=== PATIENT | male | born 1935 | race Caucasian/White ===

== ENCOUNTER → 2020-05-22 12:58 | Outpatient (REF) | payer MEDICARE, SELFPAY ==
--- NOTE | 2020-05-22 13:12 | ECG_ITS ---
Hook-up date: 2020-05-22 14:01:00 Duration: 25:45:00 Test Indications: SINUS MARGARET, SOB W/EXERTION Medications: 67200 QRS complexes 22 Ventricular ectopics which represent <1 % of total QRS comp. 42 Supraventricular ectopics which represent <1 % of total QRS comp. * Paced QRS complexs which represent % of total QRS comp. VENTRICULAR ECTOPY 22 Isolated 0 Bigeminal Cycles 0 Couplets 0 Runs 0 Beats in Runs * Beats LONGEST at * BPM at :: -- * Beats FASTEST at * BPM at :: -- SUPRAVENTRICULAR ECTOPY 42 Isolated 0 Couplets 0 Runs 0 Beats in Runs * Beats LONGEST at * BPM at :: -- * Beats FASTEST at * BPM at :: -- HEART RATES 45 MIN at 11:08:14 2020-05-23 46 AVG 70 MAX at 03:17:30 2020-05-23 LONGEST RR 1.7600 secs at 23:55:04 2020-05-22 S-T LEVELS Channel 1 - 128 mm at 14:01:00 2020-05-22 - 128 mm at 14:01:00 2020-05-22 Channel 2 - 128 mm at 14:01:00 2020-05-22 - 128 mm at 14:01:00 2020-05-22 Channel 3 - 128 mm at 03:32:01 -- - 128 mm at 03:32:01 Basic rhythm Sinus bradycardia Average HR of 46 bpm No long pauses Rare Premature atrial complexes Patient did not report any symptoms in the diary Referred By: Miguel Crabtree Overread By: KEVIN LOREDO MD
--- NOTE | 2020-05-22 13:12 | CA_ITS ---
Transthoracic Echocardiogram Patient (Last, First, Middle): Wil Ray, Gender: Male Date of : 1935 Age: 84 Procedure Date: 05/22/2020 Procedure Type: Transthoracic Echocardiogram Location: OP Height: 172.72 cm Weight: 85.73 kg BSA: 2.00 m2 Heart Rate: bpm BP: 187 / 82 mmHg Electrocardiograph Repairer: Referring MD: Miguel Crabtree MD Symptoms: SOB Study Quality: Fair ECG Rhythm: Sinus Conclusions: - The left ventricular systolic function is normal. The visually estimated ejection fraction is between 65-70%. - No obvious valvular pathology seen on this study. - Mild pulmonary hypertension is present. Findings Left Ventricle Normal left ventricular cavity size. The left ventricular systolic function is normal. The visually estimated ejection fraction is between 65-70%. There is no evidence of regional wall motion abnormalities. Diastolic function is normal for age. Due to poor endocardial definition, unable to assess wall thickness. Right Ventricle Normal right ventricular cavity size and systolic function. Atria The left atrium is normal in size. The right atrium is normal in size. Aortic Valve There is a normal trileaflet aortic valve. There is no aortic valve stenosis. There is trace (trivial) aortic valve regurgitation. Mitral Valve The mitral valve appears normal. There is trace mitral valve regurgitation. There is no mitral valve stenosis. Pulmonic Valve The pulmonic valve was not well visualized. Tricuspid Valve Normal tricuspid valve structure. There is trace tricuspid valve regurgitation. Mild pulmonary hypertension is present. Great Vessels The aortic annulus, sinuses of valsalva, and asc aorta are normal in size. Venous The inferior vena cava is normal in size and collapses greater than 50% with inspiration. Pericardium/Pleural There is no evidence of pericardial effusion. Prior Study Comparison No significant change compared to prior study dated: 02/03/2018. Recommendations, Care & Conclusions No obvious valvular pathology seen on this study. Measurements 2D Linear Measurements LA Diam: 3.50 2.7-3.8/3.0-4.0 cm LAIDs Index: 1.75 1.5-2.3 cm/m2 LVOT Diam: 2.10 3.0+(-)1.3 cm 2D Systolic Function EF 4C: 76.90 >55% EF 2C: 75.80 >55% EF BiP: 77.20 >55% Mitral Valve MV Pk E: 0.71 MV PK A: 0.60 MV Decel Time: 433.00 E/A: 1.20 E'Lateral: 6.67 E'Medial: 6.58 E/E' Med: 10.80 E/E' Lat: 10.60 PHT: 127.00 MVA PHT: 1.73 Decel [place]: 1.64 Aortic Valve AoV Pk Abad: 1.79 AoV Mn Abad: 1.36 AoV VTI: 0.42 AoV Pk Grad: 13.00 Aov Mn Grad: 8.00 ANNABEL Cont.VTI: 2.88 LVOT LVOT Pk Abad: 1.80 LVOT Mn Abad: 1.02 LVOT VTI: 0.35 LVOT Pk Grad: 13.00 LVOT Mn Grad: 5.00 LVOT Diam: 2.10 LVOT Area: 3.46 Diastolic Function MV Pk E: 0.71 MV Pk A: 0.60 E/A: 1.20 E'Medial: 6.58 E/E' Med: 10.80 E' Laterial: 6.67 E/E' Lat: 10.60 Tricuspid Valve TR Pk Abad: 2.61 TR Pk Grad: 27.00 RA Press: 8.00 RVSP: 37.00 Great Vessels Aorta Ao Asc: 3.20 2.1-3.4 cm Ao Arch: 2.80 Updated in Other Vendor System with Status of Final Miguel Crabtree MD electronically signed on 05/23/2020 8:46:37 AM with status of Final
== END ==
LOC: HO.CARD 12:58
PROVIDERS: Visit Provider Internal Medicine
DX: R00.1 Bradycardia, unspecified (principal); R06.02 Shortness of breath
CPT/HCPCS: 93225; 93226; 93306

== ENCOUNTER → 2020-05-30 13:20 | Outpatient (BNVA) | payer MEDICARE, SELFPAY | PROVIDERS: PCP Physician Assistant; Referring Provider Physician Assistant; Visit Provider Internal Medicine | DX: R00.1 Bradycardia, unspecified (principal); I10 Essential (primary) hypertension; R25.1 Tremor, unspecified | CPT/HCPCS: 99212 ==

== ENCOUNTER 2020-06-15 10:22 | Outpatient (REF) | payer MEDICARE, SELFPAY ==
[2020-06-15 12:40] LABS: MANUAL DIFF FLAG NO
[2020-06-15 12:48] LABS: Basophils Absolute Auto 0.1 X10*3/uL (0.0-0.2); Eosinophils Absolute Auto 0.2 X10*3/uL (0.0-0.4); Eosinophils Percent Auto 3.9 % (0-4); Hematocrit 43.7 % (42-52); Hemoglobin 14.4 g/dl (14.0-18.0); Imm Gran Abs Auto 0.01 X10*3/uL (0.00-0.03); Imm Gran Pct Auto 0.2 % (0.0-0.4); Lymphocytes Absolute Auto 1.4 X10*3/uL (1.2-4.9); Lymphocytes Percent Auto 28.6 % (20-40); Mean Corpuscular Hemoglobin 27.2 pg (27.0-33.0); Mean Corpuscular Volume 82.5 fL (80-98); Mean Platelet Volume 11.7 fL (9.4-12.4); Monocytes Absolute Auto 0.5 X10*3/uL (0.1-1.2); Monocytes Percent Auto 10.8 % (2-11); Neutrophils Absolute Auto 2.7 X10*3/uL (2.0-8.3); Neutrophils Percent Auto 55.5 % (45-73); Platelet Count 141 X10*3/uL (160-400); Red Cell Distribution Width 12.9 % (11.0-16.0); White Blood Count 4.9 X10*3/uL (4.8-10.8)
[2020-06-15 13:33] LABS: Alanine Aminotransferase 13 U/L (0-40); Alkaline Phosphatase 55 U/L (39-117); Anion Gap 11 (12-20); Aspartate Amino Transferase 19 U/L (5-37); Bilirubin Total 0.4 mg/dL (0.0-1.0); Blood Urea Nitrogen 17 mg/dL (9-16); Calcium 9.2 mg/dL (8.4-10.2); Carbon Dioxide 36 mmol/L (22-29); Chloride 97 mmol/L (96-108); Cholesterol 193 mg/dL; Estimated Glomerular Filt Rate 53; Glucose Fasting 85 mg/dL (60-99); HDL Cholesterol 44 mg/dL; LDL Cholesterol Calculated 107 mg/dl; Potassium 3.5 mmol/l (3.3-5.1); Sodium 140 mmol/L (135-145); Total Protein 7.2 g/dL (6.5-8.0); Triglycerides 212 mg/dL
[2020-06-15 13:48] LABS: Glucose Urine UA NEG (NEG); Leukocyte Esterase Urine NEG (NEG); Nitrite Urine NEG (NEG); Specific Gravity - Urine >= 1.030 (1.005-1.025); Urine Blood NEG (NEG); Urine Ketones NEG (NEG); Urine Protein NEG (NEG-TRACE)
[2020-06-15 13:55] LABS: Appearance Urine CLEAR; Color Urine YELLOW
[2020-06-15 14:05] LABS: Folate 10.4 ng/mL (> or = 4.0); Vitamin B12 618 pg/mL (200-900)
[2020-06-15 14:23] LABS: TSH reflex Free T4 3.37 mIU/mL (0.32-4.0); Vitamin D 25-OH Total 48.4 ng/mL (>30)
== END 2020-06-15 10:23 | disposition home or self-care (01) ==
LOC: HO.LAB 10:22
PROVIDERS: PCP Internal Medicine; Visit Provider Internal Medicine
DX: E78.5 Hyperlipidemia, unspecified (principal); I12.9 Hypertensive chronic kidney disease with stage 1 through stage 4 chronic kidney disease, or unspecified chronic kidney disease; N18.30 Chronic kidney disease, stage 3 unspecified; R26.81 Unsteadiness on feet; G57.93 Unspecified mononeuropathy of bilateral lower limbs; I25.10 Atherosclerotic heart disease of native coronary artery without angina pectoris; K21.9 Gastro-esophageal reflux disease without esophagitis; E55.9 Vitamin D deficiency, unspecified; R00.1 Bradycardia, unspecified
CPT/HCPCS: 36415; 80053; 80061; 81003; 82306; 82607; 82746; 84443; 85025

== ENCOUNTER → 2020-07-13 12:02 | Outpatient (BNVA) | payer MEDICARE, SELFPAY | PROVIDERS: PCP Internal Medicine; Visit Provider Nurse Practitioner | DX: K21.9 Gastro-esophageal reflux disease without esophagitis (principal); R63.0 Anorexia | CPT/HCPCS: Q3014 ==

== ENCOUNTER 2020-08-03 15:22 | Outpatient (REF) | payer MEDICARE, SELFPAY | END 2020-08-03 15:23 | disposition home or self-care (01) | LOC: HO.LAB 15:22 | PROVIDERS: PCP Internal Medicine; Visit Provider Internal Medicine | DX: Z20.828 Contact with and (suspected) exposure to other viral communicable diseases (principal) | CPT/HCPCS: 36415; C9803; U0003 ==

== ENCOUNTER → 2020-08-15 15:29 | Outpatient (BNVA) | payer MEDICARE, SELFPAY | PROVIDERS: Visit Provider Internal Medicine | DX: J44.9 Chronic obstructive pulmonary disease, unspecified (principal); U07.1 COVID-19 | CPT/HCPCS: Q3014 ==

== ENCOUNTER 2020-08-30 09:24 | Outpatient (REF) | payer MEDICARE, SELFPAY ==
[2020-08-30 10:06] LABS: MANUAL DIFF FLAG NO
[2020-08-30 10:08] LABS: Basophils Percent Auto 0.5 % (0-2); Eosinophils Absolute Auto 0.2 X10*3/uL (0.0-0.4); Eosinophils Percent Auto 4.4 % (0-4); Hematocrit 42.3 % (42-52); Hemoglobin 13.9 g/dl (14.0-18.0); Imm Gran Abs Auto 0.01 X10*3/uL (0.00-0.03); Imm Gran Pct Auto 0.2 % (0.0-0.4); Lymphocytes Absolute Auto 1.8 X10*3/uL (1.2-4.9); Lymphocytes Percent Auto 32.1 % (20-40); Mean Corpuscular HGB Conc 32.9 g/dl (31.0-36.0); Mean Corpuscular Hemoglobin 26.5 pg (27.0-33.0); Mean Corpuscular Volume 80.7 fL (80-98); Mean Platelet Volume 10.3 fL (9.4-12.4); Monocytes Absolute Auto 0.6 X10*3/uL (0.1-1.2); Monocytes Percent Auto 10.9 % (2-11); Neutrophils Absolute Auto 2.8 X10*3/uL (2.0-8.3); Neutrophils Percent Auto 51.9 % (45-73); Platelet Count 142 X10*3/uL (160-400); Red Blood Count 5.24 X10*6/uL (4.60-5.80); Red Cell Distribution Width 13.1 % (11.0-16.0); White Blood Count 5.5 X10*3/uL (4.8-10.8)
[2020-08-30 10:13] LABS: Glucose Urine UA NEG (NEG); Leukocyte Esterase Urine NEG (NEG); Nitrite Urine NEG (NEG); Specific Gravity - Urine 1.025 (1.005-1.025); Urine Blood NEG (NEG); Urine Ketones NEG (NEG); Urine Protein NEG (NEG-TRACE)
[2020-08-30 10:15] LABS: Appearance Urine HAZY; Color Urine YELLOW
[2020-08-30 10:54] LABS: Alanine Aminotransferase 12 U/L (0-40); Albumin Level 3.6 g/dL (3.5-5.0); Alkaline Phosphatase 59 U/L (39-117); Anion Gap 12 (12-20); Aspartate Amino Transferase 18 U/L (5-37); Bilirubin Total 0.4 mg/dL (0.0-1.0); Blood Urea Nitrogen 15 mg/dL (9-16); Calcium 8.9 mg/dL (8.4-10.2); Carbon Dioxide 34 mmol/L (22-29); Chloride 98 mmol/L (96-108); Cholesterol 208 mg/dL; Estimated Glomerular Filt Rate 55; Glucose Fasting 96 mg/dL (60-99); HDL Cholesterol 45 mg/dL; LDL Cholesterol Calculated 105 mg/dl; Potassium 3.6 mmol/L (3.3-5.1); Sodium 140 mmol/L (135-145); Total Protein 6.9 g/dL (6.5-8.0); Triglycerides 294 mg/dL
[2020-08-30 11:17] LABS: TSH reflex Free T4 4.74 uIU/mL (0.32-4.0)
[2020-08-30 11:56] LABS: Free T4 (Free Thyroxine) 0.75 ng/dL (0.71-1.85)
== END 2020-08-30 09:25 | disposition home or self-care (01) ==
LOC: HO.LAB 09:24
PROVIDERS: PCP Internal Medicine; Visit Provider Internal Medicine
DX: K21.9 Gastro-esophageal reflux disease without esophagitis (principal); I12.9 Hypertensive chronic kidney disease with stage 1 through stage 4 chronic kidney disease, or unspecified chronic kidney disease; N18.31 Chronic kidney disease, stage 3a; E78.2 Mixed hyperlipidemia; R25.1 Tremor, unspecified
CPT/HCPCS: 36415; 80053; 80061; 81003; 84439; 84443; 85025

== ENCOUNTER 2020-11-29 07:42 | Outpatient (REF) | payer MEDICARE, MEDICAID, SELFPAY ==
[2020-11-29 08:54] LABS: MANUAL DIFF FLAG NO
[2020-11-29 09:02] LABS: Basophils Absolute Auto 0.1 X10*3/uL (0.0-0.2); Basophils Percent Auto 1.1 % (0-2); Eosinophils Absolute Auto 0.1 X10*3/uL (0.0-0.4); Eosinophils Percent Auto 2.9 % (0-4); Hematocrit 45.1 % (42-52); Hemoglobin 14.9 g/dl (14.0-18.0); Imm Gran Abs Auto 0.02 X10*3/uL (0.00-0.03); Imm Gran Pct Auto 0.4 % (0.0-0.4); Lymphocytes Absolute Auto 1.4 X10*3/uL (1.2-4.9); Lymphocytes Percent Auto 30.5 % (20-40); Mean Corpuscular Hemoglobin 26.7 pg (27.0-33.0); Mean Corpuscular Volume 80.8 fL (80-98); Mean Platelet Volume 10.5 fL (9.4-12.4); Monocytes Absolute Auto 0.5 X10*3/uL (0.1-1.2); Neutrophils Absolute Auto 2.4 X10*3/uL (2.0-8.3); Neutrophils Percent Auto 54.1 % (45-73); Platelet Count 155 X10*3/uL (160-400); Red Blood Count 5.58 X10*6/uL (4.60-5.80); Red Cell Distribution Width 13.3 % (11.0-16.0); White Blood Count 4.5 X10*3/uL (4.8-10.8)
[2020-11-29 09:11] LABS: Alanine Aminotransferase 7 U/L (0-40); Alkaline Phosphatase 59 U/L (39-117); Anion Gap 10 (12-20); Aspartate Amino Transferase 18 U/L (5-37); Bilirubin Total 0.4 mg/dL (0.0-1.0); Blood Urea Nitrogen 17 mg/dL (9-16); Calcium 9.4 mg/dL (8.4-10.2); Carbon Dioxide 35 mmol/L (22-29); Chloride 95 mmol/L (96-108); Cholesterol 209 mg/dL; Estimated Glomerular Filt Rate 52; Glucose Fasting 91 mg/dL (60-99); HDL Cholesterol 48 mg/dL; LDL Cholesterol Calculated 111 mg/dl; Potassium 3.6 mmol/L (3.3-5.1); Sodium 136 mmol/L (135-145); Total Protein 7.5 g/dL (6.5-8.0); Triglycerides 252 mg/dL
[2020-11-29 09:25] LABS: Glucose Urine UA NEG (NEG); Leukocyte Esterase Urine NEG (NEG); Nitrite Urine NEG (NEG); Specific Gravity - Urine 1.025 (1.005-1.025); Urine Blood NEG (NEG); Urine Ketones NEG (NEG); Urine Protein NEG (NEG-TRACE)
[2020-11-29 09:28] LABS: Appearance Urine CLEAR; Color Urine YELLOW
[2020-11-29 09:35] LABS: TSH reflex Free T4 4.25 uIU/mL (0.32-4.0)
== END 2020-11-29 07:43 | disposition home or self-care (01) ==
LOC: HO.LAB 07:42
PROVIDERS: PCP Internal Medicine; Visit Provider Internal Medicine
DX: I12.9 Hypertensive chronic kidney disease with stage 1 through stage 4 chronic kidney disease, or unspecified chronic kidney disease (principal); N18.31 Chronic kidney disease, stage 3a; N40.1 Benign prostatic hyperplasia with lower urinary tract symptoms; N13.8 Other obstructive and reflux uropathy; E55.9 Vitamin D deficiency, unspecified; K21.9 Gastro-esophageal reflux disease without esophagitis; J44.9 Chronic obstructive pulmonary disease, unspecified; E78.2 Mixed hyperlipidemia; E66.3 Overweight; E78.00 Pure hypercholesterolemia, unspecified
CPT/HCPCS: 36415; 80053; 80061; 81003; 82306; 84439; 84443; 85025

== ENCOUNTER 2021-03-05 12:52 | Emergency (ER) | payer MEDICARE, MEDICAID, SELFPAY ==
--- NOTE | ~2021-03-05 | CT_ITS ---
EXAMINATION: CT HEAD WITHOUT CONTRAST CLINICAL INFORMATION: Head trauma. Left facial droop. COMPARISON: May 19, 2009 TECHNIQUE: Contiguous axial imaging was performed from the skull base to vertex without intravenous administration of contrast. This CT examination was performed using dose optimization techniques as appropriate, variously including the following: *Automated exposure control *Adjustment of mA and/or kV according to patient size (this includes techniques or standardized protocols for targeted exams where dose is matched to indication/reason for exam; i.e. extremities or head) *Use of iterative reconstruction technique DLP: 703 mGy-cm FINDINGS: There is no evidence of acute intracranial hemorrhage or territorial infarction. No abnormal mass effect or midline shift is seen. [place] to white matter differentiation is well preserved. No extra-axial fluid collections are identified. There is diffuse prominence of ventricles, sulci, cisterns consistent with generalized atrophy. There is periventricular white matter low density seen consistent with microangiopathy. The osseous structures and soft tissues are normal. The mastoid air cells and visualized portions of the paranasal sinuses are well aerated. CT/CT head/brain wo con IMPRESSION: No acute intracranial pathology. 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
--- NOTE | 2021-03-05 13:06 | ED_ITS ---
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 Patient has chest pain. Family states that he hit his head last week. Daughter noticed facial droop yesterday but now having chest pain. Patient can give no further information. Family states they noticed a facial droop yesterday MD complaint: chest pain Onset (ago): hour(s) Timing of current episode: constant Onset: during rest Pain location: left chest Severity: mild Relieving factors: nothing Risk Factors Coronary artery disease risk factors: hyperlipidemia and hypertension Related Data Home Medications Medication Instructions Recorded Confirmed tiotropium bromide 18 mcg capsule 1 cap INHALATION DAILY 05/18/20 12/18/20 with inhalation device (Spiriva with HandiHaler) fluticasone 500 mcg-salmeterol 50 1 inh INHALATION BID 09/18/20 12/18/20 mcg/dose blistr powdr for inhalation (Wixela Inhub) miscellaneous medical supply ea MISCELLANEOUS 02/27/21 Previous Rx's Medication Instructions Recorded chlorthalidone 25 mg tablet 25 mg PO DAILY #1 tab 05/30/20 losartan 50 mg tablet 50 mg PO DAILY #1 tab 05/30/20 finasteride 5 mg tablet 5 mg PO DAILY #90 tab 07/27/20 cholecalciferol (vitamin D3) 50 50 mcg PO DAILY #90 cap 08/07/20 mcg (2,000 unit) capsule isosorbide mononitrate 30 mg 30 mg PO QAM #90 tab 09/28/20 tablet,extended release 24 hr montelukast 10 mg tablet 10 mg PO BEDTIME #90 tab 12/18/20 omeprazole 20 mg capsule,delayed 20 mg PO DAILY #90 cap 02/05/21 release albuterol sulfate 90 mcg/actuation 2 puff INHALATION Q6H PRN #8.5 g 02/08/21 aerosol inhaler tramadol 50 mg tablet 50 mg PO .2-3 times a day PRN 30 02/12/21 Days #90 tab alprazolam 0.5 mg tablet 0.5 mg PO .every 8 hours PRN 30 02/25/21 Days #90 tab ROLLATOR with wheels and seat #1 ea 03/02/21 cyproheptadine 4 mg tablet 4 mg PO BID #180 tab 03/02/21 trazodone 50 mg tablet 50 mg PO BEDTIME PRN #90 tab 03/02/21 Allergies Allergy/AdvReac Type Severity Reaction Status Date / Time No Known Allergies Allergy Verified 12/18/20 12:39 [No Known Allergies*] Review of Systems Constitutional: Constitutional: Reports no additional constitutional complaints Eyes: Eyes: Reports no additional eye complaints ENT: Denies dizziness Cardiovascular: Cardiovascular: Reports no additional cardiovascular complaints Respiratory: Respiratory: Reports as per HPI Gastrointestinal: Gastrointestinal: Reports no additional gastrointestinal complaints Musculoskeletal: Musculoskeletal: Reports no additional musculoskeletal complaints Integumentary/Breasts: Skin/Breast: Denies rash Neurologic: Reports system reviewed and no additional complaints, except as documented, Denies dizziness and Denies Sensory deficit (Neuro) Psychiatric: Psychiatric: Denies anxiety PMFSH Past Medical History Medical History Anxiety Benign essential hypertension Benign prostatic hyperplasia with urinary obstruction Borderline abnormal TFTs Chronic kidney disease (CKD), stage III (moderate) COPD (chronic obstructive pulmonary disease) COVID-19 Essential hypertension Facet arthritis of lumbosacral region GERD (gastroesophageal reflux disease) Mixed hyperlipidemia Overweight (BMI 25.0-29.9) Sinus bradycardia Vitamin D deficiency Surgical History History of cholecystectomy (~12/2015) History of esophagogastroduodenoscopy (EGD) Family History Family History Father No problems noted. Mother No problems noted. Social History Social History Alcohol intake: never Patient Tobacco Use Status: Never used Tobacco Use of substances other than those prescribed or required for medical reasons: No Advance Directives: Yes Advance Directives Information Provided: Yes Advance Directives on File: No Physical Exam Vital Signs: Vital Signs: Last Vital Signs Pulse 55 03/05/21 16:23 Resp 13 03/05/21 16:23 BP 137/81 03/05/21 16:23 Pulse Ox 98 03/05/21 16:23 Body Mass Index 29.0 Const: Other: elderly male chronically ill in no acute distress Nutritional Appearance: average body habitus Orientation/consciousness: oriented to person HENMT: Head: Yes normal to inspection Ears: external ears normal General nose exam: Normal external nose present Mouth: Normal oral and palatal mucosa present and oropharynx normal Throat: Yes posterior oropharynx normal Eyes: General: appearance normal, both eyes and all related structures Neck: Other: supple Neck: Yes normal visual inspection Chest: Chest palpation & inspection: normal inspection of the chest Resp: Auscultation: clear to auscultation bilaterally Cardio: Jugular venous distension: no JVD Rate: regular rate Rhythm: regular rhythm Heart sounds: S1 normal heart sound present and S2 normal heart sound present GI: Inspection: Yes normal to inspection Palpation (GI): Soft to palpation, nontender and No hepatosplenomegaly present Auscultation: normal bowel sounds : General: Yes no CVA tenderness Back/Spine/Pelvis: Back: no CVA tenderness Skin: General skin exam: no rashes or lesions noted Neuro: Other: patient with only facial droop otherwise nonfocal neuro exam General: oriented to person Cranial nerves: Yes CN's II-XII intact bila terally Motor exam (neuro): 5/5 motor strength present throughout Sensory Exam: No Sensory deficit (Neuro) Extrem: General: Yes normal to inspection Psych: Appearance: grossly normal Course Reevaluation(s) Reevaluation #1: Patient with heart score of 5 will admit Time: 16:09 Reevaluation #2: patient sees Dr. Crabtree and daughter feels comfortable taking him home with follow up with necessary, patient does not want to stay in the hospital will dc home Time: 16:33 Reevaluation #3: Discussed with Dr. Wahl, even with HEART score of 5 probably could feel comfortable discharging with flat troponin Time: 16:34 MDM - Chest Pain Lab Data Result diagrams: 03/05/21 14:09 03/05/21 14:09 Labs: Lab Results 03/05/21 03/05/21 03/05/21 Range/Units 14:09 14:09 14:09 WBC 5.0 (4.8-10.8) X10*3/uL RBC 5.82 H (4.60-5.80) X10*6/uL Hgb 15.5 (14.0-18.0) g/dl Hct 46.4 (42-52) % MCV 79.7 L (80-98) fL MCH 26.6 L (27.0-33.0) pg MCHC 33.4 (31.0-36.0) g/dl RDW 14.0 (11.0-16.0) % Plt Count 125 L (160-400) X10*3/uL MPV 10.4 (9.4-12.4) fL Immature Gran % (Auto) 0.2 (0.0-0.4) % Neut % (Auto) 67.3 (45-73) % Lymph % (Auto) 21.8 (20-40) % [place] % (Auto) 8.7 (2-11) % Eos % (Auto) 1.2 (0-4) % Baso % (Auto) 0.8 (0-2) % Lymph # (Auto) 1.1 L (1.2-4.9) X10*3/uL [place] # (Auto) 0.4 (0.1-1.2) X10*3/uL Eos # (Auto) 0.1 (0.0-0.4) X10*3/uL Baso # (Auto) 0.0 (0.0-0.2) X10*3/uL Abs Immat Gran (auto) 0.01 (0.00-0.03) X10*3/uL Absolute Neuts (auto) 3.3 (2.0-8.3) X10*3/uL Absolute Nucleated RBC 0.000 (0.0-0.012) X10*3/uL Nucleated RBC % (auto) 0.0 (0.0-0.2) /100WBC Sodium 137 (135-145) mmol/L Potassium 3.4 (3.3-5.1) mmol/L Chloride 99 (96-108) mmol/L Carbon Dioxide 27 (22-29) mmol/L Anion Gap 14 (12-20) BUN 16 (9-16) mg/dL Creatinine 1.36 (0.5-1.4) mg/dL Estim Creat Clear Calc 43.9 Estimated GFR 50 Random Glucose 91 (60-115) mg/dL Calcium 9.2 (8.4-10.2) mg/dL Troponin I High Sens 15.5 (<3.5-35.0) ng/L 03/05/21 Range/Units 15:18 WBC (4.8-10.8) X10*3/uL RBC (4.60-5.80) X10*6/uL Hgb (14.0-18.0) g/dl Hct (42-52) % MCV (80-98) fL MCH (27.0-33.0) pg MCHC (31.0-36.0) g/dl RDW (11.0-16.0) % Plt Count (160-400) X10*3/uL MPV (9.4-12.4) fL Immature Gran % (Auto) (0.0-0.4) % Neut % (Auto) (45-73) % Lymph % (Auto) (20-40) % Webster % (Auto) (2-11) % Eos % (Auto) (0-4) % Baso % (Auto) (0-2) % Lymph # (Auto) (1.2-4.9) X10*3/uL Webster # (Auto) (0.1-1.2) X10*3/uL Eos # (Auto) (0.0-0.4) X10*3/uL Baso # (Auto) (0.0-0.2) X10*3/uL Abs Immat Gran (auto) (0.00-0.03) X10*3/uL Absolute Neuts (auto) (2.0-8.3) X10*3/uL Absolute Nucleated RBC (0.0-0.012) X10*3/uL Nucleated RBC % (auto) (0.0-0.2) /100WBC Sodium (135-145) mmol/L Potassium (3.3-5.1) mmol/L Chloride (96-108) mmol/L Carbon Dioxide (22-29) mmol/L Anion Gap (12-20) BUN (9-16) mg/dL Creatinine (0.5-1.4) mg/dL Estim Creat Clear Calc Estimated GFR Random Glucose (60-115) mg/dL Calcium (8.4-10.2) mg/dL Troponin I High Sens 17.8 (<3.5-35.0) ng/L Imaging Data CT scan - head: Radiologist's impression: IMPRESSION: No acute intracranial pathology. ? 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 Discharge Plan Discharge Clinical Impression: Chest pain Patient Disposition: Home, Self-Care Instructions: Chest Pain (ED) Prescriptions: No Action finasteride 5 mg tablet 5 mg PO DAILY Qty: 90 RF: 2 cholecalciferol (vitamin D3) 50 mcg (2,000 unit) capsule 50 mcg PO DAILY Qty: 90 RF: 2 isosorbide mononitrate 30 mg tablet extended release 24 hr 30 mg PO QAM Qty: 90 RF: 1 montelukast 10 mg tablet 10 mg PO BEDTIME Qty: 90 RF: 1 omeprazole 20 mg capsule,delayed release(DR/EC) 20 mg PO DAILY Qty: 90 RF: 0 albuterol sulfate 90 mcg/actuation HFA aerosol inhaler 2 puff inhalation Q6H PRN (Reason: for wheezing) Qty: 8.5 RF: 3 tramadol 50 mg tablet 50 mg PO .2-3 times a day PRN (Reason: pain) 30 Days Qty: 90 RF: 1 alprazolam 0.5 mg tablet 0.5 mg PO .every 8 hours PRN (Reason: anxiety) 30 Days Qty: 90 RF: 0 miscellaneous medical supply Misc miscellaneous RF: 0 (DME) ROLLATOR with wheels and seat See Rx Instructions .Route .MEDSUPPLY Qty: 1 RF: 0 cyproheptadine 4 mg tablet 4 mg PO BID Qty: 180 RF: 1 trazodone 50 mg tablet 50 mg PO BEDTIME PRN (Reason: for insomnia) Qty: 90 RF: 1 Spiriva with HandiHaler 18 mcg capsule, w/inhalation device 1 cap inhalation DAILY RF: 0 fluticasone propion-salmeterol [Wixela Inhub] 500-50 mcg/dose blister with device 1 inh inhalation BID RF: 0 losartan 50 mg tablet 50 mg PO DAILY Qty: 1 RF: 0 chlorthalidone 25 mg tablet 25 mg PO DAILY Qty: 1 RF: 0 Referrals: Baljit Swanson MD [Primary Care Provider] - 1 week Miguel Crabtree MD [Physician] - 2 days
[2021-03-05 13:14] VITALS: BP 167/114; BP 180/110; PULSE 120; PULSE 61; RESP 12; O2SAT 98; BMI 29.0
--- NOTE | 2021-03-05 13:14 | ECG_ITS ---
Test Reason : CHEST PAIN Blood Pressure : / mmHG Vent. Rate : 066 BPM Atrial Rate : 066 BPM P-R Int : 188 ms QRS Dur : 078 ms QT Int : 394 ms P-R-T Axes : 075 -07 039 degrees QTc Int : 413 ms Sinus rhythm with occasional Premature ventricular complexes Nonspecific ST abnormality Abnormal ECG When compared to the previous EKG of Premature ventricular complexes are now Present Referred By: Victor Hugo Nash Electronically Signed By:KEVIN LOREDO MD
--- NOTE | 2021-03-05 13:26 | PC.NURSE ---
no neuro deficit noted. speaks in full sentences. pt is a/o z 1 pt states that the yr was 2022. aware.
[2021-03-05 13:28] VITALS: PULSE 59
[2021-03-05 13:38] VITALS: BP 177/87; PULSE 56; RESP 12; O2SAT 98
[2021-03-05 14:12] LABS: MANUAL DIFF FLAG NO
[2021-03-05 14:18] LABS: Basophils Percent Auto 0.8 % (0-2); Eosinophils Absolute Auto 0.1 X10*3/uL (0.0-0.4); Eosinophils Percent Auto 1.2 % (0-4); Hematocrit 46.4 % (42-52); Hemoglobin 15.5 g/dl (14.0-18.0); Imm Gran Abs Auto 0.01 X10*3/uL (0.00-0.03); Imm Gran Pct Auto 0.2 % (0.0-0.4); Lymphocytes Absolute Auto 1.1 X10*3/uL (1.2-4.9); Lymphocytes Percent Auto 21.8 % (20-40); Mean Corpuscular HGB Conc 33.4 g/dl (31.0-36.0); Mean Corpuscular Hemoglobin 26.6 pg (27.0-33.0); Mean Corpuscular Volume 79.7 fL (80-98); Mean Platelet Volume 10.4 fL (9.4-12.4); Monocytes Absolute Auto 0.4 X10*3/uL (0.1-1.2); Monocytes Percent Auto 8.7 % (2-11); Neutrophils Absolute Auto 3.3 X10*3/uL (2.0-8.3); Neutrophils Percent Auto 67.3 % (45-73); Platelet Count 125 X10*3/uL (160-400); Red Blood Count 5.82 X10*6/uL (4.60-5.80)
[2021-03-05 14:45] LABS: Anion Gap 14 (12-20); Blood Urea Nitrogen 16 mg/dL (9-16); Calcium 9.2 mg/dL (8.4-10.2); Carbon Dioxide 27 mmol/L (22-29); Chloride 99 mmol/L (96-108); Creatinine Clr Calc Pharmacy 43.9; Estimated Glomerular Filt Rate 50; Glucose Random 91 mg/dL (60-115); Potassium 3.4 mmol/L (3.3-5.1); Sodium 137 mmol/L (135-145)
[2021-03-05 14:53] LABS: Troponin-I High Sensitivity 15.5 ng/L (<3.5-35.0)
[2021-03-05 15:48] LABS: Troponin-I High Sensitivity 17.8 ng/L (<3.5-35.0)
[2021-03-05 16:23] VITALS: BP 137/81; PULSE 55; RESP 13; O2SAT 98
--- NOTE | 2021-03-05 16:57 | PHA.MEDREC ---
Pharmacy Consult ? Medication Reconciliation Pharmacy has completed the medication reconciliation.
== END 2021-03-05 17:15 | disposition home or self-care (01) ==
PROVIDERS: Emergency Provider Emergency Medicine; PCP Internal Medicine
DX: R07.9 Chest pain, unspecified (principal); R29.810 Facial weakness; I25.10 Atherosclerotic heart disease of native coronary artery without angina pectoris; I10 Essential (primary) hypertension; E78.5 Hyperlipidemia, unspecified; Z79.899 Other long term (current) drug therapy
CPT/HCPCS: 36415; 70450; 80048; 84484; 85025; 93005; 99284; 99285

== ENCOUNTER 2021-03-16 07:16 | Outpatient (REF) | payer MEDICARE, MEDICAID, SELFPAY ==
[2021-03-16 08:22] LABS: MANUAL DIFF FLAG NO
[2021-03-16 08:27] LABS: Basophils Percent Auto 0.8 % (0-2); Eosinophils Absolute Auto 0.1 X10*3/uL (0.0-0.4); Eosinophils Percent Auto 2.1 % (0-4); Hematocrit 43.7 % (42-52); Hemoglobin 14.5 g/dl (14.0-18.0); Imm Gran Abs Auto 0.01 X10*3/uL (0.00-0.03); Imm Gran Pct Auto 0.2 % (0.0-0.4); Lymphocytes Absolute Auto 1.5 X10*3/uL (1.2-4.9); Lymphocytes Percent Auto 31.4 % (20-40); Mean Corpuscular HGB Conc 33.2 g/dl (31.0-36.0); Mean Corpuscular Hemoglobin 26.4 pg (27.0-33.0); Mean Corpuscular Volume 79.6 fL (80-98); Mean Platelet Volume 10.9 fL (9.4-12.4); Monocytes Absolute Auto 0.6 X10*3/uL (0.1-1.2); Monocytes Percent Auto 13.1 % (2-11); Neutrophils Absolute Auto 2.5 X10*3/uL (2.0-8.3); Neutrophils Percent Auto 52.4 % (45-73); Platelet Count 150 X10*3/uL (160-400); Red Blood Count 5.49 X10*6/uL (4.60-5.80); Red Cell Distribution Width 13.9 % (11.0-16.0); White Blood Count 4.8 X10*3/uL (4.8-10.8)
[2021-03-16 08:47] LABS: Alanine Aminotransferase 14 U/L (0-40); Alkaline Phosphatase 53 U/L (39-117); Anion Gap 14 (12-20); Aspartate Amino Transferase 18 U/L (5-37); Bilirubin Total 0.6 mg/dL (0.0-1.0); Blood Urea Nitrogen 18 mg/dL (9-16); Calcium 9.4 mg/dL (8.4-10.2); Carbon Dioxide 29 mmol/L (22-29); Chloride 100 mmol/L (96-108); Cholesterol 200 mg/dL; Estimated Glomerular Filt Rate 49; Glucose Fasting 91 mg/dL (60-99); HDL Cholesterol 41 mg/dL; LDL Cholesterol Calculated 126 mg/dl; Potassium 3.6 mmol/L (3.3-5.1); Sodium 139 mmol/L (135-145); Total Protein 7.3 g/dL (6.5-8.0); Triglycerides 167 mg/dL
[2021-03-16 09:10] LABS: Free T4 (Free Thyroxine) 0.78 ng/dL (0.71-1.85); Thyroid Stimulating Hormone 6.53 uIU/mL (0.32-4.0); Vitamin D 25-OH Total 53.5 ng/mL (>30)
[2021-03-16 09:21] LABS: Glucose Urine UA NEG (NEG); Leukocyte Esterase Urine NEG (NEG); Nitrite Urine NEG (NEG); PH 6.5 (5.0-8.0); Urine Blood NEG (NEG); Urine Ketones NEG (NEG); Urine Protein NEG (NEG-TRACE)
[2021-03-16 09:35] LABS: Appearance Urine CLEAR; Color Urine YELLOW
[2021-03-17 11:06] LABS: Triiodothyronine T3 Total 128 ng/dL (76-181)
== END 2021-03-16 07:17 | disposition home or self-care (01) ==
LOC: HO.LAB 07:16
PROVIDERS: PCP Internal Medicine; Visit Provider Internal Medicine
DX: I12.9 Hypertensive chronic kidney disease with stage 1 through stage 4 chronic kidney disease, or unspecified chronic kidney disease (principal); N18.31 Chronic kidney disease, stage 3a; K21.9 Gastro-esophageal reflux disease without esophagitis; E55.9 Vitamin D deficiency, unspecified; E66.3 Overweight; E78.2 Mixed hyperlipidemia; R94.6 Abnormal results of thyroid function studies
CPT/HCPCS: 36415; 80053; 80061; 81003; 82306; 84439; 84443; 84480; 85025

== ENCOUNTER 2021-03-30 12:33 | Outpatient (REF) | payer MEDICARE, MEDICAID, SELFPAY ==
--- NOTE | 2021-03-30 13:59 | MHC.AU.ANO ---
Adult Audiological Evaluation Date of Visit: 03/30/21 Customer Experience Professional Used: Declined by Patient Reason for Appointment: Audiologic evaluation due to decreased hearing ability. His daughter, Sasha Nicole, is accompanying Jayden today and reports he turns the volume of the television up very loud and frequently asks people to repeat what was said. Does patient feel they have a hearing loss?: Yes If Yes, Which Ear?: Both Ears Has hearing been tested previously?: Yes Previous Hearing Test Results: Not available for review Hearing Handicap Inventory: HHIE SCORE: 24 Based on HHIE score, patient has: Mild to moderate perceived hearing handicap Ear History: Family History of Hearing Loss?: Yes: Brother Non-Bothersome Tinnitus/Ringing/Noises in Ears: Left Ear History of occupational noise exposure?: Yes History: History: No Medical History: Medical History: High Blood Pressure, Thyroid Disease,Asthma and Anxiety Medication List: Alprazolam, Finasteride, Losartan, Montelukast, Chlorthalidone, Tramadol, Trazadone, Vitamin D3, Omeprazole, ProAir, Spiriva, Advair, Primidone, Levothyroxine Otoscopy: Right Ear: Very deep impacted cerumen Left Ear: Unremarkable Tympanometry: Tympanometry performed due to: To assess integrity of the middle ear system Right Ear: Non-compliant Middle Ear System (Type B) Left Ear: Normal Middle Ear System (Type A) Otoacoustic Emissions Frequency Range Used: Right Ear Results: Not performed at today's visit. Left Ear Results: Not performed at today's visit. 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 - Medical clearance from a physician is required before fitting. - Advised [place] to contact insurance to determine which Hearing Aid providers accept his insurance. Diagnosis: Primary Diagnosis: H90.3 Bilateral Sensorineural Hearing Loss Secondary Diagnosis: H69.91 Unspecified Eustachian Tube Dysfunction, Right Ear Services Performed: Comprehensive Audiological Evaluation (CPT 45550) Tympanometry (CPT 40013) Signature: Provider: Teri Ruiz, CCC-A
== END 2021-03-30 12:34 | disposition home or self-care (01) ==
LOC: HO.SH 12:33
PROVIDERS: Visit Provider Internal Medicine
DX: H90.3 Sensorineural hearing loss, bilateral (principal); H69.91 Unspecified Eustachian tube disorder, right ear
CPT/HCPCS: 92557; 92567

== ENCOUNTER → 2021-04-19 13:59 | Outpatient (BNVA) | payer MEDICARE, MEDICAID, SELFPAY | PROVIDERS: PCP Internal Medicine; Visit Provider Surgery Vascular Surgery | DX: I83.11 Varicose veins of right lower extremity with inflammation (principal); I73.00 Raynaud's syndrome without gangrene | CPT/HCPCS: 99202 ==

== ENCOUNTER 2021-05-08 12:42 | Outpatient (REF) | payer MEDICARE, MEDICAID, SELFPAY ==
--- NOTE | ~2021-05-08 | US_ITS ---
EXAMINATION: BILATERAL LOWER EXTREMITY VENOUS ULTRASOUND (Reflux Exam) CLINICAL INDICATION: Varicose veins. COMPARISON: None. TECHNIQUE: Color flow triplex imaging and compression Doppler was performed to evaluate both the deep and the superficial systems bilaterally. To evaluate the superficial system, the examination was performed in the upright position. Color-flow Doppler ultrasound and compression ultrasound were utilized. In addition, maneuvers were utilized to demonstrate reflux. FINDINGS: 1. DEEP VENOUS ULTRASOUND OF THE RIGHT LOWER EXTREMITY: Common Femoral Vein: Compressible, normal respiratory variation and augmented flow. Femoral vein: Compressible, normal color flow and augmentation. Popliteal Vein: Compressible, normal augmentation. Deep Reflux: Common femoral vein, greater than 1.3 seconds of reflux. There is no evidence of a Cardona's cyst. 2. SUPERFICIAL ULTRASOUND WITH DOPPLER OF RIGHT LOWER EXTREMITY GREAT SAPHENOUS VEIN: Saphenofemoral junction/proximal thigh: 0.7 cm; Reflux: Greater than 0.6 seconds. Max diameter: 0.7 Min diameter: 0.2 Reflux: Reflux is seen within the thigh measuring up to 0.6 seconds. DUPLICATED MEDIAL GREAT SAPHENOUS VEIN: Max Diameter: None Imaged. Reflux: NA DUPLICATED LATERAL GREAT SAPHENOUS VEIN: Diameter: None Imaged. Reflux: NA SMALL SAPHENOUS VEIN: Saphenopopliteal junction: 0.2 cm; Reflux: No evidence of reflux. Min diameter: 0.2 Reflux: No evidence of reflux. VEIN OF GIACOMINI: None Imaged. PERFORATORS: Location: Mid calf, 0.2 cm. Reflux: No reflux. VARICOSITIES: Location: At knee, 0.4 cm. Reflux: No reflux. 3. DEEP VENOUS ULTRASOUND OF THE LEFT LOWER EXTREMITY: Common Femoral Vein: Compressible, normal respiratory variation and augmented flow. Femoral vein: Compressible, normal color flow and augmentation. Popliteal Vein: Compressible, normal augmentation. Deep Reflux: There is common femoral, femoral vein and popliteal vein reflux measuring up to 2.9 seconds within the popliteal vein. There is no evidence of a Cardona's cyst. 4. SUPERFICIAL ULTRASOUND WITH DOPPLER OF LEFT LOWER EXTREMITY GREAT SAPHENOUS VEIN: Saphenopopliteal junction/proximal thigh: 0.9 cm; Reflux: Greater than 1.7 seconds of reflux. Max diameter: 0.9 Min diameter: 0.3 Reflux: Reflux is demonstrated throughout the left great saphenous vein measuring up to 3.2 seconds. DUPLICATED MEDIAL GREAT SAPHENOUS VEIN: Max Diameter: None Imaged Reflux: NA DUPLICATED LATERAL GREAT SAPHENOUS VEIN: Diameter: None Imaged. Reflux: NA SMALL SAPHENOUS VEIN: Saphenofemoral junction: 0.1 cm; Reflux: No evidence of reflux. Min diameter: 0.2 Reflux: No evidence of reflux. VEIN OF GIACOMINI: None Imaged. PERFORATORS: Location: Proximal thigh and midcalf, each measuring 0.2 cm. Reflux: None VARICOSITIES: Location: None Imaged. Reflux: NA US/US venous duplex LE BI IMPRESSION: 1. Bilateral great saphenous venous insufficiency. 2. Bilateral deep venous insufficiency. 3. No evidence of DVT. 4. No evidence of small saphenous venous insufficiency.
== END 2021-05-08 12:43 | disposition home or self-care (01) ==
LOC: HO.US 12:42
PROVIDERS: PCP Internal Medicine; Visit Provider Nurse Practitioner Acute Care
DX: I83.893 Varicose veins of bilateral lower extremities with other complications (principal)
CPT/HCPCS: 93970

== ENCOUNTER → 2021-05-22 13:00 | Outpatient (BNVA) | payer MEDICARE, MEDICAID, SELFPAY | PROVIDERS: PCP Internal Medicine; Visit Provider Surgery Vascular Surgery | DX: I73.00 Raynaud's syndrome without gangrene (principal) | CPT/HCPCS: 99212 ==

== ENCOUNTER → 2021-05-30 15:25 | Outpatient (BNVA) | payer MEDICARE, MEDICAID, SELFPAY | PROVIDERS: PCP Internal Medicine; Visit Provider Internal Medicine | DX: J44.9 Chronic obstructive pulmonary disease, unspecified (principal); J30.9 Allergic rhinitis, unspecified | CPT/HCPCS: 99212 ==

== ENCOUNTER 2021-10-11 09:15 | Outpatient (REF) | payer MEDICARE, MEDICAID, SELFPAY ==
[2021-10-11 09:43] LABS: MANUAL DIFF FLAG NO
[2021-10-11 10:05] LABS: Basophils Percent Auto 0.6 % (0-2); Eosinophils Absolute Auto 0.1 X10*3/uL (0.0-0.4); Eosinophils Percent Auto 1.9 % (0-4); Hematocrit 43.6 % (42.0-52.0); Hemoglobin 14.3 g/dl (14.0-18.0); Imm Gran Abs Auto 0.02 X10*3/uL (0.00-0.03); Imm Gran Pct Auto 0.4 % (0.0-0.4); Lymphocytes Absolute Auto 1.2 X10*3/uL (1.2-4.9); Lymphocytes Percent Auto 22.1 % (20-40); Mean Corpuscular HGB Conc 32.8 g/dl (31.0-36.0); Mean Corpuscular Hemoglobin 26.6 pg (27.0-33.0); Mean Corpuscular Volume 81.2 fL (80.0-98.0); Mean Platelet Volume 10.9 fL (9.4-12.4); Monocytes Absolute Auto 0.5 X10*3/uL (0.1-1.2); Monocytes Percent Auto 10.2 % (2-11); Neutrophils Absolute Auto 3.4 x10*3/uL (2.0-8.3); Neutrophils Percent Auto 64.8 % (45-73); Platelet Count 144 X10*3/uL (160-400); Red Blood Count 5.37 X10*6/uL (4.60-5.80); Red Cell Distribution Width 13.6 % (11.0-16.0); White Blood Count 5.2 X10*3/uL (4.8-10.8)
[2021-10-11 10:58] LABS: Alanine Aminotransferase 13 U/L (0-40); Albumin Level 3.8 g/dL (3.5-5.0); Alkaline Phosphatase 52 U/L (39-117); Anion Gap 13 (12-20); Aspartate Amino Transferase 15 U/L (5-37); Bilirubin Total 0.4 mg/dL (0.0-1.0); Blood Urea Nitrogen 20 mg/dL (9-16); Calcium 9.7 mg/dL (8.4-10.2); Carbon Dioxide 30 mmol/L (22-29); Chloride 101 mmol/L (96-108); Cholesterol 216 mg/dL; Estimated Glomerular Filt Rate 50; Glucose Fasting 92 mg/dL (60-99); HDL Cholesterol 37 mg/dL; LDL Cholesterol Calculated 120 mg/dl; Potassium 3.8 mmol/L (3.3-5.1); Sodium 140 mmol/L (135-145); Total Protein 7.2 g/dL (6.5-8.0); Triglycerides 295 mg/dL
[2021-10-11 11:04] LABS: Free T4 (Free Thyroxine) 0.76 ng/dL (0.71-1.85); Thyroid Stimulating Hormone 2.74 uIU/mL (0.32-4.0); Vitamin D 25-OH Total 46.5 ng/mL (>30)
[2021-10-11 11:06] LABS: Appearance Urine CLEAR; Color Urine YELLOW; Glucose Urine UA NEG (NEG); Leukocyte Esterase Urine NEG (NEG); Nitrite Urine NEG (NEG); Specific Gravity - Urine >= 1.030 (1.005-1.025); UACC Culture Trigger NO; Urine Blood TRACE (NEG); Urine Ketones NEG (NEG); Urine Protein NEG (NEG-TRACE)
[2021-10-11 11:19] LABS: Squamous Epithelial Cell Urine TRACE /LPF; WBC Urine 0-2 /HPF (0-4)
[2021-10-11 11:20] LABS: Bacteria Urine TRACE /LPF; Mucus Urine 2+ /LPF
== END 2021-10-11 09:16 | disposition home or self-care (01) ==
LOC: HO.LAB 09:15
PROVIDERS: PCP Internal Medicine; Visit Provider Internal Medicine
DX: I10 Essential (primary) hypertension (principal); E55.9 Vitamin D deficiency, unspecified; E03.9 Hypothyroidism, unspecified; E78.00 Pure hypercholesterolemia, unspecified
CPT/HCPCS: 36415; 80053; 80061; 81001; 81003; 82306; 84439; 84443; 85025

== ENCOUNTER → 2021-10-29 15:47 | Outpatient (BNVA) | payer MEDICARE, MEDICAID, SELFPAY | PROVIDERS: PCP Internal Medicine; Referring Provider Internal Medicine; Visit Provider Nurse Practitioner | DX: K21.9 Gastro-esophageal reflux disease without esophagitis (principal) | CPT/HCPCS: 99212 ==

== ENCOUNTER → 2021-11-05 14:37 | Outpatient (BNVA) | payer MEDICARE, MEDICAID, SELFPAY | PROVIDERS: PCP Internal Medicine; Visit Provider Anesthesiology | DX: M48.00 Spinal stenosis, site unspecified (principal); M47.817 Spondylosis without myelopathy or radiculopathy, lumbosacral region; M51.36 Other intervertebral disc degeneration, lumbar region; G89.4 Chronic pain syndrome | CPT/HCPCS: 99202 ==

== ENCOUNTER 2021-11-17 13:29 | Emergency (ER) | payer MEDICARE, MEDICAID, SELFPAY ==
--- NOTE | ~2021-11-17 | XR_ITS ---
EXAMINATION: XR KNEE, LEFT CLINICAL INFORMATION: Status post fall COMPARISON: Left knee x-rays of 12/26/2011 TECHNIQUE: Two views of the left knee; AP and crosstable lateral. FINDINGS: Osseous mineralization is normal. Medial and lateral knee joint spaces are preserved with probable minimal narrowing of the medial knee joint space, appearance is similar to that seen on the x-ray of 12/26/2011. Mild subarticular sclerosis is noted in the medial compartment. No evidence of suprapatellar joint effusion. Minimal scattered vascular calcifications are noted. Minimal hypertrophic spurring is noted along the patellar articular margins. Small enthesophyte is noted at the insertion of quadriceps tendon. No evidence of radiopaque foreign body or soft tissue air. XR/XR knee LT 2V IMPRESSION: No evidence of acute fracture or dislocation on the submitted 2 views of the left knee.
--- NOTE | ~2021-11-17 | CT_ITS ---
EXAMINATION: CT CERVICAL SPINE WITHOUT CONTRAST CLINICAL INFORMATION: Head injury and fall COMPARISON: None TECHNIQUE: Axial images through the cervical spine without contrast. Sagittal and coronal reconstructions on the technologist workstation were performed. This CT examination was performed using dose optimization techniques as appropriate, variously including the following: *Automated exposure control *Adjustment of mA and/or kV according to patient size (this includes techniques or standardized protocols for targeted exams where dose is matched to indication/reason for exam; i.e. extremities or head) *Use of iterative reconstruction technique DLP: 554 mGy-cm FINDINGS: Bone alignment is normal. No fracture or dislocation is seen. There is multilevel degenerative spondylosis and degenerative disc disease from C4-C5 to C6-C7. There is mild degenerative spondylosis at C3-C4. There are degenerative changes at the C1 dens articulation. There is bilateral facet arthritis. 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 Prevertebral soft tissues are normal. Visualized lung apices are clear. CT/CT cervical spine wo con IMPRESSION: Degenerative changes. No fracture or dislocation seen. Fleischner guidelines were followed.
--- NOTE | ~2021-11-17 | CT_ITS ---
EXAMINATION: CT HEAD WITHOUT CONTRAST CLINICAL INFORMATION: Fall. Head injury. COMPARISON: Previous head CT February 2021 TECHNIQUE: Contiguous axial imaging was performed from the skull base to vertex without intravenous administration of contrast. This CT examination was performed using dose optimization techniques as appropriate, variously including the following: *Automated exposure control *Adjustment of mA and/or kV according to patient size (this includes techniques or standardized protocols for targeted exams where dose is matched to indication/reason for exam; i.e. extremities or head) *Use of iterative reconstruction technique DLP: 843 mGy-cm FINDINGS: There is no evidence of an extra-axial collection. There is no evidence of intra or extra-axial hemorrhage. The ventricles and extra-axial CSF spaces are prominent suggestive of generalized atrophy. There is mild nonspecific periventricular white matter disease. No mass, mass effect or infarct is seen. Review at bone windows is normal. No skull fracture is seen. There is membranous soft tissue thickening seen in the floor of the left maxillary sinus. There are nasal sinuses, mastoid air cells and middle ears are otherwise clear. CT/CT head/brain wo con IMPRESSION: No acute findings. No change from February 2021 exam.
[2021-11-17 13:32] VITALS: BP 164/70; BP 171/80; PULSE 59; PULSE 66; TEMP 36.5; O2SAT 98; O2SAT 99; BMI 30.7
--- NOTE | 2021-11-17 13:41 | ED.GENADULT ---
HPI - General Adult General Chief complaint: Fall Stated complaint: FALL,HEADSTRIKE,+LOC,+COLLAR,-THINNERS Time Seen by Provider: 11/17/21 13:40 Source: patient, family (daughter) and EMS Mode of arrival: EMS Limitations: language barrier History of Present Illness HPI narrative: Patient is an 86 year old male presenting to the emergency department today with left knee pain and a head after a fall. Patient states that he was walking down his steps at his home and he missed a step and fell. States that he hit the back of his head and had a very brief, less than 10 seconds, loss of consciousness that was witnessed by his daughter. Patient denies any dizziness, lightheadedness, abdominal pain, nausea, vomiting, fever, chills, blurry vision, double vision, loss of vision, chest pain, difficulty breathing, shortness of breath, back pain, night sweats, pain with urination, increased urinary frequency, increased urinary urgency, blood in his urine or stool, bowel incontinence, bladder incontinence, bowel retention, bladder retention, or any other complaints at this time. Patient denies any anti-coagulant medication use. Onset (ago): minute(s) Location: head, left and lower extremity Radiation: non-radiation Severity: mild Severity scale (1-10): 3 Quality: dull Pain Consistency: constant Relieving factors: none Exacerbating factors: none Associated symptoms: denies other symptoms Treatments prior to arrival: none Related Data Home Medications Medication Instructions Recorded Confirmed tiotropium bromide 18 mcg capsule 1 cap INHALATION DAILY 05/18/20 10/15/21 with inhalation device (Spiriva with HandiHaler) miscellaneous medical supply ea MISCELLANEOUS 02/27/21 10/15/21 chlorthalidone 25 mg tablet 25 mg PO Q48H 03/05/21 10/15/21 primidone 50 mg tablet 50 mg PO BID tab 05/30/21 10/15/21 Previous Rx's Medication Instructions Recorded losartan 50 mg tablet 50 mg PO DAILY #1 tab 05/30/20 ROLLATOR with wheels and seat #1 ea 03/20/21 finasteride 5 mg tablet 5 mg PO DAILY #90 tab 04/08/21 levothyroxine 25 mcg tablet 25 mcg PO QAM #90 tab 06/11/21 tramadol 50 mg tablet 50 mg PO BID PRN 15 Days #30 tab 07/04/21 fluticasone 500 mcg-salmeterol 50 1 ea PO BID #180 ea 10/01/21 mcg/dose blistr powdr for inhalation (Torsten Wagnerub) cholecalciferol (vitamin D3) 50 50 mcg PO DAILY 90 Days #90 cap 10/05/21 mcg (2,000 unit) capsule alprazolam 0.5 mg tablet 0.5 mg PO TID PRN 30 Days #90 tab 10/15/21 omeprazole 40 mg capsule,delayed 40 mg PO DAILY 30 Days #30 cap 10/29/21 release tizanidine 4 mg tablet 4 mg PO BEDTIME PRN 30 Days #30 tab 10/31/21 albuterol sulfate 90 mcg/actuation 2 puff PO Q6H PRN #8.5 ea 11/05/21 aerosol inhaler gabapentin 100 mg capsule 100 mg PO BID 30 Days #60 cap 11/05/21 montelukast 10 mg tablet 10 mg PO BEDTIME #90 tab 11/05/21 trazodone 50 mg tablet 50 mg PO BEDTIME PRN #90 tab 11/07/21 Allergies Allergy/AdvReac Type Severity Reaction Status Date / Time No Known Allergies Allergy Verified 11/05/21 14:47 [No Known Allergies*] Review of Systems Constitutional: Constitutional: Reports no additional constitutional complaints, Denies chills, Denies fever(s), Reports headache(s) and Denies night sweats Eyes: Eyes: Reports no additional eye complaints, Denies blurry vision, Denies change in vision, Denies diplopia, Denies eye discharge, Denies loss of vision and Denies eye pain ENT: Denies dizziness and Reports headache(s) Cardiovascular: Cardiovascular: Reports no additional cardiovascular complaints, Denies chest pain, Denies lightheadedness, Denies Loss of Consciousness and Denies dyspnea Respiratory: Respiratory: Reports no additional respiratory complaints and Denies dyspnea Gastrointestinal: Gastrointestinal: Reports no additional gastrointestinal complaints, Denies abdominal pain, Denies melena, Denies hematochezia, Denies change in bowel habits and Denies change in stool character Genitourinary: Genitourinary: Reports no additional male genitourinary complaints, Denies hematuria, Denies oliguria, Denies difficulty urinating, Denies dysuria, Denies urinary frequency, Denies urinary hesitancy, Denies urinary incontinence and Denies urinary urgency Musculoskeletal: Musculoskeletal: Reports no additional musculoskeletal complaints, Denies numbness and Denies tingling Comments: left knee pain Neurologic: Denies dizziness, Reports headache(s), Denies loss of vision, Denies numbness and Denies tingling Psychiatric: Psychiatric: Reports no additional psychiatric complaints Endocrine: Endocrine: Reports no additional endocrine complaints Hematologic/Lymphatic: Hematologic/Lymphatic: Reports no additional hematologic/lymphatic complaints Allergic/Immunologic: Allergic/Immunologic: Reports no additional allergic/immunologic complaints PMFSH Past Medical History Attestation statement: The following information was validated with the patient. 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 Mother No problems noted. Social History Social History Housing: Apartment Alcohol intake: never Patient Tobacco Use Status: Never used Tobacco Second Hand Smoke Exposure: Yes Advance Directives: Yes Advance Directives Information Provided: No Advance Directives on File: No service: No Current occupational status: retired Physical Exam ED Vital Signs: Vital Signs - 24 hr 11/17/21 13:32 Temperature 97.7 F Pulse Rate 59 Blood Pressure 171/80 H Pulse Oximetry 99 BMI result Body Mass Index 30.7 Const General: cooperative, no acute distress, alert and awake Nutritional Appearance: well nourished Orientation/consciousness: patient oriented x3 Limitations: no limitations HENMT Head: Yes normal to inspection, Yes atraumatic and Yes other (patient has a C collar on via EMS) Ears: hearing grossly normal bilaterally and external ears normal General nose exam: Normal external nose present, no nasal discharge noted and no epistaxis Face and sinus: Yes normal facial exam, No abrasion and No laceration Mouth: Normal oral and palatal mucosa present, no drooling and no muffled voice Eyes General: appearance normal, both eyes and all related structures Periorbital: periorbital findings normal Eyelids: Yes eyelids normal Conjunctivae: conjunctivae normal Pupils: Equal, round and reactive pupils present EOM: EOMs intact bilaterally Neck Neck: Yes normal visual inspection, Yes full ROM and Yes no lymphadenopathy Chest Chest palpation & inspection: normal inspection of the chest Resp Effort & Inspection: normal respiratory effort and able to speak in complete sentences Auscultation: clear to auscultation bilaterally Cardio Rate: regular rate Rhythm: regular rhythm GI Inspection: Yes normal to inspection Neuro General: patient oriented x3 and moves all extremities Cranial nerves: Yes Equal, round and reactive pupils present Cognition (Neuro): normal cognition Motor exam (neuro): 5/5 motor strength present throughout Sensory Exam: Normal double simultaneous stimulation for sensation Coordination: [id number] test normal Extrem Other: small abrasion to the left knee, no active bleeding General: Yes full ROM and Yes capillary refill normal Psych Appearance: grossly normal Mental Status: mental status grossly normal Affect: normal affect Attitude: cooperative Thought process: Normal thought process present Thought content: Normal thought content present Insight: Good insight present (Psych) Medical Decision Making MDM Narrative Medical decision making narrative: Patient is an 86 year old male presenting to the emergency department today after a fall. Patient's physical exam showed a small abrasion to the left knee with no active bleeding but was otherwise unremarkable, including a normal neurological examination. Patient's blood work was unremarkable. Patient's left knee x-ray and head CT showed no acute process. I explained my physical exam findings as well as all test results to the patient and the patient's daughter. I answered all questions asked by the patient and the patient's daughter. I stressed the importance of the patient taking his medication as prescribed. I stressed the importance of the patient following up with his primary care provider. I stressed the importance of the patient returning to the emergency department immediately if his symptoms were to worsen or if he were to develop any dizziness, shortness of breath, difficulty breathing, chest pain, blurry vision, loss of vision, nausea, vomiting, abdominal pain, fever, chills, back pain, or any other complaints. Patient and the patient's daughter verbalized agreement and understanding with this treatment plan and discharge. Differential Diagnosis Differential Diagnosis: fall Medical Records Medical records reviewed: Yes I reviewed the patient's medical records. Lab Data Lab results reviewed: Yes I reviewed the patient's lab results. Result diagrams: 11/17/21 14:23 11/17/21 14: Labs: Lab Results 11/17/21 11/17/21 11/17/21 Range/Units 14:23 14: 14:23 WBC 4.4 L (4.8-10.8) X10*3/uL RBC 5.16 (4.60-5.80) X10*6/uL Hgb 13.9 L (14.0-18.0) g/dl Hct 41.6 L (42.0-52.0) % MCV 80.6 (80.0-98.0) fL MCH 26.9 L (27.0-33.0) pg MCHC 33.4 (31.0-36.0) g/dl RDW 13.3 (11.0-16.0) % Plt Count 134 L (160-400) X10*3/uL MPV 10.5 (9.4-12.4) fL Immature Gran % (Auto) 0.7 H (0.0-0.4) % Neut % (Auto) 67.6 (45-73) % Lymph % (Auto) 19.0 L (20-40) % [place] % (Auto) 10.6 (2-11) % Eos % (Auto) 1.4 (0-4) % Baso % (Auto) 0.7 (0-2) % Lymph # (Auto) 0.8 L (1.2-4.9) X10*3/uL [place] # (Auto) 0.5 (0.1-1.2) X10*3/uL Eos # (Auto) 0.1 (0.0-0.4) X10*3/uL Baso # (Auto) 0.0 (0.0-0.2) X10*3/uL Abs Immat Gran (auto) 0.03 (0.00-0.03) X10*3/uL Absolute Neuts (auto) 3.0 (2.0-8.3) x10*3/uL Absolute Nucleated RBC 0.000 (0.0-0.012) X10*3/uL Nucleated RBC % (auto) 0.0 (0.0-0.2) /100WBC PT 11.7 (9.9-13.0) SEC INR 1.0 (0.9-1.1) APTT 35.0 (24.1-38.0) SEC Sodium 138 (135-145) mmol/L Potassium 3.4 (3.3-5.1) mmol/L Chloride 101 (96-108) mmol/L Carbon Dioxide 29 (22-29) mmol/L Anion Gap 11 L (12-20) BUN 20 H (9-16) mg/dL Creatinine 1.35 (0.5-1.4) mg/dL Estim Creat Clear Calc 41.7 Estimated GFR 50 Random Glucose 132 H D (60-115) mg/dL Calcium 9.5 (8.4-10.2) mg/dL Total Bilirubin 0.3 (0.0-1.0) mg/dL AST 19 (5-37) U/L ALT 13 (0-40) U/L Alkaline Phosphatase 51 (39-117) U/L Total Protein 6.9 (6.5-8.0) g/dL Albumin 3.7 (3.5-5.0) g/dL Imaging Data Left knee x-ray: Attestation: I personally reviewed and interpreted this imaging study as follows: My impression: No acute process. Radiologist's impression: EXAMINATION: XR KNEE, LEFT CLINICAL INFORMATION: Status post fall? COMPARISON: Left knee x-rays of 12/26/2011? TECHNIQUE: Two views of the left knee; AP and crosstable lateral. FINDINGS: Osseous mineralization is normal. Medial and lateral knee joint spaces are preserved with probable minimal narrowing of the medial knee joint space, appearance is similar to that seen on the x-ray of 12/26/2011. Mild subarticular sclerosis is noted in the medial compartment. No evidence of suprapatellar joint effusion. Minimal scattered vascular calcifications are noted. Minimal hypertrophic spurring is noted along the patellar articular margins. Small enthesophyte is noted at the insertion of quadriceps tendon. No evidence of radiopaque foreign body or soft tissue air. XR/XR knee LT 2V IMPRESSION: No evidence of acute fracture or dislocation on the submitted 2 views of the left knee. Dictated By: Mary Ellen Naylor MD Signed By: Electronically signed by Mary Ellen Naylor MD 11/17/21 1442 C-Spine CT: Attestation: I personally reviewed and interpreted this imaging study as follows: My impression: No acute process. Radiologist's impression: EXAMINATION: CT CERVICAL SPINE WITHOUT CONTRAST CLINICAL INFORMATION: Head injury and fall? COMPARISON: None? TECHNIQUE: Axial images through the cervical spine without contrast. Sagittal and coronal reconstructions on the technologist workstation were performed. This CT examination was performed using dose optimization techniques as appropriate, variously including the following: *Automated exposure control *Adjustment of mA and/or kV according to patient size (this includes techniques or standardized protocols for targeted exams where dose is matched to indication/reason for exam; i.e. extremities or head) *Use of iterative reconstruction technique DLP: 554 mGy-cm FINDINGS: Bone alignment is normal. No fracture or dislocation is seen. There is multilevel degenerative spondylosis and degenerative disc disease from C4-C5 to C6-C7. There is mild degenerative spondylosis at C3-C4. There are degenerative changes at the C1 dens articulation. There is bilateral facet arthritis. 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 Prevertebral soft tissues are normal. Visualized lung apices are clear. CT/CT cervical spine wo con IMPRESSION: Degenerative changes. No fracture or dislocation seen. ? Fleischner guidelines were followed. Dictated By: Lary Olivo MD Signed By: Electronically signed by Lary Olivo MD 11/17/[address]: Attestation: I personally reviewed and interpreted this imaging study as follows: My impression: No acute process. Radiologist's impression: EXAMINATION: CT HEAD WITHOUT CONTRAST CLINICAL INFORMATION: Fall. Head injury.? COMPARISON: Previous head CT February 2021 TECHNIQUE: Contiguous axial imaging was performed from the skull base to vertex without intravenous administration of contrast. This CT examination was performed using dose optimization techniques as appropriate, variously including the following: *Automated exposure control *Adjustment of mA and/or kV according to patient size (this includes techniques or standardized protocols for targeted exams where dose is matched to indication/reason for exam; i.e. extremities or head) *Use of iterative reconstruction technique DLP: 843 mGy-cm FINDINGS: There is no evidence of an extra-axial collection. There is no evidence of intra or extra-axial hemorrhage. The ventricles and extra-axial CSF spaces are prominent suggestive of generalized atrophy. There is mild nonspecific periventricular white matter disease. No mass, mass effect or infarct is seen. Review at bone windows is normal. No skull fracture is seen. There is membranous soft tissue thickening seen in the floor of the left maxillary sinus. There are nasal sinuses, mastoid air cells and middle ears are otherwise clear. CT/CT head/brain wo con IMPRESSION: No acute findings. No change from February 2021 exam. Dictated By: Lary Olivo MD Signed By: Electronically signed by Lary Olivo MD 11/17/21 1251 Discharge Plan Discharge Clinical Impression: Fall Patient Disposition: Home, Self-Care Instructions: Fall Prevention (ED) Additional Instructions: Follow up with your primary care provider. Return to the emergency department immediately if your symptoms worsen or if you develop any dizziness, shortness of breath, difficulty breathing, chest pain, blurry vision, loss of vision, nausea, vomiting, abdominal pain, fever, chills, back pain, or any other complaints. Prescriptions: No Action miscellaneous medical supply Misc miscellaneous 0RF Rx Instructions: Rollator Walker with seat attachment finasteride 5 mg tablet 5 mg PO DAILY Qty: 90 2RF levothyroxine 25 mcg tablet 25 mcg PO QAM Qty: 90 1RF tramadol 50 mg tablet 50 mg PO BID PRN (Reason: pain) 15 Days Qty: 30 0RF fluticasone propion-salmeterol [Wixela Inhub] 500-50 mcg/dose blister with device 1 ea PO BID Qty: 180 1RF cholecalciferol (vitamin D3) 50 mcg (2,000 unit) capsule 50 mcg PO DAILY 90 Days Qty: 90 1RF alprazolam 0.5 mg tablet 0.5 mg PO TID PRN (Reason: anxiety) 30 Days Qty: 90 0RF tizanidine 4 mg tablet 4 mg PO BEDTIME PRN (Reason: muscle spasticity) 30 Days Qty: 30 1RF montelukast 10 mg tablet 10 mg PO BEDTIME Qty: 90 1RF albuterol sulfate 90 mcg/actuation HFA aerosol inhaler 2 puff PO Q6H PRN (Reason: for wheezing) Qty: 8.5 3RF trazodone 50 mg tablet 50 mg PO BEDTIME PRN (Reason: for insomnia) Qty: 90 1RF chlorthalidone 25 mg tablet 25 mg PO Q48H 0RF primidone 50 mg tablet 50 mg PO BID 0RF Spiriva with HandiHaler 18 mcg capsule, w/inhalation device 1 cap inhalation DAILY 0RF Rx Instructions: puncture 1 cap using device; one dose = 2 inhalations (DME) ROLLATOR with wheels and seat See Rx Instructions .Route .MEDSUPPLY Qty: 1 0RF Rx Instructions: As directed losartan 50 mg tablet 50 mg PO DAILY Qty: 1 0RF omeprazole 40 mg capsule,delayed release(DR/EC) 40 mg PO DAILY 30 Days Qty: 30 6RF gabapentin 100 mg capsule 100 mg PO BID 30 Days Qty: 60 1RF Referrals: Baljit Swanson MD [Primary Care Provider] - (Follow up with your PCP. ) Print Language: Moroccan
[2021-11-17 14:31] LABS: MANUAL DIFF FLAG NO
[2021-11-17 14:34] LABS: Basophils Percent Auto 0.7 % (0-2); Eosinophils Absolute Auto 0.1 X10*3/uL (0.0-0.4); Eosinophils Percent Auto 1.4 % (0-4); Hematocrit 41.6 % (42.0-52.0); Hemoglobin 13.9 g/dl (14.0-18.0); Imm Gran Abs Auto 0.03 X10*3/uL (0.00-0.03); Imm Gran Pct Auto 0.7 % (0.0-0.4); Lymphocytes Absolute Auto 0.8 X10*3/uL (1.2-4.9); Mean Corpuscular HGB Conc 33.4 g/dl (31.0-36.0); Mean Corpuscular Hemoglobin 26.9 pg (27.0-33.0); Mean Corpuscular Volume 80.6 fL (80.0-98.0); Mean Platelet Volume 10.5 fL (9.4-12.4); Monocytes Absolute Auto 0.5 X10*3/uL (0.1-1.2); Monocytes Percent Auto 10.6 % (2-11); Neutrophils Percent Auto 67.6 % (45-73); Platelet Count 134 X10*3/uL (160-400); Red Blood Count 5.16 X10*6/uL (4.60-5.80); Red Cell Distribution Width 13.3 % (11.0-16.0); White Blood Count 4.4 X10*3/uL (4.8-10.8)
[2021-11-17 14:37] LABS: Prothrombin Time 11.7 SEC (9.9-13.0)
[2021-11-17 14:47] LABS: Alanine Aminotransferase 13 U/L (0-40); Albumin Level 3.7 g/dL (3.5-5.0); Alkaline Phosphatase 51 U/L (39-117); Anion Gap 11 (12-20); Aspartate Amino Transferase 19 U/L (5-37); Bilirubin Total 0.3 mg/dL (0.0-1.0); Blood Urea Nitrogen 20 mg/dL (9-16); Calcium 9.5 mg/dL (8.4-10.2); Carbon Dioxide 29 mmol/L (22-29); Chloride 101 mmol/L (96-108); Creatinine Clr Calc Pharmacy 41.7; Estimated Glomerular Filt Rate 50; Glucose Random 132 mg/dL (60-115); Potassium 3.4 mmol/L (3.3-5.1); Sodium 138 mmol/L (135-145); Total Protein 6.9 g/dL (6.5-8.0)
--- NOTE | 2021-11-17 17:30 | PHA.MEDREC ---
Pharmacy Consult ? Medication Reconciliation Pharmacy has completed the medication reconciliation. Used list from family member
[2021-11-17 17:40] VITALS: BP 161/85; PULSE 53; RESP 16; O2SAT 100
== END 2021-11-17 17:41 | disposition home or self-care (01) ==
PROVIDERS: Physician Assistant Medical; Emergency Provider Emergency Medicine; PCP Internal Medicine
DX: S09.90XA Unspecified injury of head, initial encounter (principal); S80.02XA Contusion of left knee, initial encounter; G44.309 Post-traumatic headache, unspecified, not intractable; W10.9XXA Fall (on) (from) unspecified stairs and steps, initial encounter; Y93.9 Activity, unspecified; Y92.9 Unspecified place or not applicable; Y99.9 Unspecified external cause status; Z79.899 Other long term (current) drug therapy
CPT/HCPCS: 36415; 70450; 72125; 73560; 80053; 85025; 85610; 85730; 99284

== ENCOUNTER 2021-11-19 15:04 | Outpatient (REF) | payer MEDICARE, MEDICAID, SELFPAY ==
--- NOTE | ~2021-11-19 | MR_ITS ---
EXAMINATION: MR LUMBAR SPINE WITHOUT CONTRAST CLINICAL INFORMATION: 86-year-old with chronic pain syndrome. Low back pain with radiculopathy. COMPARISON: 08/01/2014 MRI. TECHNIQUE: MRI of the lumbar spine was obtained using routine sequences without contrast. FINDINGS: Coronal Alignment: Normal. Sagittal Alignment: There is 2 mm of grade 1 degenerative spondylolisthesis at L4-L5, stable in appearance. There is 3 mm of grade 1 degenerative spondylolisthesis at L3-L4, stable in appearance. Lordotic curvature is maintained. Lumbosacral Junction: Normal. Rudimentary S1-S2 intervertebral disc, unchanged. Vertebral Bodies: Slight chronic loss of height of the posterior aspect of the L5 vertebral body is stable. Otherwise, vertebral body heights are well maintained. Disc Spaces and Endplates: Moderate intervertebral disc space height loss at L5-S1 with disc desiccation and spondylosis, similar to the previous exam. Mild disc space height loss asymmetric to the right at L4-L5 with intradiscal degenerative signal changes, Schmorl's nodes and spondylosis, similar to the previous exam. Minimal disc space height loss and disc desiccation with minor spondylosis at L3-L4 is unchanged. Probable intradiscal vacuum disc phenomenon at L4-L5 noted on current study. Spinal Canal: No abnormal developmental findings. Bone Marrow: Type I degenerative marrow signal changes seen at the anterosuperior corner of L4 on the current study which is a new finding. Otherwise, no other bone marrow edema. No suspicious marrow-replacing process. Conus Medullaris: Terminates at L1. Morphology and signal is normal. Intradural Nerve Roots: Within normal limits. L5-S1: Diffuse disc bulging with central disc-osteophyte complex, stable in appearance without thecal sac or neural impingement. Mild facet arthrosis noted, stable in appearance without significant spinal canal stenosis. Mild left-sided and moderate right-sided neural foraminal stenosis, stable in appearance. Disc-osteophyte complex abuts the extraforaminal right L5 nerve root, unchanged. L4-L5: Diffuse disc bulging and posterolateral disc-osteophyte complex asymmetric to the right, similar to the previous exam. Previously noted right subarticular extruded disc herniation has resolved. There is improved visualization of the right lateral recess and traversing right L5 nerve root. There is mild left-sided and severe right-sided facet arthropathy, similar to the previous study with stable mild central transverse canal stenosis. There is moderate right-sided subarticular recess stenosis, improved from previous exam but still with some degree of compromise of the traversing right L5 nerve root suggested. Moderate right-sided and minimal left-sided neural foraminal stenosis is stable, with disc-osteophyte complex abutting the exiting right L4 nerve root, unchanged. L3-L4: Unroofing of the posterior disc margin, stable in appearance. Very small central disc protrusion with minimal indentation of the ventral thecal sac, stable in appearance. Underlying superimposed disc bulging encroaching on the neural foramina, left more than right, similar to the previous exam with bilateral annular fissuring, unchanged. Prominent dorsal epidural fat pad, similar to previous exam with ligamentum flavum thickening and severe bilateral facet arthropathy, largely unchanged. Bgda-st-lzymdpce central spinal canal stenosis is stable, and there is iwlh-dw-tpebvmsy bilateral neural foraminal stenosis, stable in appearance, with facet spurring abutting the exiting L3 nerve roots bilaterally, unchanged. L2-L3: Mild left subarticular to foraminal disc protrusion, slightly increased in size from previous exam without neural impingement. Small right subarticular to foraminal disc protrusion, stable in appearance without neural impingement. Mild facet arthrosis bilaterally with mild ligamentum flavum thickening and prominent dorsal epidural fat pad, stable in appearance without significant spinal canal stenosis. Minor foraminal narrowing noted bilaterally without neural impingement. L1-L2: Normal disc contour. Minor facet arthrosis bilaterally. No canal or neural foraminal stenosis. Awos-gj-katukxcc facet arthropathy, right more than left at T11-T12, stable in appearance with mild right-sided foraminal stenosis. Paraspinal/Retroperitoneal: The paravertebral soft tissues are unremarkable. There is a partially imaged 6.5 cm probable cyst arising from the lower pole of the left kidney, increased in size from previous ultrasound of 06/05/2018. MR/MR lumbar spine wo con IMPRESSION: 1. Stable grade 1 degenerative spondylolisthesis at L3-L4 and L4-L5 with stable multilevel discogenic degenerative changes and spondylosis between L2-L3 and L5-S1 inclusive. 2. Resolution of a previously noted right subarticular disc herniation at L4-L5 since previous exam. Otherwise, multilevel disc bulging, disc-osteophyte complexes, ligamentum flavum thickening, and facet arthropathy are largely stable in appearance from previous study with stable mild central canal stenosis at L4-L5 and tvos-kl-tvdzxrlm central canal stenosis at L3-L4. 3. Multilevel bilateral neural foraminal stenosis, as described above, are clearly unchanged in appearance. See above for details. 4. Enlarging lower pole left renal cyst suspected. Incompletely imaged. Limited assessment. If clinically warranted, followup renal ultrasound can be done to reassess.
== END 2021-11-19 15:05 | disposition home or self-care (01) ==
LOC: HO.MRI 15:04
PROVIDERS: Visit Provider Anesthesiology
DX: G62.9 Polyneuropathy, unspecified (principal); M47.817 Spondylosis without myelopathy or radiculopathy, lumbosacral region; M48.00 Spinal stenosis, site unspecified; M51.36 Other intervertebral disc degeneration, lumbar region; G89.4 Chronic pain syndrome
CPT/HCPCS: 72148

== ENCOUNTER 2022-01-14 09:33 | Outpatient (REF) | payer OTHER, SELFPAY ==
--- NOTE | ~2022-01-14 | XR_ITS ---
EXAMINATION: XR SHOULDER, LEFT CLINICAL INFORMATION: Pain COMPARISON: None TECHNIQUE: AP external rotation, Grashey, scapular Y, and axillary views of the left shoulder. FINDINGS: No acute fracture or dislocation. Marginal osteophytes along the glenohumeral and acromioclavicular joint. Heterotopic ossification present along the superior aspect of the abdomen. Calcific tendinopathy of the rotator cuff. XR/XR shoulder LT min 2V IMPRESSION: No acute findings. Degenerative changes and calcific rotator cuff tendinopathy as described.
[2022-01-14 09:51] LABS: MANUAL DIFF FLAG NO
[2022-01-14 10:40] LABS: Basophils Percent Auto 0.6 % (0-2); Eosinophils Absolute Auto 0.1 X10*3/uL (0.0-0.4); Eosinophils Percent Auto 2.1 % (0-4); Hematocrit 43.4 % (42.0-52.0); Hemoglobin 14.4 g/dl (14.0-18.0); Imm Gran Abs Auto 0.02 X10*3/uL (0.00-0.03); Imm Gran Pct Auto 0.4 % (0.0-0.4); Lymphocytes Absolute Auto 1.6 X10*3/uL (1.2-4.9); Lymphocytes Percent Auto 30.6 % (20-40); Mean Corpuscular HGB Conc 33.2 g/dl (31.0-36.0); Mean Corpuscular Hemoglobin 26.6 pg (27.0-33.0); Mean Corpuscular Volume 80.2 fL (80.0-98.0); Mean Platelet Volume 10.7 fL (9.4-12.4); Monocytes Absolute Auto 0.5 X10*3/uL (0.1-1.2); Monocytes Percent Auto 9.9 % (2-11); Neutrophils Absolute Auto 2.9 x10*3/uL (2.0-8.3); Neutrophils Percent Auto 56.4 % (45-73); Platelet Count 149 X10*3/uL (160-400); Red Blood Count 5.41 X10*6/uL (4.60-5.80); Red Cell Distribution Width 13.9 % (11.0-16.0); White Blood Count 5.2 X10*3/uL (4.8-10.8)
[2022-01-14 11:03] LABS: Alanine Aminotransferase 11 U/L (0-40); Albumin Level 3.9 g/dL (3.5-5.0); Alkaline Phosphatase 53 U/L (39-117); Anion Gap 12 (12-20); Aspartate Amino Transferase 16 U/L (5-37); Bilirubin Total 0.7 mg/dL (0.0-1.0); Blood Urea Nitrogen 22 mg/dL (9-16); Calcium 9.3 mg/dL (8.4-10.2); Carbon Dioxide 31 mmol/L (22-29); Chloride 100 mmol/L (96-108); Cholesterol 202 mg/dL; Estimated Glomerular Filt Rate 47; Glucose Fasting 95 mg/dL (60-99); HDL Cholesterol 37 mg/dL; LDL Cholesterol Calculated 119 mg/dl; Potassium 3.3 mmol/L (3.3-5.1); Sodium 140 mmol/L (135-145); Total Protein 7.3 g/dL (6.5-8.0); Triglycerides 230 mg/dL
[2022-01-14 11:05] LABS: Appearance Urine CLEAR; Color Urine YELLOW; Glucose Urine UA NEG (NEG); Leukocyte Esterase Urine NEG (NEG); Nitrite Urine NEG (NEG); PH 5.5 (5.0-8.0); Specific Gravity - Urine 1.025 (1.005-1.025); Urine Blood NEG (NEG); Urine Ketones NEG (NEG); Urine Protein NEG (NEG-TRACE)
[2022-01-14 11:14] LABS: TSH reflex Free T4 2.78 uIU/mL (0.32-4.0)
== END 2022-01-14 09:34 | disposition home or self-care (01) ==
LOC: HO.XRAY 09:33
PROVIDERS: PCP Internal Medicine; Visit Provider Internal Medicine
DX: M48.00 Spinal stenosis, site unspecified (principal); M25.512 Pain in left shoulder; I10 Essential (primary) hypertension; E55.9 Vitamin D deficiency, unspecified; E78.00 Pure hypercholesterolemia, unspecified
CPT/HCPCS: 36415; 73030; 80053; 80061; 81003; 82306; 84443; 85025; 99212

== ENCOUNTER → 2022-01-17 14:36 | Outpatient (BNVA) | payer OTHER, SELFPAY | PROVIDERS: PCP Internal Medicine; Referring Provider Internal Medicine; Visit Provider Nurse Practitioner | DX: K21.9 Gastro-esophageal reflux disease without esophagitis (principal) | CPT/HCPCS: 99212 ==

== ENCOUNTER 2022-05-16 09:07 | Outpatient (REF) | payer OTHER, SELFPAY ==
[2022-05-16 09:33] LABS: MANUAL DIFF FLAG NO
[2022-05-16 10:49] LABS: Basophils Percent Auto 0.7 % (0-2); Eosinophils Absolute Auto 0.1 X10*3/uL (0.0-0.4); Eosinophils Percent Auto 1.5 % (0-4); Hemoglobin 14.7 g/dl (14.0-18.0); Imm Gran Abs Auto 0.02 X10*3/uL (0.00-0.03); Imm Gran Pct Auto 0.4 % (0.0-0.4); Lymphocytes Absolute Auto 1.5 X10*3/uL (1.2-4.9); Lymphocytes Percent Auto 27.2 % (20-40); Mean Corpuscular HGB Conc 33.4 g/dl (31.0-36.0); Mean Corpuscular Hemoglobin 26.8 pg (27.0-33.0); Mean Corpuscular Volume 80.3 fL (80.0-98.0); Monocytes Absolute Auto 0.6 X10*3/uL (0.1-1.2); Monocytes Percent Auto 10.8 % (2-11); Neutrophils Absolute Auto 3.3 x10*3/uL (2.0-8.3); Neutrophils Percent Auto 59.4 % (45-73); Platelet Count 149 X10*3/uL (160-400); Red Blood Count 5.48 X10*6/uL (4.60-5.80); Red Cell Distribution Width 13.3 % (11.0-16.0); White Blood Count 5.5 X10*3/uL (4.8-10.8)
[2022-05-16 11:14] LABS: Appearance Urine Clear; Color Urine Yellow; Glucose Urine UA Negative (Negative); Leukocyte Esterase Urine Negative (Negative); Nitrite Urine Negative (Negative); Specific Gravity - Urine 1.025 (1.005-1.025); Urine Blood Negative (Negative); Urine Ketones Trace mg/dL (Negative); Urine Protein Negative (Neg-Trace)
[2022-05-16 11:35] LABS: Alanine Aminotransferase 11 U/L (0-40); Albumin Level 4.1 g/dL (3.5-5.0); Alkaline Phosphatase 54 U/L (39-117); Anion Gap 16 (12-20); Aspartate Amino Transferase 17 U/L (5-37); Bilirubin Total 0.4 mg/dL (0.0-1.0); Blood Urea Nitrogen 19 mg/dL (9-16); Calcium 9.4 mg/dL (8.4-10.2); Carbon Dioxide 31 mmol/L (22-29); Chloride 98 mmol/L (96-108); Cholesterol 201 mg/dL; Estimated Glomerular Filt Rate 48; Glucose Fasting 93 mg/dL (60-99); HDL Cholesterol 37 mg/dL; LDL Cholesterol Calculated 119 mg/dl; Potassium 3.1 mmol/L (3.3-5.1); Sodium 142 mmol/L (135-145); Total Protein 7.5 g/dL (6.5-8.0); Triglycerides 228 mg/dL
[2022-05-16 11:40] LABS: Free T4 (Free Thyroxine) 0.82 ng/dL (0.71-1.85); Thyroid Stimulating Hormone 3.39 uIU/mL (0.32-4.0); Vitamin D 25-OH Total 47.9 ng/mL (>30)
== END 2022-05-16 09:08 | disposition home or self-care (01) ==
LOC: HO.LAB 09:07
PROVIDERS: PCP Internal Medicine; Visit Provider Internal Medicine
DX: E55.9 Vitamin D deficiency, unspecified (principal); I10 Essential (primary) hypertension; E03.9 Hypothyroidism, unspecified; E78.00 Pure hypercholesterolemia, unspecified
CPT/HCPCS: 36415; 80053; 80061; 81003; 82306; 84439; 84443; 85025

== ENCOUNTER 2022-06-07 13:32 | Emergency (ER) | payer OTHER, SELFPAY ==
--- NOTE | ~2022-06-07 | CT_ITS ---
EXAMINATION: CT LUMBAR SPINE WITHOUT CONTRAST CLINICAL INFORMATION: Status post fall. Pain. COMPARISON: None TECHNIQUE: 2 mm thin axial and reformatted 2 mm thin sagittal and coronal images of lumbar spine were obtained. This CT examination was performed using dose optimization techniques as appropriate, variously including the following: *Automated exposure control *Adjustment of mA and/or kV according to patient size (this includes techniques or standardized protocols for targeted exams where dose is matched to indication/reason for exam; i.e. extremities or head) *Use of iterative reconstruction technique DLP; 989 mGy-cm FINDINGS: On sagittal reconstructed images there is maintained lumbar lordosis. The vertebral heights and alignment is normal. There is vacuum disc phenomena at L4-L5 disc level with mild loss of L5-S1 disc height. Also visualized is mild ventral spondylosis L4-L5 and L5/S1 disc levels. At L3-L4 disc levels are broad-based diffuse bulge flattening the ventral thecal sac with mild AP canal stenosis. The neural foramina are patent bilaterally. At L4-L5 disc level there is a broad-based diffuse bulge without spinal canal stenosis. The neural foramina are narrowed bilaterally from moderate bilateral facet joint arthropathy. At L5-S1 disc level there is no disc bulge, herniation or spinal stenosis. There is moderate bilateral L2-L3, moderate L3-L4 and right L4-L5 facet joint arthropathy and hypertrophy. There is moderate ventral spondylosis as well. There are bilateral renal cysts seen.. The lung bases are clear. CT/CT lumbar spine wo IV con IMPRESSION: No visible acute fracture, lytic or sclerotic process seen. There are degenerative disc changes L3-for L4-L5 and L5/S1 disc levels with bilateral facet joint arthropathy. There is circumferential canal stenosis at the L4-L5 and mild AP canal stenosis L3-L4 disc levels.
--- NOTE | ~2022-06-07 | CT_ITS ---
EXAMINATION: CT HIP WITHOUT CONTRAST, RIGHT CLINICAL INFORMATION: Right hip pain status post fall. COMPARISON: 05/26/2015 TECHNIQUE: Multidetector volumetric imaging was obtained through the right hip without contrast. Multiplanar reformatted images in coronal and sagittal orientations were submitted. This CT examination was performed using dose optimization techniques as appropriate, variously including the following: *Automated exposure control *Adjustment of mA and/or kV according to patient size (this includes techniques or standardized protocols for targeted exams where dose is matched to indication/reason for exam; i.e. extremities or head) *Use of iterative reconstruction technique DLP: 241 mGy-cm FINDINGS: Right proximal femur is intact. No fracture or malalignment identified. Cortices appear intact. [id number]-uroljeav osteoarthritis in the right hip is characterized by mild nonuniform joint space narrowing, marginal osteophytes, subchondral cystic change, and subchondral sclerosis. There is mild osteoarthritis of the pubic symphysis. Imaged portion of the right innominate bone is intact. Musculature at the right hemipelvis and right proximal thigh is normal. No appreciable joint effusion. No surrounding fluid collections. There is mild that stranding in the lateral subcutaneous fat at the thigh. Prostate gland is enlarged, measuring 5 cm transverse. No acute intrapelvic abnormalities. CT/CT hip RT wo IV con IMPRESSION: 1. No acute fracture or malalignment at the right hip. Rdpj-[id number]-abpyjvgf osteoarthritis 2. Prostatomegaly.
[2022-06-07 13:36] VITALS: BP 172/96; PULSE 58; O2SAT 99
[2022-06-07 13:54] VITALS: BP 169/78; PULSE 60; RESP 20; TEMP 36.6; O2SAT 99; BMI 31.3
--- NOTE | 2022-06-07 14:37 | ED.BACK ---
HPI - Back Pain/Injury General Chief Complaint: Back Pain/Injury Stated Complaint: LOWER BACK AND RT LEG PAIN S/P FALL T-1 Time Seen by Provider: 06/07/22 14:32 Source: patient and EMS Mode of arrival: EMS Limitations: no limitations History of Present Illness HPI Narrative: 86 yo male with history of chronic low back pain (followed by Pain Management) with unsteady gait frequent falls, HTN, HLD, COPD, CKD III, GERD who presents to the ER for evaluation of severe low back pain and a right upper leg pain after a fall while getting out of the car yesterday. Patient its daughter helps tried history. She was with him yesterday when he stepped out of the car to going to the [facility] he stays his right leg gave out and he fell. He fell onto his knees and then is right side. He did not hit his head or lose consciousness. Multiple family members required assistance to help get him up. They somehow got him into the home last night and he had difficulty sleeping due to the pain. The pain persisted this morning, severely limiting his mobility, therefore ambulance was called and he was brought to the ER for further evaluation. He states the pain is severe in his middle low back. It is also slightly in his right hip. No other injuries. He has chronic low back pain, previously on tramadol and now on tizanadine. Daughter reports they have offered him surgery in the past but she refused due to his age. He has had several falls at home when trying to get out of his recliner. MD elicited complaint: back pain, back injury and fall Pertinent past history: prior back pain and recent trauma Onset (ago): day(s) Timing: constant Severity: severe Pain scale (0-10): 10 Similar Symptoms Previously: Yes Quality: sharp and stabbing Location: lumbar spine Radiation: right upper leg Exacerbating factors: movement Relieving factors: none Context: fall Associated symptoms: difficulty walking Work related injury: No Related Data Home Medications Medication Instructions Recorded Confirmed tiotropium bromide 18 mcg capsule 1 cap inhalation DAILY 05/18/20 05/20/22 with inhalation device (Spiriva with HandiHaler) chlorthalidone 25 mg tablet 25 mg PO Q48H 03/05/21 05/20/22 primidone 50 mg tablet 50 mg PO BID 05/30/21 05/20/22 lifitegrast 5 % eye drops in a 1 drp ophthalmic (eye) BID 01/17/22 05/20/22 dropperette (Xiidra) Previous Rx's Medication Instructions Recorded losartan 50 mg tablet 50 mg PO DAILY #1 tab 05/30/20 ROLLATOR with wheels and seat #1 ea 03/20/21 tramadol 50 mg tablet 50 mg PO BID PRN pain 15 days #30 07/04/21 tabs fluticasone 500 mcg-salmeterol 50 1 ea PO BID #180 ea 10/01/21 mcg/dose blistr powdr for inhalation (Wixela Inhub) finasteride 5 mg tablet 5 mg PO DAILY #90 tabs 12/10/21 famotidine 40 mg tablet (Pepcid) 40 mg PO BEDTIME #30 tabs 01/17/22 omeprazole 40 mg capsule,delayed 40 mg PO DAILY #30 caps 01/17/22 release cholecalciferol (vitamin D3) 50 50 mcg PO DAILY 90 days #90 caps 02/14/22 mcg (2,000 unit) capsule montelukast 10 mg tablet 10 mg PO BEDTIME #90 tabs 02/14/22 levothyroxine 25 mcg tablet 25 mcg PO QAM #90 tabs 04/23/22 gabapentin 100 mg capsule 100 mg PO BID #60 caps 04/24/22 trazodone 50 mg tablet 50 mg PO BEDTIME PRN for insomnia 04/24/22 #90 tabs tizanidine 4 mg tablet 4 mg PO BEDTIME PRN for muscle 05/22/22 spasm #30 tabs alprazolam 0.5 mg tablet 0.5 mg PO TID PRN anxiety 30 days 05/30/22 #90 tabs albuterol sulfate 90 mcg/actuation 2 puff PO Q6H PRN for wheezing 05/31/22 aerosol inhaler #8.5 ea Allergies Allergy/AdvReac Type Severity Reaction Status Date / Time No Known Allergies Allergy Verified 05/20/22 22:00 [No Known Allergies*] Review of Systems Review of Systems: Constitutional: No Fever, No Chills ENT/Mouth: No sore throat, No Rhinorrhea Cardiovascular: No Chest Pain, No SOB, No Orthopnea, No Edema Respiratory: No Cough, No Sputum, No Wheezing, No dyspnea Gastrointestinal: No Nausea, No Vomiting, No Diarrhea, No abdominal Pain, No bowel incontinence Genitourinary: No Dysuria, No Urinary Frequency, No Hematuria, no urinary incontinence Musculoskeletal: + joint pain, + Myalgias Skin: No Skin Lesions, No rash Neuro: No Weakness, No Numbness, No Dizziness, No Headache Psych: No Anxiety/Panic, No Depression Heme/Lymph: No Bruising, No Lymphadenopathy [facility] Past Medical History Medical History (Updated 06/07/22 @ 15:51 by JEB Kelsey) Acquired hypothyroidism Allergic rhinitis Anxiety Benign essential hypertension Benign prostatic hyperplasia with urinary obstruction Borderline abnormal TFTs Chronic kidney disease (CKD), stage III (moderate) Chronic pain syndrome COPD (chronic obstructive pulmonary disease) COVID-19 Disc degeneration, lumbar Essential hypertension Facet arthritis of lumbosacral region GERD (gastroesophageal reflux disease) Hearing impairment Insomnia Mixed hyperlipidemia Overweight (BMI 25.0-29.9) Peripheral neuropathy Sinus bradycardia Spinal stenosis 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 Mother No problems noted. Social History Social History Housing: Apartment Alcohol intake: never Patient Tobacco Use Status: Never used Tobacco Second Hand Smoke Exposure: Yes Advance Directives: No Advance Directives Information Provided: Yes service: No Current occupational status: retired Cognitive needs: No Hearing needs: No Vision needs: Yes Physical Exam Vital Signs: Vital Signs: Last Vital Signs Temp 98 F 06/07/22 13:54 Pulse 60 06/07/22 13:54 Resp 20 06/07/22 13:54 BP 169/78 H 06/07/22 13:54 Pulse Ox 99 06/07/22 13:54 O2 Del Method 06/07/22 13:54 BMI result Body Mass Index 31.3 Appearance: Alert. Oriented X3. No acute distress. Eyes: Pupils equal, round and reactive to light. ENT: Pharynx normal. Neck: Normal inspection. Neck supple. CVS: Normal heart rate and rhythm. Pulses normal. Respiratory: No respiratory distress. Breath sounds normal. Abdomen: Soft and nontender. +BS x4 Skin: Skin warm and dry. Normal skin color. Normal skin turgor. No rashes. Extremities: right lower extremity held in the slightly flexed position, able to fully extend with minimal lateral hip tenderness. pain with flexion of the right hip. Back: diffuse midline tenderness of the lumabr spine and associated soft tissues. Neuro: Oriented X 3. No motor deficit. No sensory deficit. gait not tested due to pain Course Course Course Narrative: 86 yo male presents to the ER with acute on chronic low back pain s/p fall yesterday. Unable to ambulate due to the pain. No red flag symptoms to suggest cauda equina. Will medicate, get CT scans, basic labs. Anticipate he will require STR given his pain, limited mobility and recurrent falls at home. Reevaluation(s) Reevaluation #1: CT scan lumbar spine No visible acute fracture, lytic or sclerotic process seen. ? There are degenerative disc changes L3-for L4-L5 and L5/S1 disc levels with bilateral facet joint arthropathy. There is circumferential canal stenosis at the L4-L5 and mild AP canal stenosis L3-L4 disc levels. Patient was falling asleep with oxycodone but remains in pain. Discussed concerns for safety at home with the patient and his daughter. Patient is adamant that he does not want to go to a short-term rehab to optimize his strength and mobility. His daughter reports that the patient has been recently wheelchair bound at home and she has been using a Rollator wheelchair to push her around the house and he has required significant help. Patient would rather at home than go to any sort of custodial or short-term rehab. Will discuss with case management to see if there are any options for at home assistance. Reevaluation #2: Patient's daughter lives with the family acts as their PSYCHIATRIC ASSISTANT, gets paid from the insurance company. She will reach out to the primary care doctor on Friday for in regard to possible home PT and additional equipment at home. Case discussed with shoe caser. Unfortunately they are adamant that he does not go to a short-term rehab. Expressed safety concerns given his recurrent falls and limited mobility at home. They expressed understanding and proceed with taking him home. Medications Administered Discontinued Medications Generic Name Dose Route Start Last Admin Trade Name Freq PRN Reason Stop Dose Admin Acetaminophen 975 mg 06/07/22 14:38 06/07/22 15:01 Acetaminophen 325 Mg Tablet PO 06/07/22 14:39 975 mg ONCE ONE Administration Oxycodone HCl 5 mg 06/07/22 14:38 06/07/22 15:01 Oxycodone Hcl Immed Release 5 Mg Tablet PO 06/07/22 14:39 5 mg ONCE ONE Administration MDM - Back Pain/Injury Lab Data Result diagrams: 06/07/22 14:52 06/07/22 14:52 Labs: Lab Results 06/07/22 06/07/22 Range/Units 14:52 14:52 WBC 6.2 (4.8-10.8) X10*3/uL RBC 5.29 (4.60-5.80) X10*6/uL Hgb 14.1 (14.0-18.0) g/dl Hct 42.6 (42.0-52.0) % MCV 80.5 (80.0-98.0) fL MCH 26.7 L (27.0-33.0) pg MCHC 33.1 (31.0-36.0) g/dl RDW 13.4 (11.0-16.0) % Plt Count 127 L (160-400) X10*3/uL MPV 10.3 (9.4-12.4) fL Immature Gran % (Auto) 0.2 (0.0-0.4) % Neut % (Auto) 64.0 (45-73) % Lymph % (Auto) 23.1 (20-40) % [place] % (Auto) 10.7 (2-11) % Eos % (Auto) 1.5 (0-4) % Baso % (Auto) 0.5 (0-2) % Lymph # (Auto) 1.4 (1.2-4.9) X10*3/uL [place] # (Auto) 0.7 (0.1-1.2) X10*3/uL Eos # (Auto) 0.1 (0.0-0.4) X10*3/uL Baso # (Auto) 0.0 (0.0-0.2) X10*3/uL Abs Immat Gran (auto) 0.01 (0.00-0.03) X10*3/uL Absolute Neuts (auto) 4.0 (2.0-8.3) x10*3/uL Absolute Nucleated RBC 0.000 (0.0-0.012) X10*3/uL Nucleated RBC % (auto) 0.0 (0.0-0.2) /100WBC Sodium 139 (135-145) mmol/L Potassium 3.5 (3.3-5.1) mmol/L Chloride 97 (96-108) mmol/L Carbon Dioxide 30 H (22-29) mmol/L Anion Gap 16 (12-20) BUN 22 H (9-16) mg/dL Creatinine 1.38 (0.5-1.4) mg/dL Estim Creat Clear Calc 42.6 Estimated GFR 49 Random Glucose 114 (60-115) mg/dL Calcium 9.1 (8.4-10.2) mg/dL Discharge Plan Discharge Clinical Impression: Low back pain Patient Disposition: Home, Self-Care Instructions: Chronic Back Pain (DC) Additional Instructions: CT scans did not show any acute fractures or broken bones. Lab workup was unremarkable. Recommend following up with the primary care doctor as soon as possible for possible referral for home PT and a wheelchair at home. Recommended short-term rehab however this was decline. If you develop new or worsening symptoms call 911 or come back to the ER for further evaluation. Las tomograf?as computarizadas no mostraron fracturas agudas ni huesos rotos. El estudio de laboratorio fue normal. Recomendar el seguimiento con el m?dico de atenci?n primaria lo antes posible para kirstie posible derivaci?n para fisioterapia domiciliaria y kirstie silla de anant en el hogar. Rehabilitaci?n a corto plazo recomendada, sin embargo, esto fue declive. Si desarrolla s?ntomas nuevos o que empeoran, llame al 911 o regrese a la brittni de emergencias para kirstie evaluaci?n adicional. Prescriptions: No Action tramadol 50 mg tablet 50 mg PO BID PRN (Reason: pain) 15 Days Qty: 30 0RF fluticasone propion-salmeterol [Wixela Inhub] 500-50 mcg/dose blister with device 1 ea PO BID Qty: 180 1RF finasteride 5 mg tablet 5 mg PO DAILY Qty: 90 2RF montelukast 10 mg tablet 10 mg PO BEDTIME Qty: 90 1RF cholecalciferol (vitamin D3) 50 mcg (2,000 unit) capsule 50 mcg PO DAILY 90 Days Qty: 90 1RF levothyroxine 25 mcg tablet 25 mcg PO QAM Qty: 90 1RF gabapentin 100 mg capsule 100 mg PO BID Qty: 60 8RF trazodone 50 mg tablet 50 mg PO BEDTIME PRN (Reason: for insomnia) Qty: 90 1RF tizanidine 4 mg tablet 4 mg PO BEDTIME PRN (Reason: for muscle spasm) Qty: 30 1RF alprazolam 0.5 mg tablet 0.5 mg PO TID PRN (Reason: anxiety) 30 Days Qty: 90 0RF albuterol sulfate 90 mcg/actuation HFA aerosol inhaler 2 puff PO Q6H PRN (Reason: for wheezing) Qty: 8.5 0RF chlorthalidone 25 mg tablet 25 mg PO Q48H primidone 50 mg tablet 50 mg PO BID Spiriva with HandiHaler 18 mcg capsule, w/inhalation device 1 cap inhalation DAILY Rx Instructions: puncture 1 cap using device; one dose = 2 inhalations (DME) ROLLATOR with wheels and seat See Rx Instructions .Route .MEDSUPPLY Qty: 1 0RF Rx Instructions: As directed losartan 50 mg tablet 50 mg PO DAILY Qty: 1 0RF Xiidra 5 % dropperette 1 drp ophthalmic (eye) BID famotidine [Pepcid] 40 mg tablet 40 mg PO BEDTIME Qty: 30 6RF omeprazole 40 mg capsule,delayed release(DR/EC) 40 mg PO DAILY Qty: 30 6RF Referrals: Baljit Swanson MD [Primary Care Provider] - (acute on chronic low back pain, limited mobility) Print Language: Occitan
[2022-06-07 14:56] LABS: MANUAL DIFF FLAG NO
[2022-06-07 14:59] LABS: Basophils Percent Auto 0.5 % (0-2); Eosinophils Absolute Auto 0.1 X10*3/uL (0.0-0.4); Eosinophils Percent Auto 1.5 % (0-4); Hematocrit 42.6 % (42.0-52.0); Hemoglobin 14.1 g/dl (14.0-18.0); Imm Gran Abs Auto 0.01 X10*3/uL (0.00-0.03); Imm Gran Pct Auto 0.2 % (0.0-0.4); Lymphocytes Absolute Auto 1.4 X10*3/uL (1.2-4.9); Lymphocytes Percent Auto 23.1 % (20-40); Mean Corpuscular HGB Conc 33.1 g/dl (31.0-36.0); Mean Corpuscular Hemoglobin 26.7 pg (27.0-33.0); Mean Corpuscular Volume 80.5 fL (80.0-98.0); Mean Platelet Volume 10.3 fL (9.4-12.4); Monocytes Absolute Auto 0.7 X10*3/uL (0.1-1.2); Monocytes Percent Auto 10.7 % (2-11); Platelet Count 127 X10*3/uL (160-400); Red Blood Count 5.29 X10*6/uL (4.60-5.80); Red Cell Distribution Width 13.4 % (11.0-16.0); White Blood Count 6.2 X10*3/uL (4.8-10.8)
[2022-06-07] MEDS: Acetaminophen 325 MG TABLET 975 MG PO (15:01)
[2022-06-07] MEDS: oxyCODONE HCl Immed Release 5 MG TABLET PO (15:01)
[2022-06-07 15:28] LABS: Anion Gap 16 (12-20); Blood Urea Nitrogen 22 mg/dL (9-16); Calcium 9.1 mg/dL (8.4-10.2); Carbon Dioxide 30 mmol/L (22-29); Chloride 97 mmol/L (96-108); Creatinine Clr Calc Pharmacy 42.6; Estimated Glomerular Filt Rate 49; Glucose Random 114 mg/dL (60-115); Potassium 3.5 mmol/L (3.3-5.1); Sodium 139 mmol/L (135-145)
== END 2022-06-07 18:49 | disposition home or self-care (01) ==
PROVIDERS: Physician Assistant; Emergency Provider Emergency Medicine; PCP Internal Medicine
DX: M54.50 Low back pain, unspecified (principal); M79.661 Pain in right lower leg; Z79.899 Other long term (current) drug therapy
CPT/HCPCS: 36415; 72131; 73700; 80048; 85025; 99283; 99284

== ENCOUNTER → 2022-06-12 11:35 | Outpatient (BNVA) | payer OTHER, SELFPAY | PROVIDERS: PCP Internal Medicine; Visit Provider Anesthesiology | DX: M48.00 Spinal stenosis, site unspecified (principal); M47.817 Spondylosis without myelopathy or radiculopathy, lumbosacral region; M51.36 Other intervertebral disc degeneration, lumbar region; G62.9 Polyneuropathy, unspecified; G89.4 Chronic pain syndrome | CPT/HCPCS: Q3014 ==

== ENCOUNTER → 2022-06-26 15:24 | Outpatient (BNVA) | payer OTHER, SELFPAY | PROVIDERS: PCP Internal Medicine; Visit Provider Internal Medicine | DX: J44.9 Chronic obstructive pulmonary disease, unspecified (principal); J98.4 Other disorders of lung; J30.9 Allergic rhinitis, unspecified; E66.9 Obesity, unspecified; M47.817 Spondylosis without myelopathy or radiculopathy, lumbosacral region; G62.9 Polyneuropathy, unspecified; Z79.899 Other long term (current) drug therapy | CPT/HCPCS: 99212 ==

== ENCOUNTER 2022-11-02 15:41 | Emergency (ER) | payer OTHER, SELFPAY ==
--- NOTE | 2022-11-02 | ECG_ITS ---
Test Reason : DIZZINESS Blood Pressure : / mmHG Vent. Rate : 053 BPM Atrial Rate : 053 BPM P-R Int : 198 ms QRS Dur : 068 ms QT Int : 410 ms P-R-T Axes : 073 000 049 degrees QTc Int : 384 ms Sinus bradycardia Nonspecific ST changes Abnormal ECG When compared with ECG of 05-MAR-2021 13:08, Premature ventricular complexes are no longer Present Referred By: Generic ED Physician Electronically Signed By:Varun Major
--- NOTE | ~2022-11-02 | CT_ITS ---
EXAMINATION: CT HEAD W/O IV CONTRAST CT CERVICAL SPINE W/O IV CONTRAST CLINICAL INFORMATION: History of fall with pain COMPARISON: 11/17/2021 TECHNIQUE: Head - Contiguous axial imaging of the head was performed from the skull base to the vertex without the administration of intravenous contrast, and axial images are reconstructed at 2 mm and 5 mm slice thickness. Cervical spine - A volumetric, helical CT acquisition of the cervical spine was obtained without contrast; in addition to the standard set of axial images, multiplanar reformatted images were provided in the coronal and sagittal imaging planes. This CT examination was performed using dose optimization techniques as appropriate, variously including the following: *Automated exposure control *Adjustment of mA and/or kV according to patient size (this includes techniques or standardized protocols for targeted exams where dose is matched to indication/reason for exam; i.e. extremities or head) *Use of iterative reconstruction technique DLP: 1273 mGy-cm (total) FINDINGS: HEAD: No acute intracranial findings compared to 11/17/2021. [place] to white matter differentiation is preserved. No evidence of intracranial hemorrhage, focal mass effect or midline shift. No acute extra-axial fluid collection. Chronic parenchymal volume loss with commensurate prominence of ventricles and sulci. Chronic small vessel ischemic changes within the supratentorial white matter. No acute major vascular territory infarction. The calvarium is intact. There appears to be chronic mild thickening of the [place]ale[place] aponeurotica in the parietal region of the scalp. There is mucus within a left ethmoid air cell. Chronic mucosal thickening of inferior left maxillary sinus is present. Otherwise, the visualized paranasal sinuses, mastoid air cells and middle ear cavities are clear. The temporomandibular joints are normal. Prior ocular lens extractions. CERVICAL SPINE: There is chronic lack of lordotic curvature of the degenerated cervical spine. The craniocervical junction is normal. The occipital condyles, dens and atlantodental articulation are intact. The vertebral body heights and alignment are maintained. No fractures in the anterior or posterior elements. No prevertebral soft tissue edema or soft tissue hematoma. Findings include chronic degenerative disc disease of C4-C5, C5-C6 and C6-C7 and multilevel uncovertebral joint hypertrophy which cause varying degrees of multilevel neural foraminal stenosis. The chronic ossification of the posterior longitudinal ligament at C2 through C4 causes eccentric stenosis of the spinal canal. Multilevel facet arthropathy is present, including moderate facet joint degeneration on the left at C2-C3 and severe facet arthropathy and apparent facet joint ankylosis on the right at C7-T1. The lung apices are excluded from the [id number]. The visualized portion of the thyroid gland is normal. CT/CT cervical spine wo IV con IMPRESSION: * No acute intracranial pathology compared to 11/17/2021. * Chronic volume loss of brain parenchyma with commensurate prominence of ventricles and sulci. * No fracture or traumatic subluxation in the degenerated cervical spine. 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
[2022-11-02 15:48] VITALS: BP 130/80; BP 148/76; PULSE 48; PULSE 56; RESP 11; TEMP 36.6; O2SAT 100; O2SAT 99; BMI 30.9
--- NOTE | 2022-11-02 16:02 | PC.NURSE ---
Patient presenting after a fall. Patient was dizzy after standing up to feed the dog and fell backwards striking his head. No LOC. Upon arrival patient is alert and oriented, denies pain a this time. A 3-4 CM laceration noted to the back of patient's head.
--- NOTE | 2022-11-02 16:18 | PC.NURSE ---
IV obtained and labs drawn on patient. Patient currently in CT.
[2022-11-02 16:20] LABS: MANUAL DIFF FLAG NO
[2022-11-02 16:26] LABS: Eosinophils Absolute Auto 0.1 X10*3/uL (0.0-0.4); Eosinophils Percent Auto 2.1 % (0-4); Mean Corpuscular Hemoglobin 26.2 pg (27.0-33.0); Mean Corpuscular Volume 79.6 fL (80.0-98.0); PLT CLUMP 1; SCAN SMEAR FLAG 1
[2022-11-02 16:29] LABS: Basophils Percent Auto 0.6 % (0-2); Hematocrit 44.9 % (42.0-52.0); Hemoglobin 14.8 g/dl (14.0-18.0); Imm Gran Abs Auto 0.02 X10*3/uL (0.00-0.03); Imm Gran Pct Auto 0.4 % (0.0-0.4); Lymphocytes Absolute Auto 1.2 X10*3/uL (1.2-4.9); Lymphocytes Percent Auto 23.2 % (20-40); Monocytes Absolute Auto 0.6 X10*3/uL (0.1-1.2); Monocytes Percent Auto 10.5 % (2-11); Neutrophils Absolute Auto 3.4 x10*3/uL (2.0-8.3); Neutrophils Percent Auto 63.2 % (45-73); Red Blood Count 5.64 X10*6/uL (4.60-5.80); Red Cell Distribution Width 13.5 % (11.0-16.0)
[2022-11-02 16:31] LABS: Platelet Count 123 X10*3/uL (160-400); White Blood Count 5.3 X10*3/uL (4.8-10.8)
--- NOTE | 2022-11-02 16:39 | ED.FALL ---
HPI - Fall General Chief Complaint: Fall Stated Complaint: FALL W/HEAD LACK,NO THINNER PER EMS Time Seen by Provider: 11/02/22 16:23 Source: patient, EMS, RN notes reviewed and old records reviewed Mode of arrival: EMS History of Present Illness HPI Narrative: 87-year-old male with a past medical history of anxiety, HTN, CKD, COPD, GERD, presenting to the ED complaining of laceration to back of head s/p mechanical trip and fall while walking to feed the dog around 14:00 with + head strike, denies LOC. Denies symptoms prior to fall including headache, lightheadedness/dizziness, CP/SOB. Denies symptoms at present. Last tetanus unknown. Denies headache, vision change/loss, CP/SOB at present, abdominal pain, nausea/vomiting, weakness, urine incontinence retention MD complaint: fall Onset (ago): hour(s) Related Data Home Medications Medication Instructions Recorded Confirmed tiotropium bromide 18 mcg capsule 1 cap inhalation DAILY 05/18/20 05/20/22 with inhalation device (Spiriva with HandiHaler) chlorthalidone 25 mg tablet 25 mg PO Q48H 03/05/21 05/20/22 primidone 50 mg tablet 50 mg PO BID 05/30/21 05/20/22 lifitegrast 5 % eye drops in a 1 drp ophthalmic (eye) BID 01/17/22 05/20/22 dropperette (Xiidra) Previous Rx's Medication Instructions Recorded losartan 50 mg tablet 50 mg PO DAILY #1 tab 05/30/20 ROLLATOR with wheels and seat #1 ea 03/20/21 tramadol 50 mg tablet 50 mg PO BID PRN pain 15 days #30 07/04/21 tabs famotidine 40 mg tablet (Pepcid) 40 mg PO BEDTIME #30 tabs 01/17/22 omeprazole 40 mg capsule,delayed 40 mg PO DAILY #30 caps 01/17/22 release fluticasone 500 mcg-salmeterol 50 1 ea PO BID COPD 30 days #180 ea 06/26/22 mcg/dose blistr powdr for inhalation (Wixela Inhub) montelukast 10 mg tablet 10 mg PO BEDTIME #90 tabs 07/19/22 MANUAL WHEELCHAIR - large #1 ea 08/23/22 famotidine 40 mg tablet (Pepcid) 40 mg PO BEDTIME #30 tabs 08/27/22 cholecalciferol (vitamin D3) 50 50 mcg PO DAILY 90 days #90 caps 08/28/22 mcg (2,000 unit) capsule levothyroxine 25 mcg tablet 25 mcg PO QAM #90 tabs 08/28/22 finasteride 5 mg tablet 5 mg PO DAILY #90 tabs 09/16/22 trazodone 50 mg tablet 50 mg PO BEDTIME PRN for insomnia 09/16/22 #90 tabs famotidine 40 mg tablet (Pepcid) 40 mg PO BEDTIME #30 tabs 09/27/22 famotidine 40 mg tablet (Pepcid) 40 mg PO BEDTIME #30 tabs 10/03/22 albuterol sulfate 90 mcg/actuation 2 puff inhalation Q6H PRN for 10/14/22 aerosol inhaler wheezing 30 days #8.5 ea gabapentin 300 mg capsule 300 mg PO TID 30 days #90 caps 10/21/22 tizanidine 4 mg tablet 4 mg PO BEDTIME PRN for muscle 10/22/22 spasm #30 tabs alprazolam 0.5 mg tablet 0.5 mg PO TID PRN anxiety 30 days 10/28/22 #90 tabs Allergies Allergy/AdvReac Type Severity Reaction Status Date / Time No Known Allergies Allergy Verified 06/26/22 16:22 [No Known Allergies*] Review of Systems Review of Systems: Constitutional: No Fever, No Chills, No Fatigue, No Malaise ENT/Mouth: No Hearing loss, No Ear Pain, No Nasal Congestion, No sore throat, No Rhinorrhea, No Swallowing Difficulty Eyes: No Eye Pain, No Swelling, No Redness, No Vision Changes Cardiovascular: No Chest Pain, No SOB, No Dyspnea on Exertion,No Edema, No Palpitations Respiratory: No Cough, No Sputum, No Dyspnea Gastrointestinal: No Nausea, No Vomiting, No Diarrhea, No Constipation, No Abdominal pain Genitourinary: No irregular bleeding, No Dysuria, No Hematuria, No Urinary Incontinence/retention, No Flank Pain Musculoskeletal: No joint pain, No Myalgias, No Joint Swelling Skin: + Skin Lesions, No rash Neuro: No Weakness, No Numbness, No Paresthesias, No Loss of Consciousness, No Dizziness, No Headache Yes all other systems are reviewed and are negative Constitutional: Constitutional: Reports as per HPI Neurologic: Denies Abnormal speech present [facility] Past Medical History Attestation statement: The following information was validated with the patient. 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 Mother No problems noted. Social History Social History Housing: Apartment Alcohol intake: never Patient Tobacco Use Status: Never used Tobacco Smoked in Last 30 Days: No Second Hand Smoke Exposure: Yes Use of substances other than those prescribed or required for medical reasons: No Advance Directives: No Advance Directives Information Provided: No service: No Current occupational status: retired Cognitive needs: No Hearing needs: No Vision needs: Yes Physical Exam Vital Signs: Vital Signs: Last Vital Signs Temp 98 F 11/02/22 15:48 Pulse 52 11/02/22 17:53 Resp 11 L 11/02/22 15:48 BP 180/69 H 11/02/22 17:53 Pulse Ox 100 11/02/22 15:48 O2 Del Method Room Air 11/02/22 15:48 BMI result Body Mass Index 30.9 Const: General: cooperative, healthy appearing and no acute distress Orientation/consciousness: patient oriented x3 Limitations: no limitations HEENT: Other: + 6 cm linear laceration noted to posterior scalp. Bleeding controlled. No underlying hematoma or palpable step-off Head: Yes normal to inspection, No Cornelius's sign and No raccoon eyes Ears: hearing grossly normal bilaterally General nose exam: Normal external nose present Face and sinus: Yes normal facial exam Mouth: Normal oral and palatal mucosa present Throat: Yes posterior oropharynx normal and Yes uvula midline Eyes: General: appearance normal, both eyes and all related structures Pupils: Equal, round and reactive pupils present EOM: EOMs intact bilaterally Neck: Other: No midline cervical spinous tenderness. + mild right-sided paraspinal/MSK tenderness to palpation Neck: Yes normal visual inspection and Yes no meningeal signs Chest: Chest palpation & inspection: normal inspection of the chest, no crepitus and no tenderness Resp: Effort & Inspection: normal respiratory effort and no respiratory distress Auscultation: clear to auscultation bilaterally, no crackles, no rales, no rhonchi and no wheezes Cardio: Rate: regular rate Heart sounds: S1 normal heart sound present and S2 normal heart sound present GI: Inspection: Yes normal to inspection Palpation (GI): Soft to palpation, nontender, no guarding and not rigid : General: Yes no CVA tenderness Back/Spine/Pelvis: Other: No midline thoracic/lumbar spinous tenderness/step-off or deformity Back: no CVA tenderness Skin: Rashes: no rashes Neuro: General: patient oriented x3, gait normal, tone normal, moves all extremities, no meningeal signs, no focal motor deficits and CN's II-XI intact bilaterally Cranial nerves: Yes CN's II-XII intact bilaterally, Yes Equal, round and reactive pupils present and Yes Bilaterally intact EOM present Cognition (Neuro): normal cognition Speech: No Abnormal speech present Gait exam (Neuro): Normal gait present Motor exam (neuro): 5/5 motor strength present throughout and Pronator motor function not present Extrem: General: Yes normal to inspection Course Course Course Narrative: CT head/brain wo IV con/CT cervical spine wo IV con IMPRESSION: *? No acute intracranial pathology compared to 11/17/2021. *? Chronic volume loss of brain parenchyma with commensurate prominence of ventricles and sulci. *? No fracture or traumatic subluxation in the degenerated cervical spine. *? 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 -orthostatic vital signs negative 1800--ED care transferred to [facility] pending labs, UA, and dispo Procedures Laceration Laceration 1: Site: scalp Size (cm): 6 Description: linear Depth: simple, single layer Pre-repair: wound explored, irrigated extensively and deep structures intact Number of sutures: 10 ([place]) Medical Decision Making Medical Decision Making [facility] Narrative: 87-year-old male with a past medical history of anxiety, HTN, CKD, COPD, GERD, presenting to the ED complaining of laceration to back of head s/p mechanical trip and fall while walking to feed the dog around 14:00 with + head strike, denies LOC. On exam mild bradycardic, NAD, nontoxic appearing, A& O x3, no focal deficits, laceration noted to posterior scalp as depicted above. Last tetanus unknown. Concern for ICH vs fracture. Patient persistently denies symptoms prior to fall or at present. Lower suspicion for ACS/PE, infectious or metabolic etiologies Plan: EKG, POC, orthostatics, head/C-spine CT, update tetanus, repair wound Please refer to course for remaining clinical decision making, interpretation of labs/imaging results, and discussions with consultants and/or family members. Differential Diagnosis Differential Diagnoses: The differential diagnosis associated with the presentation includes As above Admission/Observation Consideration of admission/observation: Escalation of care including admission/observation considered Lab Data [facility] Lab Attestation statement: I reviewed the patient's lab results. 11/02/22 16:16 11/02/22 16:16 Labs: Lab Results 11/02/22 11/02/22 Range/Units 16:16 16:16 WBC 5.3 (4.8-10.8) X10*3/uL RBC 5.64 (4.60-5.80) X10*6/uL Hgb 14.8 (14.0-18.0) g/dl Hct 44.9 (42.0-52.0) % MCV 79.6 L (80.0-98.0) fL MCH 26.2 L (27.0-33.0) pg MCHC 33.0 (31.0-36.0) g/dl RDW 13.5 (11.0-16.0) % Plt Count 123 L (160-400) X10*3/uL MPV 11.0 (9.4-12.4) fL Immature Gran % (Auto) 0.4 (0.0-0.4) % Neut % (Auto) 63.2 (45-73) % Lymph % (Auto) 23.2 (20-40) % [place] % (Auto) 10.5 (2-11) % Eos % (Auto) 2.1 (0-4) % Baso % (Auto) 0.6 (0-2) % Lymph # (Auto) 1.2 (1.2-4.9) X10*3/uL [place] # (Auto) 0.6 (0.1-1.2) X10*3/uL Eos # (Auto) 0.1 (0.0-0.4) X10*3/uL Baso # (Auto) 0.0 (0.0-0.2) X10*3/uL Abs Immat Gran (auto) 0.02 (0.00-0.03) X10*3/uL Absolute Neuts (auto) 3.4 (2.0-8.3) x10*3/uL Absolute Nucleated RBC 0.000 (0.0-0.012) X10*3/uL Nucleated RBC % (auto) 0.0 (0.0-0.2) /100WBC Sodium Cancelled Potassium Cancelled Chloride Cancelled Carbon Dioxide Cancelled Anion Gap Cancelled BUN Cancelled Creatinine Cancelled Estim Creat Clear Calc Cancelled Estimated GFR Cancelled Random Glucose Cancelled Calcium Cancelled Total Bilirubin Cancelled Direct Bilirubin Cancelled AST Cancelled ALT Cancelled Alkaline Phosphatase Cancelled Total Protein Cancelled Albumin Cancelled Lipase Cancelled Independent Interpretation I performed an independent interpretation of an: EKG (EKG sinus bradycardia rate of 53. AR interval 198. Premature PVCs no longer present when compared to priors. No STEMI. ) Radiology Impression Discussion of test interpretation with radiology: I have reviewed the radiologist's reading. External Record Review External record reviewed: Inpatient record, Office record, Outpatient record, Prior outpatient labs, Prior outpatient radiology, Primary care record and Outside ED record Discharge Plan Discharge Clinical Impression: Laceration of scalp, Fall Patient Disposition: Still a Patient Instructions: Laceration (DC), Fall Prevention (ED) Additional Instructions: Your head CT and cervical spine CT are without acute findings Your wound was repaired today in the emergency department. Keep dry and clean. You need to return to any emergency department, urgent care, or your PCPs office in 7-10 days for staple removal If area begins look infected, is red, there is drainage, streaking, or you have fever please return to the emergency department Prescriptions: No Action tramadol 50 mg tablet 50 mg PO BID PRN (Reason: pain) 15 Days Qty: 30 0RF montelukast 10 mg tablet 10 mg PO BEDTIME Qty: 90 1RF (DME) MANUAL WHEELCHAIR - large large See Rx Instructions .Route .MEDSUPPLY Qty: 1 0RF Rx Instructions: As directed famotidine [Pepcid] 40 mg tablet 40 mg PO BEDTIME Qty: 30 0RF cholecalciferol (vitamin D3) 50 mcg (2,000 unit) capsule 50 mcg PO DAILY 90 Days Qty: 90 1RF levothyroxine 25 mcg tablet 25 mcg PO QAM Qty: 90 1RF finasteride 5 mg tablet 5 mg PO DAILY Qty: 90 2RF trazodone 50 mg tablet 50 mg PO BEDTIME PRN (Reason: for insomnia) Qty: 90 1RF famotidine [Pepcid] 40 mg tablet 40 mg PO BEDTIME Qty: 30 6RF famotidine [Pepcid] 40 mg tablet 40 mg PO BEDTIME Qty: 30 6RF albuterol sulfate 90 mcg/actuation HFA aerosol inhaler 2 puff inhalation Q6H PRN (Reason: for wheezing) 30 Days Qty: 8.5 3RF gabapentin 300 mg capsule 300 mg PO TID 30 Days Qty: 90 1RF tizanidine 4 mg tablet 4 mg PO BEDTIME PRN (Reason: for muscle spasm) Qty: 30 1RF alprazolam 0.5 mg tablet 0.5 mg PO TID PRN (Reason: anxiety) 30 Days Qty: 90 0RF chlorthalidone 25 mg tablet 25 mg PO Q48H primidone 50 mg tablet 50 mg PO BID Spiriva with HandiHaler 18 mcg capsule, w/inhalation device 1 cap inhalation DAILY Rx Instructions: puncture 1 cap using device; one dose = 2 inhalations (DME) ROLLATOR with wheels and seat See Rx Instructions .Route .MEDSUPPLY Qty: 1 0RF Rx Instructions: As directed losartan 50 mg tablet 50 mg PO DAILY Qty: 1 0RF Xiidra 5 % dropperette 1 drp ophthalmic (eye) BID famotidine [Pepcid] 40 mg tablet 40 mg PO BEDTIME Qty: 30 6RF omeprazole 40 mg capsule,delayed release(DR/EC) 40 mg PO DAILY Qty: 30 6RF fluticasone propion-salmeterol [Wixela Inhub] 500-50 mcg/dose blister with device 1 ea PO BID 30 Days Qty: 180 5RF Referrals: Physician,Unknown J [Primary Care Provider] - 1 week (For staple removal)
[2022-11-02 17:49] VITALS: BP 173/73; PULSE 46
[2022-11-02 17:50] VITALS: BP 170/76; PULSE 49
[2022-11-02 17:53] VITALS: BP 180/69; PULSE 52
[2022-11-02 18:12] LABS: Alanine Aminotransferase 15 U/L (0-40); Albumin Level 4.1 g/dL (3.5-5.0); Alkaline Phosphatase 59 U/L (39-117); Anion Gap 13 (12-20); Aspartate Amino Transferase 18 U/L (5-37); Bilirubin Direct 0.2 mg/dL (0.0-0.5); Bilirubin Total 0.5 mg/dL (0.0-1.0); Blood Urea Nitrogen 17 mg/dL (9-16); Calcium 9.8 mg/dL (8.4-10.2); Carbon Dioxide 34 mmol/L (22-29); Chloride 99 mmol/L (96-108); Creatinine Clr Calc Pharmacy 48.1; Estimated Glomerular Filt Rate 56; Glucose Random 75 mg/dL (60-115); Magnesium 1.6 mg/dL (1.6-2.6); Potassium 4.2 mmol/L (3.3-5.1); Sodium 142 mmol/L (135-145); Total Protein 7.5 g/dL (6.5-8.0)
[2022-11-02] MEDS: Diphth,Pertus(ACell),Tet Adult 0.5 ML SYRINGE IM (18:36)
== END 2022-11-02 18:45 | disposition still patient (30) ==
PROVIDERS: Physician Assistant; Emergency Provider Emergency Medicine
DX: S01.01XA Laceration without foreign body of scalp, initial encounter (principal); W01.10XA Fall on same level from slipping, tripping and stumbling with subsequent striking against unspecified object, initial encounter; I12.9 Hypertensive chronic kidney disease with stage 1 through stage 4 chronic kidney disease, or unspecified chronic kidney disease; N18.30 Chronic kidney disease, stage 3 unspecified; E78.5 Hyperlipidemia, unspecified; Y93.89 Activity, other specified; Y92.030 Kitchen in apartment as the place of occurrence of the external cause; Y99.9 Unspecified external cause status
CPT/HCPCS: 12002; 36415; 70450; 72125; 80048; 80076; 83735; 84484; 85025; 90471; 90715; 93005; 99284

== ENCOUNTER 2023-01-07 10:37 | Outpatient (REF) | payer OTHER, SELFPAY ==
[2023-01-07 11:07] LABS: MANUAL DIFF FLAG NO
[2023-01-07 11:28] LABS: Basophils Percent Auto 0.5 % (0-2); Eosinophils Absolute Auto 0.1 X10*3/uL (0.0-0.4); Eosinophils Percent Auto 2.2 % (0-4); Hemoglobin 14.9 g/dl (14.0-18.0); Imm Gran Abs Auto 0.02 X10*3/uL (0.00-0.03); Imm Gran Pct Auto 0.4 % (0.0-0.4); Lymphocytes Absolute Auto 1.7 X10*3/uL (1.2-4.9); Lymphocytes Percent Auto 30.8 % (20-40); Mean Corpuscular HGB Conc 32.4 g/dl (31.0-36.0); Mean Corpuscular Hemoglobin 26.2 pg (27.0-33.0); Mean Corpuscular Volume 80.8 fL (80.0-98.0); Mean Platelet Volume 10.5 fL (9.4-12.4); Monocytes Absolute Auto 0.6 X10*3/uL (0.1-1.2); Monocytes Percent Auto 10.6 % (2-11); Neutrophils Percent Auto 55.5 % (45-73); Platelet Count 155 X10*3/uL (160-400); Red Blood Count 5.69 X10*6/uL (4.60-5.80); Red Cell Distribution Width 13.7 % (11.0-16.0); White Blood Count 5.5 X10*3/uL (4.8-10.8)
[2023-01-07 12:05] LABS: Appearance Urine Clear; Color Urine Yellow; Glucose Urine UA Negative (Negative); Leukocyte Esterase Urine Negative (Negative); Nitrite Urine Negative (Negative); PH 5.5 (5.0-9.0); Specific Gravity - Urine 1.025 (1.005-1.025); Urine Blood Negative (Negative); Urine Ketones Trace mg/dL (Negative); Urine Protein Negative (Neg-Trace)
[2023-01-07 12:09] LABS: Anion Gap 14 (12-20); Blood Urea Nitrogen 20 mg/dL (9-16); Calcium 10.1 mg/dL (8.4-10.2); Carbon Dioxide 30 mmol/L (22-29); Chloride 101 mmol/L (96-108); Estimated Glomerular Filt Rate 52; Potassium 3.3 mmol/L (3.3-5.1); Sodium 142 mmol/L (135-145)
[2023-01-07 12:22] LABS: Alanine Aminotransferase 16 U/L (0-40); Albumin Level 4.1 g/dL (3.5-5.0); Alkaline Phosphatase 60 U/L (39-117); Anion Gap 12 (12-20); Aspartate Amino Transferase 19 U/L (5-37); Bilirubin Total 0.6 mg/dL (0.0-1.0); Blood Urea Nitrogen 20 mg/dL (9-16); Calcium 10.1 mg/dL (8.4-10.2); Carbon Dioxide 32 mmol/L (22-29); Chloride 101 mmol/L (96-108); Cholesterol 204 mg/dL; Estimated Glomerular Filt Rate 52; Glucose Fasting 93 mg/dL (60-99); HDL Cholesterol 36 mg/dL; LDL Cholesterol Calculated 121 mg/dl; Potassium 3.1 mmol/L (3.3-5.1); Sodium 142 mmol/L (135-145); Total Protein 8.3 g/dL (6.5-8.0); Triglycerides 238 mg/dL
[2023-01-07 12:30] LABS: Free T4 (Free Thyroxine) 0.82 ng/dL (0.71-1.85)
[2023-01-07 12:40] LABS: Folate 10.5 ng/mL (> or = 4.0); Vitamin B12 378 pg/mL (200-900)
== END 2023-01-07 10:38 | disposition home or self-care (01) ==
LOC: HO.LAB 10:37
PROVIDERS: PCP Internal Medicine; Visit Provider Internal Medicine Nephrology
DX: I12.9 Hypertensive chronic kidney disease with stage 1 through stage 4 chronic kidney disease, or unspecified chronic kidney disease (principal); N18.31 Chronic kidney disease, stage 3a; E55.9 Vitamin D deficiency, unspecified; E53.8 Deficiency of other specified B group vitamins; R30.0 Dysuria; E78.00 Pure hypercholesterolemia, unspecified; E03.9 Hypothyroidism, unspecified
CPT/HCPCS: 36415; 80051; 80053; 80061; 81003; 82306; 82310; 82565; 82607; 82746; 84439; 84520; 85025

== ENCOUNTER 2023-01-19 21:23 | Emergency (ER) | payer OTHER, SELFPAY ==
--- NOTE | ~2023-01-19 | XR_ITS ---
EXAMINATION: XR FOOT, RIGHT CLINICAL INFORMATION: Fifth toe pain COMPARISON: None available. TECHNIQUE: AP, lateral, and oblique views of the right foot. FINDINGS: There is dislocation at the DIP joint of the fifth digit with dorsal and mild lateral displacement of the distal phalanx. No definite fracture is seen. Some mild degenerative changes are seen elsewhere in the foot. XR/XR foot RT min 3V IMPRESSION: Dislocation at the DIP joint of the fifth digit.
[2023-01-19 21:29] VITALS: BP 160/90; PULSE 59; O2SAT 99
[2023-01-19 21:31] VITALS: BP 148/85; PULSE 57; RESP 16; TEMP 37.1; O2SAT 99; BMI 33.7
[2023-01-19 21:34] VITALS: BP 148/85; PULSE 59; RESP 18; TEMP 37.1; O2SAT 96
--- NOTE | 2023-01-19 21:44 | ED.FALL ---
HPI - Fall General Chief Complaint: Fall Stated Complaint: tripped fall Time Seen by Provider: 01/19/23 21:41 Source: patient Mode of arrival: ambulatory Limitations: no limitations History of Present Illness HPI Narrative: Patient Apparently was walking barefoot and got his right foot toe stuck on the rug came here with laceration at the base of right 5th toe no head injury the injury no loss of consciousness Related Data Home Medications Medication Instructions Recorded Confirmed tiotropium bromide 18 mcg capsule 1 cap inhalation DAILY 05/18/20 05/20/22 with inhalation device (Spiriva with HandiHaler) chlorthalidone 25 mg tablet 25 mg PO Q48H 03/05/21 05/20/22 primidone 50 mg tablet 50 mg PO BID 05/30/21 05/20/22 Previous Rx's Medication Instructions Recorded losartan 50 mg tablet 50 mg PO DAILY #1 tab 05/30/20 ROLLATOR with wheels and seat #1 ea 03/20/21 MANUAL WHEELCHAIR - large #1 ea 08/23/22 famotidine 40 mg tablet (Pepcid) 40 mg PO BEDTIME #30 tabs 08/27/22 cholecalciferol (vitamin D3) 50 50 mcg PO DAILY 90 days #90 caps 08/28/22 mcg (2,000 unit) capsule levothyroxine 25 mcg tablet 25 mcg PO QAM #90 tabs 08/28/22 finasteride 5 mg tablet 5 mg PO DAILY #90 tabs 09/16/22 trazodone 50 mg tablet 50 mg PO BEDTIME PRN for insomnia 09/16/22 #90 tabs omeprazole 40 mg capsule,delayed 40 mg PO DAILY #30 caps 11/25/22 release fluticasone 500 mcg-salmeterol 50 1 ea PO BID #180 ea 12/04/22 mcg/dose blistr powdr for inhalation (Wixela Inhub) gabapentin 300 mg capsule 300 mg PO TID 30 days #90 caps 12/12/22 albuterol sulfate 90 mcg/actuation 2 puff inhalation Q6H PRN for 12/26/22 aerosol inhaler wheezing 30 days #8.5 ea tizanidine 4 mg tablet 4 mg PO BEDTIME PRN for muscle 01/06/23 spasm #30 tabs alprazolam 0.5 mg tablet 0.5 mg PO TID PRN anxiety 30 days 01/08/23 #90 tabs montelukast 10 mg tablet 10 mg PO BEDTIME #30 tabs 01/16/23 amoxicillin 875 mg-potassium 1 tab PO BID #20 tabs 01/19/23 clavulanate 125 mg tablet Allergies Allergy/AdvReac Type Severity Reaction Status Date / Time No Known Allergies Allergy Verified 12/26/22 10:06 [No Known Allergies*] Review of Systems Review of Systems: Yes all other systems are reviewed and are negative [facility] Past Medical History Medical History (Updated 01/20/23 @ 00:31 by Zander Zapata MD) Acquired hypothyroidism Allergic rhinitis Anxiety Benign essential hypertension Benign prostatic hyperplasia with urinary obstruction Borderline abnormal TFTs Chronic kidney disease (CKD), stage III (moderate) Chronic pain syndrome COPD (chronic obstructive pulmonary disease) COVID-19 Disc degeneration, lumbar Essential hypertension Facet arthritis of lumbosacral region GERD (gastroesophageal reflux disease) Hearing impairment Insomnia Mixed hyperlipidemia Overweight (BMI 25.0-29.9) Peripheral neuropathy Restrictive lung disease Sinus bradycardia Spinal stenosis 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 Mother No problems noted. Social History Social History Housing: Apartment Alcohol intake: never Patient Tobacco Use Status: Former Tobacco user Smoked in Last 30 Days: No Second Hand Smoke Exposure: Yes Use of substances other than those prescribed or required for medical reasons: No Advance Directives: No Advance Directives Information Provided: No service: No Current occupational status: retired Cognitive needs: No Hearing needs: No Vision needs: Yes Physical Exam Vital Signs: Vital Signs: Last Vital Signs Temp 97.6 F 01/19/23 22:46 Pulse 51 01/19/23 22:46 Resp 16 01/19/23 22:46 BP 150/72 H 01/19/23 22:46 Pulse Ox 98 01/19/23 22:46 O2 Del Method Room Air 06/25/23 22:46 BMI result Body Mass Index 33.7 Appearance: Alert. Oriented X3. No acute distress. Eyes: PERRLA, HEENT: Pharynx normal. Oral Mucosa moist AT NC Neck: Normal inspection. Neck supple no midline tenderness. CVS: Normal heart rate and rhythm. Pulses normal. Respiratory: No respiratory distress. Equal air entry bilateral, Abdomen: Soft and nontender. Bowel sounds are present, no mass palpable, no CVA tenderness Skin: Skin warm and dry. Normal skin color. Normal skin turgor. Extremities: No lower extremity edema. No calf tenderness right 5th toe deep laceration at the base of 5th toe with dislocation, tendon visible Neuro: Oriented X 3. No motor deficit. Medications Administered Discontinued Medications Generic Name Dose Route Start Last Admin Trade Name Freq PRN Reason Stop Dose Admin Amoxicillin/Clavulanate Potassium 875 mg 01/19/23 23:31 01/19/23 23:36 Amoxicillin/Potassium Clav 875 Mg Tablet PO 01/19/23 23:32 875 mg ONCE ONE Administration Diphtheria/Tetanus/Acell Pertussis 0.5 ml 01/19/23 23:35 01/19/23 23:39 Diphth,Pertus(Acell),Tet Adult 0.5 Ml Syringe IM 01/19/23 23:36 0.5 ml .ONCE ONE Administration Lidocaine HCl 10 ml 01/19/23 22:12 01/19/23 22:30 Lidocaine Hcl 1 % Mpf 5 Ml Vial INFILTRATI 01/19/23 22:13 10 ml ONCE ONE Administration Procedures Laceration Laceration 1: Site: lower extremity (Fifth toe) Side (If applicable): right Size (cm): 2.5 Description: irregular Depth: simple, single layer Local Anesthetic: lidocaine 1% Amount of anesthesia used (mL): 5 Pre-repair: wound explored Skin layer closed with: nylon Size (cm): 4-0 Number of sutures: 5 Technique: simple, interrupted Medical Decision Making Medical Decision Making MDM Narrative: The deep laceration was sutured and dislocated toe was brought back to the position and tape was applied part dressed advised patient to follow-up as outpatient Radiology Impression Discussion of test interpretation with radiology: I have reviewed the radiologist's reading. Radiologist Impression: XR/XR foot RT min 3V IMPRESSION: Dislocation at the DIP joint of the fifth digit. ? Discharge Plan Discharge Clinical Impression: Laceration of toe, Dislocation of fifth toe, right, open Patient Disposition: Home, Self-Care Instructions: Laceration (ED), Finger Dislocation (ED) Additional Instructions: Care dressing in place as advised Suture removal in 10 -14 days Antibiotic as advised to avoid infection Prescriptions: New amoxicillin-pot clavulanate 875-125 mg tablet 1 tab PO BID Qty: 20 0RF No Action (DME) MANUAL WHEELCHAIR - large large See Rx Instructions .Route .MEDSUPPLY Qty: 1 0RF Rx Instructions: As directed famotidine [Pepcid] 40 mg tablet 40 mg PO BEDTIME Qty: 30 0RF cholecalciferol (vitamin D3) 50 mcg (2,000 unit) capsule 50 mcg PO DAILY 90 Days Qty: 90 1RF levothyroxine 25 mcg tablet 25 mcg PO QAM Qty: 90 1RF finasteride 5 mg tablet 5 mg PO DAILY Qty: 90 2RF trazodone 50 mg tablet 50 mg PO BEDTIME PRN (Reason: for insomnia) Qty: 90 1RF omeprazole 40 mg capsule,delayed release(DR/EC) 40 mg PO DAILY Qty: 30 6RF fluticasone propion-salmeterol [Wixela Inhub] 500-50 mcg/dose blister with device 1 ea PO BID Qty: 180 1RF gabapentin 300 mg capsule 300 mg PO TID 30 Days Qty: 90 1RF tizanidine 4 mg tablet 4 mg PO BEDTIME PRN (Reason: for muscle spasm) Qty: 30 1RF alprazolam 0.5 mg tablet 0.5 mg PO TID PRN (Reason: anxiety) 30 Days Qty: 90 0RF montelukast 10 mg tablet 10 mg PO BEDTIME Qty: 30 0RF chlorthalidone 25 mg tablet 25 mg PO Q48H primidone 50 mg tablet 50 mg PO BID Spiriva with HandiHaler 18 mcg capsule, w/inhalation device 1 cap inhalation DAILY Rx Instructions: puncture 1 cap using device; one dose = 2 inhalations (DME) ROLLATOR with wheels and seat See Rx Instructions .Route .MEDSUPPLY Qty: 1 0RF Rx Instructions: As directed albuterol sulfate 90 mcg/actuation HFA aerosol inhaler 2 puff inhalation Q6H PRN (Reason: for wheezing) 30 Days Qty: 8.5 3RF losartan 50 mg tablet 50 mg PO DAILY Qty: 1 0RF Interventions: ED Discharge Assessment Last Done: 01/20/23 00:16 Discharge Date/Time: 01/20/23 00:17
[2023-01-19] MEDS: Lidocaine HCl 1 % MPF 5 ML VIAL 10 ML INFILTRATI (22:30)
[2023-01-19 22:46] VITALS: BP 150/72; PULSE 51; RESP 16; TEMP 36.4; O2SAT 98
[2023-01-19] MEDS: Amoxicillin/Potassium Clav 875 MG TABLET PO (23:36)
[2023-01-19] MEDS: Diphth,Pertus(ACell),Tet Adult 0.5 ML SYRINGE IM (23:39)
--- NOTE | 2023-01-20 00:14 | PC.NURSE ---
pt daughter at bedside. pt utilized wheelchair at bedside. pt medicated according to mar. pt calm and cooperative. wrapped laceration on R foot. CMS intact. pt provided with discharge packet. pt and daughter verbalized understanding of discharge plan
== END 2023-01-20 00:17 | disposition home or self-care (01) ==
PROVIDERS: Emergency Provider Internal Medicine
DX: S91.119A Laceration without foreign body of unspecified toe without damage to nail, initial encounter (principal); S90.811A Abrasion, right foot, initial encounter; M79.671 Pain in right foot; W01.0XXA Fall on same level from slipping, tripping and stumbling without subsequent striking against object, initial encounter; Y93.9 Activity, unspecified; Y92.89 Other specified places as the place of occurrence of the external cause; Y99.9 Unspecified external cause status; Z79.899 Other long term (current) drug therapy; Z23 Encounter for immunization
CPT/HCPCS: 12001; 73630; 90471; 90715; 99284

== ENCOUNTER 2023-02-03 16:02 | Outpatient (AMB) | payer OTHER, SELFPAY ==
--- NOTE | 2023-02-03 16:21 | MHC.OFFWIV ---
Intake Vital Signs 02/03/23 16:26 BP 124/80 Blood Pressure Location Lt brachial Position Sitting Pulse 52 Pulse Source Pulse Oximeter Pulse Oximetry (%) 98 Oxygen Delivery Method Room Air Intake Visit Reasons: EP stitch removal right foot Intake Note: Patient here for stitch removal from right foot. Patient Tobacco Use Status: Former Tobacco user Allergies No Known Allergies [No Known Allergies*] Allergy (Verified 02/03/23 16:26) Do you need a note to return to daycare/school/sports/work: No HPI EP stitch removal right foot HPI Details 87-year-old male presents to the office for a sick visit. He has a wound on the bottom part of his right foot. He had sutures placed and would like them removed. The sutures were placed in the emergency room. [facility], LAT[facility] Medical History (Updated 02/07/23 @ 12:57 by Mihai Medina MD) Acquired hypothyroidism Allergic rhinitis Anxiety Benign essential hypertension Benign prostatic hyperplasia with urinary obstruction Borderline abnormal TFTs Chronic kidney disease (CKD), stage III (moderate) Chronic pain syndrome COPD (chronic obstructive pulmonary disease) COVID-19 Disc degeneration, lumbar Essential hypertension Facet arthritis of lumbosacral region GERD (gastroesophageal reflux disease) Hearing impairment Insomnia Mixed hyperlipidemia Overweight (BMI 25.0-29.9) Peripheral neuropathy Restrictive lung disease Sinus bradycardia Spinal stenosis 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 Mother No problems noted. Social History Housing: Apartment Alcohol intake: never Patient Tobacco Use Status: Former Tobacco user Second Hand Smoke Exposure: Yes service: No Current occupational status: retired Cognitive needs: No Hearing needs: No Vision needs: Yes Physical Exam Vital Signs: Last Vital Signs Pulse 52 02/03/23 16:26 BP 124/80 02/03/23 16:26 Pulse Ox 98 02/03/23 16:26 Oxygen Delivery Method Room Air 02/03/23 16:26 Extrem Other: Right foot: Healing wound at the base of the 3rd toe. Five sutures were removed. Wound approximation was adequate. Assessment & Plan Assessment & Plan (1) Wound, open, foot: Code(s): S91.309A - Unspecified open wound, unspecified foot, initial encounter Plan: Patient tolerated the procedure well. Reassurance. Coding Level of Care Code Est Pt Level 3 (18158) Diagnoses Wound, open, foot S91.309A
[2023-02-03 16:26] VITALS: BP 124/80; PULSE 52; O2SAT 98
== END 2023-02-03 16:42 | disposition home or self-care (01) ==
PROVIDERS: Visit Provider Internal Medicine
DX: S91.309A Unspecified open wound, unspecified foot, initial encounter (principal)
CPT/HCPCS: 99213

== ENCOUNTER 2023-02-25 12:51 | Outpatient (AMB) | payer OTHER, SELFPAY ==
[2023-02-25 12:52] VITALS: BP 126/78; PULSE 58; O2SAT 96; BMI 32.1
--- NOTE | 2023-02-25 12:52 | MHC.PC.OV ---
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: No Accompanied by: Self / Same As Patient Allergies No Known Allergies [No Known Allergies*] Allergy (Verified 02/25/23 13:33) Medication List - Last Reconciled 02/25/23 by Baljit Swanson MD albuterol sulfate 90 mcg/actuation 2 puffs inhalation Q6H PRN 30 days alprazolam 0.5 mg PO TID PRN 30 days chlorthalidone 25 mg PO Q48H cholecalciferol (vitamin D3) 50 mcg PO DAILY 90 days famotidine (Pepcid) 40 mg PO BEDTIME finasteride 5 mg PO DAILY fluticasone propion-salmeterol 500-50 mcg/dose (Wixela Inhub) 1 ea PO BID gabapentin 300 mg PO TID 30 days levothyroxine 25 mcg PO QAM losartan 50 mg PO DAILY [MANUAL WHEELCHAIR - large As directed] montelukast 10 mg PO BEDTIME omeprazole 40 mg PO DAILY primidone 50 mg PO BID [ROLLATOR with wheels and seat As directed] tiotropium bromide (Spiriva with HandiHaler) 1 cap inhalation DAILY tizanidine 4 mg PO BEDTIME PRN trazodone 50 mg PO BEDTIME PRN Tobacco use date assessed: 02/25/23 Fall risk assessment: 2 + Falls in past year Last assessed Fall Risk: 02/25/23 Dental Screening Dental Screen Date: 02/25/23 Did you have a dental visit in the last 12 months?: No Did you have a dental problem in the last 6 months where you did not have access to dental care?: No Was dental information given to patient?: Patient has dentist HPI Annual PE/ new referral HPI Details Patient comes in today for his annual physical examination - was last seen by me in April 2022 Patient's daughter states that he continues to complain of increased chronic pain over his lower back and can hardly walk or move around much anymore as a result States that patient spends most of the day either sitting or lying down and uses a wheelchair all the time when he is moving about States that his current medications do not really help much with his low back pain although he seems to be sleeping fairly well at night His daughter adds that patient's memory has been failing gradually for the past year or so now and he has had on and off episodes of confusion Patient denies any headaches or dizziness He denies any chest pains, no shortness of breath No nausea/vomiting, no abdominal pain No change in bowel habits noted He denies any acute urinary symptoms Had his follow-up labs done several weeks ago - to discuss his results [facility] Medical History Acquired hypothyroidism Allergic rhinitis Anxiety Benign essential hypertension Benign prostatic hyperplasia with urinary obstruction Borderline abnormal TFTs Chronic kidney disease (CKD), stage III (moderate) Chronic pain syndrome COPD (chronic obstructive pulmonary disease) COVID-19 Disc degeneration, lumbar Essential hypertension Facet arthritis of lumbosacral region GERD (gastroesophageal reflux disease) Hearing impairment Insomnia Mixed hyperlipidemia Overweight (BMI 25.0-29.9) Peripheral neuropathy Restrictive lung disease Sinus bradycardia Spinal stenosis 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 Mother No problems noted. Social History Housing: Apartment Alcohol intake: never Patient Tobacco Use Status: Former Tobacco user e-Cigarette/Vaping Use: Never Used Second Hand Smoke Exposure: Yes service: No Current occupational status: retired Cognitive needs: No Hearing needs: No Vision needs: Yes Questionnaire PHQ-9 Over the last 2 weeks, how often have you been bothered by any of the following problems? 1. Little interest or pleasure in doing things: not at all 2. Feeling down, depressed, or hopeless: several days 3. Trouble falling or staying asleep, or sleeping too much: several days 4. Feeling tired or having little energy: not at all 5. Poor appetite or overeating: not at all 6. Feeling bad about yourself - or that you are a failure or have let yourself or your family down: not at all 7. Trouble concentrating on things, such as reading the newspaper or watching television: not at all 8. Moving or speaking so slowly that other people could have noticed. Or the opposite - being so fidgety or restless that you have been moving around a lot more than usual: not at all 9. Thoughts that you would be better off or of hurting yourself in some way: not at all Total score: 2 Depression Screening Interpretation: Negative 17989 - PHQ-9 Billing: Yes Source: Developed by Drs. Yvon Donato, Wanda Tadeo, Luigi Edwards and colleagues, with an educational alisha from [employer]. Thrive Questionnaire Date Thrive assessed: 02/25/23 I am a: Patient What is your living situation today?: I have a steady place to live Within the past 12 months, did the food you bought not last and you didn't have the money to get more?: Never true Within the past 12 months, did you worry whether your food would run out before you got money to buy more?: Never true Do you have trouble paying for medicines?: No Do you have trouble getting transportation to medical appointments?: No Do you have trouble paying your heating and electricity bill?: No Do you have trouble taking care of your child, family member or friend?: No Do you have trouble with day-to-day activities such as bathing, preparing meals, shopping, managing finances, etc.?: No Are you currently unemployed and looking for a job?: No Are you interested in more education?: No Please select the resources that you would like help with: None Currently or been in a relationship where the following occur: no concerns reported AUDIT C Alcohol Use Questionnaire (AUDIT-C) 1. How often do you have a drink containing alcohol?: Never 3. How often do you have six or more drinks on one occasion?: Never Total Score: 0 Score Reviewed/Action Taken: Yes EVANGELISTA-7 AMB Questionnaire EVANGELISTA-7 Date EVANGELISTA - 7 assessed: 02/25/23 Feeling nervous, anxious, or on edge: 0 = Not at all Not being able to stop or control worryin = Not at all Worrying too much about different things: 0 = Not at all Trouble relaxin = Not at all Being so restless that it is hard to sit still: 0 = Not at all Becoming easily annoyed or irritable: 0 = Not at all Feeling afraid as if something awful might happen: 0 = Not at all Total EVANGELISTA-7 score (0-4 normal; 5-9 mild; 10-14 moderate; 15-21 severe): 0 Source: Developed by Drs. Yvon Donato, Wanda Tadeo, Luigi Edwards and colleagues, with an educational alisha from [employer]. Review of Systems Const Denies chills, Reports fatigue, Denies fever(s) and Denies headache(s) Eyes Denies blurry vision, Denies change in vision, Denies irritation and Denies itchy eyes ENT Denies dysphagia, Denies dizziness, Denies otalgia, Denies headache(s), Denies neck pain, Denies odynophagia, Denies sinus pain and Denies sore throat Card Denies chest pain, Denies palpitations and Denies dyspnea Resp Denies cough, Denies dyspnea and Denies wheezing GI Denies abdominal pain, Denies constipation, Denies dysphagia, Denies heartburn, Denies diarrhea, Denies nausea, Denies odynophagia and Denies vomiting Denies dysuria, Denies nocturia and Denies urinary frequency Musc Reports back pain (increased over the lower back), Reports arthralgias (left shoulder), Denies joint swelling, Denies muscle weakness, Denies neck pain and Reports radiating pain into limb (right leg) Skin/Breast Details: (+) thickened and discolored toenails on both feet Denies lesions and Denies rash Neuro Reports confusion (on and off, per daughter), Denies dizziness, Denies headache(s) and Reports memory loss Psych Reports confusion (on and off, per daughter) and Reports memory loss Endo Reports fatigue and Denies palpitations Aller/Immun Denies itchy eyes and Denies wheezing Physical exam (Primary Care) Vital Signs: Last Vital Signs Pulse 58 02/25/23 12:52 BP 126/78 02/25/23 12:52 Pulse Ox 96 02/25/23 12:52 Oxygen Delivery Method Room Air 02/25/23 12:52 BMI result Body Mass Index 32.1 Tobacco/Smoking Status: Tobacco use Status Tobacco use date assessed 02/25/23 02/25/23 13:00 Patient Tobacco Use Status Former Tobacco user 02/25/23 13:00 e-Cigarette/Vaping Use Never Used 02/25/23 13:00 PHQ-9: PHQ-9 Score PHQ-9: Total score 2 02/25/23 13:43 Depression Screening Interpretation: Negative Thrive Assessment: Date of Thrive Assessment Date Thrive assessed 02/25/23 02/25/23 13:00 Currently or been in a relationship where the following occur: no concerns reported Const General: no acute distress, alert and confusion (on and off, per daughter) Orientation/consciousness: confusion (on and off, per daughter) HENMT Head: Yes normocephalic and Yes atraumatic Ears: TM's normal bilaterally and EAC's normal General nose exam: No nasal discharge present Face and sinus: Yes normal facial exam and Yes sinuses nontender Teeth and gingiva: dentition normal Throat: Yes posterior oropharynx normal and Yes tonsils normal (no TP congestion noted) Eyes Eyelids: Yes eyelids normal Conjunctivae: conjunctivae normal Pupils: Equal, round and reactive pupils present EOM: EOMs intact bilaterally Neck Neck: Yes no lymphadenopathy and Yes supple Thyroid: Thyroid normal Resp Auscultation: clear to auscultation bilaterally, no rales and no wheezes Cardio Rate: regular rate Rhythm: regular rhythm Heart sounds: no murmurs GI Palpation (GI): Soft to palpation, nontender and No hepatosplenomegaly present Auscultation: normal bowel sounds General: Yes no CVA tenderness Back/Spine/Pelvis Back: no CVA tenderness Thoracic/Lumbar Spine: lumbar spinal tenderness and straight leg raise positive (right leg) Skin Lesions: no lesions Rashes: no rashes Neuro General: confusion (on and off, per daughter) Cranial nerves: Yes Equal, round and reactive pupils present Gait exam (Neuro): Assistive device used Extrem General: Yes no clubbing, cyanosis or edema Results Reviewed Results Reviewed: Laboratory Tests 01/07/23 01/07/23 01/07/23 10:45 11:05 11:05 WBC 5.5 Hgb 14.9 Hct 46.0 Plt Count 155 L D Sodium 142 Potassium 3.1 L D Creatinine 1.31 Estimated GFR 52 Fasting Glucose 93 Calcium 10.1 AST 19 ALT 16 Triglycerides 238 Cholesterol 204 LDL Cholesterol, Calc 121 HDL Cholesterol 36 Vitamin B12 25-OH Vitamin D Total 67.0 Free T4 0.82 Ur Specific [place] 1.025 Urine Protein Negative Urine Glucose (UA) Negative Urine Blood Negative 01/07/23 11:05 WBC Hgb Hct Plt Count Sodium Potassium Creatinine Estimated GFR Fasting Glucose Calcium AST ALT Triglycerides Cholesterol LDL Cholesterol, Calc HDL Cholesterol Vitamin B12 378 25-OH Vitamin D Total Free T4 Ur Specific [place] Urine Protein Urine Glucose (UA) Urine Blood Assessment and Plan Assessment & Plan (1) Annual physical exam: Code(s): Z00.00 - Encounter for general adult medical examination without abnormal findings Plan: Results of his labs done several weeks ago reviewed and discussed with patient and his daughter At his current age and due to his mutliple comorbidities and declining cognition, he no longer needs to get routine colonoscopy screening (2) Benign essential hypertension: Code(s): I10 - Essential (primary) hypertension Plan: Reinforced low sodium diet - goal is systolic BP of at least 140 to 150 mm or less Continue Losartan 50 mg QD and Chlorthalidone 25 mg QD (3) Mixed hyperlipidemia: Code(s): E78.2 - Mixed hyperlipidemia Plan: Reinforced low cholesterol diet Will recheck his labs in 3 months for follow-up (4) COPD (chronic obstructive pulmonary disease): Code(s): J44.9 - Chronic obstructive pulmonary disease, unspecified Qualifiers: COPD type: unspecified COPD Qualified Code(s): J44.9 - Chronic obstructive pulmonary disease, unspecified Plan: Stable Continue Wixela 500-50 mcg 1 inhalation BID, Spiriva Handihaler 18 mcg inhale contents of 1 capsule once a manuel and Albuterol HFA 2 puffs 4 times a day as needed Follow-up with pulmonary as scheduled (5) Facet arthritis of lumbosacral region: Code(s): M47.817 - Spondylosis without myelopathy or radiculopathy, lumbosacral region Plan: Reinforced activity and weight lifting restrictions MRI of the lumbar spine done on 11/19/2021 revealed (+) multilevel degenerative disc disease and spondylosis; the previous right lateral disc protrusion at L4-L5 compressing the right L5 nerve root in the lateral recess seen on previous MRI in 2014 appears to have resolved Continue Tizanidine 4 mg Q HS PRN; Tramadol has reportedly not been helping him much Has been seen and evaluated by pain management in December 2021 but patient has declined all interventional options; has been referred for aquatherapy/water aerobics and will also be trying herbal remedies like casie and turmeric Is currently on Gabapentin 100 mg BID Have advised patient that at this point, there are no other effective options left for his low back pain as surgery is not recommended for someone at his age Discussed with patient and his daughter that if his low back pain and right leg pain and weakness continue to persist and get worse, he should rethink and reconsider his stance on interventional therapy and he can reach out again to pain management if he changes his mind (6) Unsteady gait: Code(s): R26.81 - Unsteadiness on feet Plan: Is most likely related to his low back pain but may also be in part due to his chronic and worsening low back pain Gait has improved slightly with home physical therapy in the past Will refer patient to Neurology for further evaluation and management (7) Chronic kidney disease (CKD), stage III (moderate): Code(s): N18.30 - Chronic kidney disease, stage 3 unspecified Qualifiers: Chronic kidney disease stage 3 subtype: stage 3a (GFR 45-59) Qualified Code(s): N18.31 - Chronic kidney disease, stage 3a Plan: GFR stable - will continue to monitor renal function regularly (8) Acquired hypothyroidism: Comment: Sublinical hypothyroidism Code(s): E03.9 - Hypothyroidism, unspecified Plan: TFTs remain normal on his recent labs Continue Levothyroxine 25 mcg QD (9) Vitamin D deficiency: Code(s): E55.9 - Vitamin D deficiency, unspecified Plan: Continue Vitamin D3 2000 units QD (10) Left shoulder pain: Code(s): M25.512 - Pain in left shoulder Qualifiers: Chronicity: unspecified Qualified Code(s): M25.512 - Pain in left shoulder Plan: X-rays of the left shoulder done a few months ago revealed (+) OA changes Will consider referring to Orthopedics if his shoulder symptoms get worse (11) Benign prostatic hyperplasia with urinary obstruction: Code(s): N40.1 - Benign prostatic hyperplasia with lower urinary tract symptoms; N13.8 - Other obstructive and reflux uropathy Plan: Continue Finaseride 5 mg QD Follow up with urology as scheduled - cystoscopy done a few months ago came out normal (12) Insomnia: Code(s): G47.00 - Insomnia, unspecified Qualifiers: Insomnia type: unspecified Qualified Code(s): G47.00 - Insomnia, unspecified Plan: Sleep hygiene reinforced Continue Trazodone 50 mg Q HS PRN (13) Anxiety: Code(s): F41.9 - Anxiety disorder, unspecified Plan: Continue Alprazolam 0.5 mg TID PRN (14) Obesity (BMI 30-39.9): Code(s): E66.9 - Obesity, unspecified Plan: Reinforced diet; weight loss and exercise are unrealistic at this time due to patient's comorbidities and physical issues and declining cognition Plan Follow up in 3 months Orders: Orders Vitamin B12 and Folate 3 Months E53.8 - Deficiency of other specified B group vitamins Comprehensive [place]. Panel Fast 3 Months E78.00 - Pure hypercholesterolemia, unspecified Lipid Panel 3 Months E78.00 - Pure hypercholesterolemia, unspecified Free T4 (Free Thyroxine) 3 Months E03.9 - Hypothyroidism, unspecified Thyroid Stimulating Hormone 3 Months E03.9 - Hypothyroidism, unspecified Vitamin D 25-OH Total 3 Months E55.9 - Vitamin D deficiency, unspecified Complete Blood Count Auto Diff 3 Months I10 - Essential (primary) hypertension UA CC w/rflx Micro + Cult 3 Months R30.0 - Dysuria Referrals Neurology Referral G62.9 - Polyneuropathy, unspecified, R26.81 - Unsteadiness on feet, R29.6 - Repeated falls Coding Level of Care Code Est Pt Prev Care >65y(31607) Diagnoses Annual physical exam Z00.00 Benign essential hypertension I10 Mixed hyperlipidemia E78.2 COPD (chronic obstructive pulmonary disease) J44.9 COPD type: unspecified COPD Facet arthritis of lumbosacral region M47.817 Unsteady gait R26.81 Chronic kidney disease (CKD), stage III (moderate) N18.31 Chronic kidney disease stage 3 subtype: stage 3a (GFR 45-59) Acquired hypothyroidism E03.9 Vitamin D deficiency E55.9 Left shoulder pain M25.512 Chronicity: unspecified Benign prostatic hyperplasia with urinary obstruction N40.1; N13.8 Insomnia G47.00 Insomnia type: unspecified Anxiety F41.9 Obesity (BMI 30-39.9) E66.9
== END 2023-02-25 13:49 | disposition home or self-care (01) ==
PROVIDERS: Visit Provider Internal Medicine
DX: Z00.00 Encounter for general adult medical examination without abnormal findings (principal); I12.9 Hypertensive chronic kidney disease with stage 1 through stage 4 chronic kidney disease, or unspecified chronic kidney disease; N18.31 Chronic kidney disease, stage 3a; E03.9 Hypothyroidism, unspecified; J44.9 Chronic obstructive pulmonary disease, unspecified; E78.2 Mixed hyperlipidemia; M47.817 Spondylosis without myelopathy or radiculopathy, lumbosacral region; E55.9 Vitamin D deficiency, unspecified; R26.81 Unsteadiness on feet; F41.9 Anxiety disorder, unspecified; M25.512 Pain in left shoulder; N40.1 Benign prostatic hyperplasia with lower urinary tract symptoms
CPT/HCPCS: 99397

== ENCOUNTER 2023-03-19 13:08 | Outpatient (AMB) | payer OTHER, SELFPAY ==
[2023-03-19 13:12] VITALS: BP 140/66; PULSE 55; O2SAT 98; BMI 32.9
--- NOTE | 2023-03-19 13:12 | A.OFFVIS_ITS ---
Intake Vital Signs 03/19/23 13:12 Height 5 ft 7 in Weight 210 lb BMI 32.9 BP 140/66 H Blood Pressure Location Rt brachial Position Sitting Pulse 55 Pulse Source Pulse Oximeter Pulse Oximetry (%) 98 Oxygen Delivery Method Room Air Intake Visit Reasons: COPD Intake Note: This 87 years old gentleman who is very alert and well orientated, comes for 6 m [facility] follow-up. He is being treated for COPD/restrictive pulmonary disorder. He is doing very well with the use of Wixela 500-50 1 inhalation b.i.d., and use of ProAir only p.r.n.. He does not use Spiriva anymore. There has been no change in his pulmonary status and luckily he has had no chest infection. He is afflicted with degenerative arthritis of the spine, which makes his, mobility difficult . So when he comes outdoors he has to come by wheelchair. At home he does walk with the cane or a walker. Due to this lack of activity he has put on weight. He sleeps well and denies any symptoms of sleep apnea. Allergies No Known Allergies [No Known Allergies*] Allergy (Verified 03/19/23 13:29) Medication List - Last Reconciled 03/19/23 by Giovanna Zaragoza MD albuterol sulfate 90 mcg/actuation 2 puffs inhalation Q6H PRN 30 days alprazolam 0.5 mg PO TID PRN 30 days chlorthalidone 25 mg PO Q48H cholecalciferol (vitamin D3) 50 mcg PO DAILY 90 days famotidine (Pepcid) 40 mg PO BEDTIME finasteride 5 mg PO DAILY fluticasone propion-salmeterol 500-50 mcg/dose (Wixela Inhub) 1 ea PO BID gabapentin 300 mg PO TID 30 days levothyroxine 25 mcg PO QAM losartan 50 mg PO DAILY [MANUAL WHEELCHAIR - large As directed] montelukast 10 mg PO BEDTIME omeprazole 40 mg PO DAILY primidone 50 mg PO BID [ROLLATOR with wheels and seat As directed] tiotropium bromide (Spiriva with HandiHaler) 1 cap inhalation DAILY tizanidine 4 mg PO BEDTIME PRN trazodone 50 mg PO BEDTIME PRN PFSH Medical History Acquired hypothyroidism Allergic rhinitis Anxiety Benign essential hypertension Benign prostatic hyperplasia with urinary obstruction Borderline abnormal TFTs Chronic kidney disease (CKD), stage III (moderate) Chronic pain syndrome COPD (chronic obstructive pulmonary disease) COVID-19 Disc degeneration, lumbar Essential hypertension Facet arthritis of lumbosacral region GERD (gastroesophageal reflux disease) Hearing impairment Insomnia Mixed hyperlipidemia Overweight (BMI 25.0-29.9) Peripheral neuropathy Restrictive lung disease Sinus bradycardia Spinal stenosis 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 Mother No problems noted. Social History Housing: Apartment Alcohol intake: never Patient Tobacco Use Status: Former Tobacco user e-Cigarette/Vaping Use: Never Used Second Hand Smoke Exposure: Yes service: No Current occupational status: retired Cognitive needs: No Hearing needs: No Vision needs: Yes Review of Systems Const All systems reviewed & are unremarkable except as noted in HPI and below Eyes Reports no additional complaints ENT Reports nasal congestion (Mild intermittent) Card Denies chest pain, Denies irregular heart rhythm and Denies leg edema Resp Reports as per HPI GI Reports heartburn (Controlled with omeprazole) Reports no additional complaints Musc Reports abnormal gait (Not able to ambulate much because of his back pain), Reports back pain and Reports arthralgias (Knees) Skin/Breast Reports system reviewed and no additional complaints, except as documented Neuro Reports no additional complaints and Reports abnormal gait (Not able to ambulate much because of his back pain) Psych Reports anxiety (Mild) Endo Reports no additional complaints Physical Exam Vital Signs: Last Vital Signs Pulse 55 03/19/23 13:12 BP 140/66 H 03/19/23 13:12 Pulse Ox 98 03/19/23 13:12 Oxygen Delivery Method Room Air 03/19/23 13:12 BMI result Body Mass Index 32.9 Const General: comfortable, no acute distress, alert and awake Orientation/consciousness: patient oriented x3 HEENT Head: Yes normal to inspection General nose exam: No nasal polyps present and No nasal discharge present Face and sinus: Yes sinuses nontender Mouth: oropharynx normal Throat: Yes posterior oropharynx normal Eyes General: appearance normal, both eyes and all related structures Neck Neck: Yes normal visual inspection, Yes no lymphadenopathy, Yes trachea midline and Yes no JVD Thyroid: Thyroid normal Chest Chest palpation & inspection: normal inspection of the chest, normal palpation of entire chest wall and no tenderness Resp Other: Percussion note resonant, breath sounds are distant with prolonged expiratory phase. But no wheezes rhonchi or crepitations are heard . Cardio Palpation: normal PMI Rate: regular rate Rhythm: regular rhythm Heart sounds: no gallops and no murmurs GI Palpation (GI): Soft to palpation, nontender, No hepatosplenomegaly present and no masses Auscultation: normal bowel sounds Back/Spine/Pelvis Thoracic/Lumbar Spine: thoracic and lumbar spine normal to inspection and thoraco-lumbar ROM limited Skin General skin exam: no rashes or lesions noted Neuro General: patient oriented x3, No gait normal (Has impaired gait due to his ongoing back pain) and no focal motor deficits Cranial nerves: Yes CN's II-XII intact bilaterally Extrem General: Yes normal to inspection, Yes no clubbing, cyanosis or edema and Yes no calf tenderness Psych Appearance: grossly normal and well kempt Speech and movement: Normal speech and movement present Assessment & Plan Assessment & Plan (1) COPD (chronic obstructive pulmonary disease): Comment: Patient is a known case of chronic obstructive pulmonary disease. Remains well controlled and very stable with the current regimen. [place] : Wixela 500-50 1 inhalation b.i.d. ProAir HFA 2 puffs Q 6 hours only p.r.n.. Code(s): J44.9 - Chronic obstructive pulmonary disease, unspecified Qualifiers: COPD type: unspecified COPD Qualified Code(s): J44.9 - Chronic obstructive pulmonary disease, unspecified (2) Allergic rhinitis: Comment: CHRONIC MILD, REMAINS CONTROLLED WITH SINGULAIR 10 MG DAILY Code(s): J30.9 - Allergic rhinitis, unspecified (3) Restrictive lung disease: Comment: Restrictive lung disease due to gross obesity, He is advised to do deep breathing exercises 3 times a day. Code(s): J98.4 - Other disorders of lung (4) Obesity (BMI 30-39.9): Code(s): E66.9 - Obesity, unspecified Coding Level of Care Code Est Pt Level 3 (09090) Diagnoses COPD (chronic obstructive pulmonary disease) J44.9 COPD type: unspecified COPD Allergic rhinitis J30.9 Restrictive lung disease J98.4 Obesity (BMI 30-39.9) E66.9
== END 2023-03-19 13:30 | disposition home or self-care (01) ==
PROVIDERS: Visit Provider Internal Medicine
DX: J44.9 Chronic obstructive pulmonary disease, unspecified (principal); J30.9 Allergic rhinitis, unspecified; J98.4 Other disorders of lung; E66.9 Obesity, unspecified
CPT/HCPCS: 99213

== ENCOUNTER → 2023-03-19 13:08 | Outpatient (BNVA) | payer OTHER, SELFPAY | PROVIDERS: Visit Provider Internal Medicine | DX: J44.9 Chronic obstructive pulmonary disease, unspecified (principal); J30.9 Allergic rhinitis, unspecified; J98.4 Other disorders of lung; E66.9 Obesity, unspecified; Z68.32 Body mass index [BMI] 32.0-32.9, adult | CPT/HCPCS: 99212 ==

== ENCOUNTER 2023-05-15 13:15 | Outpatient (AMB) | payer OTHER, SELFPAY ==
--- NOTE | 2023-05-15 13:22 | A.OFFVIS_ITS ---
Intake Vital Signs 05/15/23 13:25 Height 5 ft 7 in Weight 206 lb BMI 32.3 BP 166/90 H Blood Pressure Location Lt brachial Position Sitting Respiration 16 Pulse 56 Pulse Source Pulse Oximeter Pulse Oximetry (%) 98 Oxygen Delivery Method Room Air Intake Visit Reasons: INP-Neuropathy Intake Note: Pt presents to the office for a new pt evaluation for neuropathy. Pt is here with daughter, Sasha. Pts daughter reports pt has not reponded to PT for dragging his legs and kaylie leg pain. More on the right than the left. He co nstantly complains of pain in his legs and his waist. She reports he also siffers from tremors of both upper and lower extremities. She also c/o memory loss. Allergies No Known Allergies [No Known Allergies*] Allergy (Verified 05/15/23 13:29) HPI HPI Comments History of Present Illness Details 87 y/o male patient presents with his cha brandt for new in-person visit for bilateral hands tremor and memory loss. Pt's daughter helped for patient's history. Pt was on primidone 50 mg BID for essential tremor, but did not have refill because he did not follow up with his neurologist. Primidone 50 BID worked well for his tremor. Pt daughter reports that patient forgets a lot of things and short term memory loss. He gets confused about date and day, family members' and his friends' name. He keeps talking about his childhood and talking same story over and over again. Sometimes, he can't remember where is the bathroom in his apartment. He needs assistance for bathing and dressing. His daughter visit him everyday and helps for cooking, cleaning and bathing. His memory has been slowly declined over the last 6 months after he fell in October,. He tripped and fall in October. CT result reviewed. No acute intracranial pathology compared to 11/17/2021. * Chronic volume loss of brain parenchyma with commensurate prominence of ventricles and sulci. * No fracture or traumatic subluxation in the degenerated cervical spine. 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 Pt started physical therapy but he did not want to do it, and physical therapy discontinued. Now, he uses wheelchair. Pt's daughter states that he is not interesting in anything, just sitting and watches TV all day. He sleeps a lot, night time and daytime. [facility]LY [facility] Medical History Acquired hypothyroidism Allergic rhinitis Anxiety Benign essential hypertension Benign prostatic hyperplasia with urinary obstruction Borderline abnormal TFTs Chronic kidney disease (CKD), stage III (moderate) Chronic pain syndrome COPD (chronic obstructive pulmonary disease) COVID-19 Disc degeneration, lumbar Essential hypertension Facet arthritis of lumbosacral region GERD (gastroesophageal reflux disease) Hearing impairment Insomnia Mixed hyperlipidemia Overweight (BMI 25.0-29.9) Peripheral neuropathy Restrictive lung disease Sinus bradycardia Spinal stenosis 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 Mother No problems noted. Social History Housing: Apartment Alcohol intake: never Patient Tobacco Use Status: Former Tobacco user e-Cigarette/Vaping Use: Never Used Second Hand Smoke Exposure: Yes service: No Current occupational status: retired Cognitive needs: No Hearing needs: No Vision needs: Yes Review of Systems Const All systems reviewed & are unremarkable except as noted in HPI and below ENT Reports Normal hearing present Neuro Reports Normal hearing present and Reports Abnormal speech present Physical Exam Vital Signs: Last Vital Signs Pulse 56 05/15/23 13:25 Resp 16 05/15/23 13:25 BP 166/90 H 05/15/23 13:25 Pulse Ox 98 05/15/23 13:25 Oxygen Delivery Method Room Air 05/15/23 13:25 BMI result Body Mass Index 32.3 Const General: cooperative Nutritional Appearance: obese Orientation/consciousness: oriented to person and oriented to place Limitations: wheelchair Neck Neck: Yes full ROM and Yes supple Resp Effort & Inspection: normal respiratory effort and able to speak in complete sentences Neuro General: oriented to person, oriented to place and Unable to assess gait Cranial nerves: Yes Bilaterally intact EOM present, Yes Normal facial strength present, Yes Midline tongue present, Yes Symmetric palate elevation present, Yes Normal hearing present and Yes Ability to bilaterally elevate shoulders present Cognition (Neuro): normal cognition Speech: Abnormal speech present Gait exam (Neuro): Unable to assess gait Motor exam (neuro): 5/5 motor strength present throughout, Pronator motor function not present and Tremors during motor activity present (bilateral hands action tremor) Psych Appearance: grossly normal Mental Status: mental status grossly normal Affect: normal affect Attitude: cooperative Orientation What is the (year) (season) (date) (day) (month)?: year, season and month Where are we (state) (county) (town or city) (hospital) (floor)?: state, town or city and hospital/clinic Registration Name of 3 unrelated objects clearly and slowly, then ask patient to repeat all 3 of them. (1st repeat determines score. Make sure they can repeat all three): object 1, object 2 and object 3 Language Show patient a wristwatch & ask what it is. Repeat for pencil.: watch and pencil Ask the patient to repeat the phrase 'No ifs, ands, or buts' after you.: incorrect Ask the patient to 'take a piece of paper with their right hand' 'fold paper in half' 'place paper on floor': take paper in right hand Print the sentence 'CLOSE YOUR EYES' on a piece. If patient actually closes eyes then score.: followed written direction Give patient a blank piece of paper & ask to write a sentence. Score if it contains a noun & verb.: sentence contains subject and verb Score Score: 14 Assessment & Plan Assessment & Plan (1) Dementia: Code(s): F03.90 - Unspecified dementia, unspecified severity, without behavioral disturbance, psychotic disturbance, mood disturbance, and anxiety (2) Tremor: Code(s): R25.1 - Tremor, unspecified Plan Lab result reviewed. Advised patient to start donepezil 5 mg qHS for 4 weeks and increase to 10 mg qHS. Resume primidone 50 mg BID for bilateral hands tremor. Advised patient to increase cognitive and physical activities. Try to have well balanced diet, manage BP and BS well. Medications: New donepezil (Aricept) 1/2 tab q HS for four weeks and then take 1 tab qHS orally bedtime; 90 days 90 tabs 1RF primidone 50 mg PO BID 30 days 60 tabs 3RF Coding Level of Care Code New Pt Level 4 (79020) Diagnoses Dementia F03.90 Tremor R25.1
[2023-05-15 13:25] VITALS: BP 166/90; PULSE 56; RESP 16; O2SAT 98; BMI 32.3
== END 2023-05-15 14:04 | disposition home or self-care (01) ==
PROVIDERS: Visit Provider Nurse Practitioner Family
DX: F03.90 Unspecified dementia, unspecified severity, without behavioral disturbance, psychotic disturbance, mood disturbance, and anxiety (principal); R25.1 Tremor, unspecified
CPT/HCPCS: 99204

== ENCOUNTER → 2023-05-15 13:15 | Outpatient (BNVA) | payer OTHER, SELFPAY | PROVIDERS: Visit Provider Nurse Practitioner Family ==

== ENCOUNTER 2023-07-09 12:44 | Outpatient (AMB) | payer OTHER, SELFPAY ==
--- NOTE | 2023-07-09 12:45 | HO.NEPHOV ---
HPI HPI Comments History of Present Illness Details I had the privilege of seeing Mr. Ray by [facility] in follow-up of his chronic kidney disease and hypertension. We do call was not available. His had dementia issues are getting worse. At times he refuses to have food and medications. He does not have any nausea, vomiting, shortness of breath, fever, chills, rigors, dizziness. He has not had any blood work done for a while. His blood pressure has been stable. There were no other active issues at the time of this tele visit. 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, lumbar Peripheral neuropathy Spinal stenosis Allergic rhinitis Hearing impairment Acquired hypothyroidism Borderline abnormal TFTs Benign prostatic hyperplasia with urinary obstruction Anxiety Vitamin D deficiency Overweight (BMI 25.0-29.9) COVID-19 Chronic kidney disease (CKD), stage III (moderate) Facet arthritis of lumbosacral region COPD (chronic obstructive pulmonary disease) Mixed hyperlipidemia Benign essential hypertension Essential hypertension Sinus bradycardia GERD (gastroesophageal reflux disease) Surgical History Hx of colonoscopy History of esophagogastroduodenoscopy (EGD) History of cholecystectomy (~12/2015) Family History Father No problems noted. Mother No problems noted. Social History Housing: Apartment Alcohol intake: never Patient Tobacco Use Status: Former Tobacco user e-Cigarette/Vaping Use: Never Used Second Hand Smoke Exposure: Yes service: No Current occupational status: retired Cognitive needs: No Hearing needs: No Vision needs: Yes Vital Signs 07/09/23 12:45 Height 5 ft 7 in Assessment & Plan Assessment & Plan (1) Chronic kidney disease (CKD), stage III (moderate): Code(s): N18.30 - Chronic kidney disease, stage 3 unspecified Qualifiers: Chronic kidney disease stage 3 subtype: stage 3a (GFR 45-59) Qualified Code(s): N18.31 - Chronic kidney disease, stage 3a (2) Benign essential hypertension: Code(s): I10 - Essential (primary) hypertension Plan Mr Wolfe has 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 His blood pressure is at goal at home. He can continue his current medication regimen. He has not had any blood work for some time. His daughter is exploring whether phlebotomy can come home and do the blood work for him. If his serum creatinine rises, I will cut back further on his ARB. He should remain well hydrated and avoid nonsteroidal anti-inflammatory medications. All these were discussed with his healthcare proxy, daughter Sasha. Follow-up given. Telehealth Telehealth Location of provider rendering services: practice address Location of patient: address on file Patient Identification confirmed using: Name, : Yes Telehealth method: voice only Patient verbally consented to treatment: Yes Patient verbally consented to billing insurance company: Yes Patient informed of any privacy concerns related to visit: Yes Minutes spent on Phone/Video with Pt.: 12 Coding Level of Care Code Tele Est Pt Level 2 (69449) Diagnoses Stage 3a chronic kidney disease N18.31 Chronic kidney disease stage 3 subtype: stage 3a (GFR 45-59) Benign essential hypertension I10 Results Reviewed Nephrology Results: Hgb 14.9 g/dl (14.0-18.0) 01/07/23 WBC 5.5 X10*3/uL (4.8-10.8) 01/07/23 Plt Count 155 X10*3/uL (160-400) L 01/07/23 Sodium 142 mmol/L (135-145) 01/07/23 Potassium 3.1 mmol/L (3.3-5.1) L 01/07/23 Chloride 101 mmol/L (96-108) 01/07/23 Carbon Dioxide 32 mmol/L (22-29) H 01/07/23 BUN 20 mg/dL (9-16) H 01/07/23 Creatinine 1.31 mg/dL (0.5-1.4) 01/07/23 Calcium 10.1 mg/dL (8.4-10.2) 01/07/23 Urine Protein Negative mg/dL (Neg-Trace) 01/07/23
== END 2023-07-09 14:44 | disposition home or self-care (01) ==
PROVIDERS: Visit Provider Internal Medicine Nephrology
DX: N18.31 Chronic kidney disease, stage 3a (principal); I10 Essential (primary) hypertension
CPT/HCPCS: 99212

== ENCOUNTER → 2023-07-09 12:44 | Outpatient (BNVA) | payer OTHER, SELFPAY | PROVIDERS: Visit Provider Internal Medicine Nephrology ==

== ENCOUNTER 2023-08-21 14:39 | Outpatient (AMB) | payer OTHER, SELFPAY ==
--- NOTE | 2023-08-21 14:40 | A.OFFVIS_ITS ---
Intake Vital Signs 08/21/23 14:48 Height 5 ft 7 in BP 140/80 H Blood Pressure Location Lt brachial Position Sitting Pulse 48 L Pulse Source Pulse Oximeter Pulse Oximetry (%) 96 Oxygen Delivery Method Room Air Intake Visit Reasons: 3month f/u Neuropathy - Conf w/dtr Intake Note: Patient presents becoming aggressive and hardly not eating. Refusing to take meds. Refuse to take showers. Daughter wants to know what stage her father is in. Allergies No Known Allergies [No Known Allergies*] Allergy (Verified 07/09/23 12:45) HPI HPI Comments History of Present Illness Details 88 y/o male patient presents with his hca brandt for follow up visit for bilateral hands tremor and memory loss. Pt's essential tremor has improved with Primidone 50 BID. Pt started donepezil 5 mg and increased to 10 mg a week ago. Denies side effects. Pt is still forgetful, but his memory has not worsened. He needs assistance for bathing and dressing. His daughter visit him everyday and helps for cooking, cleaning and bathing. Pt started physical therapy but he did not want to do it, and physical therapy discontinued. Now, he uses wheelchair. Pt's daughter states that he is not interesting in anything, just sitting and watches TV all day. He sleeps a lot, night time and daytime. 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, lumbar Peripheral neuropathy Spinal stenosis Allergic rhinitis Hearing impairment Acquired hypothyroidism Borderline abnormal TFTs Benign prostatic hyperplasia with urinary obstruction Anxiety Vitamin D deficiency Overweight (BMI 25.0-29.9) COVID-19 Chronic kidney disease (CKD), stage III (moderate) Facet arthritis of lumbosacral region COPD (chronic obstructive pulmonary disease) Mixed hyperlipidemia Benign essential hypertension Essential hypertension Sinus bradycardia GERD (gastroesophageal reflux disease) Surgical History Hx of colonoscopy History of esophagogastroduodenoscopy (EGD) History of cholecystectomy (~12/2015) Family History Father No problems noted. Mother No problems noted. Social History (Reviewed 08/21/23 @ 14:47 by SHARON Mir Housing: Apartment Alcohol intake: never Patient Tobacco Use Status: Former Tobacco user e-Cigarette/Vaping Use: Never Used Second Hand Smoke Exposure: Yes service: No Current occupational status: retired Cognitive needs: No Hearing needs: No Vision needs: Yes Review of Systems Const All systems reviewed & are unremarkable except as noted in HPI and below ENT Reports Normal hearing present Neuro Reports Normal hearing present and Reports Abnormal speech present Physical Exam Vital Signs: Last Vital Signs Pulse 48 L 08/21/23 14:48 BP 140/80 H 08/21/23 14:48 Pulse Ox 96 08/21/23 14:48 Oxygen Delivery Method Room Air 08/21/23 14:48 Const General: cooperative Nutritional Appearance: obese Orientation/consciousness: oriented to person and oriented to place Limitations: wheelchair Neck Neck: Yes full ROM and Yes supple Resp Effort & Inspection: normal respiratory effort and able to speak in complete sentences Neuro General: oriented to person, oriented to place and Unable to assess gait Cranial nerves: Yes Bilaterally intact EOM present, Yes Normal facial strength present, Yes Midline tongue present, Yes Symmetric palate elevation present, Yes Normal hearing present and Yes Ability to bilaterally elevate shoulders present Cognition (Neuro): normal cognition Speech: Abnormal speech present Gait exam (Neuro): Unable to assess gait Motor exam (neuro): 5/5 motor strength present throughout, Pronator motor function not present and Tremors during motor activity present (bilateral hands action tremor) Psych Appearance: grossly normal Mental Status: mental status grossly normal Affect: normal affect Attitude: cooperative Assessment & Plan Assessment & Plan (1) Dementia: Code(s): F03.90 - Unspecified dementia, unspecified severity, without behavioral disturbance, psychotic disturbance, mood disturbance, and anxiety (2) Tremor: Code(s): R25.1 - Tremor, unspecified Plan Continue to take donepezil 10 mg qHS. Continue primidone 50 mg BID for bilateral hands tremor. Advised patient to increase cognitive and physical activities. Try to have well balanced diet, manage BP and BS well. Medications: New melatonin 1-2 tabs orally daily; 30 days 60 tabs 4RF Coding Level of Care Code Est Pt Level 4 (36287) Diagnoses Dementia F03.90 Tremor R25.1
[2023-08-21 14:48] VITALS: BP 140/80; PULSE 48; O2SAT 96
== END 2023-08-21 15:14 | disposition home or self-care (01) ==
PROVIDERS: Visit Provider Nurse Practitioner Family
DX: F03.90 Unspecified dementia, unspecified severity, without behavioral disturbance, psychotic disturbance, mood disturbance, and anxiety (principal); R25.1 Tremor, unspecified
CPT/HCPCS: 99214

== ENCOUNTER → 2023-08-21 14:39 | Outpatient (BNVA) | payer OTHER, SELFPAY | PROVIDERS: Visit Provider Nurse Practitioner Family | DX: F03.90 Unspecified dementia, unspecified severity, without behavioral disturbance, psychotic disturbance, mood disturbance, and anxiety (principal); R25.1 Tremor, unspecified | CPT/HCPCS: 99212 ==

== ENCOUNTER 2023-09-04 10:49 | Outpatient (REF) | payer OTHER, SELFPAY ==
[2023-09-04 12:14] LABS: MANUAL DIFF FLAG NO
[2023-09-04 12:21] LABS: Appearance Urine Clear; Color Urine Dark Yellow; Glucose Urine UA Negative (Negative); Leukocyte Esterase Urine Negative (Negative); Nitrite Urine Negative (Negative); PH 5.5 (5.0-9.0); Specific Gravity - Urine 1.025 (1.005-1.025); Urine Blood Negative (Negative); Urine Ketones Trace mg/dL (Negative); Urine Protein Negative (Neg-Trace)
[2023-09-04 13:34] LABS: Basophils Percent Auto 0.8 % (0-2); Eosinophils Absolute Auto 0.1 X10*3/uL (0.0-0.4); Hematocrit 46.3 % (42.0-52.0); Hemoglobin 15.3 g/dl (14.0-18.0); Imm Gran Abs Auto 0.01 X10*3/uL (0.00-0.03); Imm Gran Pct Auto 0.2 % (0.0-0.4); Lymphocytes Absolute Auto 1.6 X10*3/uL (1.2-4.9); Lymphocytes Percent Auto 32.4 % (20-40); Mean Corpuscular Hemoglobin 26.2 pg (27.0-33.0); Mean Corpuscular Volume 79.4 fL (80.0-98.0); Mean Platelet Volume 11.5 fL (9.4-12.4); Monocytes Absolute Auto 0.5 X10*3/uL (0.1-1.2); Monocytes Percent Auto 9.2 % (2-11); Neutrophils Absolute Auto 2.7 x10*3/uL (2.0-8.3); Neutrophils Percent Auto 55.4 % (45-73); Platelet Count 166 X10*3/uL (160-400); Red Blood Count 5.83 X10*6/uL (4.60-5.80); White Blood Count 4.9 X10*3/uL (4.8-10.8)
[2023-09-04 13:59] LABS: Alanine Aminotransferase 11 U/L (0-40); Alkaline Phosphatase 69 U/L (39-117); Anion Gap 10 (12-20); Aspartate Amino Transferase 17 U/L (5-37); Bilirubin Total 0.4 mg/dL (0.0-1.0); Blood Urea Nitrogen 19 mg/dL (9-16); Calcium 9.4 mg/dL (8.4-10.2); Carbon Dioxide 34 mmol/L (22-29); Chloride 98 mmol/L (96-108); Cholesterol 204 mg/dL (<200); Estimated Glomerular Filt Rate 48; Glucose Fasting 84 mg/dL (60-99); HDL Cholesterol 42 mg/dL (>40); LDL Cholesterol Calculated 131 mg/dL (<100); Sodium 139 mmol/L (135-145); Total Protein 8.1 g/dL (6.5-8.0); Triglycerides 155 mg/dL (<150)
[2023-09-04 14:18] LABS: Free T4 (Free Thyroxine) 0.87 ng/dL (0.71-1.85); TSH reflex Free T4 2.14 uIU/mL (0.32-4.0); Thyroid Stimulating Hormone 2.14 uIU/mL (0.32-4.0); Vitamin D 25-OH Total 57.3 ng/mL (>30)
[2023-09-04 14:27] LABS: Folate 6.6 ng/mL (> or = 4.0); Vitamin B12 501 pg/mL (200-900)
== END 2023-09-04 10:50 | disposition home or self-care (01) ==
LOC: HO.LAB 10:49
PROVIDERS: PCP Internal Medicine; Visit Provider Internal Medicine
DX: E03.9 Hypothyroidism, unspecified (principal); R30.0 Dysuria; E78.00 Pure hypercholesterolemia, unspecified; E53.8 Deficiency of other specified B group vitamins; E55.9 Vitamin D deficiency, unspecified; I10 Essential (primary) hypertension
CPT/HCPCS: 36415; 80053; 80061; 81003; 82306; 82607; 82746; 84439; 84443; 85025

== ENCOUNTER 2023-09-25 13:25 | Outpatient (AMB) | payer OTHER, SELFPAY ==
--- NOTE | 2023-09-25 13:26 | MHC.OFFVIS ---
Intake Vital Signs 09/25/23 13:26 Height 5 ft 7 in Intake Visit Reasons: COPD Intake Note: pt is on the phone for follow up and states that sometimes there is a wheeze, not going out much. pt needs refills on all 3 inhalers. Business Process Specialist Required: No Allergies No Known Allergies [No Known Allergies*] Allergy (Verified 09/25/23 13:34) Medication List - Last Reconciled 09/25/23 by Giovanna Zaragoza MD albuterol sulfate 90 mcg/actuation 2 puffs inhalation Q6H PRN 30 days alprazolam 0.5 mg PO TID PRN 30 days [bath tub steel white bar As directed] chlorthalidone 25 mg PO Q48H cholecalciferol (vitamin D3) 50 mcg PO DAILY 90 days [COMMODE As directed] donepezil (Aricept) 1/2 tab q HS for four weeks and then take 1 tab qHS orally bedtime; 90 days famotidine 40 mg PO BEDTIME finasteride 5 mg PO DAILY fluticasone propion-salmeterol 500-50 mcg/dose (Wixela Inhub) 1 inh inhalation BID gabapentin 300 mg PO TID 30 days gabapentin 100 mg PO BID levothyroxine 25 mcg PO QAM losartan 50 mg PO DAILY [MANUAL WHEELCHAIR - large As directed] melatonin 3 - 6 mg (1 - 2 x 3 mg) PO DAILY 90 days montelukast 10 mg PO BEDTIME omeprazole 40 mg PO DAILY primidone 50 mg PO BID 90 days [ROLLATOR with wheels and seat As directed] sertraline 50 mg PO DAILY 30 days tiotropium bromide (Spiriva with HandiHaler) 1 cap inhalation DAILY tizanidine 4 mg PO BEDTIME PRN tramadol 50 mg PO BID PRN trazodone 50 mg PO BEDTIME PRN Do you need a note to return to daycare/school/sports/work: No HPI COPD HPI Details THIS GENTLEMAN IS 88 YEARS OLD, HE WAS SUPPOSED TO BE HERE FOR 6 MONTHS FOLLOW-UP. 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 SO THE DAUGHTER HAD REQUESTED A TELE VISIT. SHE STATES THAT LONG HE USES HIS INHALERS IS BREATHING IS OKAY EXCEPT FOR MILD INTERMITTENT COUGH. HE IS MOSTLY RESTING HE DOES NOT EXHIBIT ANY SHORTNESS OF BREATH. HE HAS HAD NO RESPIRATORY INFECTION IN THE LAST 6 MONTHS. 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, lumbar Peripheral neuropathy Spinal stenosis Allergic rhinitis Hearing impairment Acquired hypothyroidism Borderline abnormal TFTs Benign prostatic hyperplasia with urinary obstruction Anxiety Vitamin D deficiency Overweight (BMI 25.0-29.9) COVID-19 Chronic kidney disease (CKD), stage III (moderate) Facet arthritis of lumbosacral region COPD (chronic obstructive pulmonary disease) Mixed hyperlipidemia Benign essential hypertension Essential hypertension Sinus bradycardia GERD (gastroesophageal reflux disease) Surgical History Hx of colonoscopy History of esophagogastroduodenoscopy (EGD) History of cholecystectomy (~12/2015) Family History Father No problems noted. Mother No problems noted. Social History Housing: Apartment Alcohol intake: never Patient Tobacco Use Status: Former Tobacco user e-Cigarette/Vaping Use: Never Used Second Hand Smoke Exposure: Yes service: No Current occupational status: retired Cognitive needs: No Hearing needs: No Vision needs: Yes Review of Systems Const All systems reviewed & are unremarkable except as noted in HPI and below Eyes Reports no additional complaints ENT Reports nasal congestion (Mild intermittent) Card Denies chest pain, Denies irregular heart rhythm and Denies leg edema Resp Reports as per HPI GI Reports heartburn (Controlled with omeprazole) Reports no additional complaints Musc Reports abnormal gait (Not able to ambulate much because of his back pain), Reports back pain and Reports arthralgias (Knees) Skin/Breast Reports system reviewed and no additional complaints, except as documented Neuro Reports no additional complaints and Reports abnormal gait (Not able to ambulate much because of his back pain) Psych Reports anxiety (Mild) Endo Reports no additional complaints Physical Exam Const Other: TELE-VISIT NO PHYSICAL EXAM . Assessment & Plan Assessment & Plan (1) COPD (chronic obstructive pulmonary disease): Comment: Patient is a known case of chronic obstructive pulmonary disease. Remains well controlled and very stable with the current regimen. Code(s): J44.9 - Chronic obstructive pulmonary disease, unspecified Qualifiers: COPD type: unspecified COPD Qualified Code(s): J44.9 - Chronic obstructive pulmonary disease, unspecified Plan: TX : Wixela DOSE CUT DOWN TO 250-50 1 inhalation b.i.d. SPIRIVA HANDIHALER 1 inhalation daily ProAir HFA 2 puffs Q 6 hours only p.r.n.. All scripts sent to the pharmacy (2) Restrictive lung disease: Comment: Restrictive lung disease due to gross obesity, Code(s): J98.4 - Other disorders of lung Plan: He is advised to do deep breathing exercises 3 times a day. HOWEVER HE DOES NOT HAVE MUCH UNDERSTANDING FOR DOING THE DEEP BREATHING EXERCISE. Medications: New fluticasone propion-salmeterol 250-50 mcg/dose (Wixela Inhub) 1 inh inhalation BID 60 ea 5RF COPD 30 days tiotropium bromide (Spiriva with HandiHaler) puncture 1 cap using device; one dose = 2 inhalations 1 cap inhalation DAILY 30 inhalations 5RF COPD 30 days Refilled albuterol sulfate 90 mcg/actuation 2 puffs inhalation Q6H PRN 8.5 ea 3RF for wheezing 30 days Telehealth Telehealth Location of provider rendering services: practice address Location of patient: address on file Patient Identification confirmed using: Name, : Yes Telehealth method: voice only Patient verbally consented to treatment: Yes Patient informed of any privacy concerns related to visit: Yes Minutes spent on Phone/Video with Pt.: 20 Coding Level of Care Code Tele New Pt Level 3 (03310) Diagnoses Chronic obstructive pulmonary disease, unspecified COPD type J44.9 COPD type: unspecified COPD Restrictive lung disease J98.4
== END 2023-09-25 14:31 | disposition home or self-care (01) ==
LOC: HO.HPS 13:25
PROVIDERS: PCP Internal Medicine; Visit Provider Internal Medicine
DX: J44.9 Chronic obstructive pulmonary disease, unspecified (principal); J98.4 Other disorders of lung
CPT/HCPCS: G2252

== ENCOUNTER → 2023-09-25 13:25 | Outpatient (BNVA) | payer OTHER, SELFPAY | PROVIDERS: PCP Internal Medicine; Visit Provider Internal Medicine ==

== ENCOUNTER 2023-10-31 12:37 | Outpatient (AMB) | payer OTHER, SELFPAY ==
--- NOTE | 2023-10-31 12:37 | MHC.PC.OV ---
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 Required: No Accompanied by: Sasha-Daughter Allergies No Known Allergies [No Known Allergies*] Allergy (Verified 01/30/24 14:29) Medication List - Last Reconciled 10/31/23 by Baljit Swanson MD albuterol sulfate 90 mcg/actuation 2 puffs inhalation Q6H PRN 30 days alprazolam 0.5 mg PO TID PRN 30 days [bath tub steel white bar As directed] chlorthalidone 25 mg PO Q48H cholecalciferol (vitamin D3) 50 mcg PO DAILY 90 days [COMMODE As directed] donepezil (Aricept) 1/2 tab q HS for four weeks and then take 1 tab qHS orally bedtime; 90 days famotidine 40 mg PO BEDTIME finasteride 5 mg PO DAILY fluticasone propion-salmeterol 250-50 mcg/dose (Wixela Inhub) 1 inh inhalation BID 30 days fluticasone propion-salmeterol 500-50 mcg/dose (Wixela Inhub) 1 inh inhalation BID gabapentin 300 mg PO TID 30 days gabapentin 100 mg PO BID levothyroxine 25 mcg PO QAM losartan 50 mg PO DAILY [MANUAL WHEELCHAIR - large As directed] melatonin 3 - 6 mg (1 - 2 x 3 mg) PO DAILY 90 days montelukast 10 mg PO BEDTIME omeprazole 40 mg PO DAILY primidone 50 mg PO BID 90 days [ROLLATOR with wheels and seat As directed] sertraline 50 mg PO DAILY 30 days tiotropium bromide (Spiriva with HandiHaler) 1 cap inhalation DAILY tiotropium bromide (Spiriva with HandiHaler) 1 cap inhalation DAILY 30 days tizanidine 4 mg PO BEDTIME PRN tramadol 50 mg PO BID PRN trazodone 50 mg PO BEDTIME PRN Tobacco use date assessed: 10/31/23 Fall risk assessment: 1 Fall in past year Last assessed Fall Risk: 10/31/23 Dental Screening Dental Screen Date: 10/31/23 Did you have a dental visit in the last 12 months?: No Did you have a dental problem in the last 6 months where you did not have access to dental care?: No Was dental information given to patient?: Yes (Mailed out to pt ) HPI Follow Up HPI Details Patient's follow up visit / consultation today is done over video conference (iPhone/iPad/Google Meets/Doximity) - this is a TELEHEALTH visit Patient's current medications have been reviewed and verified with patient and/or caregiver/proxy and have been updated accordingly in the medication list Patient's visit today is done primarily with his daughter Sasha, as patient is unable to participate in his visit today due to his dementia His daughter states that he has refused to leave the house and come in for his previous appointments and so his appointment today was set up as a telehealth visit as he has been refusing to leave his house often and prefers to just stay home Patient is reportedly still complaining of increased pain over his lower back often He has also been refusing to eat frequently and his daughter is concerned about this as he has lost some weight over the past few months He has not had any follow-up labs done in a while now as he refuses to leave his house - his family states that he gets upset and agitated at times when they are trying to convince him to eat or drink and when they also tried to take him out for his doctor's appointments although somehow, they were able to get him to go get his follow-up labs done a couple of months ago He has not had any issues with chest pains or breathing He will need a few of his Rx refilled PFSH Medical History Restrictive lung disease Insomnia Chronic pain syndrome 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, lumbar Peripheral neuropathy Spinal stenosis Allergic rhinitis Hearing impairment Acquired hypothyroidism Borderline abnormal TFTs Benign prostatic hyperplasia with urinary obstruction Anxiety Vitamin D deficiency Overweight (BMI 25.0-29.9) COVID-19 Chronic kidney disease (CKD), stage III (moderate) Facet arthritis of lumbosacral region COPD (chronic obstructive pulmonary disease) Mixed hyperlipidemia Benign essential hypertension Essential hypertension Sinus bradycardia GERD (gastroesophageal reflux disease) Surgical History Hx of colonoscopy History of esophagogastroduodenoscopy (EGD) History of cholecystectomy (~12/2015) Family History Father No problems noted. Mother No problems noted. Social History Housing: Apartment Alcohol intake: never Patient Tobacco Use Status: Former Tobacco user e-Cigarette/Vaping Use: Never Used Second Hand Smoke Exposure: Yes service: No Current occupational status: retired Cognitive needs: Yes (wheelchair) Hearing needs: No Vision needs: Yes Questionnaire PHQ-9 Over the last 2 weeks, how often have you been bothered by any of the following problems? 1. Little interest or pleasure in doing things: not at all 2. Feeling down, depressed, or hopeless: not at all 3. Trouble falling or staying asleep, or sleeping too much: not at all 4. Feeling tired or having little energy: not at all 5. Poor appetite or overeating: not at all 6. Feeling bad about yourself - or that you are a failure or have let yourself or your family down: not at all 7. Trouble concentrating on things, such as reading the newspaper or watching television: not at all 8. Moving or speaking so slowly that other people could have noticed. Or the opposite - being so fidgety or restless that you have been moving around a lot more than usual: not at all 9. Thoughts that you would be better off or of hurting yourself in some way: not at all Total score: 0 Depression Screening Interpretation: Negative Depression Screening Done: Yes 71902 - PHQ-9 Billing: Yes Source: Developed by Drs. Yvon Donato, Wanda Tadeo, Luigi Edwards and colleagues, with an educational alisha from [employer]. Thrive Questionnaire Date Thrive assessed: 10/31/23 I am a: Patient What is your living situation today?: I have a steady place to live Within the past 12 months, did the food you bought not last and you didn't have the money to get more?: Never true Within the past 12 months, did you worry whether your food would run out before you got money to buy more?: Never true Do you have trouble paying for medicines?: No Do you have trouble getting transportation to medical appointments?: No Do you have trouble paying your heating and electricity bill?: No Do you have trouble taking care of your child, family member or friend?: No Do you have trouble with day-to-day activities such as bathing, preparing meals, shopping, managing finances, etc.?: No Are you currently unemployed and looking for a job?: No Are you interested in more education?: No Please select the resources that you would like help with: None Currently or been in a relationship where the following occur: no concerns reported THRIVE Score: 0 AUDIT C Alcohol Use Questionnaire (AUDIT-C) 1. How often do you have a drink containing alcohol?: Never 3. How often do you have six or more drinks on one occasion?: Never Total Score: 0 Score Reviewed/Action Taken: Yes EVANGELISTA-7 AMB Questionnaire EVANGELISTA-7 Date EVANGELISTA - 7 assessed: 10/31/23 Feeling nervous, anxious, or on edge: 0 = Not at all Not being able to stop or control worryin = Not at all Worrying too much about different things: 0 = Not at all Trouble relaxin = Not at all Being so restless that it is hard to sit still: 0 = Not at all Becoming easily annoyed or irritable: 0 = Not at all Feeling afraid as if something awful might happen: 0 = Not at all Total EVANGELISTA-7 score (0-4 normal; 5-9 mild; 10-14 moderate; 15-21 severe): 0 Source: Developed by Drs. Yvon Donato, Wanda Tadeo, Luigi Edwards and colleagues, with an educational alisha from [employer]. EVANGELISTA-7 Assessment Billing EVANGELISTA-7 Assessment Tool: EVANGELISTA-7 Assessment 52588 Review of Systems Const Details: ROS is limited and obtained primarily from patient's daughter as patient has advanced dementia/cognitive deficits and is unable to provide any pertinent information on his own Denies chills, Denies fatigue, Denies fever(s), Denies headache(s), Reports poor appetite (has been refusing to eat often and tends to just drink coffee all day) and Reports weight loss ENT Denies dysphagia, Denies dizziness, Denies otalgia, Denies headache(s), Denies neck pain, Denies odynophagia and Denies sore throat Card Denies chest pain, Denies palpitations and Denies dyspnea Resp Denies cough, Denies dyspnea and Denies wheezing GI Denies abdominal pain, Denies constipation, Denies dysphagia, Denies heartburn, Denies diarrhea, Denies nausea, Denies odynophagia and Denies vomiting Denies hematuria, Denies dysuria, Reports nocturia and Reports urinary frequency Musc Reports abnormal gait (unsteady; sometimes starts shaking when walking due to tremors), Reports back pain (increased over the lower back), Reports arthralgias (left shoulder), Denies joint swelling, Denies muscle weakness, Denies neck pain, Reports radiating pain into limb (right leg) and Reports stiffness Skin/Breast Denies lesions and Denies rash Neuro Reports abnormal gait (unsteady; sometimes starts shaking when walking due to tremors), Reports behavioral changes (sometimes gets agitated and angry for no apparent reason), Reports confusion (on and off, per daughter), Denies dizziness, Denies headache(s), Reports memory loss and Reports tremor(s) Psych Reports behavioral changes (sometimes gets agitated and angry for no apparent reason), Reports confusion (on and off, per daughter) and Reports memory loss Endo Denies fatigue and Denies palpitations Aller/Immun Denies wheezing Physical exam (Primary Care) Vital Signs: Physical examination is not performed as visit / consultation today is done over videoconference - Telehealth visit All physical findings indicated here, if present, are as per patient's and / or caregivers / proxy's report and visual inspection over videoconference, if appropriate or applicable Tobacco/Smoking Status: Tobacco use Status Tobacco use date assessed 10/31/23 10/31/23 12:40 Patient Tobacco Use Status Former Tobacco user 10/31/23 12:40 e-Cigarette/Vaping Use Never Used 10/31/23 12:40 PHQ-9: PHQ-9 Score PHQ-9: Total score 0 10/31/23 12:59 Depression Screening Interpretation: Negative Thrive Assessment: Date of Thrive Assessment Date Thrive assessed 10/31/23 10/31/23 12:40 Currently or been in a relationship where the following occur: no concerns reported Const General: confusion (on and off, per daughter) Orientation/consciousness: confusion (on and off, per daughter) Neuro General: confusion (on and off, per daughter) Telehealth Telehealth Location of provider rendering services: practice address Location of patient: address on file Patient Identification confirmed using: Name, : Yes Telehealth method: video (Facetime) Patient verbally consented to treatment: Yes Patient verbally consented to billing insurance company: Yes Patient informed of any privacy concerns related to visit: Yes Minutes spent on Phone/Video with Pt.: 22 Results Reviewed Results Reviewed: Laboratory Tests 09/04/23 09/04/23 11:05 12:12 WBC 4.9 Hgb 15.3 Hct 46.3 Plt Count 166 Sodium 139 Potassium 3.0 L Creatinine 1.40 Estimated GFR 48 Fasting Glucose 84 Calcium 9.4 D AST 17 ALT 11 Triglycerides 155 H Cholesterol 204 H LDL Cholesterol, Calc 131 H HDL Cholesterol 42 Vitamin B12 501 25-OH Vitamin D Total 57.3 TSH 2.14 Free T4 0.87 Ur Specific [place] 1.025 Urine Protein Negative Urine Glucose (UA) Negative Urine Blood Negative Urine Nitrite Negative Ur Leukocyte Esterase Negative Assessment and Plan Assessment & Plan (1) Benign essential hypertension: Code(s): I10 - Essential (primary) hypertension Plan: Reinforced low sodium diet - goal is systolic BP of at least 140 to 150 mm or less Continue Losartan 50 mg QD and Chlorthalidone 25 mg QD (2) Mixed hyperlipidemia: Code(s): E78.2 - Mixed hyperlipidemia Plan: Results of his labs done a couple of months ago reviewed and discussed with patient's daughter - have advised that patient's serum triglycerides have increased from previous Reinforced low cholesterol diet (3) COPD (chronic obstructive pulmonary disease): Comment: Patient is a known case of chronic obstructive pulmonary disease. Remains well controlled and very stable with the current regimen. Code(s): J44.9 - Chronic obstructive pulmonary disease, unspecified Qualifiers: COPD type: unspecified COPD Qualified Code(s): J44.9 - Chronic obstructive pulmonary disease, unspecified Plan: Stable Continue Wixela 500-50 mcg 1 inhalation BID, Spiriva Handihaler 18 mcg inhale contents of 1 capsule once a manuel and Albuterol HFA 2 puffs 4 times a day as needed Follow-up with pulmonary as scheduled (4) Facet arthritis of lumbosacral region: Code(s): M47.817 - Spondylosis without myelopathy or radiculopathy, lumbosacral region Plan: Reinforced activity and weight lifting restrictions MRI of the lumbar spine done on 11/19/2021 revealed (+) multilevel degenerative disc disease and spondylosis; the previous right lateral disc protrusion at L4-L5 compressing the right L5 nerve root in the lateral recess seen on previous MRI in 2014 appears to have resolved Continue Tizanidine 4 mg Q HS PRN; Tramadol has reportedly not been helping him much Has been seen and evaluated by pain management in December 2021 but patient has declined all interventional options; has been referred for aquatherapy/water aerobics and will also be trying herbal remedies like casie and turmeric Is currently on Gabapentin 100 mg BID Have advised patient's daughter that at this point, there are no other effective options left for his low back pain as surgery is not recommended for someone at his age and the more logical option at this point is to help him control his pain with oral meds PRN (5) Unsteady gait: Code(s): R26.81 - Unsteadiness on feet Plan: Is most likely related to his low back pain but may also be in part due to his chronic and worsening low back pain Gait has improved slightly with home physical therapy in the past He was referred to Neurology for further evaluation and management but per his daughter, patient is refusing to go see Neurology (6) Chronic kidney disease (CKD), stage III (moderate): Code(s): N18.30 - Chronic kidney disease, stage 3 unspecified Qualifiers: Chronic kidney disease stage 3 subtype: stage 3a (GFR 45-59) Qualified Code(s): N18.31 - Chronic kidney disease, stage 3a Plan: GFR stable - will continue to monitor renal function regularly (7) Acquired hypothyroidism: Comment: Sublinical hypothyroidism Code(s): E03.9 - Hypothyroidism, unspecified Plan: His TFTs remain normal on his recent labs Continue Levothyroxine 25 mcg QD (8) Vitamin D deficiency: Code(s): E55.9 - Vitamin D deficiency, unspecified Plan: Continue Vitamin D3 2000 units QD (9) Left shoulder pain: Code(s): M25.512 - Pain in left shoulder Qualifiers: Chronicity: unspecified Qualified Code(s): M25.512 - Pain in left shoulder Plan: X-rays of the left shoulder done a few months ago revealed (+) OA changes Will consider referring to Orthopedics if his shoulder symptoms get worse (10) Benign prostatic hyperplasia with urinary obstruction: Code(s): N40.1 - Benign prostatic hyperplasia with lower urinary tract symptoms; N13.8 - Other obstructive and reflux uropathy Plan: Continue Finaseride 5 mg QD Follow up with urology as scheduled - cystoscopy done a few months ago came out normal (11) Insomnia: Code(s): G47.00 - Insomnia, unspecified Qualifiers: Insomnia type: unspecified Qualified Code(s): G47.00 - Insomnia, unspecified Plan: Sleep hygiene reinforced Continue Trazodone 50 mg Q HS PRN (12) Anxiety: Code(s): F41.9 - Anxiety disorder, unspecified Plan: Continue Alprazolam 0.5 mg TID PRN (13) Obesity (BMI 30-39.9): Code(s): E66.9 - Obesity, unspecified Plan: Reinforced diet; weight loss and exercise are unrealistic at this time due to patient's comorbidities and physical issues and declining cognition Plan Follow up in 3 months Medications: New fluticasone propionate 50 mcg/actuation administer into each nostril 2 sprays intranasal DAILY PRN 16 grams 5RF allergy symptoms 30 days potassium chloride ER (Klor-Con) 10 mEq PO DAILY 30 tabs 5RF 30 days Changed From donepezil 1/2 tab q HS for four weeks and then take 1 tab qHS orally bedtime; 90 days 90 tabs 1RF To donepezil (Aricept) 10 mg PO BEDTIME 90 tabs 1RF 90 days Coding Level of Care Code Tele Est Pt Level 4 (96251) Diagnoses Benign essential hypertension I10 Mixed hyperlipidemia E78.2 Chronic obstructive pulmonary disease, unspecified COPD type J44.9 COPD type: unspecified COPD Facet arthritis of lumbosacral region M47.817 Unsteady gait R26.81 Stage 3a chronic kidney disease N18.31 Chronic kidney disease stage 3 subtype: stage 3a (GFR 45-59) Acquired hypothyroidism E03.9 Vitamin D deficiency E55.9 Left shoulder pain, unspecified chronicity M25.512 Chronicity: unspecified Benign prostatic hyperplasia with urinary obstruction N40.1; N13.8 Insomnia, unspecified type G47.00 Insomnia type: unspecified Anxiety F41.9 Obesity (BMI 30-39.9) E66.9 Additional Codes EVANGELISTA-7 Assessment Billing - EVANGELISTA-7 Assessment Tool: EVANGELISTA-7 Assessment 12071 ([id number])
== END 2023-10-31 13:35 | disposition home or self-care (01) ==
LOC: HO.HMGH 12:37
PROVIDERS: PCP Internal Medicine; Visit Provider Internal Medicine
DX: I10 Essential (primary) hypertension (principal); E78.2 Mixed hyperlipidemia; J44.9 Chronic obstructive pulmonary disease, unspecified; M47.817 Spondylosis without myelopathy or radiculopathy, lumbosacral region; R26.81 Unsteadiness on feet; N18.31 Chronic kidney disease, stage 3a; E03.9 Hypothyroidism, unspecified; E55.9 Vitamin D deficiency, unspecified; M25.512 Pain in left shoulder; N40.1 Benign prostatic hyperplasia with lower urinary tract symptoms; N13.8 Other obstructive and reflux uropathy; G47.00 Insomnia, unspecified; F41.9 Anxiety disorder, unspecified; E66.9 Obesity, unspecified
CPT/HCPCS: 99499

== ENCOUNTER → 2024-01-07 12:14 | Outpatient (BNVA) | payer OTHER, SELFPAY | PROVIDERS: PCP Internal Medicine; Visit Provider Internal Medicine Nephrology ==

== ENCOUNTER 2024-01-09 12:03 | Outpatient (AMB) | payer OTHER, SELFPAY ==
--- NOTE | 2024-01-09 11:58 | HO.NEPHOV ---
Vital Signs 01/09/24 11:58 Height 5 ft 7 in Intake Visit Reasons: Rscng 01/06 appt Machine Clerical Verifier Required: No Accompanied by: Daughter Allergies No Known Allergies [No Known Allergies*] Allergy (Verified 01/09/24 11:58) HPI Comments Details: I had the privilege of seeing Mr. Ray by tele health in follow-up of his chronic kidney disease and hypertension. We do call was not available. His had dementia issues are getting worse. At times he refuses to have food and medications. He does not have any nausea, vomiting, shortness of breath, fever, chills, rigors, dizziness. He has not had any blood work done for a while. His blood pressure has been stable. There were no other active issues at the time of this tele visit. 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, lumbar Peripheral neuropathy Spinal stenosis Allergic rhinitis Hearing impairment Acquired hypothyroidism Borderline abnormal TFTs Benign prostatic hyperplasia with urinary obstruction Anxiety Vitamin D deficiency Overweight (BMI 25.0-29.9) COVID-19 Chronic kidney disease (CKD), stage III (moderate) Facet arthritis of lumbosacral region COPD (chronic obstructive pulmonary disease) Mixed hyperlipidemia Benign essential hypertension Essential hypertension Sinus bradycardia GERD (gastroesophageal reflux disease) Surgical History Hx of colonoscopy History of esophagogastroduodenoscopy (EGD) History of cholecystectomy (~12/2015) Family History Father No problems noted. Mother No problems noted. Social History Housing: Apartment Alcohol intake: never Patient Tobacco Use Status: Former Tobacco user e-Cigarette/Vaping Use: Never Used Second Hand Smoke Exposure: Yes service: No Current occupational status: retired Cognitive needs: No Hearing needs: No Vision needs: Yes Telehealth Telehealth Telehealth Platform: Telephone Location of provider rendering services: practice address Location of patient: address on file Patient Identification confirmed using: Name, : Yes Telehealth method: voice only Patient verbally consented to treatment: Yes Patient verbally consented to billing insurance company: Yes Patient informed of any privacy concerns related to visit: No Minutes spent on Phone/Video with Pt.: 10 Results Reviewed Nephrology Results: Hgb 15.3 g/dl (14.0-18.0) 09/04/23 WBC 4.9 X10*3/uL (4.8-10.8) 09/04/23 Plt Count 166 X10*3/uL (160-400) 09/04/23 Sodium 139 mmol/L (135-145) 09/04/23 Potassium 3.0 mmol/L (3.3-5.1) L 09/04/23 Chloride 98 mmol/L (96-108) 09/04/23 Carbon Dioxide 34 mmol/L (22-29) H 09/04/23 BUN 19 mg/dL (9-16) H 09/04/23 Creatinine 1.40 mg/dL (0.5-1.4) 09/04/23 Calcium 9.4 mg/dL (8.4-10.2) 09/04/23 Urine Protein Negative mg/dL (Neg-Trace) 09/04/23 Assessment & Plan Assessment & Plan (1) Chronic kidney disease (CKD), stage III (moderate): Code(s): N18.30 - Chronic kidney disease, stage 3 unspecified Category: Medical Qualifiers: Chronic kidney disease stage 3 subtype: stage 3a (GFR 45-59) Qualified Code(s): N18.31 - Chronic kidney disease, stage 3a (2) Benign essential hypertension: Code(s): I10 - Essential (primary) hypertension Category: Medical Plan Mr Wolfe has 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 His blood pressure is at goal at home. He can continue his current medication regimen. He has not had any blood work for some time. His daughter is exploring whether phlebotomy can come home and do the blood work for him. If his serum creatinine rises, I will cut back further on his ARB. He should remain well hydrated and avoid nonsteroidal anti-inflammatory medications. All these were discussed with his healthcare proxy, daughter Sasha. Follow-up given. Orders: Orders Creatinine Today I10 - Essential (primary) hypertension, N18.31 - Chronic kidney disease, stage 3a Blood Urea Nitrogen Today I10 - Essential (primary) hypertension, N18.31 - Chronic kidney disease, stage 3a Electrolytes Today I10 - Essential (primary) hypertension, N18.31 - Chronic kidney disease, stage 3a Coding Level of Care Code Tele Est Pt Level 4 (39206) Diagnoses Stage 3a chronic kidney disease N18.31 Chronic kidney disease stage 3 subtype: stage 3a (GFR 45-59) Benign essential hypertension I10
== END 2024-01-09 16:00 ==
PROVIDERS: PCP Internal Medicine; Visit Provider Internal Medicine Nephrology
DX: N18.31 Chronic kidney disease, stage 3a (principal); I10 Essential (primary) hypertension
CPT/HCPCS: 99214

== ENCOUNTER → 2024-01-09 12:03 | Outpatient (BNVA) | payer OTHER, SELFPAY | PROVIDERS: PCP Internal Medicine; Visit Provider Internal Medicine Nephrology ==

== ENCOUNTER 2024-01-30 13:51 | Outpatient (AMB) | payer OTHER, SELFPAY ==
[2024-01-30 13:56] VITALS: BP 112/66; PULSE 76; O2SAT 96; BMI 29.6
--- NOTE | 2024-01-30 13:56 | A.OFFPC_ITS ---
Vital Signs 01/30/24 13:56 Height 5 ft 7 in Weight 188 lb 11.451 oz BMI 29.6 BP 112/66 Blood Pressure Location Lt brachial Position Sitting Pulse 76 Pulse Source Pulse Oximeter Pulse Oximetry (%) 96 Oxygen Delivery Method Room Air Intake Visit Reasons: 3mth f/u Allergies No Known Allergies [No Known Allergies*] Allergy (Verified 01/30/24 14:29) Medication List - Last Reconciled 01/30/24 by Baljit Swanson MD albuterol sulfate 90 mcg/actuation 2 puffs inhalation Q6H PRN 30 days alprazolam 0.5 mg PO TID PRN 30 days [BATH TRANSFER BENCH As directed] [bath tub steel white bar As directed] chlorthalidone 25 mg PO Q48H cholecalciferol (vitamin D3) 50 mcg PO DAILY 90 days [COMMODE As directed] donepezil (Aricept) 10 mg PO BEDTIME 90 days famotidine 40 mg PO BEDTIME finasteride 5 mg PO DAILY fluticasone propion-salmeterol 250-50 mcg/dose (Wixela Inhub) 1 inh inhalation BID 30 days fluticasone propion-salmeterol 500-50 mcg/dose (Wixela Inhub) 1 inh inhalation BID fluticasone propionate 50 mcg/actuation 2 sprays intranasal DAILY PRN 30 days gabapentin 300 mg PO TID 30 days gabapentin 100 mg PO BID levothyroxine 25 mcg PO QAM losartan 50 mg PO DAILY [MANUAL WHEELCHAIR - large As directed] melatonin 3 - 6 mg (1 - 2 x 3 mg) PO DAILY 90 days montelukast 10 mg PO BEDTIME omeprazole 40 mg PO DAILY potassium chloride ER (Klor-Con) 10 mEq PO DAILY 30 days primidone 50 mg PO BID 90 days [ROLLATOR with wheels and seat As directed] sertraline 50 mg PO DAILY 30 days tiotropium bromide (Spiriva with HandiHaler) 1 cap inhalation DAILY tiotropium bromide (Spiriva with HandiHaler) 1 cap inhalation DAILY 30 days tizanidine 4 mg PO BEDTIME PRN tramadol 50 mg PO BID PRN trazodone 50 mg PO BEDTIME PRN Tobacco use date assessed: 10/31/23 Fall risk assessment: 1 Fall in past year Last assessed Fall Risk: 07/05/24 Dental Screening Dental Screen Date: 10/31/23 Did you have a dental visit in the last 12 months?: No Did you have a dental problem in the last 6 months where you did not have access to dental care?: No HPI 3mth f/u HPI Details Patient is brought in today by his daughter, Sasha, for his follow up visit He was last seen via telehealth visit back in October 2023; prior to that, he has not been seen here since February 2023 as his daughter states that with his declining cognition, patient has been refusing to come in or even leave his house frequently States that patient continues to have bouts of agitation and behavioral changes over the past few months related to his advancing dementia He has also been complaining of increased pain over his lower back often and his daughter states that he has a tendency to wake up often in the middle of the night and early in the morning complaining that his lower back is hurting a lot He has Tizanidine 4 mg to take at bedtime but because of his recently increasing low back pain, his daughter has had to give him his Tizanidine again in the morning and sometimes also in the early afternoon just to give his some relief from his low back pain so his Rx has been running out sooner than it is supposed to lately He presently is sitting in his wheelchair in the exam room and appears confused - is smiling a lot but is unable to respond appropriately to questions that are asked of him His daughter also notes that he seems to have lost a lot of weight over the past few months - patient weighed 188 pounds in the office today and back in February 2023, he was around 210 pounds States that patient has been refusing to eat often and most times, would just sit and drink his coffee and attempts by other family members to convince him to eat something especially during mealtimes are more often than not futile He reportedly has not had any issues with his breathing or with chest pains lately He's had no problems with nausea or vomiting and has had no complaints of abdominal pain or discomfort He is incontinent and has adult pull ups on although he does go to the bathroom to urinate often He also has not had any follow up labs done so far as his daughter states that he has been refusing to go [facility] Medical History Restrictive lung disease Insomnia Chronic pain syndrome 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, lumbar Peripheral neuropathy Spinal stenosis Allergic rhinitis Hearing impairment Acquired hypothyroidism Borderline abnormal TFTs Benign prostatic hyperplasia with urinary obstruction Anxiety Vitamin D deficiency Overweight (BMI 25.0-29.9) COVID-19 Chronic kidney disease (CKD), stage III (moderate) Facet arthritis of lumbosacral region COPD (chronic obstructive pulmonary disease) Mixed hyperlipidemia Benign essential hypertension Essential hypertension Sinus bradycardia GERD (gastroesophageal reflux disease) Surgical History Hx of colonoscopy History of esophagogastroduodenoscopy (EGD) History of cholecystectomy (~12/2015) Family History Father No problems noted. Mother No problems noted. Social History Housing: Apartment Alcohol intake: never Patient Tobacco Use Status: Former Tobacco user e-Cigarette/Vaping Use: Never Used Second Hand Smoke Exposure: Yes service: No Current occupational status: retired Cognitive needs: Yes (wheelchair) Hearing needs: No Vision needs: Yes Questionnaire Thrive Questionnaire Date Thrive assessed: 10/31/23 AUDIT C Alcohol Use Questionnaire (AUDIT-C) 1. How often do you have a drink containing alcohol?: Never 3. How often do you have six or more drinks on one occasion?: Never Total Score: 0 Score Reviewed/Action Taken: Yes EVANGELISTA-7 AMB Questionnaire EVANGELISTA-7 Date EVANGELISTA - 7 assessed: 10/31/23 Source: Developed by Drs. Yvon Donato, Wanda Tadeo, Luigi Edwards and colleagues, with an educational alisha from [employer].. Review of Systems Const Details: ROS is limited and obtained primarily from patient's daughter as patient has advanced dementia/cognitive deficits and is unable to provide any pertinent information on his own Denies chills, Denies fatigue, Denies fever(s), Denies headache(s), Reports poor appetite (has been refusing to eat often and tends to just drink coffee all day) and Reports weight loss ENT Denies dysphagia, Denies dizziness, Denies otalgia, Denies headache(s), Denies neck pain, Denies odynophagia and Denies sore throat Card Denies chest pain, Denies palpitations and Denies dyspnea Resp Denies cough, Denies dyspnea and Denies wheezing GI Denies abdominal pain, Denies constipation, Denies dysphagia, Denies heartburn, Denies diarrhea, Denies nausea, Denies odynophagia and Denies vomiting Denies hematuria, Denies dysuria, Reports nocturia and Reports urinary frequency Musc Reports abnormal gait (unsteady; sometimes starts shaking when walking due to tremors), Reports back pain (increased over the lower back), Reports arthralgias (left shoulder), Denies joint swelling, Denies muscle weakness, Denies neck pain, Reports radiating pain into limb (right leg) and Reports stiffness Skin/Breast Denies lesions and Denies rash Neuro Reports abnormal gait (unsteady; sometimes starts shaking when walking due to tremors), Reports behavioral changes (sometimes gets agitated and angry for no apparent reason), Reports confusion (on and off, per daughter), Denies dizziness, Denies headache(s), Reports memory loss and Reports tremor(s) Psych Reports behavioral changes (sometimes gets agitated and angry for no apparent reason), Reports confusion (on and off, per daughter) and Reports memory loss Endo Denies fatigue and Denies palpitations Aller/Immun Denies wheezing Physical exam (Primary Care) Vital Signs: Last Vital Signs Pulse 76 01/30/24 13:56 BP 112/66 01/30/24 13:56 Pulse Ox 96 01/30/24 13:56 Oxygen Delivery Method Room Air 01/30/24 13:56 BMI result Body Mass Index 29.6 Tobacco/Smoking Status: Tobacco use Status Tobacco use date assessed 10/31/23 01/30/24 14:06 Patient Tobacco Use Status Former Tobacco user 01/30/24 14:06 e-Cigarette/Vaping Use Never Used 01/30/24 14:06 Thrive Assessment: Date of Thrive Assessment Date Thrive assessed 10/31/23 01/30/24 14:06 Const Other: Physical exam is limited to what patient can cooperate with or allow - he is in a wheelchair today and does not want to get up due to his low back pain General: no acute distress and confusion (on and off, per daughter) Orientation/consciousness: confusion (on and off, per daughter) HENMT Head: Yes normocephalic and Yes atraumatic Ears: TM's normal bilaterally and EAC's normal General nose exam: No nasal discharge present Face and sinus: Yes normal facial exam Throat: Yes posterior oropharynx normal and Yes tonsils normal (no TP congestion noted) Eyes Eyelids: Yes eyelids normal Conjunctivae: conjunctivae normal Pupils: Equal, round and reactive pupils present EOM: EOMs intact bilaterally Neck Neck: Yes no lymphadenopathy and Yes supple Thyroid: Thyroid normal Resp Auscultation: clear to auscultation bilaterally, no rales and no wheezes Cardio Rate: regular rate Rhythm: regular rhythm Heart sounds: no murmurs GI Palpation (GI): Soft to palpation and nontender Auscultation: normal bowel sounds General: Yes no CVA tenderness Back/Spine/Pelvis Back: no CVA tenderness Thoracic/Lumbar Spine: lumbar spinal tenderness and straight leg raise positive (right leg) Skin Rashes: no rashes Neuro General: confusion (on and off, per daughter) Cranial nerves: Yes Equal, round and reactive pupils present Gait exam (Neuro): Assistive device used Extrem General: Yes no clubbing, cyanosis or edema Assessment and Plan Assessment & Plan (1) Dementia: Code(s): F03.90 - Unspecified dementia, unspecified severity, without behavioral disturbance, psychotic disturbance, mood disturbance, and anxiety Qualifiers: Dementia type: unspecified type Dementia severity: unspecified severity Dementia behavioral or psychological symptom: with other behavioral disturbance Qualified Code(s): F03.918 - Unspecified dementia, unspecified severity, with other behavioral disturbance Plan: Patient is currently still on Donepezil 10 mg QD but this does not appear to be helping much Follow up with neurology as scheduled He is currently staying at home with his daughter Sasha, who watches him and takes care of him, together with other family members when available 17/02 It appears that they are currently in some sort of a custody tejada situation wherein patient's older biological children with his first are trying to gain custody of him and is planning to put him up in a half-way, to which his current daughter Sasha (who apparently is not patient's biological daughter) is opposed to as she strongly believes that patient will not do well and will rapidly decline both physically and mentally once he is put into a half-way, to which I tend to agree as patients who have dementia and are taken out of familiar surroundings tend to experience a significant and rapid decline in their cognition and overall condition. Unfortunately, Sasha states that as she is not patient's biological daughter, she was informed by an disability attorney that she does not really have any rights in this case and that patient's biological children will have the final say, especially since patient does not appear to have any advanced directives or living will that he was able to make out and complete prior to the onset of his dementia Sasha is therefore trying to see if she can get doctor's notes from the doctors patient has been seeing to help support her argument but even this does not necessarily guarantee the situation to go in her favor according to the rule of law (2) Benign essential hypertension: Code(s): I10 - Essential (primary) hypertension Plan: Reinforced low sodium diet - goal is systolic BP of at least 140 to 150 mm or less Continue Losartan 50 mg QD and Chlorthalidone 25 mg QD (3) Mixed hyperlipidemia: Code(s): E78.2 - Mixed hyperlipidemia Plan: Reinforced low cholesterol diet Have advised patient's daughter to try and convince patient to get his labs done BONITA as soon as she is able to convince him to cooperate (4) COPD (chronic obstructive pulmonary disease): Comment: Patient is a known case of chronic obstructive pulmonary disease. Remains well controlled and very stable with the current regimen. Code(s): J44.9 - Chronic obstructive pulmonary disease, unspecified Qualifiers: COPD type: unspecified COPD Qualified Code(s): J44.9 - Chronic obstructive pulmonary disease, unspecified Plan: Stable Continue Wixela 500-50 mcg 1 inhalation BID, Spiriva Handihaler 18 mcg inhale contents of 1 capsule once a manuel and Albuterol HFA 2 puffs 4 times a day as needed Follow-up with pulmonary as scheduled (5) Facet arthritis of lumbosacral region: Code(s): M47.817 - Spondylosis without myelopathy or radiculopathy, lumbosacral region Plan: Reinforced activity and weight lifting restrictions MRI of the lumbar spine done on 11/19/2021 revealed (+) multilevel degenerative disc disease and spondylosis; the previous right lateral disc protrusion at L4- L5 compressing the right L5 nerve root in the lateral recess seen on previous MRI in 2014 appears to have resolved Continue Tizanidine 4 mg but will increase this from Q HS to TID PRN dosing; Tramadol has reportedly not been helping him much Has been seen and evaluated by pain management in December 2021 but patient has declined all interventional options; has been referred for aquatherapy/water aerobics and was also advised to try herbal remedies like casie and turmeric but these are not realistic to do with patient's declining cognition Is currently also on Gabapentin 100 mg BID Have advised patient's daughter that at this point, there are no other effective options left for his low back pain as surgery is not recommended for someone at his age adn with his comorbidities (6) Unsteady gait: Code(s): R26.81 - Unsteadiness on feet Plan: Is most likely related to his low back pain but may also be in part due to his chronic and worsening low back pain Gait has improved slightly with home physical therapy in the past Follow up with neurology as scheduled (7) Chronic kidney disease (CKD), stage III (moderate): Code(s): N18.30 - Chronic kidney disease, stage 3 unspecified Qualifiers: Chronic kidney disease stage 3 subtype: stage 3a (GFR 45-59) Qualified Code(s): N18.31 - Chronic kidney disease, stage 3a Plan: GFR stable - will continue to monitor renal function regularly if patient agrees to go get his labs done (8) Acquired hypothyroidism: Comment: Sublinical hypothyroidism Code(s): E03.9 - Hypothyroidism, unspecified Plan: Continue Levothyroxine 25 mcg QD Will also try to recheck his TFTs as soon as patient agrees to go for his labs (9) Vitamin D deficiency: Code(s): E55.9 - Vitamin D deficiency, unspecified Plan: Continue Vitamin D3 2000 units QD (10) Left shoulder pain: Code(s): M25.512 - Pain in left shoulder Qualifiers: Chronicity: unspecified Qualified Code(s): M25.512 - Pain in left shoulder Plan: X-rays of the left shoulder done last year revealed (+) OA changes Will consider referring to Orthopedics if his shoulder symptoms get worse (11) Benign prostatic hyperplasia with urinary obstruction: Code(s): N40.1 - Benign prostatic hyperplasia with lower urinary tract symptoms; N13.8 - Other obstructive and reflux uropathy Plan: Continue Finaseride 5 mg QD Follow up with urology as scheduled - cystoscopy done last year came out normal (12) Insomnia: Code(s): G47.00 - Insomnia, unspecified Qualifiers: Insomnia type: unspecified Qualified Code(s): G47.00 - Insomnia, unspecified Plan: Sleep hygiene reinforced Continue Trazodone 50 mg Q HS PRN (13) Anxiety: Code(s): F41.9 - Anxiety disorder, unspecified Plan: Continue Alprazolam 0.5 mg TID PRN (14) Obesity (BMI 30-39.9): Code(s): E66.9 - Obesity, unspecified Plan: Reinforced diet; weight loss and exercise are unrealistic at this time due to patient's comorbidities and physical issues and declining cognition Plan Follow up in 4 months Coding Level of Care Code Est Pt Level 4 (84935) Complex EM visit Add On G2211 Diagnoses Dementia with other behavioral disturbance, unspecified dementia severity, unspecified dementia type F03.918 Dementia type: unspecified type Dementia severity: unspecified severity Dementia behavioral or psychological symptom: with other behavioral disturbance Benign essential hypertension I10 Mixed hyperlipidemia E78.2 Chronic obstructive pulmonary disease, unspecified COPD type J44.9 COPD type: unspecified COPD Facet arthritis of lumbosacral region M47.817 Unsteady gait R26.81 Stage 3a chronic kidney disease N18.31 Chronic kidney disease stage 3 subtype: stage 3a (GFR 45-59) Acquired hypothyroidism E03.9 Vitamin D deficiency E55.9 Left shoulder pain, unspecified chronicity M25.512 Chronicity: unspecified Benign prostatic hyperplasia with urinary obstruction N40.1; N13.8 Insomnia, unspecified type G47.00 Insomnia type: unspecified Anxiety F41.9 Obesity (BMI 30-39.9) E66.9
== END 2024-01-30 14:22 | disposition home or self-care (01) ==
PROVIDERS: PCP Internal Medicine; Visit Provider Internal Medicine
DX: I12.9 Hypertensive chronic kidney disease with stage 1 through stage 4 chronic kidney disease, or unspecified chronic kidney disease (principal); J44.9 Chronic obstructive pulmonary disease, unspecified; N18.31 Chronic kidney disease, stage 3a; F03.918 Unspecified dementia, unspecified severity, with other behavioral disturbance; E78.2 Mixed hyperlipidemia; M47.817 Spondylosis without myelopathy or radiculopathy, lumbosacral region; R26.81 Unsteadiness on feet; E03.9 Hypothyroidism, unspecified; E55.9 Vitamin D deficiency, unspecified; M25.512 Pain in left shoulder; N40.1 Benign prostatic hyperplasia with lower urinary tract symptoms; N13.8 Other obstructive and reflux uropathy
CPT/HCPCS: 99214; G2211

== ENCOUNTER 2024-01-30 14:34 | Outpatient (REF) | payer OTHER, SELFPAY ==
[2024-01-30 15:30] LABS: Appearance Urine Clear; Color Urine Yellow; Glucose Urine UA Negative (Negative); Leukocyte Esterase Urine Negative (Negative); Nitrite Urine Negative (Negative); PH 6.5 (5.0-9.0); Urine Blood Negative (Negative); Urine Ketones Negative (Negative); Urine Protein Negative (Neg-Trace)
[2024-01-30 15:36] LABS: Basophils Percent Auto 0.5 % (0-2); Eosinophils Absolute Auto 0.1 X10*3/uL (0.0-0.4); Lymphocytes Percent Auto 17.1 % (20-40); Mean Corpuscular HGB Conc 33.8 g/dl (31.0-36.0); PLT CLUMP 1; Red Cell Distribution Width 14.5 % (11.0-16.0); SCAN SMEAR FLAG 1
[2024-01-30 15:37] LABS: Eosinophils Percent Auto 1.2 % (0-4); Hematocrit 44.7 % (42.0-52.0); Hemoglobin 15.1 g/dl (14.0-18.0); Imm Gran Abs Auto 0.02 X10*3/uL (0.00-0.03); Imm Gran Pct Auto 0.3 % (0.0-0.4); Lymphocytes Absolute Auto 1.1 X10*3/uL (1.2-4.9); MANUAL DIFF FLAG SCAN; Mean Corpuscular Hemoglobin 26.6 pg (27.0-33.0); Mean Corpuscular Volume 78.7 fL (80.0-98.0); Mean Platelet Volume 11.5 fL (9.4-12.4); Monocytes Absolute Auto 0.6 X10*3/uL (0.1-1.2); Monocytes Percent Auto 8.7 % (2-11); Neutrophils Absolute Auto 4.6 x10*3/uL (2.0-8.3); Neutrophils Percent Auto 72.2 % (45-73); Red Blood Count 5.68 X10*6/uL (4.60-5.80)
[2024-01-30 16:01] LABS: Alanine Aminotransferase 18 U/L (0-40); Albumin Level 4.1 g/dL (3.5-5.0); Alkaline Phosphatase 67 U/L (39-117); Anion Gap 13 (12-20); Aspartate Amino Transferase 21 U/L (5-37); Bilirubin Total 0.5 mg/dL (0.0-1.0); Blood Urea Nitrogen 17 mg/dL (9-16); Calcium 9.8 mg/dL (8.4-10.2); Carbon Dioxide 30 mmol/L (22-29); Chloride 99 mmol/L (96-108); Cholesterol 207 mg/dL (<200); Estimated Glomerular Filt Rate 51; Glucose Fasting 117 mg/dL (60-99); HDL Cholesterol 43 mg/dL (>40); LDL Cholesterol Calculated 103 mg/dL (<100); Potassium 3.5 mmol/L (3.3-5.1); Sodium 138 mmol/L (135-145); Total Protein 8.1 g/dL (6.5-8.0); Triglycerides 307 mg/dL (<150)
[2024-01-30 16:08] LABS: Platelet Count 133 X10*3/uL (160-400); White Blood Count 6.4 X10*3/uL (4.8-10.8)
[2024-01-30 16:09] LABS: SLIDE REVIEW VERIFIED
[2024-01-30 16:16] LABS: Free T4 (Free Thyroxine) 0.77 ng/dL (0.71-1.85); Thyroid Stimulating Hormone 1.57 uIU/mL (0.32-4.0); Vitamin D 25-OH Total 54.6 ng/mL (>30)
[2024-01-30 16:28] LABS: Folate 10.6 ng/mL (> or = 4.0); Vitamin B12 468 pg/mL (200-900)
== END 2024-01-30 14:35 | disposition home or self-care (01) ==
LOC: HO.LAB 14:34
PROVIDERS: Absent Provider Internal Medicine Nephrology; PCP Internal Medicine; Visit Provider Internal Medicine
DX: R30.0 Dysuria (principal); E53.8 Deficiency of other specified B group vitamins; E55.9 Vitamin D deficiency, unspecified; E78.00 Pure hypercholesterolemia, unspecified; E03.9 Hypothyroidism, unspecified; I12.9 Hypertensive chronic kidney disease with stage 1 through stage 4 chronic kidney disease, or unspecified chronic kidney disease; N18.31 Chronic kidney disease, stage 3a; D63.1 Anemia in chronic kidney disease
CPT/HCPCS: 36415; 80053; 80061; 81003; 82306; 82607; 82746; 84439; 84443; 85025

== ENCOUNTER 2024-03-13 10:05 | Emergency (ER) | payer OTHER, SELFPAY ==
[2024-03-13] VITALS (7 sets, daily range): BP systolic 137–171; BP diastolic 57–102; PULSE 54–72; RESP 12–20; TEMP 36.9–38.7; O2SAT 96–99; BMI 25.3
--- NOTE | ~2024-03-13 | XR_ITS ---
EXAMINATION: XR chest 1V CLINICAL INFORMATION: Reason for Exam wheezing COMPARISON: None TECHNIQUE: Single portable frontal view. Tubes and lines: None Lungs and pleura: Both lungs are clear. Heart and mediastinum: Widened mediastinum exaggerated by AP technique unchanged.. Bones/soft tissue: Skeletal structures included are normal for patient's age. XR/XR chest 1V IMPRESSION: No radiographic evidence of acute cardiopulmonary disease.
--- NOTE | ~2024-03-13 | CT_ITS ---
EXAMINATION: CT HEAD W/O IV CONTRAST CT CERVICAL SPINE W/O IV CONTRAST CLINICAL INFORMATION: Recurrent falls. COMPARISON: CT head and cervical spine from 11/02/2022 TECHNIQUE: Head - Contiguous axial imaging of the head was performed from the skull base to the vertex without the administration of intravenous contrast, and axial images are reconstructed at 2 mm and 5 mm slice thickness. Cervical spine - A volumetric, helical CT acquisition of the cervical spine was obtained without contrast; in addition to the standard set of axial images, multiplanar reformatted images were provided in the coronal and sagittal imaging planes. This CT examination was performed using dose optimization techniques as appropriate, variously including the following: *Automated exposure control *Adjustment of mA and/or kV according to patient size (this includes techniques or standardized protocols for targeted exams where dose is matched to indication/reason for exam; i.e. extremities or head) *Use of iterative reconstruction technique DLP: 1264 mGy-cm (total) FINDINGS: HEAD: No acute intracranial findings. [place] to white matter differentiation is preserved. No evidence of intracranial hemorrhage, focal mass effect or midline shift. No acute extra-axial fluid collection. Chronic parenchymal volume loss with commensurate prominence of ventricles and sulci. Chronic mild small vessel ischemic changes within the supratentorial white matter. No evidence of an acute major vascular territory infarction. The calvarium is intact. There is mucus within a left ethmoid air cell. Again noted is chronic mucosal thickening at the inferior aspect of the left maxillary antrum. No air-fluid levels within paranasal sinuses. The mastoid air cells and middle ear cavities are clear. The temporomandibular joints are normal. Prior ocular lens extractions. CERVICAL SPINE: There is chronic lack of lordotic curvature of the degenerated cervical spine. The craniocervical junction is normal. The occipital condyles, dens and atlantodental articulation are intact. There is degenerative osseous spurring at the anterior atlantodental articulation. The vertebral body heights and alignment are maintained. No fractures in the anterior or posterior elements. No prevertebral soft tissue edema or soft tissue hematoma. Chronic degenerative disc disease of C4-C5, C5-C6 and C6-C7 and multilevel uncovertebral joint hypertrophy which cause varying degrees of multilevel neural foraminal stenosis. 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 Multilevel facet arthropathy is present, including on the left at C2-C3 and C7-T1. There is facet joint ankylosis on the right at C7-T1. The visualized portion of the thyroid gland is normal. Lung apices are unremarkable. CT/CT cervical spine wo IV con IMPRESSION: * No intracranial hemorrhage or other acute intracranial pathology compared to 11/02/2022. * Chronic volume loss of brain parenchyma with commensurate prominence of ventricles and sulci. * No fracture or traumatic subluxation in the degenerated cervical spine. 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
--- NOTE | 2024-03-13 10:11 | ECG_ITS ---
Test Reason : WEAKNESS Blood Pressure : / mmHG Vent. Rate : 073 BPM Atrial Rate : 073 BPM P-R Int : 184 ms QRS Dur : 074 ms QT Int : 382 ms P-R-T Axes : 039 -06 030 degrees QTc Int : 420 ms Sinus rhythm with Premature atrial complexes Nonspecific ST abnormality Abnormal ECG When compared with ECG of 02-NOV-2022 16:10, Premature atrial complexes are now Present Referred By: Isela Monaco Electronically Signed By:VJ HOLLY
--- NOTE | 2024-03-13 10:16 | ED_ITS ---
HPI - Male Genitourinary General Chief complaint: Urogenital-Male Stated complaint: UTI SYMPTOMS Time Seen by Provider: 03/13/24 10:16 Source: patient and EMS Mode of arrival: EMS Limitations: no limitations History of Present Illness ED Provider: Bear Monaco PA-C HPI Narrative: 88 yo Icelandic speaking male with history of dementia, Parkinson's disease, hx BPH, GERD, CKD III, anxiety, hypothyroidism, COPD, HTN, HLD, hx urinary incontinence who presents to the ER from home via EMS for evaluation of generalized weakness x1 week, increased confusion, increased urination and foul smelling urine. He tried to get up out of bed 3 times last night and slipped and fell twice. He fell onto his bottom and did not hit his head. Falls witnessed by family. He did not hit his head or lose consciousness. He is not on anticoagulation. No sustained injuries per family report. Family also reports he has a new cough that started yesterday. No one at home is sick. He does not leave the house. He does not have any difficulty breathing or chest pain. No abdominal pain, nausea, vomiting. Patient is incontinent of urine at baseline and denies any urinary symptoms that he is aware of. MD Complaint: other (Increased urination, confusion and weakness) Onset (ago): day(s) Duration: progressively worsening Severity: moderate Related Data Home Medications ?Medication ?Instructions ?Recorded ?Confirmed tiotropium bromide 18 mcg capsule 1 cap inhalation DAILY 05/18/20 01/30/24 with inhalation device (Spiriva with HandiHaler) tramadol 50 mg tablet 50 mg PO BID PRN 05/15/23 01/30/24 gabapentin 100 mg capsule 100 mg PO BID 07/09/23 01/30/24 Previous Rx's ?Medication ?Instructions ?Recorded losartan 50 mg tablet 50 mg PO DAILY #1 tab 05/30/20 ROLLATOR with wheels and seat #1 ea 03/20/21 MANUAL WHEELCHAIR - large #1 ea 08/23/22 alprazolam 0.5 mg tablet 0.5 mg PO TID PRN anxiety 30 days 01/08/23 #90 tabs famotidine 40 mg tablet 40 mg PO BEDTIME #90 tabs 05/23/23 COMMODE #1 ea 05/27/23 bath tub steel white bar #1 ea 06/24/23 fluticasone 500 mcg-salmeterol 50 1 inh inhalation BID #180 ea 09/17/23 mcg/dose blistr powdr for inhalation (Wixela Inhub) trazodone 50 mg tablet 50 mg PO BEDTIME PRN for insomnia 09/17/23 #90 tabs melatonin 3 mg tablet 3 - 6 mg (1 - 2 x 3 mg) PO DAILY 09/18/23 90 days #180 tabs tiotropium bromide 18 mcg capsule 1 cap inhalation DAILY COPD 30 09/25/23 with inhalation device (Spiriva days #30 inhalations with HandiHaler) donepezil 10 mg tablet (Aricept) 10 mg PO BEDTIME 90 days #90 tabs 10/31/23 fluticasone propionate 50 2 spray intranasal DAILY PRN 10/31/23 mcg/actuation nasal allergy symptoms 30 days #16 grams spray,suspension potassium chloride 10 mEq 10 meq PO DAILY 30 days #30 tabs 10/31/23 tablet,extended release (Klor-Con) sertraline 50 mg tablet 50 mg PO DAILY 30 days #30 tabs 11/19/23 cholecalciferol (vitamin D3) 50 50 mcg PO DAILY 90 days #90 caps 12/08/23 mcg (2,000 unit) capsule levothyroxine 25 mcg tablet 25 mcg PO QAM #90 tabs 12/08/23 BATH TRANSFER BENCH #1 ea 12/15/23 finasteride 5 mg tablet 5 mg PO DAILY #90 tabs 12/23/23 montelukast 10 mg tablet 10 mg PO BEDTIME #90 tabs 01/03/24 gabapentin 300 mg capsule 300 mg PO TID 30 days #90 caps 01/14/24 tizanidine 4 mg tablet 4 mg PO TID PRN muscle spasms/back 02/03/24 pain 30 days #90 tabs omeprazole 40 mg capsule,delayed 40 mg PO DAILY #90 caps 02/12/24 release albuterol sulfate 90 mcg/actuation 2 puff inhalation Q6H PRN for 02/23/24 aerosol inhaler wheezing #8.5 ea primidone 50 mg tablet 100 mg (2 x 50 mg) PO BID 90 days 02/23/24 #360 tabs chlorthalidone 25 mg tablet 25 mg PO Q OTHER DAY #45 tabs 02/26/24 disposable underpads #1 ea 08/15/24 disposable underwear #1 ea 03/11/24 fluticasone 250 mcg-salmeterol 50 1 ea PO BID #60 ea 03/11/24 mcg/dose blistr powdr for inhalation (Wixela Inhub) Allergies Allergy/AdvReac Type Severity Reaction Status Date / Time No Known Allergies Allergy Verified 03/13/24 10:20 [No Known Allergies*] Review of Systems 2 Review of Systems: Yes all other systems are reviewed and are negative [facility] Past Medical History Medical History Restrictive lung disease Insomnia Chronic pain syndrome 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, lumbar Peripheral neuropathy Spinal stenosis Allergic rhinitis Hearing impairment Acquired hypothyroidism Borderline abnormal TFTs Benign prostatic hyperplasia with urinary obstruction Anxiety Vitamin D deficiency Overweight (BMI 25.0-29.9) COVID-19 Chronic kidney disease (CKD), stage III (moderate) Facet arthritis of lumbosacral region COPD (chronic obstructive pulmonary disease) Mixed hyperlipidemia Benign essential hypertension Essential hypertension Sinus bradycardia GERD (gastroesophageal reflux disease) Surgical History Hx of colonoscopy History of esophagogastroduodenoscopy (EGD) History of cholecystectomy (~12/2015) Family History Family History Father No problems noted. Mother No problems noted. Social History Social History Housing: Apartment Alcohol intake: never Patient Tobacco Use Status: Former Tobacco user Smoked in Last 30 Days: No e-Cigarette/Vaping Use: Never Used Second Hand Smoke Exposure: Yes Use of substances other than those prescribed or required for medical reasons: No Advance Directives: No Advance Directives Information Provided: No service: No Current occupational status: retired Cognitive needs: Yes (wheelchair) Hearing needs: No Vision needs: Yes Physical Exam 2 Vital Signs: Vital Signs: Last Vital Signs Temp 98.5 F 03/13/24 13:22 Pulse 54 03/13/24 13:22 Resp 12 03/13/24 13:22 BP 144/70 H 03/13/24 13:22 Pulse Ox 96 03/13/24 13:22 O2 Del Method Room Air 03/13/24 13:22 BMI result Body Mass Index 25.3 Appearance: Alert elderly male lying comfortably on the stretcher. Oriented X2. No acute distress. Head: normocephalic, atraumatic. Eyes: Pupils equal, round and reactive to light. ENT: Pharynx normal. No tonsillar swelling or exudate. Neck: Normal inspection. Neck supple. No midline tenderness. Normal range of motion CVS: Normal heart rate and rhythm. Pulses normal. Respiratory: No respiratory distress. Breath sounds diminished throughout without any wheezing or rhonchi Abdomen: Soft and nontender. +BS x4 Skin: Skin warm and dry. Normal skin color. Normal skin turgor. No rashes. Extremities: No lower extremity edema. No joint swelling. Superficial abrasion on the left anterior lower leg, no active bleeding or surrounding swelling Neuro/psych: Oriented X 2. Globally weak, nonfocal. Strength is equal and symmetrical throughout. Answers simple questions and follows simple commands Medications Administered Discontinued Medications Generic Name Dose Route Start Last Admin Trade Name Freq PRN Reason Stop Dose Admin Sodium Chloride 1,000 mls @ 999 mls/hr 03/13/24 10:15 03/13/24 11:51 Ns IVCONT 03/13/24 11:15 Infused .Q1H1M MICHELL Infusion Magnesium Sulfate 2 gm in 50 mls @ 25 mls/hr 03/13/24 11:05 03/13/24 13:26 Magnesium Sulfate/H2o IV 03/13/24 13:04 Infused ONCE ONE Infusion Potassium Chloride 40 meq 03/13/24 11:44 03/13/24 11:49 Potassium Chloride Packet 20 Meq Packet PO 03/13/24 11:45 40 meq ONCE ONE Administration Medical Decision Making Medical Decision Making MDM Narrative: 88 yo Icelandic speaking male with history of dementia, Parkinson's disease, hx BPH, GERD, CKD III, anxiety, hypothyroidism, COPD, HTN, HLD, hx urinary incontinence who presents to the ER from home via EMS for evaluation of generalized weakness x1 week, increased confusion, increased urination and foul smelling urine. He had 2 witnessed falls at home overnight without any LOC or head strike. He is not on a blood thinner. Family reports a new cough. Patient arrives to the ER awake and alert, no distress. He has no pain or complaints. His vital signs are stable. His physical exam is reassuring, he has a mild dry cough with diminished lung sounds but he is breathing comfortably and SpO2 is 97% on room air. He is afebrile. Lab workup showing no leukocytosis. He has hypokalemia and hypomagnesemia. These were repleted. His renal function is at his baseline. Urinalysis is negative for infection. Chest x-ray was clear, no focal infiltrate. He was found to be COVID positive. He is fully vaccinated but has not had a COVID vaccine in some time. He has no known sick contacts at home. His symptoms are mild at this time. CT scan of his head and neck are unremarkable for any acute traumatic injury. We discussed physical therapy and case management consultations for possible placement to a short-term rehab while he is weak and ill. Family is against it and would like to take him home. Expressed concerns for safety at home and they stated they can care for him. Family counseled on return precautions, symptomatic management of COVID. Stable for d/c home with family. Differential Diagnosis Differential Diagnoses: The differential diagnosis associated with the presentation includes Urinary tract infection, metabolic encephalopathy, pneumonia, bronchitis, COVID, other viral syndrome, acute renal failure, dehydration Admission/Observation Consideration of admission/observation: Escalation of care including admission/observation considered Lab Data MDM Lab Attestation statement: I reviewed the patient's lab results. 03/13/24 10:32 03/13/24 10:32 Labs: Lab Results 03/13/24 03/13/24 Range/Units 10:32 11:06 WBC 7.6 (4.8-10.8) X10*3/uL RBC 5.38 (4.60-5.80) X10*6/uL Hgb 14.5 (14.0-18.0) g/dl Hct 42.2 (42.0-52.0) % MCV 78.4 L (80.0-98.0) fL MCH 27.0 (27.0-33.0) pg MCHC 34.4 (31.0-36.0) g/dl RDW 14.2 (11.0-16.0) % Plt Count 113 L (160-400) X10*3/uL MPV 10.1 (9.4-12.4) fL Immature Gran % (Auto) 0.3 (0.0-0.4) % Neut % (Auto) 76.4 H (45-73) % Lymph % (Auto) 10.1 L (20-40) % [place] % (Auto) 12.5 H (2-11) % Eos % (Auto) 0.3 (0-4) % Baso % (Auto) 0.4 (0-2) % Lymph # (Auto) 0.8 L (1.2-4.9) X10*3/uL [place] # (Auto) 1.0 (0.1-1.2) X10*3/uL Eos # (Auto) 0.0 (0.0-0.4) X10*3/uL Baso # (Auto) 0.0 (0.0-0.2) X10*3/uL Abs Immat Gran (auto) 0.02 (0.00-0.03) X10*3/uL Absolute Neuts (auto) 5.8 (2.0-8.3) x10*3/uL Absolute Nucleated RBC 0.000 (0.0-0.012) X10*3/uL Nucleated RBC % (auto) 0.0 (0.0-0.2) /100WBC Sodium 138 (135-145) mmol/L Potassium 3.1 L (3.3-5.1) mmol/L Chloride 96 (96-108) mmol/L Carbon Dioxide 30 H (22-29) mmol/L Anion Gap 15 (12-20) BUN 14 (9-16) mg/dL Creatinine 1.29 (0.5-1.4) mg/dL Estim Creat Clear Calc 43.4 Estimated GFR 53 Random Glucose 105 (60-115) mg/dL Calcium 9.7 (8.4-10.2) mg/dL Magnesium 1.3 L* (1.6-2.6) mg/dL Total Bilirubin 1.1 H (0.0-1.0) mg/dL Direct Bilirubin 0.3 (0.0-0.5) mg/dL AST 14 (5-37) U/L ALT 9 (0-40) U/L Alkaline Phosphatase 64 (39-117) U/L Total Protein 7.9 (6.5-8.0) g/dL Albumin 4.0 (3.5-5.0) g/dL Urine Color Yellow Urine Appearance Clear Urine pH 6.5 (5.0-9.0) Ur Specific [place] 1.020 (1.005-1.025) Urine Protein Trace (Neg-Trace) mg/dL Urine Glucose (UA) Negative (Negative) mg/dL Urine Ketones Negative (Negative) mg/dL Urine Blood Negative (Negative) Urine Nitrite Negative (Negative) Ur Leukocyte Esterase Negative (Negative) COVID-19 ([facility]ANY) Positive A (Negative) COVID-19 Clin Com See Note Independent Interpretation I performed an independent interpretation of an: EKG and CT Scan Interpretation: EKG with normal sinus rhythm, ventricular rate 73 beats per minute, normal CT interval, normal QTC, no ST segment elevations or depressions. CT scan of the head without acute bleed or edema, agree with radiology read Radiology Impression Discussion of test interpretation with radiology: I have reviewed the radiologist's reading. Radiologist Impression: EXAMINATION: CT HEAD W/O IV CONTRAST CT CERVICAL SPINE W/O IV CONTRAST CLINICAL INFORMATION: Recurrent falls. COMPARISON: CT head and cervical spine from 11/02/2022 TECHNIQUE: Head - Contiguous axial imaging of the head was performed from the skull base to the vertex without the administration of intravenous contrast, and axial images are reconstructed at 2 mm and 5 mm slice thickness. Cervical spine - A volumetric, helical CT acquisition of the cervical spine was obtained without contrast; in addition to the standard set of axial images, multiplanar reformatted images were provided in the coronal and sagittal imaging planes. This CT examination was performed using dose optimization techniques as appropriate, variously including the following: *Automated exposure control *Adjustment of mA and/or kV according to patient size (this includes techniques or standardized protocols for targeted exams where dose is matched to indication/reason for exam; i.e. extremities or head) *Use of iterative reconstruction technique DLP: 1264 mGy-cm (total) FINDINGS: HEAD: No acute intracranial findings. [place] to white matter differentiation is preserved. No evidence of intracranial hemorrhage, focal mass effect or midline shift. No acute extra-axial fluid collection. Chronic parenchymal volume loss with commensurate prominence of ventricles and sulci. Chronic mild small vessel ischemic changes within the supratentorial white matter. No evidence of an acute major vascular territory infarction. The calvarium is intact. There is mucus within a left ethmoid air cell. Again noted is chronic mucosal thickening at the inferior aspect of the left maxillary antrum. No air-fluid levels within paranasal sinuses. The mastoid air cells and middle ear cavities are clear. The temporomandibular joints are normal. Prior ocular lens extractions. CERVICAL SPINE: There is chronic lack of lordotic curvature of the degenerated cervical spine. The craniocervical junction is normal. The occipital condyles, dens and atlantodental articulation are intact. There is degenerative osseous spurring at the anterior atlantodental articulation. The vertebral body heights and alignment are maintained. No fractures in the anterior or posterior elements. No prevertebral soft tissue edema or soft tissue hematoma. Chronic degenerative disc disease of C4-C5, C5-C6 and C6-C7 and multilevel uncovertebral joint hypertrophy which cause varying degrees of multilevel neural foraminal stenosis. 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 Multilevel facet arthropathy is present, including on the left at C2-C3 and C7-T1. There is facet joint ankylosis on the right at C7-T1. The visualized portion of the thyroid gland is normal. Lung apices are unremarkable. CT/CT cervical spine wo IV con IMPRESSION: * No intracranial hemorrhage or other acute intracranial pathology compared to 11/02/2022. * Chronic volume loss of brain parenchyma with commensurate prominence of ventricles and sulci. * No fracture or traumatic subluxation in the degenerated cervical spine. 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 Independent Historian Clinical information obtained from an independent historian. History obtained from or confirmed by: EMS and Other (adult daughters at bedside) External Record Review External record reviewed: Office record, Outpatient record, Prior outpatient labs and Prior outpatient radiology Prescription Management I considered prescription management with: Antiviral and Antibiotic Chronic Conditions Patient?s care impacted by: Hypertension and Other (Dementia, COPD, urinary incontinence, CKD) Critical Care Time Critical Care Time Critical Care Time: No Discharge Plan Discharge Clinical Impression: COVID-19 Patient Disposition: Home, Self-Care Instructions: COVID-19 (Coronavirus Disease 2019) (ED) Additional Instructions: Your lab workup today showed low potassium and low magnesium. Your given electrolyte replacements. Your blood counts were stable. Your urine test did not show any evidence of infection. You were found to be COVID-19 POSITIVE today. Your chest x-ray and oxygen levels were normal. Rest. Drink plenty of fluids. Take over the counter cold/flu medications as needed for your symptoms. Take Tylenol and/or Motrin as needed for fevers and body aches. Follow up with your doctor this week. If you develop new or worsening symptoms call 911 or come back to the ER for further evaluation. Prescriptions: No Action (DME) MANUAL WHEELCHAIR - large large See Rx Instructions .Route .MEDSUPPLY Qty: 1 0RF Rx Instructions: As directed alprazolam 0.5 mg tablet 0.5 mg PO TID PRN (Reason: anxiety) 30 Days Qty: 90 0RF famotidine 40 mg tablet 40 mg PO BEDTIME Qty: 90 2RF (DME) COMMODE See Rx Instructions .Route .MEDSUPPLY Qty: 1 0RF Rx Instructions: As directed (DME) bath tub steel white bar See Rx Instructions .Route .MEDSUPPLY Qty: 1 0RF Rx Instructions: As directed fluticasone propion-salmeterol [Wixela Inhub] 500-50 mcg/dose blister with device 1 inh inhalation BID Qty: 180 1RF trazodone 50 mg tablet 50 mg PO BEDTIME PRN (Reason: for insomnia) Qty: 90 1RF melatonin 3 mg tablet 3 - 6 mg PO DAILY 90 Days Qty: 180 1RF sertraline 50 mg tablet 50 mg PO DAILY 30 Days Qty: 30 1RF levothyroxine 25 mcg tablet 25 mcg PO QAM Qty: 90 1RF cholecalciferol (vitamin D3) 50 mcg (2,000 unit) capsule 50 mcg PO DAILY 90 Days Qty: 90 1RF (DME) BATH TRANSFER BENCH See Rx Instructions .Route .MEDSUPPLY Qty: 1 0RF Rx Instructions: As directed finasteride 5 mg tablet 5 mg PO DAILY Qty: 90 2RF montelukast 10 mg tablet 10 mg PO BEDTIME Qty: 90 0RF gabapentin 300 mg capsule 300 mg PO TID 30 Days Qty: 90 1RF tizanidine 4 mg tablet 4 mg PO TID PRN (Reason: muscle spasms/back pain) 30 Days Qty: 90 1RF omeprazole 40 mg capsule,delayed release(DR/EC) 40 mg PO DAILY Qty: 90 2RF primidone 50 mg tablet 100 mg PO BID 90 Days Qty: 360 1RF albuterol sulfate 90 mcg/actuation HFA aerosol inhaler 2 puff inhalation Q6H PRN (Reason: for wheezing) Qty: 8.5 3RF chlorthalidone 25 mg tablet 25 mg PO Q OTHER DAY Qty: 45 3RF fluticasone propion-salmeterol [Wixela Inhub] 250-50 mcg/dose blister with device 1 ea PO BID Qty: 60 5RF (DME) disposable underwear XL See Rx Instructions .Route .MEDSUPPLY Qty: 1 0RF Rx Instructions: As directed (DME) disposable underpads heavy flow See Rx Instructions .Route .MEDSUPPLY Qty: 1 0RF Rx Instructions: As directed Spiriva with HandiHaler 18 mcg capsule, w/inhalation device 1 cap inhalation DAILY Rx Instructions: puncture 1 cap using device; one dose = 2 inhalations (DME) ROLLATOR with wheels and seat See Rx Instructions .Route .MEDSUPPLY Qty: 1 0RF Rx Instructions: As directed fluticasone propionate 50 mcg/actuation spray,suspension 2 spray intranasal DAILY PRN (Reason: allergy symptoms) 30 Days Qty: 16 5RF Rx Instructions: administer into each nostril donepezil [Aricept] 10 mg tablet 10 mg PO BEDTIME 90 Days Qty: 90 1RF potassium chloride [Klor-Con 10] 10 mEq tablet extended release 10 meq PO DAILY 30 Days Qty: 30 5RF losartan 50 mg tablet 50 mg PO DAILY Qty: 1 0RF gabapentin 100 mg capsule 100 mg PO BID tramadol 50 mg tablet 50 mg PO BID PRN tiotropium bromide [Spiriva with HandiHaler] 18 mcg capsule, w/inhalation device 1 cap inhalation DAILY 30 Days Qty: 30 5RF Rx Instructions: puncture 1 cap using device; one dose = 2 inhalations Referrals: Baljit Swanson MD [Primary Care Provider] - Print Language: Mozambican
[2024-03-13] MEDS: 0.9 % Sodium Chloride 1,000 ML 999 ML IVCONT (10:23)
--- NOTE | 2024-03-13 10:36 | PC.NURSE ---
Pt presents to ED via EMS, EMS reports family called due to increased confusion/ weakness and urination X1 week. Pt had two slip and falls throughout the night, family could not get him up this morning. Pt confused at baseline due to dementia, but has had increased confusion. Alert, breathing even and unlabored, skin warm and dry. Pt incontinent of urine, strong odor. C-collar by EMS. IV in left hand 20G, 100 mL NS by EMS.
[2024-03-13 10:39] LABS: MANUAL DIFF FLAG NO
[2024-03-13 10:45] LABS: Basophils Percent Auto 0.4 % (0-2); Eosinophils Percent Auto 0.3 % (0-4); Hematocrit 42.2 % (42.0-52.0); Hemoglobin 14.5 g/dl (14.0-18.0); Imm Gran Abs Auto 0.02 X10*3/uL (0.00-0.03); Imm Gran Pct Auto 0.3 % (0.0-0.4); Lymphocytes Absolute Auto 0.8 X10*3/uL (1.2-4.9); Lymphocytes Percent Auto 10.1 % (20-40); Mean Corpuscular HGB Conc 34.4 g/dl (31.0-36.0); Mean Corpuscular Volume 78.4 fL (80.0-98.0); Mean Platelet Volume 10.1 fL (9.4-12.4); Monocytes Percent Auto 12.5 % (2-11); Neutrophils Absolute Auto 5.8 x10*3/uL (2.0-8.3); Neutrophils Percent Auto 76.4 % (45-73); Platelet Count 113 X10*3/uL (160-400); Red Blood Count 5.38 X10*6/uL (4.60-5.80); Red Cell Distribution Width 14.2 % (11.0-16.0); White Blood Count 7.6 X10*3/uL (4.8-10.8)
[2024-03-13 10:47] LABS: COVID-19 Test Positive (Negative); IDNOW Serial# 08D9AD1C
[2024-03-13 11:05] LABS: Alanine Aminotransferase 9 U/L (0-40); Alkaline Phosphatase 64 U/L (39-117); Anion Gap 15 (12-20); Aspartate Amino Transferase 14 U/L (5-37); Bilirubin Direct 0.3 mg/dL (0.0-0.5); Bilirubin Total 1.1 mg/dL (0.0-1.0); Blood Urea Nitrogen 14 mg/dL (9-16); Calcium 9.7 mg/dL (8.4-10.2); Carbon Dioxide 30 mmol/L (22-29); Chloride 96 mmol/L (96-108); Creatinine Clr Calc Pharmacy 43.4; Estimated Glomerular Filt Rate 53; Glucose Random 105 mg/dL (60-115); Magnesium 1.3 mg/dL (1.6-2.6); Potassium 3.1 mmol/L (3.3-5.1); Sodium 138 mmol/L (135-145); Total Protein 7.9 g/dL (6.5-8.0)
[2024-03-13 11:13] LABS: Appearance Urine Clear; Color Urine Yellow; Glucose Urine UA Negative (Negative); Leukocyte Esterase Urine Negative (Negative); Nitrite Urine Negative (Negative); PH 6.5 (5.0-9.0); Urine Blood Negative (Negative); Urine Ketones Negative (Negative); Urine Protein Trace mg/dL (Neg-Trace)
[2024-03-13] MEDS: Magnesium Sulfate/H2O 2 GM/50 ML PIGGYBACK IV (11:22)
[2024-03-13] MEDS: Potassium Chloride Packet 20 MEQ PACKET 40 MEQ PO (11:49)
--- NOTE | 2024-03-13 14:51 | PC.NURSE ---
Upon attempting to d/c pt, pt very weak, unable to stand and pivot to wheelchair. Pt shaking and unable to stand for short period. Pt placed back into bed, provider aware. Plan for PT/Case Mng
[2024-03-13] MEDS: OLANZapine 5 MG TABLET PO (15:19)
--- NOTE | 2024-03-13 15:26 | PC.NURSE ---
Pt takes meds whole with water, no issues. Family member going home to grab pts med list, will do med rec.
--- NOTE | 2024-03-13 15:30 | MHC.CM.ED ---
Received case management consult from Isela RUSS. Patient came to the ER due to weakness. Found to be positive Covid. Too weak to d/c home with family. Physical therapy eval ordered but will not be available before patient. If STR is need, will be difficult to place due to being Covid positive. Continue to monitor for d/c needs.
--- NOTE | 2024-03-13 18:48 | PC.NURSE ---
Med rec completed by this RN using family members list and info. Updated in chart
--- NOTE | 2024-03-13 20:01 | PHA.MEDREC ---
Pharmacy Consult ? Medication Reconciliation Pharmacy has completed the medication reconciliation, utilized list provided from pt's family, nurse originally completed med rec, list changed to reflect list from family.
[2024-03-13] MEDS: Acetaminophen 325 MG TABLET 650 MG PO (20:21)
[2024-03-13] MEDS: traZODone HCL 50 MG TABLET PO (20:54)
[2024-03-13] MEDS: ALPRAZolam 0.5 MG TABLET 1 MG PO (20:54)
[2024-03-13] MEDS: Gabapentin 300 MG CAPSULE PO (20:54)
[2024-03-13] MEDS: Donepezil HCl 10 MG TABLET PO (20:55)
[2024-03-13] MEDS: Melatonin 3 MG TABLET 6 MG PO (20:55)
[2024-03-13] MEDS: Famotidine 20 MG TABLET 40 MG PO (20:56)
[2024-03-13] MEDS: Montelukast Sodium 10 MG TABLET PO (20:56)
[2024-03-14] VITALS (7 sets, daily range): BP systolic 113–158; BP diastolic 57–76; PULSE 56–68; RESP 12–20; TEMP 36.7–39.4; O2SAT 92–97
--- NOTE | 2024-03-14 04:55 | PC.NURSE ---
Pt asleep throughout the shift. Not answering questions, appears drowsy. VSS. Bed alarm engaged. Camera in place. Call walker within reach. Will continue to monitor as pt reported to be confused from RN on previous shift.
[2024-03-14] MEDS: Omeprazole 40 MG CAPSULE.DR PO (05:18)
[2024-03-14] MEDS: Levothyroxine Sodium 25 MCG TABLET PO (05:18)
[2024-03-14] MEDS: Acetaminophen 325 MG TABLET 650 MG PO ×2 (05:22→18:14)
[2024-03-14] MEDS: Gabapentin 300 MG CAPSULE PO ×2 (10:18→21:03)
[2024-03-14] MEDS: Sertraline HCL 50 MG TABLET PO (10:18)
[2024-03-14] MEDS: ALPRAZolam 0.5 MG TABLET 1 MG PO ×2 (10:18→21:03)
[2024-03-14] MEDS: Finasteride 5 MG TABLET PO (10:18)
[2024-03-14] MEDS: Losartan Potassium 50 MG TABLET PO (10:18)
[2024-03-14] MEDS: Cholecalciferol (Vitamin D3) 25 MCG TABLET 50 MCG PO (10:19)
[2024-03-14] MEDS: Potassium Chloride ER 10 MEQ TABLET.ER PO (10:19)
--- NOTE | 2024-03-14 20:21 | PC.NURSE ---
Temp 101.1 oral, patient received Tylenol 650 mg PO at 18:14, provider Medina notified, per MD recheck temp in 1 hour.
[2024-03-14] MEDS: Donepezil HCl 10 MG TABLET PO (21:02)
[2024-03-14] MEDS: Famotidine 20 MG TABLET 40 MG PO (21:02)
[2024-03-14] MEDS: Montelukast Sodium 10 MG TABLET PO (21:03)
[2024-03-14] MEDS: Primidone 50 MG TABLET 100 MG PO (21:03)
[2024-03-14] MEDS: Melatonin 3 MG TABLET 6 MG PO (21:03)
[2024-03-14] MEDS: Ibuprofen 400 MG TABLET PO (21:49)
[2024-03-14] MEDS: Acetaminophen 325 MG TABLET PO (21:49)
--- NOTE | 2024-03-14 21:56 | PC.NURSE ---
Temp 103.0 oral, ED provider notified, patient medicated with Tylenol 325 mg PO and Ibuprofen 400 mg PO. [place] catheter applied for comfort/to prevent skin breakdown. Patient's daughter at bedside, plan of care ongoing.
--- NOTE | 2024-03-15 04:25 | PC.NURSE ---
Patient is aferile, VSS. Patient denies any pain at this time. [place] catheter in place, call walker in patient's reach.
[2024-03-15] MEDS: Omeprazole 40 MG CAPSULE.DR PO (06:07)
[2024-03-15] MEDS: Levothyroxine Sodium 25 MCG TABLET PO (06:07)
[2024-03-15 06:32] VITALS: BP 117/59; PULSE 50; RESP 16; TEMP 36.6; O2SAT 98
--- NOTE | 2024-03-15 08:00 | PC.NURSE ---
per previous RN - pt seemed to have difficulty swallowing pills whole w/ water. previous RN then attempted to administer medication whole w/ pudding. pt tolerated well. after this RN resumed care of pt - this RN attempted a nursing swallow evaluation on pt. pt passed when drinking water but seemed to have difficulty chewing/swallowing breakfast as he was continuously pocketing food into his cheeks. this RN failed pt when attempting nursing swallow assessment. covering provider notified/aware. official bedside speech/swallow evaluation ordered via speech therapist. no sob/wob noted. lungs CTA. no s/s of aspiration. plan of care ongoing.
--- NOTE | 2024-03-15 08:18 | MHC.CM.PN ---
Addendum entered by Radha Miranda 03/15/24 11:56: PT RECOMMENDING STR, REFERRAL EXPANDED STILL NO BED OFFERS Original Note: PT AWAITING STR PLACEMENT VS ENOUGH IMPROVEMENT TO RETURN HOME WITH HIS SNF REFERRALS MADE, NO ONE OFFERING A COVID + BED, TWO OFFERING ONCE PT IS COVID - OR ON THE 11TH DAY. FOLLOW UP PT EVAL EXPECTED TODAY
[2024-03-15] MEDS: Gabapentin 300 MG CAPSULE PO ×2 (08:41→21:23)
[2024-03-15] MEDS: Potassium Chloride ER 10 MEQ TABLET.ER PO (08:41)
[2024-03-15] MEDS: Losartan Potassium 50 MG TABLET PO (08:41)
[2024-03-15] MEDS: ALPRAZolam 0.5 MG TABLET 1 MG PO ×2 (08:42→21:22)
[2024-03-15] MEDS: Sertraline HCL 50 MG TABLET PO (08:42)
[2024-03-15] MEDS: Finasteride 5 MG TABLET PO (08:43)
[2024-03-15 09:03] VITALS: BP 117/59; PULSE 50; O2SAT 98
[2024-03-15 09:40] VITALS: PULSE 70; RESP 15; O2SAT 94
[2024-03-15] MEDS: Fluticasone/Vilanterol 100/25 BLST.W.DEV 1 PUFF INHALE (09:40)
[2024-03-15] MEDS: Tiotropium Bromide 2.5 mcg 1 PUFF/2.5 MCG MIST.INHAL 2 PUFF INHALE (09:40)
[2024-03-15] MEDS: Artificial Tears 15 ML DROPS 1 DROP EYE-BOTH ×3 (10:49→21:24)
[2024-03-15] MEDS: Cholecalciferol (Vitamin D3) 25 MCG TABLET 50 MCG PO (10:50)
[2024-03-15] MEDS: Primidone 50 MG TABLET 100 MG PO (10:50)
--- NOTE | 2024-03-15 10:55 | PC.NURSE ---
medication delivered from pharmacy/administered. pt tolerated swallowing pills whole w/ pudding well. speech therapist bedside completely swallow evaluation at this time. family bedside for support. plan of care ongoing.
--- NOTE | 2024-03-15 11:16 | PC.NURSE ---
post speech/swallow evaluation: Recommend CHOPPED/ADVANCED (NDD3) diet and THIN liquids, pills WHOLE in PUREE. 1:1 feed and aspiration precautions: Check oral cavity for pocketing, alternate bites with sips of liquid to clear, ensure mouth is clear before giving more bites. Normally NDD3 diet does not permit bread, but will make exception for patient as family reports he enjoys [place] bread, it is soft, he was observed to eat it this morning and tolerated well. I will let kitchen know to allow bread/soft sandwiches (tuna, chicken salad, pb&j).
[2024-03-15 14:00] VITALS: BP 148/85; PULSE 58; RESP 18; O2SAT 98
[2024-03-15 16:00] VITALS: BP 142/62; PULSE 56; RESP 18; TEMP 36.7; O2SAT 100
[2024-03-15 20:08] VITALS: BP 161/63; PULSE 69; RESP 16; TEMP 36.6; O2SAT 98
[2024-03-15] MEDS: Famotidine 20 MG TABLET 40 MG PO (21:23)
[2024-03-15] MEDS: Donepezil HCl 10 MG TABLET PO (21:23)
[2024-03-15] MEDS: Melatonin 3 MG TABLET 6 MG PO (21:23)
[2024-03-15] MEDS: Montelukast Sodium 10 MG TABLET PO (21:23)
--- NOTE | 2024-03-15 22:54 | MHC.EDTECH ---
Patient total bed changed
--- NOTE | 2024-03-16 02:46 | PC.NURSE ---
Took report from off-going RN at 2300 hours. Pt is here for evaluation of general weakness x 1 week, increased confusion, and ? UTI. Persian speaking only. Easily arousable with verbal stimuli. Covid positive. CT is negative. Failed swallow evaluation. Chopped diet. Small sips of liquids with supervision and oral check, pt does pocket food. Takes pills whole with pudding. Unable to complete PT evaluation due to profound weakness. Pt is sleeping, appears comfortable, changes position independently as desired. Call light within reach, bed at lowest position. Final disposition is still pending. Will continue to monitor for any changes.
--- NOTE | 2024-03-16 04:12 | PC.NURSE ---
Pt is sleeping, appears comfortable. Changes positions independently as desired. Call light within reach and video monitor at bedside for safety. Will continue to monitor for any changes.
[2024-03-16] MEDS: Levothyroxine Sodium 25 MCG TABLET PO (05:57)
[2024-03-16 06:03] VITALS: BP 164/80; PULSE 60; RESP 16; TEMP 36.6; O2SAT 97
[2024-03-16] MEDS: Omeprazole 40 MG CAPSULE.DR PO (06:25)
[2024-03-16] MEDS: Tiotropium Bromide 2.5 mcg 1 PUFF/2.5 MCG MIST.INHAL 2 PUFF INHALE (08:09)
[2024-03-16] MEDS: Fluticasone/Vilanterol 100/25 BLST.W.DEV 1 PUFF INHALE (08:09)
[2024-03-16 08:15] VITALS: PULSE 60; RESP 16; O2SAT 94
[2024-03-16] MEDS: Sertraline HCL 50 MG TABLET PO (10:01)
[2024-03-16] MEDS: Finasteride 5 MG TABLET PO (10:01)
[2024-03-16] MEDS: Gabapentin 300 MG CAPSULE PO ×2 (10:01→22:34)
[2024-03-16] MEDS: Cholecalciferol (Vitamin D3) 25 MCG TABLET 50 MCG PO (10:01)
[2024-03-16] MEDS: hydroCHLOROthiazide 50 MG TABLET 25 MG PO (10:01)
[2024-03-16] MEDS: ALPRAZolam 0.5 MG TABLET 1 MG PO ×2 (10:01→22:34)
[2024-03-16] MEDS: Primidone 50 MG TABLET 100 MG PO ×2 (10:01→22:34)
[2024-03-16] MEDS: Losartan Potassium 50 MG TABLET PO (10:01)
[2024-03-16] MEDS: Potassium Chloride ER 10 MEQ TABLET.ER PO (10:02)
[2024-03-16] MEDS: Artificial Tears 15 ML DROPS 1 DROP EYE-BOTH ×2 (10:02→22:34)
--- NOTE | 2024-03-16 10:50 | MHC.CM.ED ---
Patient remains in ER overflow. Positive for Covid 03/13. Physical therapy eval completed. Short term rehab is recommended. Spoke with patient's daughter, Sasha, via telephone at [phone]. Patient lives with his and Sasha. Patient has services through [facility]. Sasha is paid to care for patient. Sasha states patient has been falling recently and is agreeable to STR. Per Sasha, [facility] is first choice. Sasha aware patient may be difficult to place due to being positive Covid. Patient can be retested on 03/18. If negative, SNF options would increase. If positive, patient would be considered Covid recovered on 03/23. Continue to monitor for d/c needs.
[2024-03-16 14:12] VITALS: BP 146/76; PULSE 63; RESP 14; TEMP 36.6; O2SAT 97
--- NOTE | 2024-03-16 19:08 | PC.NURSE ---
This RN assumed pt care @ 1900. Pt with family in the restroom. Pts family requested and given socks Plan of care ongoing.
[2024-03-16 19:13] VITALS: BP 159/82; PULSE 62; RESP 18; TEMP 36.6; O2SAT 99
--- NOTE | 2024-03-16 19:54 | PC.NURSE ---
Family no longer at bedside. Plan of care ongoing.
--- NOTE | 2024-03-16 21:29 | MHC.EDTECH ---
Patient had shower and total bed changed
--- NOTE | 2024-03-16 22:00 | MHC.EDTECH ---
Patient inc therefore patient changed and repositioned
[2024-03-16] MEDS: Melatonin 3 MG TABLET 6 MG PO (22:33)
[2024-03-16] MEDS: Famotidine 20 MG TABLET 40 MG PO (22:33)
[2024-03-16] MEDS: Montelukast Sodium 10 MG TABLET PO (22:34)
[2024-03-16] MEDS: Donepezil HCl 10 MG TABLET PO (22:34)
--- NOTE | 2024-03-16 22:42 | PC.NURSE ---
Pt medicated per sep Pt tolerated well Pt ca&ox3, no signs of distress. Plan of care ongoing.
[2024-03-16 23:49] VITALS: BP 152/77; PULSE 59; RESP 16; TEMP 37; O2SAT 95
--- NOTE | 2024-03-16 23:50 | MHC.EDTECH ---
This pct assumed care of Patient at 2300 ,vitals taken Patient awake ,was clean and dry ,Patient was assisted to boost up in bed ,Red sock was given ,Pt said he was hungry ,chicken salad sandwich and gingerale given .Call walker within Pt reach ,Plan of care continue .
--- NOTE | 2024-03-16 23:55 | PC.NURSE ---
Pt repositioned in bed with tech. Plan of care ongoing.
[2024-03-17] MEDS: Levothyroxine Sodium 25 MCG TABLET PO (06:24)
[2024-03-17] MEDS: Omeprazole 40 MG CAPSULE.DR PO (06:24)
--- NOTE | 2024-03-17 06:26 | PC.NURSE ---
Pt medicated per mar, Plan of care ongoing.
[2024-03-17 06:42] VITALS: BP 140/77; PULSE 64; RESP 15; TEMP 36.6; O2SAT 94
[2024-03-17] MEDS: Fluticasone/Vilanterol 100/25 BLST.W.DEV 1 PUFF INHALE (07:58)
[2024-03-17] MEDS: Tiotropium Bromide 2.5 mcg 1 PUFF/2.5 MCG MIST.INHAL 2 PUFF INHALE (07:58)
[2024-03-17 08:01] VITALS: PULSE 62; RESP 18; O2SAT 94
[2024-03-17] MEDS: Losartan Potassium 50 MG TABLET PO (08:35)
[2024-03-17] MEDS: Finasteride 5 MG TABLET PO (08:35)
[2024-03-17] MEDS: Sertraline HCL 50 MG TABLET PO (08:35)
[2024-03-17] MEDS: Cholecalciferol (Vitamin D3) 25 MCG TABLET 50 MCG PO (08:35)
[2024-03-17] MEDS: Potassium Chloride ER 10 MEQ TABLET.ER PO (08:35)
[2024-03-17] MEDS: Gabapentin 300 MG CAPSULE PO ×2 (08:35→21:15)
[2024-03-17] MEDS: ALPRAZolam 0.5 MG TABLET 1 MG PO ×2 (08:36→21:14)
[2024-03-17] MEDS: Artificial Tears 15 ML DROPS 1 DROP EYE-BOTH ×2 (10:07→21:16)
[2024-03-17] MEDS: Primidone 50 MG TABLET 100 MG PO ×2 (10:07→21:16)
[2024-03-17 11:54] VITALS: BP 136/78; PULSE 89; RESP 16; TEMP 36.5; O2SAT 98
[2024-03-17 16:00] VITALS: BP 142/63; PULSE 61; RESP 12; TEMP 36.6; O2SAT 98
[2024-03-17 21:12] VITALS: BP 142/81; PULSE 62; RESP 16; TEMP 36.5; O2SAT 97
[2024-03-17] MEDS: Famotidine 20 MG TABLET 40 MG PO (21:15)
[2024-03-17] MEDS: Melatonin 3 MG TABLET 6 MG PO (21:15)
[2024-03-17] MEDS: Montelukast Sodium 10 MG TABLET PO (21:16)
[2024-03-17] MEDS: Donepezil HCl 10 MG TABLET PO (21:16)
--- NOTE | 2024-03-17 21:33 | PC.NURSE ---
Patient awake, sitting upright in hospital bed watching TV. skin pwd, resp even and non labored. patient denies pain. medicated as ordered.
[2024-03-18] VITALS (7 sets, daily range): BP systolic 115–142; BP diastolic 63–81; PULSE 59–88; RESP 14–20; TEMP 36.4–37.1; O2SAT 95–97
--- NOTE | 2024-03-18 00:32 | PC.NURSE ---
Took over care from RENEE Reaves, pt incontinent of urine, complete bed change, pt repositioned for comfort. Legs elevated and pt position. Bed alarm and virtual camera in place.
[2024-03-18] MEDS: Omeprazole 40 MG CAPSULE.DR PO (06:21)
[2024-03-18] MEDS: Levothyroxine Sodium 25 MCG TABLET PO (06:21)
--- NOTE | 2024-03-18 07:02 | PC.NURSE ---
pt per care, pt repositioned for comfort, medicated per sep, SARs collected and sent this morning.
[2024-03-18] MEDS: Tiotropium Bromide 2.5 mcg 1 PUFF/2.5 MCG MIST.INHAL 2 PUFF INHALE (08:16)
[2024-03-18] MEDS: Fluticasone/Vilanterol 100/25 BLST.W.DEV 1 PUFF INHALE (08:16)
[2024-03-18 08:19] LABS: Influenza A PCR NEGATIVE (Negative); Influenza B PCR NEGATIVE (Negative); Resp Syncy Virus RNA Qual PCR NEGATIVE (Negative); SARS COV2 PCR INHOUSE POSITIVE (Negative)
--- NOTE | 2024-03-18 08:32 | MHC.CM.PN ---
PT AWAITING STR PLACEMENT REPEAT COVID SWAB DONE TODAY, PT IS STILL + UPDATES SENT TO SNFS, STILL NO BED OFFERS, HOWEVER SOME ARE FOLLOWING FOR POTENTIAL ADMISSION ON 03/23/24
[2024-03-18] MEDS: Finasteride 5 MG TABLET PO (09:37)
[2024-03-18] MEDS: ALPRAZolam 0.5 MG TABLET 1 MG PO ×2 (09:37→20:58)
[2024-03-18] MEDS: Losartan Potassium 50 MG TABLET PO (09:37)
[2024-03-18] MEDS: Sertraline HCL 50 MG TABLET PO (09:37)
[2024-03-18] MEDS: Potassium Chloride ER 10 MEQ TABLET.ER PO (09:37)
[2024-03-18] MEDS: Cholecalciferol (Vitamin D3) 25 MCG TABLET 50 MCG PO (09:37)
[2024-03-18] MEDS: Gabapentin 300 MG CAPSULE PO ×3 (09:37→21:11)
[2024-03-18] MEDS: hydroCHLOROthiazide 50 MG TABLET 25 MG PO (10:43)
[2024-03-18] MEDS: Primidone 50 MG TABLET 100 MG PO ×2 (10:43→20:58)
[2024-03-18] MEDS: Artificial Tears 15 ML DROPS 1 DROP EYE-BOTH (10:47)
--- NOTE | 2024-03-18 19:53 | PC.NURSE ---
Assumed care of pt. Pt lying on stretcher, no acute distress at this time. Family, upon leaving department, notified this RN that pt would prefer to use commode rather than bedpan.
[2024-03-18] MEDS: Acetaminophen 325 MG TABLET 650 MG PO (20:57)
[2024-03-18] MEDS: Melatonin 3 MG TABLET 6 MG PO (20:57)
[2024-03-18] MEDS: traZODone HCL 50 MG TABLET PO (20:58)
[2024-03-18] MEDS: Famotidine 20 MG TABLET 40 MG PO (20:58)
[2024-03-18] MEDS: Montelukast Sodium 10 MG TABLET PO (20:58)
[2024-03-18] MEDS: Donepezil HCl 10 MG TABLET PO (20:58)
[2024-03-19 05:54] VITALS: BP 137/79; PULSE 57; RESP 18; TEMP 36.1; O2SAT 95
[2024-03-19] MEDS: Levothyroxine Sodium 25 MCG TABLET PO (06:18)
[2024-03-19] MEDS: Omeprazole 40 MG CAPSULE.DR PO (06:18)
[2024-03-19] MEDS: Tiotropium Bromide 2.5 mcg 1 PUFF/2.5 MCG MIST.INHAL 2 PUFF INHALE (08:06)
[2024-03-19 08:07] VITALS: PULSE 57; RESP 18; O2SAT 96
[2024-03-19] MEDS: Fluticasone/Vilanterol 100/25 BLST.W.DEV 1 PUFF INHALE (08:07)
[2024-03-19] MEDS: Finasteride 5 MG TABLET PO (09:05)
[2024-03-19] MEDS: Gabapentin 300 MG CAPSULE PO ×2 (09:05→22:15)
[2024-03-19] MEDS: Cholecalciferol (Vitamin D3) 25 MCG TABLET 50 MCG PO (09:05)
[2024-03-19 09:06] VITALS: BP 143/76
[2024-03-19] MEDS: Sertraline HCL 50 MG TABLET PO (09:06)
[2024-03-19] MEDS: Primidone 50 MG TABLET 100 MG PO (09:06)
[2024-03-19] MEDS: Potassium Chloride ER 10 MEQ TABLET.ER PO (09:06)
[2024-03-19] MEDS: Losartan Potassium 50 MG TABLET PO (09:06)
[2024-03-19] MEDS: Artificial Tears 15 ML DROPS 1 DROP EYE-BOTH ×3 (09:07→22:16)
--- NOTE | 2024-03-19 11:14 | MHC.EDTECH ---
helped pt to commode w his daughter, daughter stated he wont go #2 in the bed [place]erguson bc it is uncomfortable for him. pt did well w 2assist and commode as close to bed as possible. did void, cleaned pt and back in bed w warm blanket
[2024-03-19 14:00] VITALS: BP 117/66; PULSE 54; TEMP 36.5; O2SAT 97
[2024-03-19 17:22] LABS: Glucose, Whole Blood 176 mg/dL (60-115)
[2024-03-19 19:03] VITALS: BP 146/71; PULSE 71; RESP 18; TEMP 36.8; O2SAT 98
--- NOTE | 2024-03-19 19:48 | MHC.EDTECH ---
Bed pad changed and repositioned
[2024-03-19] MEDS: Montelukast Sodium 10 MG TABLET PO (22:15)
[2024-03-19] MEDS: Famotidine 20 MG TABLET 40 MG PO (22:15)
[2024-03-19] MEDS: Melatonin 3 MG TABLET 6 MG PO (22:16)
[2024-03-19] MEDS: Donepezil HCl 10 MG TABLET PO (22:16)
[2024-03-20 06:00] VITALS: BP 138/75; PULSE 65; RESP 16; TEMP 36.6; O2SAT 95
[2024-03-20] MEDS: Omeprazole 40 MG CAPSULE.DR PO (06:04)
[2024-03-20] MEDS: Levothyroxine Sodium 25 MCG TABLET PO (06:04)
[2024-03-20 07:43] VITALS: PULSE 65; RESP 16; O2SAT 95
[2024-03-20] MEDS: Tiotropium Bromide 2.5 mcg 1 PUFF/2.5 MCG MIST.INHAL 2 PUFF INHALE (07:43)
[2024-03-20] MEDS: Fluticasone/Vilanterol 100/25 BLST.W.DEV 1 PUFF INHALE (07:43)
[2024-03-20] MEDS: Losartan Potassium 50 MG TABLET PO (09:46)
[2024-03-20] MEDS: Primidone 50 MG TABLET 100 MG PO ×2 (09:46→21:08)
[2024-03-20] MEDS: Potassium Chloride ER 10 MEQ TABLET.ER PO (09:46)
[2024-03-20] MEDS: Cholecalciferol (Vitamin D3) 25 MCG TABLET 50 MCG PO (09:46)
[2024-03-20] MEDS: Finasteride 5 MG TABLET PO (09:46)
[2024-03-20] MEDS: hydroCHLOROthiazide 50 MG TABLET 25 MG PO (09:46)
[2024-03-20] MEDS: Gabapentin 300 MG CAPSULE PO ×2 (09:46→21:08)
[2024-03-20] MEDS: Sertraline HCL 50 MG TABLET PO (09:46)
[2024-03-20] MEDS: Artificial Tears 15 ML DROPS 1 DROP EYE-BOTH ×3 (09:53→21:17)
[2024-03-20 14:00] VITALS: BP 147/78; PULSE 62; RESP 18; TEMP 36.5; O2SAT 93
--- NOTE | 2024-03-20 14:35 | MHC.CM.ED ---
Pt continues to test + for COVID: has been referred to SNF but facilities are not willing to take pt until 03/23. ED CM to continue to assist w/transfer
--- NOTE | 2024-03-20 15:04 | PC.NURSE ---
Alert and responsive, denies pain or discomfort. Ate well for breakfast and lunch. Family at bedside. Patient oob to bedside recliner with 1 amidst. vss
--- NOTE | 2024-03-20 17:34 | PC.NURSE ---
Patient states unsure of code status needs to speak to his family
[2024-03-20] MEDS: Famotidine 20 MG TABLET 40 MG PO (21:08)
[2024-03-20] MEDS: Montelukast Sodium 10 MG TABLET PO (21:08)
[2024-03-20] MEDS: Melatonin 3 MG TABLET 6 MG PO (21:08)
[2024-03-20] MEDS: Donepezil HCl 10 MG TABLET PO (21:08)
--- NOTE | 2024-03-21 01:43 | PC.NURSE ---
Assumed care . Bed bath performed on patient. Patient denies pain, vss, no distress noted. Resting comfortably , safety precautions in place. Call walker within reach.
[2024-03-21 07:45] VITALS: BP 136/68; PULSE 52; RESP 18; TEMP 36.4; O2SAT 97
[2024-03-21] MEDS: Tiotropium Bromide 2.5 mcg 1 PUFF/2.5 MCG MIST.INHAL 2 PUFF INHALE (08:02)
[2024-03-21 08:03] VITALS: PULSE 52; RESP 18; O2SAT 96
[2024-03-21] MEDS: Fluticasone/Vilanterol 100/25 BLST.W.DEV 1 PUFF INHALE (08:03)
[2024-03-21] MEDS: Finasteride 5 MG TABLET PO (09:29)
[2024-03-21] MEDS: Losartan Potassium 50 MG TABLET PO (09:29)
[2024-03-21] MEDS: Primidone 50 MG TABLET 100 MG PO ×2 (09:29→20:28)
[2024-03-21] MEDS: Sertraline HCL 50 MG TABLET PO (09:29)
[2024-03-21] MEDS: Potassium Chloride ER 10 MEQ TABLET.ER PO (09:29)
[2024-03-21] MEDS: Gabapentin 300 MG CAPSULE PO ×2 (09:29→20:28)
[2024-03-21] MEDS: Omeprazole 40 MG CAPSULE.DR PO (09:29)
[2024-03-21] MEDS: Cholecalciferol (Vitamin D3) 25 MCG TABLET 50 MCG PO (09:29)
[2024-03-21] MEDS: Artificial Tears 15 ML DROPS 1 DROP EYE-BOTH ×2 (09:29→20:29)
[2024-03-21] MEDS: Levothyroxine Sodium 25 MCG TABLET PO (09:29)
--- NOTE | 2024-03-21 10:02 | MHC.EDTECH ---
This tech assisted the PT while getting a bedbath. Pt did very well washing up and repositioning in bed. pt has family present in the room with him, call walker in place.
--- NOTE | 2024-03-21 11:48 | MHC.EDTECH ---
This tech assisted pt to the commode. PT urinated and had a large bowel movement. Pt is back in bed, call walker in place.
--- NOTE | 2024-03-21 13:03 | MHC.CM.ED ---
Pt is holding in the ED awating SNF placement. Pt will be COVID cleared on 03/23. Pt offering no complaints and understands the plan for d/c. CM to follow.
[2024-03-21 14:00] VITALS: BP 168/95; PULSE 63; RESP 18; TEMP 37.1; O2SAT 96
--- NOTE | 2024-03-21 14:52 | PC.NURSE ---
no acute issues this shift. lao speaking mainly. compliance review specialist utilized. pt took meds whole with water. covid isolation maintained
[2024-03-21 17:14] LABS: Glucose, Whole Blood 167 mg/dL (60-115)
--- NOTE | 2024-03-21 19:00 | PC.NURSE ---
Report received from Brody DURAN, assume care of pt at this time
[2024-03-21] MEDS: Famotidine 20 MG TABLET 40 MG PO (20:27)
[2024-03-21] MEDS: Montelukast Sodium 10 MG TABLET PO (20:28)
[2024-03-21] MEDS: Donepezil HCl 10 MG TABLET PO (20:28)
[2024-03-21] MEDS: Melatonin 3 MG TABLET 6 MG PO (20:28)
[2024-03-21 21:04] VITALS: BP 135/73; PULSE 66; RESP 16; TEMP 36.3; O2SAT 97
--- NOTE | 2024-03-22 01:45 | PC.NURSE ---
resting quietly, with eyes closed, resp with ease, no s/s of acute distress
[2024-03-22] MEDS: Omeprazole 40 MG CAPSULE.DR PO (06:15)
[2024-03-22] MEDS: Levothyroxine Sodium 25 MCG TABLET PO (06:15)
--- NOTE | 2024-03-22 06:27 | PC.NURSE ---
resting quietly, resp with ease, no s/s of acute distress, will cont plan of care
[2024-03-22 06:28] VITALS: BP 160/87; PULSE 56; RESP 16; TEMP 36.8; O2SAT 97
--- NOTE | 2024-03-22 06:29 | MHC.EDTECH ---
0600 rounding done ,vitals taken ,pt clean and dry ,200 ml empty from urinal .
[2024-03-22] MEDS: Tiotropium Bromide 2.5 mcg 1 PUFF/2.5 MCG MIST.INHAL 2 PUFF INHALE (07:37)
[2024-03-22] MEDS: Fluticasone/Vilanterol 100/25 BLST.W.DEV 1 PUFF INHALE (07:37)
[2024-03-22 07:38] VITALS: PULSE 56; RESP 16; O2SAT 94
[2024-03-22] MEDS: Gabapentin 300 MG CAPSULE PO ×2 (09:33→21:59)
[2024-03-22] MEDS: Sertraline HCL 50 MG TABLET PO (09:33)
[2024-03-22] MEDS: Finasteride 5 MG TABLET PO (09:33)
[2024-03-22 09:34] VITALS: BP 160/87
[2024-03-22] MEDS: Cholecalciferol (Vitamin D3) 25 MCG TABLET 50 MCG PO (09:34)
[2024-03-22] MEDS: Losartan Potassium 50 MG TABLET PO (09:34)
[2024-03-22] MEDS: Potassium Chloride ER 10 MEQ TABLET.ER PO (10:08)
[2024-03-22] MEDS: Primidone 50 MG TABLET 100 MG PO ×2 (10:34→21:58)
[2024-03-22] MEDS: hydroCHLOROthiazide 50 MG TABLET 25 MG PO (10:34)
[2024-03-22] MEDS: Artificial Tears 15 ML DROPS 1 DROP EYE-BOTH ×3 (10:35→22:06)
[2024-03-22 14:00] VITALS: BP 143/66; PULSE 58; RESP 14; TEMP 36.8; O2SAT 94
[2024-03-22 14:16] VITALS: BP 143/66; PULSE 58; O2SAT 94
[2024-03-22 20:19] VITALS: BP 160/93; PULSE 58; RESP 17; TEMP 37; O2SAT 96
[2024-03-22] MEDS: Donepezil HCl 10 MG TABLET PO (21:58)
[2024-03-22] MEDS: Montelukast Sodium 10 MG TABLET PO (21:59)
[2024-03-22] MEDS: Melatonin 3 MG TABLET 6 MG PO (21:59)
[2024-03-22] MEDS: Famotidine 20 MG TABLET 40 MG PO (21:59)
--- NOTE | 2024-03-22 23:24 | MHC.CM.ED ---
Pt is COVID recovered on 03/23. Updates sent to local facilities.
[2024-03-23 06:00] VITALS: BP 140/90; PULSE 59; RESP 18; TEMP 36.1; O2SAT 95
[2024-03-23] MEDS: Levothyroxine Sodium 25 MCG TABLET PO (06:53)
[2024-03-23] MEDS: Omeprazole 40 MG CAPSULE.DR PO (06:53)
[2024-03-23] MEDS: Fluticasone/Vilanterol 100/25 BLST.W.DEV 1 PUFF INHALE (08:32)
[2024-03-23 08:33] VITALS: PULSE 77; RESP 14; O2SAT 92
--- NOTE | 2024-03-23 10:19 | MHC.EDTECH ---
AM care done,bed change. RN aware
[2024-03-23] MEDS: Cholecalciferol (Vitamin D3) 25 MCG TABLET 50 MCG PO (10:40)
[2024-03-23] MEDS: Losartan Potassium 50 MG TABLET PO (10:41)
[2024-03-23] MEDS: Sertraline HCL 50 MG TABLET PO (10:41)
[2024-03-23] MEDS: Finasteride 5 MG TABLET PO (10:41)
[2024-03-23] MEDS: Gabapentin 300 MG CAPSULE PO ×2 (10:41→22:24)
--- NOTE | 2024-03-23 10:47 | PC.NURSE ---
pt awake/alert, rr equal/non labored, meds given whole in pudding, fall precautions intact, denies pain at this time, vitals previously stable, family at bedside, call walker within reach, will continue with plan of care
--- NOTE | 2024-03-23 10:51 | PC.NURSE ---
called pharmacy for missing medications
[2024-03-23 11:00] LABS: COVID-19 Test Positive (Negative); IDNOW Serial# 9DB6401D
[2024-03-23] MEDS: Primidone 50 MG TABLET 100 MG PO ×2 (11:31→22:23)
[2024-03-23] MEDS: Potassium Chloride ER 10 MEQ TABLET.ER PO (11:31)
[2024-03-23] MEDS: Artificial Tears 15 ML DROPS 1 DROP EYE-BOTH ×3 (11:34→22:26)
[2024-03-23 14:00] VITALS: BP 156/86; PULSE 73; RESP 16; TEMP 36.7; O2SAT 95
--- NOTE | 2024-03-23 14:04 | MHC.CM.ED ---
Patient remains in ER overflow. [facility] and [facility] are able to offer a bed. Spoke with patient's daughter, Sasha via telephone at [phone]. Sasha states [facility] is 1st choice. [facility] is in the process of obtaining insurance auth. Continue to monitor for d/c needs.
[2024-03-23] MEDS: TiZANidine HCL 4 MG TABLET PO (17:05)
[2024-03-23 20:37] LABS: Anion Gap 13 (12-20); Blood Urea Nitrogen 17 mg/dL (9-16); Calcium 9.8 mg/dL (8.4-10.2); Carbon Dioxide 26 mmol/L (22-29); Chloride 102 mmol/L (96-108); Creatinine Clr Calc Pharmacy 51.4; Estimated Glomerular Filt Rate > 60; Glucose Random 121 mg/dL (60-115); Magnesium 1.7 mg/dL (1.6-2.6); Potassium 3.9 mmol/L (3.3-5.1); Sodium 137 mmol/L (135-145)
[2024-03-23 22:00] VITALS: BP 122/64; PULSE 58; RESP 18; O2SAT 95
[2024-03-23] MEDS: Melatonin 3 MG TABLET 6 MG PO (22:23)
[2024-03-23] MEDS: Famotidine 20 MG TABLET 40 MG PO (22:23)
[2024-03-23] MEDS: Montelukast Sodium 10 MG TABLET PO (22:23)
[2024-03-23] MEDS: Donepezil HCl 10 MG TABLET PO (22:24)
--- NOTE | 2024-03-24 03:20 | PC.NURSE ---
Patient sleeping throughout night. High fall risk precautions in place. Bed alarm on , call walker within reach. Telesitter at bedside.
[2024-03-24 06:00] VITALS: BP 127/69; PULSE 51; RESP 18; TEMP 36; O2SAT 95
[2024-03-24] MEDS: Levothyroxine Sodium 25 MCG TABLET PO (06:17)
[2024-03-24] MEDS: Omeprazole 40 MG CAPSULE.DR PO (06:17)
[2024-03-24] MEDS: Fluticasone/Vilanterol 100/25 BLST.W.DEV 1 PUFF INHALE (07:46)
[2024-03-24] MEDS: Cholecalciferol (Vitamin D3) 25 MCG TABLET 50 MCG PO (09:07)
[2024-03-24 09:08] VITALS: BP 127/69
[2024-03-24] MEDS: Primidone 50 MG TABLET 100 MG PO ×2 (09:08→20:49)
[2024-03-24] MEDS: Gabapentin 300 MG CAPSULE PO ×2 (09:08→20:49)
[2024-03-24] MEDS: Losartan Potassium 50 MG TABLET PO (09:08)
[2024-03-24] MEDS: Sertraline HCL 50 MG TABLET PO (09:08)
[2024-03-24] MEDS: Potassium Chloride ER 10 MEQ TABLET.ER PO (09:08)
[2024-03-24 09:09] VITALS: BP 127/69
[2024-03-24] MEDS: hydroCHLOROthiazide 50 MG TABLET 25 MG PO (09:09)
[2024-03-24] MEDS: Finasteride 5 MG TABLET PO (09:10)
[2024-03-24] MEDS: Artificial Tears 15 ML DROPS 1 DROP EYE-BOTH ×2 (09:10→20:50)
--- NOTE | 2024-03-24 13:33 | MHC.CM.ED ---
Addendum entered by Tia Esteves 03/24/24 14:45: Received telephone call from patient's oldest daughter, Estephania. Estephania concerned about patient going to STR because there aren't any bed rails on their beds. T/w explained SNF are not allowed to put rails on their beds until patient is elevated by their therapist and 1/4 rails can only be used to help assist patient in getting up. Not to keep patient in the bed. Estephania verbalized understanding. Original Note: Patient remains in ER overflow. [facility] is in the process of obtaining insurance auth. Continue to monitor for d/c needs.
[2024-03-24 14:00] VITALS: BP 150/70; PULSE 69; RESP 20; TEMP 36.7; O2SAT 97
[2024-03-24] MEDS: Donepezil HCl 10 MG TABLET PO (20:49)
[2024-03-24] MEDS: Montelukast Sodium 10 MG TABLET PO (20:49)
[2024-03-24] MEDS: Melatonin 3 MG TABLET 6 MG PO (20:49)
[2024-03-24] MEDS: Famotidine 20 MG TABLET 40 MG PO (20:49)
[2024-03-24 22:00] VITALS: BP 143/74; PULSE 60; RESP 18; TEMP 36.8; O2SAT 96
--- NOTE | 2024-03-24 22:31 | MHC.EDTECH ---
Patient urinated 200MLS of yellow urine in urinal,vitals taken,patient is resting quietly,call walker in reach
[2024-03-25] MEDS: Omeprazole 40 MG CAPSULE.DR PO (06:20)
[2024-03-25] MEDS: Levothyroxine Sodium 25 MCG TABLET PO (06:20)
[2024-03-25 06:30] VITALS: BP 168/83; PULSE 53; RESP 18; O2SAT 91
[2024-03-25] MEDS: Fluticasone/Vilanterol 100/25 BLST.W.DEV 1 PUFF INHALE (08:38)
[2024-03-25 08:39] VITALS: PULSE 73; RESP 18; O2SAT 95
[2024-03-25] MEDS: Sertraline HCL 50 MG TABLET PO (09:02)
[2024-03-25] MEDS: Gabapentin 300 MG CAPSULE PO ×2 (09:02→20:44)
[2024-03-25] MEDS: Cholecalciferol (Vitamin D3) 25 MCG TABLET 50 MCG PO (09:02)
[2024-03-25] MEDS: Finasteride 5 MG TABLET PO (09:02)
[2024-03-25] MEDS: Losartan Potassium 50 MG TABLET PO (09:02)
[2024-03-25] MEDS: Primidone 50 MG TABLET 100 MG PO ×2 (09:02→20:44)
[2024-03-25] MEDS: Potassium Chloride ER 10 MEQ TABLET.ER PO (09:05)
[2024-03-25] MEDS: Artificial Tears 15 ML DROPS 1 DROP EYE-BOTH ×2 (09:05→20:44)
[2024-03-25 14:00] VITALS: BP 137/77; PULSE 66; RESP 12; TEMP 36.1; O2SAT 98
--- NOTE | 2024-03-25 14:46 | MHC.CM.ED ---
Patient remains in ER overflow. Insurance auth has been obtained by [employer]. Patient can leave tomorrow at 10am via BLS. Sade booked. Med nec with chart. Patient, Sandhya Baez RN and Cristal RUSS. Continue to monitor for d/c needs.
--- NOTE | 2024-03-25 15:16 | PC.NURSE ---
Called pharmacy to bring Artifical Tears medication as prescribed. None available in [facility]
--- NOTE | 2024-03-25 17:23 | PC.NURSE ---
2 Family members at bedside visiting patient. Pt voided 100ml clear yellow urine into urinal. No additional needs at this time. Camera remains in place.
--- NOTE | 2024-03-25 18:51 | PC.NURSE ---
Family members left bedside. Patient spilled milk onto himself accidentally. Hospital gown changed, linens changed. Cleansed with bed bath towelettes.
[2024-03-25 20:15] VITALS: BP 158/71; PULSE 57; RESP 16; TEMP 36.6; O2SAT 96
[2024-03-25] MEDS: Donepezil HCl 10 MG TABLET PO (20:44)
[2024-03-25] MEDS: Montelukast Sodium 10 MG TABLET PO (20:44)
[2024-03-25] MEDS: Melatonin 3 MG TABLET 6 MG PO (20:44)
[2024-03-25] MEDS: Famotidine 20 MG TABLET 40 MG PO (20:44)
[2024-03-26 06:00] VITALS: BP 165/85; PULSE 58; RESP 18; TEMP 36.8; O2SAT 99
[2024-03-26] MEDS: Omeprazole 40 MG CAPSULE.DR PO (06:00)
[2024-03-26] MEDS: Levothyroxine Sodium 25 MCG TABLET PO (06:00)
--- NOTE | 2024-03-26 06:15 | PC.NURSE ---
pt is calm, cooperative, in no apparent distress - resting comfortably in hospital bed. takes meds whole with water no issues. denies any acute pain or distress. call walker within reach, plan of care ongoing
[2024-03-26 07:34] VITALS: PULSE 58; RESP 18; O2SAT 96
[2024-03-26] MEDS: Fluticasone/Vilanterol 100/25 BLST.W.DEV 1 PUFF INHALE (07:34)
[2024-03-26] MEDS: Tiotropium Bromide 2.5 mcg 1 PUFF/2.5 MCG MIST.INHAL 2 PUFF INHALE (07:34)
[2024-03-26] MEDS: Primidone 50 MG TABLET 100 MG PO (09:42)
[2024-03-26] MEDS: Sertraline HCL 50 MG TABLET PO (09:42)
[2024-03-26] MEDS: Cholecalciferol (Vitamin D3) 25 MCG TABLET 50 MCG PO (09:42)
[2024-03-26] MEDS: Gabapentin 300 MG CAPSULE PO (09:42)
[2024-03-26] MEDS: Losartan Potassium 50 MG TABLET PO (09:43)
[2024-03-26] MEDS: Potassium Chloride ER 10 MEQ TABLET.ER PO (09:43)
[2024-03-26] MEDS: Finasteride 5 MG TABLET PO (09:43)
[2024-03-26] MEDS: Artificial Tears 15 ML DROPS 1 DROP EYE-BOTH (09:43)
[2024-03-26] MEDS: hydroCHLOROthiazide 50 MG TABLET 25 MG PO (10:13)
--- NOTE | 2024-03-26 10:15 | PC.NURSE ---
delay in medication administration as medication was not readily available in the pyxis. report given to susan MCCANN at this time. pt being transported to to [facility] at this time.
--- NOTE | 2024-03-26 10:26 | PC.NURSE ---
report given to RENEE Claudio at [facility] at this time.
[2024-03-26 10:29] VITALS: BP 158/71; PULSE 58; RESP 18; TEMP 36.8; O2SAT 99
== END 2024-03-26 10:31 | disposition skilled nursing facility (03) ==
PROVIDERS: Physician Assistant; Emergency Provider Emergency Medicine; PCP Internal Medicine
DX: U07.1 COVID-19 (principal); R29.6 Repeated falls; Z91.81 History of falling; E87.6 Hypokalemia; E83.42 Hypomagnesemia; I12.9 Hypertensive chronic kidney disease with stage 1 through stage 4 chronic kidney disease, or unspecified chronic kidney disease; N18.30 Chronic kidney disease, stage 3 unspecified; E78.2 Mixed hyperlipidemia; G20.A1 Parkinson's disease without dyskinesia, without mention of fluctuations; F02.80 Dementia in other diseases classified elsewhere, unspecified severity, without behavioral disturbance, psychotic disturbance, mood disturbance, and anxiety; Z79.899 Other long term (current) drug therapy
CPT/HCPCS: 0241U; 36415; 70450; 71045; 72125; 80048; 80076; 81003; 82947; 83735; 85025; 87635; 93005; 94640; 94664; 96361; 96365; 96366; 97162; 97530; 99283; 99285; J3475

== ENCOUNTER 2024-04-14 13:57 | Outpatient (AMB) | payer OTHER, SELFPAY ==
[2024-04-14 14:00] VITALS: BP 130/86; PULSE 47; O2SAT 95; BMI 26.1
--- NOTE | 2024-04-14 14:00 | MHC.PC.OV ---
Vital Signs 04/14/24 14:00 Height 6 ft Weight 192 lb 7.417 oz BMI 26.1 BP 130/86 Blood Pressure Location Lt brachial Position Sitting Pulse 47 L Pulse Source Pulse Oximeter Pulse Oximetry (%) 95 Oxygen Delivery Method Room Air Intake Visit Reasons: Annual Exam - see comments Classified Ad Taker Required: No Accompanied by: caregiver Allergies No Known Allergies [No Known Allergies*] Allergy (Verified 04/15/24 09:10) Medication List - Last Reconciled 04/15/24 by Baljit Swanson MD albuterol sulfate 90 mcg/actuation 2 puffs inhalation Q6H PRN alprazolam 1 mg PO BID [BATH TRANSFER BENCH As directed] [bath tub steel white bar As directed] chlorthalidone 25 mg PO Q OTHER DAY cholecalciferol (vitamin D3) 50 mcg PO DAILY 90 days [COMMODE As directed] [disposable underpads As directed] [disposable underwear As directed] donepezil (Aricept) 10 mg PO BEDTIME 90 days famotidine 40 mg PO BEDTIME finasteride 5 mg PO DAILY fluticasone propion-salmeterol 500-50 mcg/dose (Wixela Inhub) 1 inh inhalation BID fluticasone propionate 50 mcg/actuation 2 sprays intranasal DAILY PRN 30 days gabapentin 300 - 600 mg PO BID levothyroxine 25 mcg PO QAM losartan 50 mg PO DAILY [MANUAL WHEELCHAIR - large As directed] melatonin 6 mg PO BEDTIME montelukast 10 mg PO BEDTIME omeprazole 40 mg PO DAILY potassium chloride ER (Klor-Con) 10 mEq PO DAILY 30 days primidone 100 mg (2 x 50 mg) PO BID 90 days [ROLLATOR with wheels and seat As directed] sertraline 50 mg PO DAILY 30 days tiotropium bromide (Spiriva with HandiHaler) 1 cap inhalation DAILY tizanidine 4 mg PO TID PRN 30 days trazodone 50 mg PO BEDTIME PRN Tobacco use date assessed: 04/14/24 Fall risk assessment: 2 + Falls in past year Last assessed Fall Risk: 04/14/24 Dental Screening Dental Screen Date: 04/14/24 Did you have a dental visit in the last 12 months?: No Did you have a dental problem in the last 6 months where you did not have access to dental care?: No Was dental information given to patient?: No HPI Annual Exam - see comments HPI Details Patient is brought in today by his daughter for his annual physical examination His daughter states that patient has been required to get a physical exam so he can continue with the caregiver program that he is currently on Patient remains confused and is currently oriented only to person His daughter states that he tends to get agitated at times when he is at home, mostly when he gets frustrated or when there is any drastic changes to his daily routine States that when people who he is not familiar with arrives at his house, he would not let them in and sometimes would even try to fred them or send them away His daughter also brought up that patient's [place] driver's license will be up for renewal soon and she is inquiring if she should still try to get it renewed States that patient was telling her that he wants to have it renewed as he is planning to buy a new car soon and will be driving it around Patient otherwise appears okay and he does not seem to have any acute issues currently He somehow contracted COVID last month - his daughter still cannot understand how he would have contracted COVID as patient is mostly staying in his house with his immediate family and no one else in the household has been sick or has any acute respiratory symptoms for the past few weeks He was brought to the ER by his family to get checked when he was becoming more confused and weak with foul-smelling urine - was found to have COVID and they were planning to send him home when they noticed that patient was very weak and was struggling to get out of bed, after which they did not feel it was safe to send him home in his current state and instead planned to transfer him to short-term rehab He was eventually transferred to [facility] but patient did not stay long and asked to go home after a day or so at rehab Patient currently denies any headaches or dizziness Denies any chest pains, no increased SOB No nausea/vomiting, no abdominal pain No change in bowel habits noted - he is mostly incontinent of stool and urine due to his dementia and he currently has adult pull ups on Patient is supposedly eating well with no issues with his appetite and he also reportedly sleeps well at night FORMERLY [facility], [facility]1983 Medical History (Updated 04/18/24 @ 10:13 by Baljit Swanson MD) Essential tremor Restrictive lung disease Insomnia Chronic pain syndrome 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, lumbar Peripheral neuropathy Spinal stenosis Allergic rhinitis Hearing impairment Acquired hypothyroidism Borderline abnormal TFTs Benign prostatic hyperplasia with urinary obstruction Anxiety Vitamin D deficiency Overweight (BMI 25.0-29.9) COVID-19 Chronic kidney disease (CKD), stage III (moderate) Facet arthritis of lumbosacral region COPD (chronic obstructive pulmonary disease) Mixed hyperlipidemia Benign essential hypertension Essential hypertension Sinus bradycardia GERD (gastroesophageal reflux disease) Surgical History Hx of colonoscopy History of esophagogastroduodenoscopy (EGD) History of cholecystectomy (~12/2015) Family History Father No problems noted. Mother No problems noted. Social History Housing: Apartment Alcohol intake: never Patient Tobacco Use Status: Former Tobacco user e-Cigarette/Vaping Use: Never Used Second Hand Smoke Exposure: Yes service: No Current occupational status: retired Cognitive needs: Yes (wheelchair) Hearing needs: No Vision needs: Yes Questionnaire PHQ-9 Over the last 2 weeks, how often have you been bothered by any of the following problems? 1. Little interest or pleasure in doing things: nearly every day 2. Feeling down, depressed, or hopeless: not at all 3. Trouble falling or staying asleep, or sleeping too much: nearly every day 4. Feeling tired or having little energy: nearly every day 5. Poor appetite or overeating: nearly every day 6. Feeling bad about yourself - or that you are a failure or have let yourself or your family down: several days 7. Trouble concentrating on things, such as reading the newspaper or watching television: more than half the days 8. Moving or speaking so slowly that other people could have noticed. Or the opposite - being so fidgety or restless that you have been moving around a lot more than usual: nearly every day 9. Thoughts that you would be better off or of hurting yourself in some way: not at all Total score: 18 Depression Screening Interpretation: Positive Depression Screening Follow-up: Existing condition and In treatment Depression Screening Done: Yes 25272 - PHQ-9 Billing: Yes Source: Developed by Drs. Yvon Donato, Luigi Ortega and colleagues, with an educational alisha from [employer]. Thrive Questionnaire Date Thrive assessed: 04/14/24 I am a: Parent/Caregiver What is your living situation today?: I have a steady place to live Within the past 12 months, did the food you bought not last and you didn't have the money to get more?: Never true Within the past 12 months, did you worry whether your food would run out before you got money to buy more?: Never true Do you have trouble paying for medicines?: No Do you have trouble getting transportation to medical appointments?: No Do you have trouble paying your heating and electricity bill?: No Do you have trouble taking care of your child, family member or friend?: No Do you have trouble with day-to-day activities such as bathing, preparing meals, shopping, managing finances, etc.?: Yes Are you currently unemployed and looking for a job?: No Are you interested in more education?: No Please select the resources that you would like help with: Care for elder or disabled Currently or been in a relationship where the following occur: No concerns reported THRIVE Score: 0 AUDIT C Alcohol Use Questionnaire (AUDIT-C) 1. How often do you have a drink containing alcohol?: Never 3. How often do you have six or more drinks on one occasion?: Never Total Score: 0 Score Reviewed/Action Taken: Yes EVANGELISTA-7 AMB Questionnaire EVANGELISTA-7 Date EVANGELISTA - 7 assessed: 04/14/24 Feeling nervous, anxious, or on edge: 1 = Several days Not being able to stop or control worryin = Not at all Worrying too much about different things: 1 = Several days Trouble relaxin = Several days Being so restless that it is hard to sit still: 0 = Not at all Becoming easily annoyed or irritable: 1 = Several days Feeling afraid as if something awful might happen: 0 = Not at all Total EVANGELISTA-7 score (0-4 normal; 5-9 mild; 10-14 moderate; 15-21 severe): 4 Source: Developed by Drs. Yvon Donato, Luigi Ortega and colleagues, with an educational alisha from [employer]. Review of Systems Const Details: ROS is limited and obtained primarily from patient's daughter as patient has advanced dementia/cognitive deficits and is unable to provide any pertinent information on his own Unobtainable due to mental condition (ROS obtained most from daughter) Denies chills, Denies fatigue, Denies fever(s), Denies headache(s), Reports poor appetite (has been refusing to eat often and tends to just drink coffee all day) and Reports weight loss ENT Denies dysphagia, Denies dizziness, Denies otalgia, Denies headache(s), Denies neck pain, Denies odynophagia and Denies sore throat Card Denies chest pain, Denies palpitations and Denies dyspnea Resp Denies cough, Denies dyspnea and Denies wheezing GI Denies abdominal pain, Denies constipation, Denies dysphagia, Denies heartburn, Denies diarrhea, Denies nausea, Denies odynophagia and Denies vomiting Denies hematuria, Denies dysuria, Reports nocturia and Reports urinary frequency Musc Reports abnormal gait (unsteady; sometimes starts shaking when walking due to tremors), Reports back pain (increased over the lower back), Reports arthralgias (left shoulder), Denies joint swelling, Denies muscle weakness, Denies neck pain, Reports radiating pain into limb (right leg) and Reports stiffness Skin/Breast Denies lesions and Denies rash Neuro Reports abnormal gait (unsteady; sometimes starts shaking when walking due to tremors), Reports behavioral changes (gets agitated and angry for no apparent reason at times), Reports confusion (on and off, per daughter), Denies dizziness, Denies headache(s), Reports memory loss and Reports tremor(s) Psych Reports behavioral changes (gets agitated and angry for no apparent reason at times), Reports confusion (on and off, per daughter) and Reports memory loss Endo Denies fatigue and Denies palpitations Aller/Immun Denies wheezing Physical exam (Primary Care) Vital Signs: Last Vital Signs Pulse 47 L 04/14/24 14:00 BP 130/86 04/14/24 14:00 Pulse Ox 95 04/14/24 14:00 Oxygen Delivery Method Room Air 04/14/24 14:00 BMI result Body Mass Index 26.1 Tobacco/Smoking Status: Tobacco use Status Tobacco use date assessed 04/14/24 04/14/24 14:10 Patient Tobacco Use Status Former Tobacco user 04/14/24 14:10 e-Cigarette/Vaping Use Never Used 04/14/24 14:10 PHQ-9: PHQ-9 Score PHQ-9: Total score 18 04/15/24 09:18 Depression Screening Interpretation: Positive Depression Screening Follow-up: Existing condition and In treatment Thrive Assessment: Date of Thrive Assessment Date Thrive assessed 04/14/24 04/14/24 14:10 Currently or been in a relationship where the following occur: No concerns reported Const Other: Physical exam is limited to what patient can cooperate with or allow - he is in a wheelchair today and does not want to get up due to his low back pain General: confusion (on and off, per daughter) Orientation/consciousness: confusion (on and off, per daughter) HENMT Head: Yes normocephalic and Yes atraumatic Ears: TM's normal bilaterally and EAC's normal General nose exam: No nasal discharge present Face and sinus: Yes normal facial exam Throat: Yes posterior oropharynx normal and Yes tonsils normal (no TP congestion noted) Eyes Eyelids: Yes eyelids normal Conjunctivae: conjunctivae normal Pupils: Equal, round and reactive pupils present EOM: EOMs intact bilaterally Neck Neck: Yes no lymphadenopathy and Yes supple Thyroid: Thyroid normal Resp Auscultation: clear to auscultation bilaterally, no rales and no wheezes Cardio Rate: regular rate Rhythm: regular rhythm Heart sounds: no murmurs GI Palpation (GI): Soft to palpation and nontender Auscultation: normal bowel sounds General: Yes no CVA tenderness Back/Spine/Pelvis Back: no CVA tenderness Thoracic/Lumbar Spine: lumbar spinal tenderness and straight leg raise positive (right leg) Skin Lesions: no lesions Rashes: no rashes Neuro General: confusion (on and off, per daughter) Cranial nerves: Yes Equal, round and reactive pupils present Gait exam (Neuro): Assistive device used Extrem General: Yes no clubbing, cyanosis or edema Results Reviewed Results Reviewed: Laboratory Tests 01/30/24 03/13/24 03/13/24 14:57 10:32 11:06 WBC 7.6 Hgb 14.5 Hct 42.2 Plt Count 113 L Sodium Potassium Creatinine Estimated GFR Random Glucose Calcium Magnesium Total Bilirubin 1.1 H AST 14 ALT 9 Triglycerides 307 H Cholesterol 207 H LDL Cholesterol, Calc 103 H HDL Cholesterol 43 Vitamin B12 468 25-OH Vitamin D Total 54.6 TSH 1.57 Free T4 0.77 Ur Specific [place] 1.020 Urine Protein Trace Urine Glucose (UA) Negative Urine Blood Negative Urine Nitrite Negative Ur Leukocyte Esterase Negative 03/23/24 20:15 WBC Hgb Hct Plt Count Sodium 137 Potassium 3.9 D Creatinine 1.09 Estimated GFR > 60 Random Glucose 121 H Calcium 9.8 Magnesium 1.7 Total Bilirubin AST ALT Triglycerides Cholesterol LDL Cholesterol, Calc HDL Cholesterol Vitamin B12 25-OH Vitamin D Total TSH Free T4 Ur Specific [place] Urine Protein Urine Glucose (UA) Urine Blood Urine Nitrite Ur Leukocyte Esterase Assessment and Plan Assessment & Plan (1) Annual physical exam: Code(s): Z00.00 - Encounter for general adult medical examination without abnormal findings Plan: Results of his labs done over the past couple of months reviewed - discussed with patient's daughter that his labs are mostly within acceptable range At his age and due to his declining cognition, he no longer needs to and would be unable to keep up with routine cancer screenings (2) Dementia: Code(s): F03.90 - Unspecified dementia, unspecified severity, without behavioral disturbance, psychotic disturbance, mood disturbance, and anxiety Qualifiers: Dementia type: unspecified type Dementia severity: unspecified severity Dementia behavioral or psychological symptom: with other behavioral disturbance Qualified Code(s): F03.918 - Unspecified dementia, unspecified severity, with other behavioral disturbance Plan: Patient is currently still on Donepezil 10 mg QD but this does not appear to be helping much Have advised patient's daughter that I will leave it up to neurology to determine if he should still be on Donepezil at this point In the interest of reducing his polypharmacy, have advised them that if it becomes more and more difficult to get patient to take his medications, this may be discontinued at that time if he is still on it Follow up with neurology as scheduled He is currently staying at home with his daughter Sasha, who watches him and takes care of him, together with other family members whenever they are available to help 17/02 They are apparently currently in some sort of custody tejada wherein patient's older biological children with his first are trying to gain custody of him and is planning to put him up in a halfway, to which his current daughter Sasha (who supposedly is not the patient's biological daughter) is opposed to as she strongly believes that patient will not do well and will rapidly decline both physically and mentally once he is put into a halfway I tend to agree with Sasha as patients who have dementia and are taken out of familiar surroundings tend to experience a significant and rapid decline in their cognition and overall condition Unfortunately, Sasha states that as she is not the patient's biological daughter, she was informed by an managing attorney that she does not really have any rights in this case and that patient's biological children will have the final say, especially since patient does not appear to have any advanced directives or living will that he was able to make out and complete prior to the onset of his dementia She has also inquired as to whether patient can still fly on a plane as his other children are reportedly planning to have him take a trip to [place] at some point I have explained to patient's daughter that given his current conditions, I would not recommend that he get on a plane at all as he can experience agitation and other behavioral episodes suddenly at any time (which he is also going through currently at home) and in an enclosed space on an airplane, there would literally be no way to get patient to calm down and he will likely end up having to be restrained physically and sedated, both of which would be detrimental to the patient overall Even if he were to be sedated for the duration of the flight, which would not be advisable given his age and comorbidities, it would still be taxing for him physically as he has a bad back (facet arthritis of the lumbar spine) and he has been complaining of increased low back pain over the years that tend to be aggravated by prolonged sitting or standing Given these reasons, he would definitely be NOT A CANDIDATE to go on any plane ride at all (3) Facet arthritis of lumbosacral region: Code(s): M47.817 - Spondylosis without myelopathy or radiculopathy, lumbosacral region Plan: Reinforced to patient's daughter that prolonged sitting and standing can aggravate his lower back pain so these should be avoided as much as possible; weight lifting restrictions are not applicable to him as he is mostly sedentary and wheelchair-bound MRI of the lumbar spine done on 11/19/2021 revealed (+) multilevel degenerative disc disease and spondylosis; the previous right lateral disc protrusion at L4-L5 compressing the right L5 nerve root in the lateral recess seen on previous MRI in 2014 appears to have resolved Continue Tizanidine 4 mg TID PRN and Gabapentin 100 mg BID; Tramadol has reportedly not been helping him much He was seen and evaluated by pain management in December 2021 but patient declined all interventional options at the time; he was referred for aquatherapy/water aerobics and was also advised to try herbal remedies like casie and turmeric but these are not realistic at this time given patient's declining cognition Have advised patient's daughter that at this point, there are no other effective options available to help with his low back pain as surgery is obviously not recommended for someone at his age and with his comorbidities (4) Unsteady gait: Code(s): R26.81 - Unsteadiness on feet Plan: This is most likely related to his chronic and worsening low back pain Gait has improved slightly with home physical therapy in the past Follow up with neurology as scheduled (5) Essential tremor: Code(s): G25.0 - Essential tremor Plan: Continue Primidone 100 mg BID Follow up with neurology as scheduled (6) Benign essential hypertension: Code(s): I10 - Essential (primary) hypertension Plan: Reinforced low sodium diet - goal is systolic BP of at least 140 to 150 mm or less Continue Losartan 50 mg QD and Chlorthalidone 25 mg QD (7) Mixed hyperlipidemia: Code(s): E78.2 - Mixed hyperlipidemia Plan: Reinforced low cholesterol diet Have advised patient's daughter that his cholesterol levels done a couple of months ago are mostly acceptable although his numbers are at the higher range of normal but given his overall condition, I would not recommend adding any Rx at this time (8) COPD (chronic obstructive pulmonary disease): Comment: Patient is a known case of chronic obstructive pulmonary disease. Remains well controlled and very stable with the current regimen. Code(s): J44.9 - Chronic obstructive pulmonary disease, unspecified Qualifiers: COPD type: unspecified COPD Qualified Code(s): J44.9 - Chronic obstructive pulmonary disease, unspecified Plan: Stable Continue Wixela 500-50 mcg 1 inhalation BID, Spiriva with Handihaler 18 mcg inhale contents of 1 capsule QD and Albuterol HFA 2 puffs 4 times a day as needed Follow-up with pulmonary as scheduled (9) Allergic rhinitis: Comment: CHRONIC MILD, REMAINS CONTROLLED WITH SINGULAIR 10 MG DAILY Code(s): J30.9 - Allergic rhinitis, unspecified Qualifiers: Allergic rhinitis trigger: unspecified Allergic rhinitis seasonality: unspecified Qualified Code(s): J30.9 - Allergic rhinitis, unspecified Plan: Continue Montelukast 10 mg QD and Fluticasone 50 mcg nasal spray QD PRN (10) Chronic kidney disease (CKD), stage III (moderate): Code(s): N18.30 - Chronic kidney disease, stage 3 unspecified Qualifiers: Chronic kidney disease stage 3 subtype: stage 3a (GFR 45-59) Qualified Code(s): N18.31 - Chronic kidney disease, stage 3a Plan: GFR stable - will continue to monitor renal function regularly if we can get patient to go get his labs done when requested (11) Acquired hypothyroidism: Comment: Sublinical hypothyroidism Code(s): E03.9 - Hypothyroidism, unspecified Plan: Continue Levothyroxine 25 mcg QD His TFTs were normal on his labs done a couple of months ago (12) Vitamin D deficiency: Code(s): E55.9 - Vitamin D deficiency, unspecified Plan: Continue Vitamin D3 2000 units QD (13) GERD (gastroesophageal reflux disease): Code(s): K21.9 - Gastro-esophageal reflux disease without esophagitis Qualifiers: Esophagitis presence: without esophagitis Qualified Code(s): K21.9 - Gastro-esophageal reflux disease without esophagitis Plan: Dietary restrictions reinforced Continue Omeprazole 40 mg QD and Famotidine 40 mg Q HS (14) Left shoulder pain: Code(s): M25.512 - Pain in left shoulder Qualifiers: Chronicity: unspecified Qualified Code(s): M25.512 - Pain in left shoulder Plan: X-rays of the left shoulder done last year revealed (+) OA changes Will consider referring to Orthopedics if his shoulder symptoms get worse (15) Benign prostatic hyperplasia with urinary obstruction: Code(s): N40.1 - Benign prostatic hyperplasia with lower urinary tract symptoms; N13.8 - Other obstructive and reflux uropathy Plan: Continue Finaseride 5 mg QD Follow up with urology as scheduled - cystoscopy done last year came out normal (16) Insomnia: Code(s): G47.00 - Insomnia, unspecified Qualifiers: Insomnia type: unspecified Qualified Code(s): G47.00 - Insomnia, unspecified Plan: Sleep hygiene reinforced Continue Trazodone 50 mg Q HS PRN and Melatonin 6 mg Q HS (17) Anxiety: Code(s): F41.9 - Anxiety disorder, unspecified Plan: Continue Alprazolam 1 mg BID PRN and Sertraline 50 mg QD Plan Follow up as scheduled in May 2024 Coding Level of Care Code Est Pt Prev Care >65y(03361) Diagnoses Annual physical exam Z00.00 Dementia with other behavioral disturbance, unspecified dementia severity, unspecified dementia type F03.918 Dementia type: unspecified type Dementia severity: unspecified severity Dementia behavioral or psychological symptom: with other behavioral disturbance Facet arthritis of lumbosacral region M47.817 Unsteady gait R26.81 Essential tremor G25.0 Benign essential hypertension I10 Mixed hyperlipidemia E78.2 Chronic obstructive pulmonary disease, unspecified COPD type J44.9 COPD type: unspecified COPD Allergic rhinitis, unspecified seasonality, unspecified trigger J30.9 Allergic rhinitis trigger: unspecified Allergic rhinitis seasonality: unspecified Stage 3a chronic kidney disease N18.31 Chronic kidney disease stage 3 subtype: stage 3a (GFR 45-59) Acquired hypothyroidism E03.9 Vitamin D deficiency E55.9 Gastroesophageal reflux disease without esophagitis K21.9 Esophagitis presence: without esophagitis Left shoulder pain, unspecified chronicity M25.512 Chronicity: unspecified Benign prostatic hyperplasia with urinary obstruction N40.1; N13.8 Insomnia, unspecified type G47.00 Insomnia type: unspecified Anxiety F41.9
== END 2024-04-14 14:39 | disposition home or self-care (01) ==
PROVIDERS: PCP Internal Medicine; Visit Provider Internal Medicine
DX: Z00.00 Encounter for general adult medical examination without abnormal findings (principal); I12.9 Hypertensive chronic kidney disease with stage 1 through stage 4 chronic kidney disease, or unspecified chronic kidney disease; F03.918 Unspecified dementia, unspecified severity, with other behavioral disturbance; J44.9 Chronic obstructive pulmonary disease, unspecified; N18.31 Chronic kidney disease, stage 3a; M47.817 Spondylosis without myelopathy or radiculopathy, lumbosacral region; R26.81 Unsteadiness on feet; G25.0 Essential tremor; E78.2 Mixed hyperlipidemia; J30.9 Allergic rhinitis, unspecified; E03.9 Hypothyroidism, unspecified; E55.9 Vitamin D deficiency, unspecified

== ENCOUNTER → 2024-04-14 13:57 | Outpatient (BNVA) | payer OTHER, SELFPAY | PROVIDERS: PCP Internal Medicine; Visit Provider Internal Medicine ==

== ENCOUNTER 2024-04-20 11:12 | Outpatient (AMB) | payer OTHER, SELFPAY ==
--- NOTE | 2024-04-20 11:14 | MHC.OFFVIS ---
Vital Signs 04/20/24 11:15 Height 6 ft Weight 192 lb BMI 26.0 BP 82/58 L Blood Pressure Location Lt brachial Position Sitting Respiration 16 Pulse 60 Pulse Source Palpation Intake Visit Reasons: follow up Intake Note: Pt presents for an 8 month follow up for dementia. Manager Eligibility Required: No Allergies No Known Allergies [No Known Allergies*] Allergy (Verified 04/20/24 11:14) Medication List - Last Reconciled 04/20/24 by Opal Medeiros MD albuterol sulfate 90 mcg/actuation 2 puffs inhalation Q6H PRN alprazolam 1 mg PO BID [BATH TRANSFER BENCH As directed] [bath tub steel white bar As directed] chlorthalidone 25 mg PO Q OTHER DAY cholecalciferol (vitamin D3) 50 mcg PO DAILY 90 days [COMMODE As directed] [disposable underpads As directed] [disposable underwear As directed] donepezil (Aricept) 10 mg PO BEDTIME 90 days famotidine 40 mg PO BEDTIME finasteride 5 mg PO DAILY fluticasone propion-salmeterol 500-50 mcg/dose (Wixela Inhub) 1 inh inhalation BID fluticasone propionate 50 mcg/actuation 2 sprays intranasal DAILY PRN 30 days gabapentin 300 - 600 mg PO BID levothyroxine 25 mcg PO QAM losartan 50 mg PO DAILY [MANUAL WHEELCHAIR - large As directed] melatonin 6 mg PO BEDTIME montelukast 10 mg PO BEDTIME omeprazole 40 mg PO DAILY potassium chloride ER (Klor-Con) 10 mEq PO DAILY 30 days primidone 100 mg (2 x 50 mg) PO BID 90 days [ROLLATOR with wheels and seat As directed] sertraline 50 mg PO DAILY 30 days tiotropium bromide (Spiriva with HandiHaler) 1 cap inhalation DAILY tizanidine 4 mg PO TID PRN 30 days trazodone 50 mg PO BEDTIME PRN HPI Comments Details: 88 y/o male patient presents with his daughter for follow up visit for bilateral hands tremor and memory loss.His cognition is worse. He has hallucinations, has urinary incontinence , confused with his own family members, sundowning, he can be aggressive with his .He needs help with all ALDs.He has care. He had a fall 2 weeks ago- was diagnosed with COVID and was in the hospital and rehab. Patient essential tremor has improved with Primidone 50 Bid Pt's daughter states that he is not interesting in anything, just sitting and watches TV all day. He sleeps a lot, night time and daytime. 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, lumbar Peripheral neuropathy Spinal stenosis Allergic rhinitis Hearing impairment Acquired hypothyroidism Borderline abnormal TFTs Benign prostatic hyperplasia with urinary obstruction Anxiety Vitamin D deficiency Overweight (BMI 25.0-29.9) COVID-19 Chronic kidney disease (CKD), stage III (moderate) Facet arthritis of lumbosacral region COPD (chronic obstructive pulmonary disease) Mixed hyperlipidemia Benign essential hypertension Essential hypertension Sinus bradycardia GERD (gastroesophageal reflux disease) Surgical History Hx of colonoscopy History of esophagogastroduodenoscopy (EGD) History of cholecystectomy (~12/2015) Family History Father No problems noted. Mother No problems noted. Social History Housing: Apartment Alcohol intake: never Patient Tobacco Use Status: Former Tobacco user e-Cigarette/Vaping Use: Never Used Second Hand Smoke Exposure: Yes service: No Current occupational status: retired Cognitive needs: Yes (wheelchair) Hearing needs: No Vision needs: Yes Review of Systems ENT Reports Normal hearing present Neuro Reports Normal hearing present and Reports Abnormal speech present Physical Exam Vital Signs: Last Vital Signs Pulse 60 04/20/24 11:15 Resp 16 04/20/24 11:15 BP 82/58 L 04/20/24 11:15 BMI result Body Mass Index 26.0 Const General: cooperative Orientation/consciousness: oriented to person Limitations: wheelchair Neck Neck: Yes full ROM and Yes supple Resp Effort & Inspection: normal respiratory effort and able to speak in complete sentences Neuro Other: disoriented General: oriented to person and Unable to assess gait Cranial nerves: Yes Bilaterally intact EOM present, Yes Normal facial strength present, Yes Midline tongue present, Yes Symmetric palate elevation present, Yes Normal hearing present and Yes Ability to bilaterally elevate shoulders present Speech: Abnormal speech present Gait exam (Neuro): Unable to assess gait Motor exam (neuro): 5/5 motor strength present throughout, Pronator motor function not present and Tremors during motor activity present (bilateral hands action tremor) Psych Appearance: grossly normal Mental Status: mental status grossly normal Affect: normal affect Attitude: cooperative Assessment & Plan Assessment & Plan (1) Dementia: Code(s): F03.90 - Unspecified dementia, unspecified severity, without behavioral disturbance, psychotic disturbance, mood disturbance, and anxiety Category: Medical Qualifiers: Dementia type: unspecified type Dementia severity: unspecified severity Dementia behavioral or psychological symptom: with other behavioral disturbance Qualified Code(s): F03.918 - Unspecified dementia, unspecified severity, with other behavioral disturbance (2) Tremor: Code(s): R25.1 - Tremor, unspecified Category: Medical Plan Continue to take donepezil 10 mg qHS. I will trial him on quetiapine 12.5mg bid Continue primidone 50 mg BID for bilateral hands tremor. Advised patient to increase cognitive and physical activities. 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 Medications: New quetiapine 1/2 tab orally 2 times a day; 30 tabs 6RF Coding Level of Care Code Est Pt Level 4 (56514) Diagnoses Dementia with other behavioral disturbance, unspecified dementia severity, unspecified dementia type F03.918 Dementia type: unspecified type Dementia severity: unspecified severity Dementia behavioral or psychological symptom: with other behavioral disturbance Tremor R25.1
[2024-04-20 11:15] VITALS: BP 82/58; PULSE 60; RESP 16; BMI 26.0
== END 2024-04-20 11:55 | disposition home or self-care (01) ==
PROVIDERS: PCP Internal Medicine; Visit Provider Psychiatry & Neurology Neurology
DX: F03.918 Unspecified dementia, unspecified severity, with other behavioral disturbance (principal); R25.1 Tremor, unspecified
CPT/HCPCS: 99214

== ENCOUNTER → 2024-04-20 11:12 | Outpatient (BNVA) | payer OTHER, SELFPAY | PROVIDERS: PCP Internal Medicine; Visit Provider Psychiatry & Neurology Neurology | DX: F03.918 Unspecified dementia, unspecified severity, with other behavioral disturbance (principal); R25.1 Tremor, unspecified | CPT/HCPCS: 99212 ==

== ENCOUNTER 2024-06-01 13:45 | Outpatient (AMB) | payer OTHER, SELFPAY ==
--- NOTE | 2024-06-01 13:46 | A.OFFPC_ITS ---
Intake Visit [facility] [phone] Feather Washer Required: No Accompanied by: Daughter Allergies No Known Allergies [No Known Allergies*] Allergy (Verified 06/01/24 14:26) Medication List - Last Reconciled 06/06/24 by Baljit Swanson MD albuterol sulfate 90 mcg/actuation 2 puffs inhalation Q6H PRN alprazolam 1 mg PO BID [BATH TRANSFER BENCH As directed] [bath tub steel white bar As directed] chlorthalidone 25 mg PO Q OTHER DAY cholecalciferol (vitamin D3) 50 mcg PO DAILY 90 days [COMMODE As directed] [disposable underpads As directed] [disposable underwear As directed] donepezil (Aricept) 10 mg PO BEDTIME 90 days famotidine 40 mg PO BEDTIME finasteride 5 mg PO DAILY fluticasone propion-salmeterol 500-50 mcg/dose (Wixela Inhub) 1 inh inhalation BID fluticasone propionate 50 mcg/actuation 2 sprays intranasal DAILY PRN 30 days gabapentin 300 mg PO TID levothyroxine 25 mcg PO QAM losartan 50 mg PO DAILY [MANUAL WHEELCHAIR - large As directed] melatonin 6 mg (2 x 3 mg) PO BEDTIME montelukast 10 mg PO BEDTIME omeprazole 40 mg PO DAILY potassium chloride ER (Klor-Con) 10 mEq PO DAILY 30 days primidone 100 mg (2 x 50 mg) PO BID 90 days quetiapine 50 mg PO BID 30 days [ROLLATOR with wheels and seat As directed] sertraline 50 mg PO DAILY 30 days tiotropium bromide (Spiriva with HandiHaler) 1 cap inhalation DAILY tizanidine 4 mg PO TID PRN 30 days trazodone 50 mg PO BEDTIME PRN vibegron (Gemtesa) 75 mg PO DAILY Tobacco use date assessed: 06/01/24 Fall risk assessment: No Falls in past year Last assessed Fall Risk: 06/01/24 Dental Screening Dental Screen Date: 06/01/24 Did you have a dental visit in the last 12 months?: No Did you have a dental problem in the last 6 months where you did not have access to dental care?: No Was dental information given to patient?: No HPI [facility] f/[place] [phone] HPI Details Patient's follow up visit / consultation today is done over video conference (iPhone/iPad/[employer]/D[employer]ity) - this is a TELEHEALTH visit Patient's current medications have been reviewed and verified with patient and/or caregiver/proxy and have been updated accordingly in the medication list Patient's visit today is done mostly through his daughter, Sasha, as patient is not able to participate in this teleconference due to his dementia and declining cognition His daughter states that she is concerned about patient's increasingly aggressive behavior lately despite his current medications He was started on quetiapine 12.5 mg twice a day by neurology a couple of months ago to help address and calm down his aggressive tendencies as a result of his dementia but his daughter states that this has not helped at all States that she recently even went up to 25 mg BID of his Quetiapine to try to help calm down his behavior but even that did not make any difference His daughter states that he has threatened a few times to hit his and has at times also exhibited paranoid tendencies as he is accusing family members of stealing from him when he can not find what he was looking for His daughter notes that these aggressive tendencies tend to be worse in the late afternoon and early evening hours States that patient currently has an erratic sleep schedule and he does wake up often at night despite his present medications PFSH Medical History Essential tremor Restrictive lung disease Insomnia Chronic pain syndrome 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, lumbar Peripheral neuropathy Spinal stenosis Allergic rhinitis Hearing impairment Acquired hypothyroidism Borderline abnormal TFTs Benign prostatic hyperplasia with urinary obstruction Anxiety Vitamin D deficiency Overweight (BMI 25.0-29.9) COVID-19 Chronic kidney disease (CKD), stage III (moderate) Facet arthritis of lumbosacral region COPD (chronic obstructive pulmonary disease) Mixed hyperlipidemia Benign essential hypertension Essential hypertension Sinus bradycardia GERD (gastroesophageal reflux disease) Surgical History Hx of colonoscopy History of esophagogastroduodenoscopy (EGD) History of cholecystectomy (~12/2015) Family History Father No problems noted. Mother No problems noted. Social History Housing: Apartment Alcohol intake: never Patient Tobacco Use Status: Former Tobacco user e-Cigarette/Vaping Use: Never Used Second Hand Smoke Exposure: Yes service: No Current occupational status: retired Cognitive needs: Yes (wheelchair) Hearing needs: No Vision needs: Yes Questionnaire PHQ-9 Over the last 2 weeks, how often have you been bothered by any of the following problems? 1. Little interest or pleasure in doing things: nearly every day 2. Feeling down, depressed, or hopeless: not at all 3. Trouble falling or staying asleep, or sleeping too much: nearly every day 4. Feeling tired or having little energy: nearly every day 5. Poor appetite or overeating: nearly every day 6. Feeling bad about yourself - or that you are a failure or have let yourself or your family down: several days 7. Trouble concentrating on things, such as reading the newspaper or watching television: more than half the days 8. Moving or speaking so slowly that other people could have noticed. Or the opposite - being so fidgety or restless that you have been moving around a lot more than usual: nearly every day 9. Thoughts that you would be better off or of hurting yourself in some way: not at all Total score: 18 Depression Screening Interpretation: Positive Depression Screening Follow-up: Existing condition and In treatment Depression Screening Done: Yes 15282 - PHQ-9 Billing: Yes Source: Developed by Drs. Yvon Donato, Wanda Tadeo, Luigi Edwards and colleagues, with an educational alisha from [employer]. Thrive Questionnaire Date Thrive assessed: 06/01/24 I am a: Parent/Caregiver What is your living situation today?: I have a steady place to live Within the past 12 months, did the food you bought not last and you didn't have the money to get more?: Never true Within the past 12 months, did you worry whether your food would run out before you got money to buy more?: Never true Do you have trouble paying for medicines?: No Do you have trouble getting transportation to medical appointments?: No Do you have trouble paying your heating and electricity bill?: No Do you have trouble taking care of your child, family member or friend?: No Do you have trouble with day-to-day activities such as bathing, preparing meals, shopping, managing finances, etc.?: Yes Are you currently unemployed and looking for a job?: No Are you interested in more education?: No Please select the resources that you would like help with: Care for elder or disabled Currently or been in a relationship where the following occur: No concerns reported THRIVE Score: 0 AUDIT C Alcohol Use Questionnaire (AUDIT-C) 1. How often do you have a drink containing alcohol?: Never 3. How often do you have six or more drinks on one occasion?: Never Total Score: 0 Score Reviewed/Action Taken: Yes EVANGELISTA-7 AMB Questionnaire EVANGELISTA-7 Date EVANGELISTA - 7 assessed: 06/01/24 Feeling nervous, anxious, or on edge: 1 = Several days Not being able to stop or control worryin = Not at all Worrying too much about different things: 1 = Several days Trouble relaxin = Several days Being so restless that it is hard to sit still: 0 = Not at all Becoming easily annoyed or irritable: 1 = Several days Feeling afraid as if something awful might happen: 0 = Not at all Total EVANGELISTA-7 score (0-4 normal; 5-9 mild; 10-14 moderate; 15-21 severe): 4 Source: Developed by Drs. Yvon Donato, Wanda Tadeo, Luigi Edwards and colleagues, with an educational alisha from [employer]. Review of Systems Const Details: ROS is limited and obtained primarily from patient's daughter as patient has advanced dementia/cognitive deficits and is unable to provide any pertinent information on his own Unobtainable due to mental condition (ROS obtained most from daughter) Denies fatigue, Denies fever(s), Denies headache(s) and Reports poor appetite (has been refusing to eat often and tends to just drink coffee all day) ENT Denies dysphagia, Denies dizziness, Denies headache(s), Denies neck pain and Denies sore throat Card Denies chest pain, Denies palpitations and Denies dyspnea Resp Denies cough, Denies dyspnea and Denies wheezing GI Denies abdominal pain, Denies constipation, Denies dysphagia, Denies heartburn, Denies diarrhea, Denies nausea and Denies vomiting Denies hematuria and Reports urinary incontinence Musc Reports abnormal gait (unsteady; sometimes starts shaking when walking due to tremors), Reports back pain (increased over the lower back), Reports arthralgias (left shoulder), Denies joint swelling, Denies muscle weakness, Denies neck pain, Reports radiating pain into limb (right leg) and Reports stiffness Skin/Breast Denies rash Neuro Reports abnormal gait (unsteady; sometimes starts shaking when walking due to tremors), Reports behavioral changes (gets agitated and angry for no apparent reason at times - increasing), Reports confusion (on and off, per daughter), Denies dizziness, Denies headache(s), Reports memory loss and Reports tremor(s) Psych Reports behavioral changes (gets agitated and angry for no apparent reason at times - increasing), Reports confusion (on and off, per daughter), Reports memory loss and Reports paranoia Endo Denies fatigue and Denies palpitations Aller/Immun Denies wheezing Physical exam (Primary Care) Vital Signs: Physical examination is not performed as visit / consultation today is done over videoconference - Telehealth visit All physical findings indicated here, if present, are as per patient's and / or caregivers / proxy's report and visual inspection over videoconference, if appropriate or applicable Tobacco/Smoking Status: Tobacco use Status Tobacco use date assessed 06/01/24 06/01/24 13:49 Patient Tobacco Use Status Former Tobacco user 06/01/24 13:49 e-Cigarette/Vaping Use Never Used 06/01/24 13:49 PHQ-9: PHQ-9 Score PHQ-9: Total score 18 06/01/24 14:46 Depression Screening Interpretation: Positive Depression Screening Follow-up: Existing condition and In treatment Thrive Assessment: Date of Thrive Assessment Date Thrive assessed 06/01/24 06/01/24 13:49 Currently or been in a relationship where the following occur: No concerns reported Const General: confusion (on and off, per daughter) Orientation/consciousness: confusion (on and off, per daughter) Neuro General: confusion (on and off, per daughter) Telehealth Telehealth Telehealth Platform: Telephone ([employer]) Location of provider rendering services: practice address Location of patient: address on file Patient Identification confirmed using: Name, : Yes Telehealth method: video (Facetime) Patient verbally consented to treatment: Yes Patient verbally consented to billing insurance company: Yes Patient informed of any privacy concerns related to visit: Yes Minutes spent on Phone/Video with Pt.: 18 Coding Level of Care Code Tele Est Pt Level 3 (25608) Diagnoses Aggressive behavior due to dementia F03.918 Additional Codes PHQ-9 - 20259 - PHQ-9 Billing: Yes ([id number]) Assessment & Plan Assessment & Plan (1) Aggressive behavior due to dementia: Code(s): F03.918 - Unspecified dementia, unspecified severity, with other behavioral disturbance Category: Medical Plan: Patient is currently still on Donepezil 10 mg QD but this does not appear to be helping much He was started on Quetiapine 12.5 mg BID by neurology a couple of months ago to help calm down his aggressive tendencies but his daughter states that this has not helped at all States that she recently even increased his Quetiapine up to 25 mg BID on her own to try to calm down his behavior but even that did not make any difference Will go ahead and increase his Quetiapine further to 50 mg BID for now If this still does not help, may need to switch him over to Risperidone and/or start him as well on Rexulti, which has shown efficacy in addressing dementia- related agitation but advised that she should discuss this further with neurology and I will leave any med changes to the discretion of his treating neurologist Plan Follow up in 3 months Medications: Changed From quetiapine 1/2 tab orally 2 times a day; 30 tabs 6RF F03.918 - Unspecified dementia, unspecified severity, with other behavioral disturbance To quetiapine 50 mg PO BID 60 tabs 5RF aggressiveness, behavioral disturbance in dementia 30 days F03.918 - Unspecified dementia, unspecified severity, with other behavioral disturbance
--- OUTSIDE RECORDS SUMMARY | 2024-06-01 13:46 | XMS_ITS ---
Author Organization [facility] No information ASSESSMENT No information CHIEF COMPLAINT No information Medications Id rxnorm Id other Type Name Dose Form Sig Start date Quantity Refill Fill status Sample indicator Generic indicator Prescribed [facility] [id number] presc ripti Potas sium Chlor luz ER Tab ER 10 MEQ 10 MEQ Tab ER TAKE 1 TABL ET BY MOUT H EVER Y DAY 4-05 90.368779 0 New [phone] 9 presc ripti WEI ONIN 3 MG TABLE T TAKE 1 TO 2 TABL ETS BY MOUT H WILMAR Y FOR 90 DAYS 0 2-22 180.72077 0 New [id number] 879179 8553 presc ripti Sertr lizeth Tab 50 mg 50 mg Tab TAKE 1 TABL ET BY MOUT H EVER Y DAY FOR 30 DAYS 0 2-21 90.653052 0 New [id number] [id number] 9 presc ripti WEI ONIN 3 MG TABLE T TAKE 1 OR 2 TABL ETS BY MOUT H EVER Y DAY 0 1-25 180.29767 0 New [id number] 763315 6946 presc ripti Sertr lizeth Tab 25 mg 25 mg Tab TAKE 1 TABL ET BY MOUT H EVER Y DAY 0 2-12 90.409656 0 New 022566 156739 3421 presc ripti Sertr lizeth Tab 50 mg 50 mg Tab TAKE 1 TABL ET BY MOUT H EVER Y DAY AT [facility] 0 5-14 90.248234 0 DoseCha e [id number] [phone] presc ripti Fluti sandor e Propi anika Nasal Suspe nsion 50 MCG/A CT 50 MCG/A CT Suspe nsion SPRA Y 2 SPRA YS INTO EACH NOST RIL EVER Y DAY NEED ED FOR MIREYA RGY 0 4-05 48.210223 0 New [id number] 870456 528371 039 presc ripti Diclo fenac Sodiu m Gel 1 % 1 % Gel PLAC E 2 GRAM S TOPI CALL Y TO AFFE CTED AREA 4 TIME S PER DAY NEED ED 2-06 200.24961 0 12 Refill [id number] 507806 0999 otc Vitam in D3 Cap 50 MCG (1999) 50 MCG (1999) Cap TAKE 1 CAPS ULE BY MOUT H EVER Y DAY 6-26 90.516084 0 New 868949 138128 1519 presc ripti Donep ezil Tab 10 mg 10 mg Tab TAKE 1/2 TABL ET BY MOUT H EVER Y DAY AT [facility] FOR 4 WEEK S THEN INCR EASE TO 1 TABL ET AT [facility] [facility] 2022-07 0-19 70.332511 0 New 636053 156293 14729 presc ripti Lidoc ruby Oint 5 % 5 % Oint Appl y 1 g topi call y 3 time s wilmar y as need ed 2022-07 0-17 106.48919 0 New [id number] 245549 838355 551 presc ripti [place] piyush Gel 1 % 1 % Gel 2 gram s topi call y to affe cted area 4 time s per day prn 2022-07 0-17 200.57498 0 3 Refill [id number] 301097 78411 presc ripti Lidoc ruby Oint 5 % 5 % Oint Appl y 1 g topi call y 3 time s wilmar y as need ed 2022-07 0-17 New [id number] 425321 [phone] 152613 551 presc ripti [place] piyush Gel 1 % 1 % Gel 2 gram s topi call y to affe cted area 4 time s per day prn 2022-07 0-17 New [id number] 070393 5348 presc ripti Gabap entin Cap 300 mg 300 mg Cap take 2 caps ule by mout h BID 8-10 120.36020 0 DoseCha nge [id number] 049909 113533 175 presc ripti Wixel a Inhub Inhal ation Aeros ol Powde r Breat h Activ ated 500-5 0 MCG/A CT 500-5 0 MCG/A CT Aeros ol Powde r Breat h Activ ated TWIC E A DAY 3-07 180.50890 0 New 197794 363645 2864 otc Vitam in D3 Cap 50 MCG (1999 UT) 50 MCG (1999 UT) Cap TAKE 1 CAPS ULE BY MOUT H EVER Y DAY 6-26 90.736543 0 New 886182 559704 6912 presc ripti Amoxi cilli n-Pot Clavu lanat e Tab 875/1 25 mg 875/1 25 mg Tab TAKE 1 TABL ET BY MOUT H TWIC E A DAY 6-25 20.644036 0 New 739436 073261 0936 otc Vitam in D3 Cap 50 MCG (1999) 50 MCG (1999 UT) Cap TAKE 1 CAPS ULE BY MOUT H EVER Y DAY FOR 90 DAYS 2-01 90.434658 0 New 553647 205981 9241 presc ripti Levot hyrox ine Sodiu m Tab 25 MCG 25 MCG Tab TAKE 1 TABL ET BY MOUT H EVER Y DAY IN THE MORN [facility] 4-25 90.037298 0 New 557229 293696 2041 presc ripti Albut jarad Sulfa te HFA Inhal ation Aeros ol Solut ion 108 (90 Base) MCG/A CT 108 (90 Base) MCG/A CT Aeros ol Solut ion TAKE 2 PUFF S BY MOUT H EVER Y 6 HOUR S NEED ED FOR WHEE ZE 4-11 8.2676801 0 New 133723 917826 3373 presc ripti traZO Done Tab 50 mg 50 mg Tab TAKE 1 TABL ET BY MOUT H EVER Y NIGH T AT [facility] [facility] FOR INSO MNIA 4-13 12.798509 0 New 376493 788239 487 presc ripti VITAM IN D3 50 MCG (2,00 0 UNIT) TAKE 1 CAPS ULE BY MOUT H EVER Y DAY 3-11 90.133498 0 New 978089 300527 2260 presc ripti Primi done Tab 50 mg 50 mg Tab TAKE 1 TABL ET BY MOUT H TWIC E A DAY 2021-07 1-01 90.502385 0 DoseCha e [id number] 535562 799710 2502 presc ripti Barber yolis t Sodiu m Tab 10 mg 10 mg Tab TAKE 1 TABL ET BY MOUT H AT [place] 0 7-21 73.951455 0 New 589406 512642 7167 presc ripti Chlor thali done Tab 25 mg 25 mg Tab TAKE 1 TABL ET BY MOUT H EVER Y OTHE R DAY 2020-07 1-15 45.268806 0 New 376142 851750 9409 presc ripti Losar dwyer Potas sium Tab 50 mg 50 mg Tab TAKE 1 TABL ET BY MOUT H EVER Y DAY 2021-07 0-03 66.692468 0 New 507806 090979 6794 presc ripti Primi done Tab 50 mg 50 mg Tab TAKE 1 TABL ET BY MOUT H EVER Y DAY 3-23 90.678543 0 New 071168 353352 1217 presc ripti Levot hyrox ine Sodiu m Tab 25 MCG 25 MCG Tab TAKE 1 TABL ET IN THE MORN ING 9-27 59.362766 0 New 365093 576599 4890 presc ripti Omepr azole Cap delay ed rel 40 mg 40 mg Cap delay ed rel TAKE 1 CAPS ULE BY MOUT H EVER Y DAY 6-23 30.595059 0 New 085809 078246 4804 presc ripti Barber muhammads t Sodiu m Tab 10 mg 10 mg Tab TAKE 1 TABL ET AT [place] 4-11 15.242047 0 New 635145 842324 5137 presc ripti tiZAN idine Tab 4 mg 4 mg Tab TAKE 1 TABL ET BY MOUT H AT [place] [facility] NEED ED FOR MUSC LE SPAS M 2021-07 0-26 30.987086 0 New 944742 808650 3654 presc ripti tiZAN idine Tab 4 mg 4 mg Tab TAKE 1 TABL ET BY MOUT H EVER Y DAY AT [facility] [facility] NEED ED FOR MUSC LE SPAS M 5-26 30.333562 0 New 656345 952010 5858 presc ripti tiZAN idine Tab 4 mg 4 mg Tab 1tab at HS and PRN 2021-07 1- New [id number] 341736 087489 5231 presc ripti Primi done Tab 50 mg 50 mg Tab TAKE 1 TABL ET BY MOUT H TWIC E A DAY 2020-07 0-13 180.15911 0 New 435830 428597 4021 presc ripti Gabap entin Cap 100 mg 100 mg Cap TAKE 1 CAPS ULE BY MOUT H TWIC E A DAY 9- 60.378284 0 New 573759 078860 1856 presc ripti tiZAN idine Tab 4 mg 4 mg Tab TAKE 1 TABL ET (4 MG) BY MOUT H [place] [facility] NEED ED FOR FOR MUSC LE SPAS M 9- 30.384222 0 New 874411 919212 2645 presc ripti tiZAN idine Tab 4 mg 4 mg Tab TAKE 1 TABL ET BY MOUT H EVER Y DAY AT [place] [facility] NEED ED FOR MUSC LE SPAS M 7-12 30.650964 0 New 704696 344227 9579 presc ripti Albut jarad Sulfa te HFA Inhal ation Aeros ol Solut ion 108 (90 Base) MCG/A CT 108 (90 Base) MCG/A CT Aeros ol Solut ion TAKE 2 PUFF S BY MOUT H EVER Y 6 HOUR S NEED ED FOR WHEE ZE 2021--12 8.0265364 0 New 067559 997954 1164 presc ripti tiZAN idine Tab 4 mg 4 mg Tab TAKE 1 TABL ET BY MOUT H AT [place] NEED ED FOR MUSC LE SPAS M 6-17 30.298589 0 New 364735 791663 3881 presc ripti traZO Done Tab 50 mg 50 mg Tab TAKE 1 TABL ET AT [place] [facility] NEED ED FOR FOR INSO MNIA 04-24 90.888452 0 New 134888 877278 78049 presc ripti Finas terid e Tab 5 mg 5 mg Tab TAKE 1 TABL ET BY MOUT H WILMAR Y 5-16 48.119203 0 New 161718 723453 8521 presc ripti tiZAN idine Tab 4 mg 4 mg Tab TAKE 1 TABL ET BY MOUT H EVER Y DAY AT [facility] [facility] NEED ED FOR MUSC LE SPAS M 9-06 30.266182 0 New 168376 819403 9880 presc ripti ALPRA Zolam Tab 0.5 mg 0.5 mg Tab TAKE 1 TABL ET BY MOUT H THRE E TIME S A DAY NEED ED FOR ANXI ETY 6-27 90.618186 0 New 096307 623211 2252 presc ripti Spiri va Handi Haler Inhal ation Cap 18 MCG 18 MCG Cap inha le 2 puff s wilmar y 2021-07 New [id number] 190209 8177 presc ripti ALPRA Zolam Tab 0.5 mg 0.5 mg Tab TAKE 1 TABL ET BY MOUT H 3 TIME S A DAY NEED ED FOR ANXI ETY 5-23 90.554603 0 New 309991 864495 7533 presc ripti Omepr azole Cap delay ed rel 40 mg 40 mg Cap delay ed rel TAKE 1 CAPS ULE BY MOUT H EVER Y DAY 4-04 90.762671 0 New 747499 740003 1394 presc ripti Gabap entin Cap 100 mg 100 mg Cap TAKE 1 CAPS ULE BY MOUT H TWIC E A DAY 7-29 60.519976 0 New 851374 531134 4158 presc ripti Gabap entin Cap 100 mg 100 mg Cap TAKE 1 CAPS ULE BY MOUT H TWIC E A DAY 4-11 60.322183 0 New 120787 544887 486119 503 presc ripti Advai r Disku s Inhal ation Aeros ol Powde r Breat h Activ ated 500-5 0 MCG/A CT 500-5 0 MCG/A CT Aeros ol Powde r Breat h Activ ated 1 puff inha led oral ly 2 time s per day 2021-07 New [id number] 855316 050352 9990 presc ripti Gabap entin Cap 100 mg 100 mg Cap TAKE 1 CAPS ULE BY MOUT H TWIC E WILMAR Y 30 DAYS 6-06 60.172595 0 New 010198 955160 7057 presc ripti ALPRA Zolam Tab 0.5 mg 0.5 mg Tab TAKE 1 TABL ET BY MOUT H THRE E TIME S A DAY NEED ED FOR ANXI ETY 2021-07 0-05 90.725449 0 New 176518 778324 0179 presc ripti Famot idine Tab 40 mg 40 mg Tab TAKE 1 TABL ET AT [facility] [facility] 6-23 90.939892 0 New 584236 176870 7515 presc ripti Albut jarad Sulfa te HFA Inhal ation Aeros ol Solut ion 108 (90 Base) MCG/A CT 108 (90 Base) MCG/A CT Aeros ol Solut ion TAKE 2 PUFF S BY MOUT H EVER Y 6 HOUR S NEED ED FOR WHEE ZE 2021-07 0-13 8.8492455 0 New 750450 366387 2873 presc ripti ALPRA Zolam Tab 0.5 mg 0.5 mg Tab TAKE 1 TABL ET BY MOUT H THRE E TIME S A DAY NEED ED FOR ANXI ETY 9-06 90.298469 0 New 817334 881532 8801 presc ripti Losar dwyer Potas sium Tab 50 mg 50 mg Tab TAKE 1 TABL ET BY MOUT H EVER Y DAY 2020-07 1 90.793468 0 New OBJECTIVE DATA No information PHYSICAL EXAMINATION No information TREATMENT PLAN No information PROBLEMS No information RESULTS No information REVIEW OF SYSTEMS No information SUBJECTIVE DATA No information VITAL SIGNS No information
== END 2024-06-01 14:58 | disposition home or self-care (01) ==
LOC: HO.HMCH 13:45
PROVIDERS: PCP Internal Medicine; Visit Provider Internal Medicine
DX: F03.918 Unspecified dementia, unspecified severity, with other behavioral disturbance (principal)

== ENCOUNTER → 2024-06-01 13:45 | Outpatient (BNVA) | payer OTHER, SELFPAY | PROVIDERS: PCP Internal Medicine; Visit Provider Internal Medicine | DX: F03.918 Unspecified dementia, unspecified severity, with other behavioral disturbance (principal) | CPT/HCPCS: 96127 ==

== ENCOUNTER 2024-09-22 12:46 | Outpatient (AMB) | payer OTHER, SELFPAY ==
--- NOTE | 2024-09-22 12:46 | A.OFFPC_ITS ---
Intake Visit Reasons: Dementia, aggressive behavior/agitation Maxillofacial Prosthetics Dentist Required: No Accompanied by: Self / Same As Patient Allergies No Known Allergies [No Known Allergies*] Allergy (Verified 09/22/24 13:24) Medication List - Last Reconciled 09/22/24 by Baljit Swanson MD albuterol sulfate 90 mcg/actuation 2 puffs inhalation Q6H PRN alprazolam 1 mg (2 x 0.5 mg) PO BID PRN 30 days [BATH TRANSFER BENCH As directed] [bath tub steel white bar As directed] chlorthalidone 25 mg PO Q OTHER DAY cholecalciferol (vitamin D3) 50 mcg PO DAILY 90 days [COMMODE As directed] [disposable underpads As directed] [disposable underwear As directed] donepezil (Aricept) 10 mg PO BEDTIME 90 days famotidine 40 mg PO BEDTIME finasteride 5 mg PO DAILY fluticasone propion-salmeterol 500-50 mcg/dose (Wixela Inhub) 1 inh inhalation BID fluticasone propionate 50 mcg/actuation 2 sprays intranasal DAILY PRN 30 days gabapentin 300 mg PO TID levothyroxine 25 mcg PO QAM losartan 50 mg PO DAILY [MANUAL WHEELCHAIR - large As directed] melatonin 6 mg (2 x 3 mg) PO BEDTIME montelukast 10 mg PO BEDTIME omeprazole 40 mg PO DAILY potassium chloride ER (Klor-Con) 10 mEq PO DAILY 30 days primidone 100 mg (2 x 50 mg) PO BID 90 days quetiapine 50 mg PO BID 30 days [ROLLATOR with wheels and seat As directed] sertraline 50 mg PO DAILY 30 days tiotropium bromide (Spiriva with HandiHaler) 1 cap inhalation DAILY tizanidine 4 mg PO TID PRN 30 days trazodone 50 mg PO BEDTIME PRN vibegron (Gemtesa) 75 mg PO DAILY Tobacco use date assessed: 09/22/24 Fall risk assessment: 2 + Falls in past year Last assessed Fall Risk: 09/22/24 Dental Screening Dental Screen Date: 09/22/24 Did you have a dental visit in the last 12 months?: No Did you have a dental problem in the last 6 months where you did not have access to dental care?: No Was dental information given to patient?: Patient has dentist HPI Dementia, aggressive behavior/agitation HPI Details Patient's follow up visit / consultation today is done over video conference (iPhone/iPad/Google Meets/Doximity) - this is a TELEHEALTH visit Patient's current medications have been reviewed and verified with patient and/or caregiver/proxy and have been updated accordingly in the medication list Patient's visit today is done mostly with his daughter and primary caregiver, Sasha, as patient is unable to participate in today's visit due to his significant cognitive impairment/dementia His daughter states that patient has been getting progressively weaker lately and is now falling a lot States that she had to call EMS a few days ago to get them to help her pick him up from the floor as he was too heavy for her to supervisor opening and picking on her own without help States that patient is now so weak that he keeps falling every time he tries to get up and move around His blood pressure this morning was reportedly high at 223/129 mm and HR was at 54 bpm He does not complained of any headaches or chest pains and he does not appear SOB, per his daughter No nausea/vomiting or abdominal pain but he also has not been eating much lately and sometimes refuses to eat at all although his daughter still tries to get him to eat something every now and then but states that it is not much He is now mostly incontinent and wears adult pull ups all day long He's had no recent follow up labs done as he mostly refuses to leave the house at all and his daughter is therefore not able to get him to the lab for any b lood draw He needs a couple of his Rx refilled today PFSH Medical History (Updated 09/26/24 @ 10:22 by Baljit Swanson MD) Primary osteoarthritis of left shoulder Essential tremor Restrictive lung disease Insomnia Chronic pain syndrome 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, lumbar Peripheral neuropathy Spinal stenosis Allergic rhinitis Hearing impairment Acquired hypothyroidism Borderline abnormal TFTs Benign prostatic hyperplasia with urinary obstruction Anxiety Vitamin D deficiency Overweight (BMI 25.0-29.9) COVID-19 Chronic kidney disease (CKD), stage III (moderate) Facet arthritis of lumbosacral region COPD (chronic obstructive pulmonary disease) Mixed hyperlipidemia Benign essential hypertension Essential hypertension Sinus bradycardia GERD (gastroesophageal reflux disease) Surgical History Hx of colonoscopy History of esophagogastroduodenoscopy (EGD) History of cholecystectomy (~12/2015) Family History Father No problems noted. Mother No problems noted. Social History Housing: Apartment Alcohol intake: never Patient Tobacco Use Status: Former Tobacco user e-Cigarette/Vaping Use: Never Used Second Hand Smoke Exposure: Yes service: No Current occupational status: retired Cognitive needs: Yes (wheelchair) Hearing needs: No Vision needs: Yes Questionnaire PHQ-9 Over the last 2 weeks, how often have you been bothered by any of the following problems? 1. Little interest or pleasure in doing things: nearly every day 2. Feeling down, depressed, or hopeless: not at all 3. Trouble falling or staying asleep, or sleeping too much: nearly every day 4. Feeling tired or having little energy: nearly every day 5. Poor appetite or overeating: nearly every day 6. Feeling bad about yourself - or that you are a failure or have let yourself or your family down: several days 7. Trouble concentrating on things, such as reading the newspaper or watching television: more than half the days 8. Moving or speaking so slowly that other people could have noticed. Or the opposite - being so fidgety or restless that you have been moving around a lot more than usual: nearly every day 9. Thoughts that you would be better off or of hurting yourself in some way: not at all Total score: 18 Depression Screening Interpretation: Positive Depression Screening Follow-up: Existing condition and In treatment Depression Screening Done: Yes 66830 - PHQ-9 Billing: Yes Source: Developed by Drs. Yvon Donato, Wanda Tadeo, Luigi Edwards and colleagues, with an educational alisha from [employer]. Thrive Questionnaire Date Thrive assessed: 09/22/24 I am a: Parent/Caregiver What is your living situation today?: I have a steady place to live Within the past 12 months, did the food you bought not last and you didn't have the money to get more?: Never true Within the past 12 months, did you worry whether your food would run out before you got money to buy more?: Never true Do you have trouble paying for medicines?: No Do you have trouble getting transportation to medical appointments?: No Do you have trouble paying your heating and electricity bill?: No Do you have trouble taking care of your child, family member or friend?: No Do you have trouble with day-to-day activities such as bathing, preparing meals, shopping, managing finances, etc.?: Yes Are you currently unemployed and looking for a job?: No Are you interested in more education?: No Please select the resources that you would like help with: Care for elder or disabled Currently or been in a relationship where the following occur: No concerns reported THRIVE Score: 0 AUDIT C Alcohol Use Questionnaire (AUDIT-C) 1. How often do you have a drink containing alcohol?: Never 3. How often do you have six or more drinks on one occasion?: Never Total Score: 0 Score Reviewed/Action Taken: Yes EVANGELISTA-7 AMB Questionnaire EVANGELISTA-7 Date EVANGELISTA - 7 assessed: 09/22/24 Feeling nervous, anxious, or on edge: 1 = Several days Not being able to stop or control worryin = Not at all Worrying too much about different things: 1 = Several days Trouble relaxin = Several days Being so restless that it is hard to sit still: 0 = Not at all Becoming easily annoyed or irritable: 1 = Several days Feeling afraid as if something awful might happen: 0 = Not at all Total EVANGELISTA-7 score (0-4 normal; 5-9 mild; 10-14 moderate; 15-21 severe): 4 Source: Developed by Drs. Yvon Donato, Wanda Tadeo, Luigi Edwards and colleagues, with an educational alisha from [employer]. Review of Systems Const Details: ROS is limited and obtained primarily from patient's daughter as patient has advanced dementia/cognitive deficits and is unable to provide any pertinent information on his own Unobtainable due to mental condition (ROS obtained most from daughter) Denies fatigue, Denies fever(s), Denies headache(s) and Reports poor appetite (has been refusing to eat often and tends to just drink coffee all day) ENT Denies dysphagia, Denies dizziness, Denies headache(s), Denies neck pain and Denies sore throat Card Denies chest pain, Denies palpitations and Denies dyspnea Resp Denies chest congestion, Denies cough and Denies dyspnea GI Denies abdominal pain, Denies dysphagia, Denies heartburn, Reports fecal incontinence, Denies nausea and Denies vomiting Denies hematuria and Reports urinary incontinence Musc Reports abnormal gait (unsteady; starts shaking when walking due to tremors/falls often), Reports back pain (increased over the lower back), Reports arthralgias (left shoulder), Denies joint swelling, Denies muscle weakness, Denies neck pain, Reports radiating pain into limb (right leg) and Reports stiffness Skin/Breast Denies rash Neuro Reports abnormal gait (unsteady; starts shaking when walking due to tremors/falls often), Reports behavioral changes (gets agitated and angry for no apparent reason at times - increasing), Reports confusion (on and off, per daughter), Denies dizziness, Denies headache(s), Reports memory loss and Reports tremor(s) Psych Reports behavioral changes (gets agitated and angry for no apparent reason at times - increasing), Reports confusion (on and off, per daughter), Reports memory loss and Reports paranoia Endo Denies fatigue and Denies palpitations Physical exam (Primary Care) Vital Signs: Physical examination is not performed as visit / consultation today is done over videoconference - Telehealth visit All physical findings indicated here, if present, are as per patient's and / or caregivers / proxy's report and visual inspection over videoconference, if appropriate or applicable Tobacco/Smoking Status: Tobacco use Status Tobacco use date assessed 09/22/24 09/22/24 12:49 Patient Tobacco Use Status Former Tobacco user 09/22/24 12:49 e-Cigarette/Vaping Use Never Used 09/22/24 12:49 PHQ-9: PHQ-9 Score PHQ-9: Total score 18 09/22/24 13:36 Depression Screening Interpretation: Positive Depression Screening Follow-up: Existing condition and In treatment Thrive Assessment: Date of Thrive Assessment Date Thrive assessed 09/22/24 09/22/24 12:49 Currently or been in a relationship where the following occur: No concerns reported Const General: confusion (on and off, per daughter) Orientation/consciousness: confusion (on and off, per daughter) Neuro General: confusion (on and off, per daughter) Telehealth Telehealth Telehealth Platform: Telephone Location of provider rendering services: practice address Location of patient: address on file Patient Identification confirmed using: Name, : Yes Telehealth method: video (Iphone / Lingoing) Patient verbally consented to treatment: Yes Patient verbally consented to billing insurance company: Yes Patient informed of any privacy concerns related to visit: Yes Minutes spent on Phone/Video with Pt.: 24 Coding Level of Care Code Tele Est Pt Level 4 (69099) Diagnoses Dementia with other behavioral disturbance, unspecified dementia severity, unspecified dementia type F03.918 Dementia behavioral or psychological symptom: with other behavioral disturbance Dementia severity: unspecified severity Dementia type: unspecified type Parkinson's disease, unspecified whether dyskinesia present, unspecified whether manifestations fluctuate G20.A1 Dyskinesia presence: unspecified whether dyskinesia Fluctuating manifestations: unspecified whether manifestations fluctuate Essential tremor G25.0 Frequent falls R29.6 Facet arthritis of lumbosacral region M47.817 Essential hypertension I10 Mixed hyperlipidemia E78.2 Chronic obstructive pulmonary disease, unspecified COPD type J44.9 COPD type: unspecified COPD Allergic rhinitis, unspecified seasonality, unspecified trigger J30.9 Allergic rhinitis trigger: unspecified Allergic rhinitis seasonality: unspecified Stage 3a chronic kidney disease N18.31 Chronic kidney disease stage 3 subtype: stage 3a (GFR 45-59) Acquired hypothyroidism E03.9 Vitamin D deficiency E55.9 Gastroesophageal reflux disease without esophagitis K21.9 Esophagitis presence: without esophagitis Primary osteoarthritis of left shoulder M19.012 Benign prostatic hyperplasia with urinary obstruction N40.1; N13.8 Insomnia, unspecified type G47.00 Insomnia type: unspecified Anxiety F41.9 Additional Codes PHQ-9 - 59127 - PHQ-9 Billing: Yes ([id number]) Assessment & Plan Assessment & Plan (1) Dementia: Code(s): F03.90 - Unspecified dementia, unspecified severity, without behavioral disturbance, psychotic disturbance, mood disturbance, and anxiety Category: Medical Qualifiers: Dementia behavioral or psychological symptom: with other behavioral disturbance Dementia severity: unspecified severity Dementia type: unspecified type Qualified Code(s): F03.918 - Unspecified dementia, unspecified severity, with other behavioral disturbance Plan: Continue Donepezil 10 mg QD and Quetiapine 50 mg BID They have been advised by neurology to help patient increase his cognitive and physical activities at his last visit a few months ago but this appears unrealistic now given patient's declining physical condition; have discussed with patient's daughter as well that in his current condition, his dementia is too far along now for any cognitive activities to help I will try and refer him to [facility] for evaluation of his eligibility for halfway services (2) Parkinson's disease: Code(s): G20.A1 - Parkinson's disease without dyskinesia, without mention of fluctuations Category: Medical Qualifiers: Dyskinesia presence: unspecified whether dyskinesia Fluctuating manifestations: unspecified whether manifestations fluctuate Qualified Code(s): G20.A1 - Parkinson's disease without dyskinesia, without mention of fluctuations Plan: He is currently on Primidone 100 mg BID for his tremors but his overall physical condition has declined significantly to the point now that he is falling every time he tries to get up and walk/move around We will refer him to [facility] for further evaluation for eligibility for halfway services and home PT evaluation but discussed with patient's daughter that these may not really help much now given his recent rapid decline in his physical and cognitive condition Follow up with neurology as scheduled (3) Essential tremor: Code(s): G25.0 - Essential tremor Category: Medical Plan: Continue Primidone 100 mg BID (4) Frequent falls: Code(s): R29.6 - Repeated falls Category: Medical Plan: Patient's daughter states that has been falling constantly lately every time he tries to get up and walk States that he fell last night his daughter was unable to get him up on her own and she had to call EMS to come over to help get patient back on the bed States that patient has been getting progressively weaker and is getting to be mostly bedridden at present Will try referring patient to [facility] for evaluation for halfway services Have advised patient's daughter to also see if [facility] can draw some blood on the patient for some follow-up labs when they come over and start services for him (5) Facet arthritis of lumbosacral region: Code(s): M47.817 - Spondylosis without myelopathy or radiculopathy, lumbosacral region Category: Medical Plan: MRI of the lumbar spine done on 11/19/2021 revealed (+) multilevel degenerative disc disease and spondylosis; the previous right lateral disc protrusion at L4- L5 compressing the right L5 nerve root in the lateral recess seen on previous MRI in 2015 appears to have resolved Reinforced to patient's daughter that prolonged sitting and standing can aggravate his lower back pain so these should be avoided as much as possible although with his recent physical decline and current bedbound status, there may not be much else we can do here at this point Continue Tizanidine 4 mg TID PRN and Gabapentin 300 mg TID; Tramadol has reportedly not been helping him much He was seen and evaluated by pain management in December 2021 but patient declined all interventional options at the time; he was referred for aquatherapy/water aerobics and was also advised to try herbal remedies like casie and turmeric but these are not realistic at this time given patient's declining cognition Have advised patient's daughter that at this point, there are no other effective options available to help with his low back pain as surgery is obviously not recommended for someone at his age and with his comorbidities Given his advanced cognitive impairment, we may also consider taking him off his Gabapentin and Tizanidine in the interest of reducing his pill burden if it becomes increasingly difficult to get him to take his medications (6) Essential hypertension: Code(s): I10 - Essential (primary) hypertension Category: Medical Plan: Reinforced low sodium diet Continue Losartan 50 mg QD and Chlorthalidone 25 mg QOD (7) Mixed hyperlipidemia: Code(s): E78.2 - Mixed hyperlipidemia Category: Medical Plan: Reinforced low cholesterol diet His cholesterol levels were mostly acceptable when last checked in January 2024 He has not had any other follow up labs done since as his daughter is not able to get him out of the house and go to the lab as he has been refusing to leave the house for a few months now we will wait and see if [facility] can draw any labs on him when they start services for patient, hopefully soon (8) COPD (chronic obstructive pulmonary disease): Comment: Patient is a known case of chronic obstructive pulmonary disease. Remains well controlled and very stable with the current regimen. Code(s): J44.9 - Chronic obstructive pulmonary disease, unspecified Category: Medical Qualifiers: COPD type: unspecified COPD Qualified Code(s): J44.9 - Chronic obstructive pulmonary disease, unspecified Plan: Stable Continue Wixela 500-50 mcg 1 inhalation BID, Spiriva with Handihaler 18 mcg inhale contents of 1 capsule QD and Albuterol HFA 2 puffs 4 times a day as needed Follow-up with pulmonary as scheduled (9) Allergic rhinitis: Comment: CHRONIC MILD, REMAINS CONTROLLED WITH SINGULAIR 10 MG DAILY Code(s): J30.9 - Allergic rhinitis, unspecified Category: Medical Qualifiers: Allergic rhinitis trigger: unspecified Allergic rhinitis seasonality: unspecified Qualified Code(s): J30.9 - Allergic rhinitis, unspecified Plan: Continue Montelukast 10 mg QD and Fluticasone 50 mcg nasal spray QD PRN (10) Chronic kidney disease (CKD), stage III (moderate): Code(s): N18.30 - Chronic kidney disease, stage 3 unspecified Category: Medical Qualifiers: Chronic kidney disease stage 3 subtype: stage 3a (GFR 45-59) Qualified Code(s): N18.31 - Chronic kidney disease, stage 3a Plan: GFR stable - will continue to monitor renal function regularly if we can get patient to go get his labs done when requested (11) Acquired hypothyroidism: Comment: Sublinical hypothyroidism Code(s): E03.9 - Hypothyroidism, unspecified Category: Medical Plan: Continue Levothyroxine 25 mcg QD His TFTs were normal on his labs done back in January 2024 (12) Vitamin D deficiency: Code(s): E55.9 - Vitamin D deficiency, unspecified Category: Medical Plan: Continue Vitamin D3 2000 units QD (13) GERD (gastroesophageal reflux disease): Code(s): K21.9 - Gastro-esophageal reflux disease without esophagitis Category: Medical Qualifiers: Esophagitis presence: without esophagitis Qualified Code(s): K21.9 - Gastro-esophageal reflux disease without esophagitis Plan: Dietary restrictions reinforced Continue Omeprazole 40 mg QD and Famotidine 40 mg Q HS (14) Primary osteoarthritis of left shoulder: Code(s): M19.012 - Primary osteoarthritis, left shoulder Category: Medical Plan: X-rays of the left shoulder done last year revealed (+) OA changes Will consider referring to Orthopedics if his shoulder symptoms get worse (15) Benign prostatic hyperplasia with urinary obstruction: Code(s): N40.1 - Benign prostatic hyperplasia with lower urinary tract symptoms; N13.8 - Other obstructive and reflux uropathy Category: Medical Plan: Continue Finaseride 5 mg QD and Gemtesa 75 mg QD Follow up with urology as scheduled - cystoscopy last done a couple of years ago came out normal (16) Insomnia: Code(s): G47.00 - Insomnia, unspecified Category: Medical Qualifiers: Insomnia type: unspecified Qualified Code(s): G47.00 - Insomnia, unspecified Plan: Continue Trazodone 50 mg Q HS PRN and Melatonin 6 mg Q HS (17) Anxiety: Code(s): F41.9 - Anxiety disorder, unspecified Category: Medical Plan: Continue Alprazolam 1 mg BID PRN and Sertraline 50 mg QD Plan Follow up in 3 months Orders: [facility]errals [facility] Referral F03.918 - Unspecified dementia, unspecified severity, with other behavioral disturbance, G20.A1 - Parkinson's disease without dyskinesia, without mention of fluctuations, R29.6 - Repeated falls Medications: Changed From losartan 50 mg PO DAILY 1 tab 0RF To losartan 50 mg PO DAILY 90 days 90 tabs 1RF From famotidine 40 mg PO BEDTIME 90 tabs 2RF K21.9 - Gastro-esophageal reflux disease without esophagitis To famotidine 40 mg PO BEDTIME 90 days 90 tabs 1RF K21.9 - Gastro-esophageal reflux disease without esophagitis Refilled cholecalciferol (vitamin D3) 50 mcg PO DAILY 90 days 90 caps 1RF
--- OUTSIDE RECORDS SUMMARY | 2024-09-22 15:38 | XMS_ITS ---
Author Name Sanket MENDEZ Papi Bre Michael Address [address] [place] [id number] Phone [phone] [facility] Care Team Providers Care Ferry Hand Name Role Phone Teri Coles Unavailable [phone] Unavailable Unavailable Unavailable Reason for Referral Not Available Allergies, adverse reactions, alerts No known allergies History of medication use Medication Class Instructions Start Date End Date Gabapentin 300 mg Cap take 2 capsule by mouth BID 2021 No Data Available ALPRAZolam 0.5 mg Tab TAKE 1 TABLET BY M OUTH THREE TIMES A DAY NEEDED FOR ANXIETY 2021-12-17 No Data Available Albuterol Sulfate HFA 108 (9 0 Base) MCG/ACT Aerosol Solution TAKE 2 PUFFS BY MOUTH EVERY 6 HOURS NEEDED FOR WHEEZE 2021-11-05 No Data Available tiZANidine 4 mg Tab TAKE 1 TABLET BY JOHN TH AT BEDTIME NEEDED FOR MUSCLE SPASM 2021-12-20 No Data Available Chlorthalidone 25 mg Tab TAKE 1 TABLET B Y MOUTH EVERY OTHER DAY 2021-06-11 No Data Available Primidone 50 mg Tab TAKE 1 TABLET BY JOHN TH TWICE A DAY 2021-05-09 No Data Available Finasteride 5 mg Tab TAKE 1 TABLET BY MO UTH DAILY 2021-12-10 No Data Available VITAMIN D3 50 MCG (2,000 UNIT) TAKE 1 CAPSULE BY MOUTH EVERY DAY 2021-10-05 No Data Available Omeprazole 40 mg Cap delayed rel TAKE 1 CAPSULE BY MOUTH EVERY DAY 2021-10-29 No Data Available Famotidine 40 mg Tab TAKE 1 TABLET AT BEDTIME No Data Available Levothyroxine Sodium 25 MCG Tab TAKE 1 TABLET IN THE MORNING 2021-11-19 No Data Available Montelukast Sodium 10 mg Tab TAKE 1 TABL ET BY MOUTH AT BEDTIME 2021-11-05 No Data Available traZODone 50 mg Tab TAKE 1 TABLET AT BED TIME NEEDED FOR FOR INSOMNIA 2021-11-07 No Data Available Losartan Potassium 50 mg Tab TAKE 1 TABL ET BY MOUTH EVERY DAY 2021-05-28 No Data Available Spiriva HandiHaler 18 MCG Ca p Inhalation inhale 2 puffs daily 2022-05-28 No Data Available Advair Diskus 500-50 MCG/ACT Aerosol Powder Breath Activated Inhalation 1 puff inhaled orally 2 times per day 2021-10-01 No Data Available tiZANidine 4 mg Tab 1tab at HS and PRN 2022-05-28 No Data Available Vitamin D3 50 MCG (1999) Cap TAKE 1 CAPSULE BY MOUTH EVERY DAY 2022-08-28 2023-03-06 Amoxicillin-Pot Clavulanate 875/125 mg Tab TAKE 1 TABLET BY MOUTH TWICE A DAY 2023-01-19 No Data Available Lidocaine 5 % Oint Apply 1 g topically 3 times daily as needed 2023-05-13 No Data Available Voltaren 1 % Gel 2 grams topically to affected area 4 times per day prn 2023-05-13 2023-12-09 Vitamin D3 50 MCG (1999) Cap TAKE 1 CAPSULE BY MOUTH EVERY DAY 2023-01-20 No Data Available Donepezil 10 mg Tab TAKE 1/2 TABLET BY M OUTH EVERY DAY AT BEDTIME FOR 4 WEEKS THEN INCREASE TO 1 TABLET AT BEDTIME 2023-05-15 No Data Available Diclofenac Sodium 1 % Gel PLACE 2 GRAMS TOPICALLY TO AFFECTED AREA 4 TIMES PER DAY NEEDED 2023-09-02 No Data Available MELATONIN 3 MG TABLET TAKE 1 TO 2 TABLET S BY MOUTH DAILY FOR 90 DAYS 2023-08-21 No Data Available Sertraline 50 mg Tab TAKE 1 TABLET BY MO UTH EVERY DAY AT BEDTIME 2023-09-08 No Data Available Fluticasone Propionate 50 MCG/ACT Suspension SPRAY 2 SPRAYS INTO EACH NOSTRIL EVERY DAY NEEDED FOR ALLERGY 2023-10-31 No Data Available Potassium Chloride ER 10 MEQ Tab ER TAKE 1 TABLET BY MOUTH EVERY DAY 2023-10-31 No Data Available Problem List Problem Status Onset Date Resolved Date Hypothyroid Active 2022-05-28 N/A Insomnia Active 2022-05-28 N/A Tremor Active 2022-05-28 N/A Unspecified inflammatory spondylopathy, lumbar region Active 2022-05-28 N/A Hyperlipemia Active 2022-05-28 N/A Hypertension Active 2022-05-28 N/A Chronic obstructive pulmonary disease, unspecified Act elda 2022-05-28 N/A Chronic kidney disease, stage 3a Active N/A 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 N/A Other problems related to ks dical facilities and other health care Active 2023-10-07 N/A 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, unspecified timing of dementia onset Active 2023-12-09 N/A Encounters Encounters Type Facility Date of Service Diagnosis/Co mplaint Pain Assessment - Pain Documented on a Pain Scale (1125F) [facility] [place] Pain Assessment - Pain Documented on a Pain Scale (1125F) [facility] [place] Pain Assessment - Pain Documented on a Pain Scale (1125F) [facility] [place] Pain Assessment - Pain Documented on a Pain Scale (1125F) [facility] [place] Pain Assessment - Pain Documented on a Pain Scale (1125F) [facility] [place] Pain Assessment - Pain Documented on a Pain Scale (1125F) [facility] [place] Pain Assessment - Pain Documented on a Pain Scale (1125F) [facility] [place] Pain Assessment - Pain Documented on a Pain Scale (1125F) [facility] [place] Pain Assessment - Pain Documented on a Pain Scale (1125F) [facility] [place] Unspecified inflammatory spondylopathy, lumbar regionChronic obstructive pulmonary disease, unspecifiedChronic kidney disease, stage 3aSedative, hypnotic or anxiolytic dependence, uncomplicatedHypothyroidism, unspecifiedAnxiety disorder, unspecifiedInsomnia, unspecifiedTremor, unspecifiedHyperlipidemia, unspecifiedHypertensive chronic kidney disease w stg 1-4/unsp chr kdny Estab. patient 30-39min; chronic exacerbation, 2 stable chronic or 1 acute illness add add modifier 95 for video, (do not use for phone, instead use [id number]) [facility] [place]2023 Unspecified inflammatory spondylopathy, lumbar regionChronic obstructive pulmonary disease, unspecifiedChronic kidney disease, stage 3aHypothyroidism, unspecifiedHypertensive chronic kidney disease w stg 1-4/unsp chr kdnyAnxiety disorder, unspecifiedSedative, hypnotic or anxiolytic dependence, uncomplicatedInsomnia, unspecifiedTremor, unspecifiedHyperlipidemia, unspecified Estab. patient 30-39min; chronic exacerbation, 2 stable chronic or 1 acute illness add add modifier 95 for video, (do not use for phone, instead use [id number]) [facility] [place] Estab. patient 30-39min; chronic exacerbation, 2 stable chronic or 1 acute illness add add modifier 95 for video, (do not use for phone, instead use [id number]) [facility] [place] Estab. patient 30-39min; chronic exacerbation, 2 stable chronic or 1 acute illness add add modifier 95 for video, (do not use for phone, instead use 34418-38) [facility] [place] Estab. patient 30-39min; chronic exacerbation, 2 stable chronic or 1 acute illness add add modifier 95 for video, (do not use for phone, instead use [id number]) [facility] [place] Estab. patient 30-39min; chronic exacerbation, 2 stable chronic or 1 acute illness add add modifier 95 for video, (do not use for phone, instead use [id number]) [facility] [place] Estab. patient 30-39min; chronic exacerbation, 2 stable chronic or 1 acute illness add add modifier 95 for video, (do not use for phone, instead use [id number]) [facility] [place] Estab. patient 30-39min; chronic exacerbation, 2 stable chronic or 1 acute illness add add modifier 95 for video, (do not use for phone, instead use [id number]) [facility] [place] 03[place]2023 No Data Available [facility] [place]/2023 Hypertensive chronic kidney disease w stg 1-4/unsp chr kdnyChronic kidney disease, stage 3aUnspecified inflammatory spondylopathy, lumbar regionChronic obstructive pulmonary disease, unspecifiedHypothyroidism, unspecifiedAnxiety disorder, unspecifiedSedative, hypnotic or anxiolytic dependence, uncomplicatedInsomnia, unspecifiedTremor, unspecifiedHyperlipidemia, unspecifiedOther amnesia No Data Available [facility] [place]/2023 No Data Available [facility] [place]2023 No Data Available [facility] [place] No Data Available [facility] [place] Estab. patient 30-39min; chronic exacerbation, 2 stable chronic or 1 acute illness add add modifier 95 for video, (do not use for phone, instead use [id number]) [facility] [place]2023 Hypertensive chronic kidney disease w stg 1-4/unsp chr kdnyChronic kidney disease, stage 3aUnspecified inflammatory spondylopathy, lumbar regionChronic obstructive pulmonary disease, unspecifiedHypothyroidism, unspecifiedAnxiety disorder, unspecifiedSedative, hypnotic or anxiolytic dependence, uncomplicatedInsomnia, unspecifiedTremor, unspecifiedHyperlipidemia, unspecifiedAlzheimer's disease, unspecifiedDementia in other diseases classified elsewhere, moderate, with other behavioral disturbanceOther problems related to medical facilities and other health care Estab. patient 30-39min; chronic exacerbation, 2 stable chronic or 1 acute illness add add modifier 95 for video, (do not use for phone, instead use [id number]) [facility] Estab. patient 30-39min; chronic exacerbation, 2 stable chronic or 1 acute illness add add modifier 95 for video, (do not use for phone, instead use 37136-41) [facility] [place] Estab. patient 30-39min; chronic exacerbation, 2 stable chronic or 1 acute illness add add modifier 95 for video, (do not use for phone, instead use 30562-43) [facility] [place] Estab. patient 30-39min; chronic exacerbation, 2 stable chronic or 1 acute illness add add modifier 95 for video, (do not use for phone, instead use 19752-10) [facility] ([place] 12[place] Estab. patient 30-39min; chronic exacerbation, 2 stable chronic or 1 acute illness add add modifier 95 for video, (do not use for phone, instead use 54559-32) [facility] ([place] 12[place] Estab. patient 30-39min; chronic exacerbation, 2 stable chronic or 1 acute illness add add modifier 95 for video, (do not use for phone, instead use 34597-86) [facility] ([place] 12[place] Estab. patient 30-39min; chronic exacerbation, 2 stable chronic or 1 acute illness add add modifier 95 for video, (do not use for phone, instead use 48074-87) [facility] ([place] 12/09/2023 Vital Signs Date of Collection Vitals 2022-05-28 11:34:03 Height - 172.72 cmWe ight - 95.26 kgBody Mass Index (BMI) - 31.93 kg/m2BP Diastolic - 80.0 mm[Hg]BP Systolic - 120.0 mm[Hg]Respiratory Rate - 55.0 /minO2 % BldC Oximetry - 92.0 % 2023-03-06 12:52:41 Height - 170.18 cmWe ight - 93.44 kgBody Mass Index (BMI) - 32.26 kg/m2BP Diastolic - 93.0 mm[Hg]BP Systolic - 183.0 mm[Hg] 2023-05-13 08:53:54 Pain Scale - 4.0 {sc ore} 2023-12-09 11:31:04 Weight - 84.37 kgBod y Mass Index (BMI) - 29.13 kg/m2 Social History Social History Social History Observation Description Effec tive Time Current Smoking Status Never smoker 2024-08-29 6 Sex Male History of Procedures Procedures Service Procedure code Service date Servicing provider Phone# Pain Assessment - Pain Documented on a Pain Scale (1125F) 1125F 2022-05-28 No Data Available No Data Sabina ilable Medication List Documented (1159F) 1159F 2022-05-28 No Data Available No Data Sabina ilable Medication Review by prescribing provider or pharmacist documented (1160F) 1160F 2022-05-28 No Data Available No Data Sabina ilable Functional Status Assessed (1170F) 1170F 2022-05-28 No Data Available No Data Avail able Advance Care Directive Advance care planning discussion documented in the medical record (1158F) 1158F 2022-05-28 No Data Available No Data Availa ble BMI obtained (3008F) 3008F 2022-05-28 No Data Availab le No Data Available SBP < 130 (3074F) 3074F 2022-05-28 No Data Available No Data Available DBP 80-89 (3079F) 3079F 2022-05-28 No Data Available No Data Available New patient,40-59min; chronic exacerbation, 2 stable chronic or 1 acute illness add add modifier 95 for video (do not use for phone, instead use [id number]) 78055 2022-05-28 No Data Available No Data Availa ble Estab. patient 30-39min; chronic exacerbation, 2 stable chronic or 1 acute illness add add modifier 95 for video, (do not use for phone, instead use [id number]) 44579 2023-03-06 No Data Available No Data Availa ble Medication List Documented (1159F) 1159F 2023-03-06 No Data Available No Data Sabina ilable Medication Review by prescribing provider or pharmacist documented (1160F) 1160F 2023-03-06 No Data Available No Data Sabina ilable Pain Assessment - NO pain present (1126F) 1126F 2023-03-06 No Data Available No Data A vailable BMI obtained (3008F) 3008F 2023-03-06 No Data Availab le No Data Available Advance Care Directive Advance care planning discussion documented in the medical record (1158F) 1158F 2023-03-06 No Data Available No Data Availa ble Advance care planning discussed and documented ? advance care plan or surrogate decision-maker was documented in the medical record. (1123F) 1123F 2023-03-06 No Data Available No Data Availa ble Functional Status Assessed (1170F) 1170F 2023-03-06 No Data Available No Data Avail able No Data Available 21674 2023-05-13 No Data Available No Data Available Medication List Documented (1159F) 1159F 2023-05-13 No Data Available No Data Sabina ilable Functional Status Assessed (1170F) 1170F 2023-05-13 No Data Available No Data Avail able Pain Assessment - Pain Documented on a Pain Scale (1125F) 1125F 2023-05-13 No Data Available No Data Sabina ilable Advance Care Directive Advance care planning discussion documented in the medical record (1158F) 1158F 2023-05-13 No Data Available No Data Availa ble Estab. patient 30-39min; chronic exacerbation, 2 stable chronic or 1 acute illness add add modifier 95 for video, (do not use for phone, instead use [id number]) 16060 2023-12-09 No Data Available No Data Availa ble Medication List Documented (1159F) 1159F 2023-12-09 No Data Available No Data Sabina ilable Medication Review by prescribing provider or pharmacist documented (1160F) 1160F 2023-12-09 No Data Available No Data Sabina ilable Functional Status Assessed (1170F) 1170F 2023-12-09 No Data Available No Data Avail able Pain Assessment - NO pain present (1126F) 1126F 2023-12-09 No Data Available No Data A vailable Advance Care Directive Advance care planning discussion documented in the medical record (1158F) 1158F 2023-12-09 No Data Available No Data Availa ble BMI obtained (3008F) 3008F 2023-12-09 No Data Availab le No Data Available Advance care planning discussed and documented ? advance care plan or surrogate decision-maker was documented in the medical record. (1123F) 1123F 2023-12-09 No Data Available No Data Availa ble Functional Status Functional Category Effective Dates Cognition Status: Complains of Short term memory loss, DementiaADLsDressing - Needs assistanceBathing - Needs assistanceToileting - Needs assistanceTransfers - Needs assistanceEating - IndependentiADLsShopping - Needs assistanceMedications - IndependentHousekeeping - Needs assistanceCooking - Needs assistanceFalls in last 6 months - No 2023-03-06 uses walker and wheelchair 2023-05-13 Mental Status Status Date alert to self and place 2023-12-09 Assessments Date of Service Assessments 2022-05-28 11:34:03 Unspecified inflamma tory spondylopathy, lumbar regionChronic obstructive pulmonary disease, unspecifiedChronic kidney disease, stage 3aHypothyroidHypertensionAnxietyInsomniaTremorHyperlipemia 2023-03-06 12:52:41 Unspecified inflamma tory spondylopathy, lumbar regionChronic obstructive pulmonary disease, unspecifiedChronic kidney disease, stage 3aHypothyroidHypertensionAnxietyInsomniaTremorHyperlipemia 2023-05-13 08:53:54 Unspecified inflamma tory spondylopathy, lumbar regionChronic obstructive pulmonary disease, unspecifiedChronic kidney disease, stage 3aHypothyroidHypertensionAnxiety with anxiolytic dependenceInsomniaTremorHyperlipemiaMemory changes 2023-12-09 11:31:04 Unspecified inflamma tory spondylopathy, lumbar regionOther problems related to medical facilities and other health careChronic obstructive pulmonary disease, unspecifiedChronic kidney disease, stage 3aHypothyroidHypertensionAnxiety with anxiolytic dependenceInsomniaTremorHyperlipemiaModerate Alzheimer's dementia with other behavioral disturbance, unspecified timing of dementia onset Plan of Care Date of Service Plans 2022-05-28 11:34:03 Pain Assessment - Pa in Documented (1125F)Medication Review by prescribing provider or pharmacist documented (1160F)Medication List Documented (1159F)Functional Status Assessed (1170F)Advance Care Directive Advance care planning discussion documented in the medical record (1158F)BMI obtained (3008F)SBP < 130 (3074F)DBP 80-89 (3079F)Televideo new patient,40-59min; chronic exacerbation, 2 stable chronic or 1 acute illness add modifier 95Continue to see PCP. Follow-up with [facility] as needed for any acute or disease education needs that may arise.RX: tizanidine 4 mg at HS and PRN, Gabapentin dailyFollows pain management - suggested surgery - pt/daughter declinedFollows PCP every 3 moRX: Albuterol inhaler, Advair, SpirivaFollows Pulmonary - Dr. Moran every 3 moRX: NO medications at this timeFollows Dr. Uribe every 3 moRX: levothyroxineRX: chlorthalidone, losartanChecks B/P once a week 120/80Follows PCP every 3 moRX: alprazolamHas been taking over 1 yearFollows PCP every 3 moRX: TrazadoneRX: primidoneFollows neurology yearlyRX: fenasteride 2023-03-06 12:52:41 Medication Review by prescribing provider or pharmacist documented (1160F)Medication List Documented (1159F)Functional Status Assessed (1170F)Advance Care Directive Advance care planning discussion documented in the medical record (1158F)BMI obtained (3008F)sbdbTelevideo 30-39min; chronic exacerbation, 2 stable chronic or 1 acute illness add modifier 95Advance care planning discussed and documented ? advance care plan or surrogate decision-maker was documented in the medical record. (1123F)Advance care planning discussed and documented in the medical record ? beneficiary/patient did not wish to or was unable to provide an advance care plan or name a surrogate decision-maker. (1124F)Pain Assessment - NO pain documented (1126F)Continue to see PCP. Follow-up with [facility] as needed for any acute or disease education needs that may arise.RX: tizanidine 4 mg at HS and PRN, Gabapentin dailyFollows pain management - suggested surgery - pt/daughter declinedFollows PCP every 3 moRX: Albuterol inhaler, Advair, SpirivaFollows Pulmonary - Dr. Moran every 3 moRecord lists on 05/28/2022 a diagnosis of CKD stage 3aFollows Dr. Uribe every 3 moRX: levothyroxineRX: chlorthalidone, losartanChecks B/P once a week 120/80Follows PCP every 3 mo03/06/2023P today 183/93 on a wrist BP monitor. It had earlier given an error, and earlier today gave two very different readings on pt.'s Given how thse wrist devices are very sensitive to user error, I do not consider this very reliable.Pt reports taking his meds.Denies BOLIVAR or any other sxs.At baseline.Check BP daily, call CB if concerns or any sxs, and I will send a BP monitor w an upper arm cuff.RX: alprazolamHas been taking over 1 yearFollows PCP every 3 moOpioid dependence Pt has tolerance and inability to cut down or stop. Overdose prevention discussed. Be cautious with use.RX: TrazadoneRX: primidoneFollows neurology yearlyRX: fenasteride 2023-05-13 08:53:54 Phone (patient, pare nt, or guardian); 5-10 minutes of medical discussion (no modifier 95)Continue to see PCP. Follow-up with [facility] as needed for any acute or disease education needs that may arise 17/02.RX: tizanidine 4 mg at HS and PRN, Gabapentin dailyFollows pain management - suggested surgery - pt/daughter declinedFollows PCP every 3 moRX: Albuterol inhaler, Advair, SpirivaFollows Pulmonary - Dr. Moran every 3 moRecord lists on 05/28/2022 a diagnosis of CKD stage 3aFollows Dr. Uribe every 3 moRX: levothyroxineRX: chlorthalidone, losartanChecks B/P once a week 120/80Follows PCP every 3 mo03/06/2023P today 183/93 on a wrist BP monitor. It had earlier given an error, and earlier today gave two very different readings on pt.'s Given how thse wrist devices are very sensitive to user error, I do not consider this very reliable.Pt reports taking his meds.Denies BOLIVAR or any other sxs.At baseline.Check BP daily, call CB if concerns or any sxs, and I will send a BP monitor w an upper arm cuff.RX: alprazolamHas been taking over 1 yearFollows PCP every 3 moOpioid dependence Pt has tolerance and inability to cut down or stop. Overdose prevention discussed. Be cautious with use.RX: TrazadoneRX: primidoneFollows neurology yearlyRX: vcuqfngfanv11/17/23: f/u with neurology this week 2023-12-09 11:31:04 Medication Review by prescribing provider or pharmacist documented (1160F)Medication List Documented (1159F)Functional Status Assessed (1170F)Advance Care Directive Advance care planning discussion documented in the medical record (1158F)BMI obtained (3008F)Televideo 30-39min; chronic exacerbation, 2 stable chronic or 1 acute illness add modifier 95Advance care planning discussed and documented ? advance care plan or surrogate decision-maker was documented in the medical record. (1123F)Pain Assessment - NO pain documented (1126F)Continue to see PCP. Follow-up with [facility] as needed for any acute or disease education needs that may arise.RX: tizanidine 4 mg at HS and PRN, Gabapentin dailyFollows pain management - suggested surgery - pt/daughter declinedFollows PCP every 3 moWhen member to call: 1. If bp is elevated sbp>150; dbp>90 or symptomatic-h/a, dizziness, cp, sob. 2. if there is a fall 3. if BS >300 or BS<90 or symptomatic; i.e., dizzy, off balance , shaky, general weakness. 4. if UTI symptoms arise-urinary frequency, dysuria, low abd pain. 5. if pain in knees increases/ or joint pain increased Please remember [facility]. Follow-up with [facility] as needed for any acute or disease education needs that may arise 17/02.what should be done when the member calls: see each individual diagnosis for contingency planCOPD CONTINGENCY PLANMember to call for the following symptoms: Change in sputum / Exertional dyspnea/ Increased cough??/ WheezingPlanned intervention: Increase use of albuterol inhaler to q2h PRN cough, breathlessness/ Prednisone 50mg PO daily x 5 days/ Azithromycin 500mg on day 1 then 250 mg on day 2-5RX: Albuterol inhaler, Advair, SpirivaFollows Pulmonary - Dr. Moran. Refusing to go to MD appts 12/09/23: Daughter reports that the patient has dyspnea with activity and ambulation that improves with rest; Refusing to use inh due to dementia. Requires ongoing encouragementRecord lists on 05/28/2022 a diagnosis of CKD stage 3aFollows Dr. Uribe, refusing to attend f/u apptsRX: levothyroxineRX: chlorthalidone, losartanChecks B/P once a week 120/80Follows PCP every 3 mo03/06/2023P today 183/93 on a wrist BP monitor. It had earlier given an error, and earlier today gave two very different readings on pt.'s Given how thse wrist devices are very sensitive to user error, I do not consider this very reliable.Pt reports taking his meds.Denies BOLIVAR or any other sxs.At baseline.Check BP daily, call CB if concerns or any sxs, and I will send a BP monitor w an upper arm cuff.RX: alprazolamHas been taking over 1 yearOpioid dependence Pt has tolerance and inability to cut down or stop. Overdose prevention discussed. Be cautious with use.RX: TrazadoneRX: primidoneFollows neurology yearlyRX: fenasteridetaking DonepezilFollowed by neurologyRecently dx per daughter; He is starting to have decrease appetite, increase lethargy and weakness and he is refusing care/medications more frequently. S/S of disease progression discussed. Goals Date Goal 2022-05-28 Remember to keep all appointments with your PCP. 2022-05-28 Call if you have que stions or concerns before going to the ER. 2022-05-28 Discussed how to con [employer] via phone or tablet. Health Concerns Date Concern 2023-12-09 Visit completed usin g audio and video. Patient/Guardian agreed to visit via telehealth. Today, patient has chief complaint of: follow up care and comprehensive review.Reviewed Allergies, Medications, Active Medical conditions, past medical/surgical history, Social history. 2023-12-09 Most recent hospital stay(s) or ER visit(s) and precipitating factors: Denies 2023-12-09 Open HEDIS Measure arlene olmedo: Reviewed 2023-12-09 Advance Care Plan an d Serious Illness ConversationDate of Conversation: 12/09/2023Life Limiting Diagnosis: Diagnosis: Alzheimers, COPDCurrently on Hospice NoCode Status: YES CPR: Attempt ResuscitationGoals of Care: Curative: Attempt to sustain life by all medically effective meansNutrition goals: No decision made about nutrition today; not discussedDo you have a Durable Power of Insight Leader for Healthcare, or Healthcare Proxy Or Guardianship? Yes, POAIf so, Who? daughter, Sasha Aviles you have a written Advance Directive? Has Advance DirectiveOther details of discussion: (Who was present, patients description of wishes/goals)Today's plan: Repeat discussion in 6-12 monthsToday's plan: Repeat discussion in < > [id number] : AD or surrogate was documented in the medical record.
== END 2024-09-22 14:58 | disposition home or self-care (01) ==
LOC: HO.HMCH 12:46
PROVIDERS: PCP Internal Medicine; Visit Provider Internal Medicine
DX: I12.9 Hypertensive chronic kidney disease with stage 1 through stage 4 chronic kidney disease, or unspecified chronic kidney disease (principal); F03.918 Unspecified dementia, unspecified severity, with other behavioral disturbance; G20.A1 Parkinson's disease without dyskinesia, without mention of fluctuations; J44.9 Chronic obstructive pulmonary disease, unspecified; N18.31 Chronic kidney disease, stage 3a; G25.0 Essential tremor; R29.6 Repeated falls; M47.817 Spondylosis without myelopathy or radiculopathy, lumbosacral region; E78.2 Mixed hyperlipidemia; J30.9 Allergic rhinitis, unspecified; E03.9 Hypothyroidism, unspecified; E55.9 Vitamin D deficiency, unspecified

== ENCOUNTER → 2024-09-22 12:46 | Outpatient (BNVA) | payer OTHER, SELFPAY | PROVIDERS: PCP Internal Medicine; Visit Provider Internal Medicine | DX: G20.A1 Parkinson's disease without dyskinesia, without mention of fluctuations (principal); F41.9 Anxiety disorder, unspecified; G47.00 Insomnia, unspecified; N40.1 Benign prostatic hyperplasia with lower urinary tract symptoms; N13.8 Other obstructive and reflux uropathy; M19.012 Primary osteoarthritis, left shoulder; K21.9 Gastro-esophageal reflux disease without esophagitis; E55.9 Vitamin D deficiency, unspecified; E03.9 Hypothyroidism, unspecified; I12.9 Hypertensive chronic kidney disease with stage 1 through stage 4 chronic kidney disease, or unspecified chronic kidney disease; N18.31 Chronic kidney disease, stage 3a; E78.2 Mixed hyperlipidemia | CPT/HCPCS: 96127 ==

== ENCOUNTER 2024-10-06 22:39 | Emergency (ER) | payer OTHER, SELFPAY ==
--- NOTE | 2024-10-06 | ECG_ITS ---
Test Reason : FALL Blood Pressure : */* mmHG Vent. Rate : 50 BPM Atrial Rate : 50 BPM P-R Int : 190 ms QRS Dur : 76 ms QT Int : 426 ms P-R-T Axes : 63 6 8 degrees QTcB Int : 388 ms Sinus bradycardia with sinus arrhythmia Nonspecific ST and T wave abnormality Borderline ECG When compared with ECG of 13-Mar-2024 10:24, Premature atrial complexes are no longer Present Referred By: Generic ED Physician Electronically Signed By: PARMJIT BLACKMON
--- NOTE | ~2024-10-06 | XR_ITS ---
CLINICAL HISTORY: cough 1 view chest x-ray Comparison: CR/SR - XR CHEST 1V - 03/13/24 10:35 EDT CR/TX - CHEST 2 VIEWS - 10/14/17 14:52 EDT Findings: The lungs are clear. Heart size is normal. No acute fracture. IMPRESSION: 1. No acute findings. This document has been electronically signed by: Abe Toledo MD on 10/07/2024 01:06:53
[2024-10-06 22:52] VITALS: BP 129/67; BP 132/62; PULSE 51; PULSE 52; RESP 16; TEMP 36.8; O2SAT 96; O2SAT 97; BMI 29.4
[2024-10-06 23:24] LABS: Basophils Percent Auto 0.4 % (0-2); Eosinophils Absolute Auto 0.2 X10*3/uL (0.0-0.4); Eosinophils Percent Auto 2.7 % (0-4); Hematocrit 43.5 % (42.0-52.0); Hemoglobin 14.7 g/dl (14.0-18.0); Imm Gran Abs Auto 0.02 X10*3/uL (0.00-0.03); Imm Gran Pct Auto 0.4 % (0.0-0.4); Lymphocytes Absolute Auto 1.2 X10*3/uL (1.2-4.9); Lymphocytes Percent Auto 21.7 % (20-40); MANUAL DIFF FLAG NO; Mean Corpuscular HGB Conc 33.8 g/dl (31.0-36.0); Mean Corpuscular Hemoglobin 27.2 pg (27.0-33.0); Mean Corpuscular Volume 80.4 fL (80.0-98.0); Mean Platelet Volume 9.9 fL (9.4-12.4); Monocytes Absolute Auto 0.6 X10*3/uL (0.1-1.2); Monocytes Percent Auto 10.8 % (2-11); Neutrophils Absolute Auto 3.6 x10*3/uL (2.0-8.3); Platelet Count 152 X10*3/uL (160-400); Red Blood Count 5.41 X10*6/uL (4.60-5.80); Red Cell Distribution Width 14.2 % (11.0-16.0); White Blood Count 5.7 X10*3/uL (4.8-10.8)
--- NOTE | 2024-10-06 23:38 | MHC.EDTECH ---
attepted olga. Pt unable to sit at edge of bed or stand without two person assist. We will attempt again with two people.
[2024-10-06 23:42] VITALS: BP 144/93; PULSE 51
[2024-10-06 23:43] VITALS: BP 93/58; PULSE 50
[2024-10-06 23:45] LABS: Ethanol < 10 mg/dL
[2024-10-06 23:46] LABS: Alanine Aminotransferase 15 U/L (0-40); Albumin Level 3.9 g/dL (3.5-5.0); Alkaline Phosphatase 73 U/L (39-117); Anion Gap 14 (12-20); Aspartate Amino Transferase 24 U/L (5-37); Bilirubin Total 0.4 mg/dL (0.0-1.0); Blood Urea Nitrogen 21 mg/dL (9-16); Calcium 9.5 mg/dL (8.4-10.2); Carbon Dioxide 28 mmol/L (22-29); Chloride 102 mmol/L (96-108); Creatinine Clr Calc Pharmacy 38.7; Estimated Glomerular Filt Rate 45; Glucose Random 95 mg/dL (60-115); Potassium 3.5 mmol/L (3.3-5.1); Sodium 140 mmol/L (135-145); Total Protein 8.3 g/dL (6.5-8.0)
--- NOTE | 2024-10-06 23:50 | MHC.EDTECH ---
unable to get standing B/P and CT as pt was unable to stand with two person assist.
--- NOTE | 2024-10-06 23:51 | PC.NURSE ---
daughter and at bedside. confirmed pt did not fall/-headstrike,loc. MD Souza cleared c-collar. patient had difficulty sitting up and worse attempting to stand up. unable to obtain standing orthos. family states pt has been coughing/weak x 3 days, hasnt gotten oob x 3 days. family sick at home as well. vitals as documented. aware.
[2024-10-06 23:52] LABS: Troponin-I High Sensitivity 3.1 ng/L (<3.5-35.0)
[2024-10-07] VITALS (8 sets, daily range): BP systolic 121–165; BP diastolic 67–82; PULSE 50–71; RESP 12–16; TEMP 36.5–36.8; O2SAT 96–98
[2024-10-07 00:33] LABS: Influenza A PCR NEGATIVE (Negative); Influenza B PCR NEGATIVE (Negative); Resp Syncy Virus RNA Qual PCR NEGATIVE (Negative); SARS COV2 PCR INHOUSE NEGATIVE (Negative)
[2024-10-07] MEDS: 0.9 % Sodium Chloride 1,000 ML 999 ML IV (00:39)
--- NOTE | 2024-10-07 00:58 | ED.GENADULT ---
HPI - General Adult General Chief complaint: General Medical Stated complaint: fall today, chronic back pain Time Seen by Provider: 10/07/24 00:29 Source: family and EMS Mode of arrival: EMS Limitations: other ( advanced dementia, Parkinson's) History of Present Illness ED Provider: Dr. Rachel Souza HPI narrative: patient comes to the emergency room via ambulance from home. Patient has advanced dementia and Parkinson's and is unable to give any significant history. According to the patient's daughter who is at patient's bedside and patient's , the patient has had increase falls. the family states that he has been falling for the last few years due to Parkinson's but now it is more obvious. Within the last 1 week, patient fell 5 times. They described the falling as sliding of the couch when patient can not get up. All of the falls/ sliding have been witnessed by the patient's family since the patient is never alone. Patient has not hit his head or lost consciousness. Patient is not on any blood thinners. According to the patient's daughter, the patient was walking around, he was about to fall but the family caught him and lower him to the ground. Patient is unable to give significant history or state how he feels. The patient's daughter is requesting PT /case management consult. They do want to take the patient back home but they need more help. Currently, they only have pre coder coming in twice a week 3 hours each day. Related Data Home Medications ?Medication ?Instructions ?Recorded ?Confirmed vibegron 75 mg tablet (Gemtesa) 75 mg PO DAILY 06/01/24 09/22/24 Previous Rx's ?Medication ?Instructions ?Recorded ROLLATOR with wheels and seat #1 ea 03/20/21 MANUAL WHEELCHAIR - large #1 ea 08/23/22 COMMODE #1 ea 05/27/23 bath tub steel white bar #1 ea 06/24/23 BATH TRANSFER BENCH #1 ea 12/15/23 omeprazole 40 mg capsule,delayed 40 mg PO DAILY #90 caps 02/12/24 release chlorthalidone 25 mg tablet 25 mg PO Q OTHER DAY #45 tabs 02/26/24 disposable underpads #1 ea 03/11/24 disposable underwear #1 ea 03/11/24 fluticasone 500 mcg-salmeterol 50 1 inh inhalation BID #180 ea 03/15/24 mcg/dose blistr powdr for inhalation (Gitaxela Inhub) donepezil 10 mg tablet (Aricept) 10 mg PO BEDTIME 90 days #90 tabs 04/28/24 gabapentin 300 mg capsule 300 mg PO TID #90 caps 05/09/24 melatonin 3 mg tablet 6 mg (2 x 3 mg) PO BEDTIME #60 tabs 05/12/24 tiotropium bromide 18 mcg capsule 1 cap inhalation DAILY #30 ea 05/13/24 with inhalation device (Spiriva with HandiHaler) quetiapine 50 mg tablet 50 mg PO BID aggressiveness, 06/01/24 behavioral disturbance in dementia 30 days #60 tabs finasteride 5 mg tablet 5 mg PO DAILY #90 tabs 08/21/24 levothyroxine 25 mcg tablet 25 mcg PO QAM #90 tabs 08/22/24 primidone 50 mg tablet 100 mg (2 x 50 mg) PO BID 90 days 08/23/24 #360 tabs alprazolam 0.5 mg tablet 1 mg (2 x 0.5 mg) PO BID PRN 08/27/24 anxiety and agitation 30 days #120 tabs albuterol sulfate 90 mcg/actuation 2 puff inhalation Q6H PRN for 09/09/24 aerosol inhaler wheezing #8.5 ea fluticasone propionate 50 2 spray intranasal DAILY PRN 09/12/24 mcg/actuation nasal allergy symptoms 30 days #16 grams spray,suspension sertraline 50 mg tablet 50 mg PO DAILY 30 days #30 tabs 09/20/24 tizanidine 4 mg tablet 4 mg PO TID PRN muscle spasms/back 09/20/24 pain 30 days #90 tabs cholecalciferol (vitamin D3) 50 50 mcg PO DAILY 90 days #90 caps 09/22/24 mcg (2,000 unit) capsule famotidine 40 mg tablet 40 mg PO BEDTIME 90 days #90 tabs 09/22/24 losartan 50 mg tablet 50 mg PO DAILY 90 days #90 tabs 09/22/24 montelukast 10 mg tablet 10 mg PO BEDTIME #90 tabs 09/23/24 potassium chloride 10 mEq 10 meq PO DAILY 30 days #30 tabs 09/25/24 tablet,extended release (Klor-Con) trazodone 50 mg tablet 50 mg PO BEDTIME PRN for insomnia 10/06/24 #90 tabs Allergies Allergy/AdvReac Type Severity Reaction Status Date / Time No Known Allergies Allergy Verified 10/06/24 22:59 [No Known Allergies*] Review of Systems Review of Systems: Yes Unobtainable due to mental condition [facility] Past Medical History Medical History Frequent falls Parkinson's disease Primary osteoarthritis of left shoulder Essential tremor Restrictive lung disease Insomnia Chronic pain syndrome 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, lumbar Peripheral neuropathy Spinal stenosis Allergic rhinitis Hearing impairment Acquired hypothyroidism Borderline abnormal TFTs Benign prostatic hyperplasia with urinary obstruction Anxiety Vitamin D deficiency Overweight (BMI 25.0-29.9) COVID-19 Chronic kidney disease (CKD), stage III (moderate) Facet arthritis of lumbosacral region COPD (chronic obstructive pulmonary disease) Mixed hyperlipidemia Benign essential hypertension Essential hypertension Sinus bradycardia GERD (gastroesophageal reflux disease) Surgical History Hx of colonoscopy History of esophagogastroduodenoscopy (EGD) History of cholecystectomy (~12/2015) Family History Family History Father No problems noted. Mother No problems noted. Social History Social History Housing: Apartment Alcohol intake: never Patient Tobacco Use Status: Former Tobacco user e-Cigarette/Vaping Use: Never Used Second Hand Smoke Exposure: Yes Advance Directives: No Advance Directives Information Provided: Yes Do you have a plan to hurt others: No Plan service: No Current occupational status: retired Cognitive needs: Yes (wheelchair) Hearing needs: No Vision needs: Yes Physical Exam ED Vital Signs: Vital Signs - 24 hr 10/06/24 22:52 10/06/24 23:42 10/06/24 23:43 Temperature 98.2 F Pulse Rate 52 51 50 Respiratory Rate 16 Blood Pressure 129/67 144/93 H 93/58 L Pulse Oximetry 97 Oxygen Delivery Method Room Air 10/07/24 00:07 10/07/24 02:00 10/07/24 03:08 Temperature 97.9 F 97.9 F Pulse Rate 50 51 Respiratory Rate 14 Blood Pressure 146/69 H 148/79 H Pulse Oximetry 98 Oxygen Delivery Method Room Air 10/07/24 03:08 10/07/24 03:09 Temperature Pulse Rate 53 59 Respiratory Rate Blood Pressure 152/74 H 121/67 Pulse Oximetry Oxygen Delivery Method BMI result Body Mass Index 29.4 Const Other: Appearance: Alert. Oriented X1. No acute distress. Eyes: Pupils equal, round and reactive to light. ENT: Pharynx normal. Neck: Normal inspection. Neck supple. No lymph nodes noted. No crepitus CVS: Normal heart rate and rhythm. Pulses normal. Normal S1 and S2 Respiratory: No respiratory distress. Breath sounds normal. No Wheezing. No rales Abdomen: Soft and nontender. No rigidity. No distention. Skin: Skin warm and dry. Normal skin color. Normal skin turgor. Extremities: No lower extremity edema. No Lacerations. No Rash Neuro: Oriented X 1 No motor deficit. No sensory deficit. Moving all extremities. No slurred speech. CN 2 through 12 grossly intact Psych: calm, cooperative, normal affect Course Course Course Narrative: patient's orthostatic vitals were taken. Patient had a 50 mmHg drop from being supine to sitting. Patient receiving IV fluids. My interpretation of labs: Hematology no acute abnormalities, chemistry shows that the kidney slightly bumped 1.48. Patient receiving IV fluids for orthostatic hypotension and acute kidney injury. ETOH negative, serology negative for influenza a and B, RSV and COVID after 1 L of IV fluids, orthostatic vitals improved. However, patient still had a significant drop in blood pressure. Patient receiving an additional L of normal saline Medications Administered Generic Name Dose Route Start Last Admin Trade Name Freq PRN Reason Stop Dose Admin Sodium Chloride 1,000 mls @ 999 mls/hr 10/07/24 03:29 10/07/24 03:56 Ns IVCONT 10/07/24 04:29 999 mls/hr .Q1H1M ONE Administration Discontinued Medications Generic Name Dose Route Start Last Admin Trade Name Freq PRN Reason Stop Dose Admin Sodium Chloride 1,000 mls @ 999 mls/hr 10/07/24 00:30 10/07/24 01:40 Ns IV 10/07/24 01:30 Infused .Q1H1M MICHELL Infusion Medical Decision Making Medical Decision Making [facility] Narrative: my interpretation of labs: No significant abnormality in patient's hematology, patient has mild BOONE, creatinine 1.48. Patient receiving IV fluids. Patient is incontinent, difficult to get urine. Patient has a takes his catheterization, awaiting for urine. ETOH negative. Serology negative for influenza a and B, RSV COVID. Urinalysis negative for UTI chest x-ray: No acute abnormality patient will receive 1 L of fluids. Overall, patient waiting to be seen by the care team and physical therapy. As mentioned above, patient's family's willing to take him back home. However, they are requesting for more help. physical therapy and case management consult pending. Physician observation started 04:15 Differential Diagnosis Differential Diagnoses: The differential diagnosis associated with the presentation includes Admission/Observation Consideration of admission/observation: Escalation of care including admission/observation considered ( given patient's past medical history and presentation, observation was considered.) Lab Data MDM Lab Attestation statement: I reviewed the patient's lab results. 10/06/24 23:18 10/06/24 23:18 Labs: Lab Results 10/06/24 10/06/24 10/07/24 Range/Units 23:18 23:52 03:57 WBC 5.7 (4.8-10.8) X10*3/uL RBC 5.41 (4.60-5.80) X10*6/uL Hgb 14.7 (14.0-18.0) g/dl Hct 43.5 (42.0-52.0) % MCV 80.4 (80.0-98.0) fL MCH 27.2 (27.0-33.0) pg MCHC 33.8 (31.0-36.0) g/dl RDW 14.2 (11.0-16.0) % Plt Count 152 L D (160-400) X10*3/uL MPV 9.9 (9.4-12.4) fL Immature Gran % (Auto) 0.4 (0.0-0.4) % Neut % (Auto) 64.0 (45-73) % Lymph % (Auto) 21.7 (20-40) % [place] % (Auto) 10.8 (2-11) % Eos % (Auto) 2.7 (0-4) % Baso % (Auto) 0.4 (0-2) % Lymph # (Auto) 1.2 (1.2-4.9) X10*3/uL [place] # (Auto) 0.6 (0.1-1.2) X10*3/uL Eos # (Auto) 0.2 (0.0-0.4) X10*3/uL Baso # (Auto) 0.0 (0.0-0.2) X10*3/uL Abs Immat Gran (auto) 0.02 (0.00-0.03) X10*3/uL Absolute Neuts (auto) 3.6 (2.0-8.3) x10*3/uL Absolute Nucleated RBC 0.000 (0.0-0.012) X10*3/uL Nucleated RBC % (auto) 0.0 (0.0-0.2) /100WBC Sodium 140 (135-145) mmol/L Potassium 3.5 (3.3-5.1) mmol/L Chloride 102 (96-108) mmol/L Carbon Dioxide 28 (22-29) mmol/L Anion Gap 14 (12-20) BUN 21 H (9-16) mg/dL Creatinine 1.48 H (0.5-1.4) mg/dL Estim Creat Clear Calc 38.7 Estimated GFR 45 Random Glucose 95 (60-115) mg/dL Calcium 9.5 (8.4-10.2) mg/dL Total Bilirubin 0.4 (0.0-1.0) mg/dL AST 24 (5-37) U/L ALT 15 (0-40) U/L Alkaline Phosphatase 73 (39-117) U/L Troponin I High Sens 3.1 (<3.5-35.0) ng/L Total Protein 8.3 H (6.5-8.0) g/dL Albumin 3.9 (3.5-5.0) g/dL Urine Color Yellow Urine Appearance Clear Urine pH 5.5 (5.0-9.0) Ur Specific [place] 1.025 (1.005-1.025) Urine Protein Negative (Neg-Trace) mg/dL Urine Glucose (UA) Negative (Negative) mg/dL Urine Ketones Trace (Negative) mg/dL Urine Blood Negative (Negative) Urine Nitrite Negative (Negative) Ur Leukocyte Esterase Negative (Negative) Urine RBC 0-2 (0-2) /HPF Urine WBC 0-5 (0-5) /HPF Ur Squamous Epith Cells 0-2 (0-2) /HPF Urine Bacteria None Seen (None Seen) Hyaline Casts 3-5 (0-2) /LPF Ethyl Alcohol < 10 mg/dL Influenza Type A (PCR) NEGATIVE (Negative) Influenza Type B (PCR) NEGATIVE (Negative) RSV RNA Qual (PCR) NEGATIVE (Negative) SARS-CoV-2 RNA (RT-PCR) NEGATIVE (Negative) Independent Interpretation I performed an independent interpretation of an: Plain X-Ray Radiology Impression Discussion of test interpretation with radiology: I have reviewed the radiologist's reading. Radiologist Impression: Findings: The lungs are clear. Heart size is normal. No acute fracture. IMPRESSION: 1. No acute findings. Discharge Plan Discharge Clinical Impression: Orthostatic hypotension, Multiple falls, BOONE (acute kidney injury) Patient Disposition: Still a Patient Prescriptions: No Action (DME) MANUAL WHEELCHAIR - large large See Rx Instructions .Route .MEDSUPPLY Qty: 1 0RF Rx Instructions: As directed (DME) COMMODE See Rx Instructions .Route .MEDSUPPLY Qty: 1 0RF Rx Instructions: As directed (DME) bath tub steel white bar See Rx Instructions .Route .MEDSUPPLY Qty: 1 0RF Rx Instructions: As directed (DME) BATH TRANSFER BENCH See Rx Instructions .Route .MEDSUPPLY Qty: 1 0RF Rx Instructions: As directed omeprazole 40 mg capsule,delayed release(DR/EC) 40 mg PO DAILY Qty: 90 2RF chlorthalidone 25 mg tablet 25 mg PO Q OTHER DAY Qty: 45 3RF (DME) disposable underwear XL See Rx Instructions .Route .MEDSUPPLY Qty: 1 0RF Rx Instructions: As directed (DME) disposable underpads heavy flow See Rx Instructions .Route .MEDSUPPLY Qty: 1 0RF Rx Instructions: As directed fluticasone propion-salmeterol [Wixela Inhub] 500-50 mcg/dose blister with device 1 inh inhalation BID Qty: 180 1RF donepezil [Aricept] 10 mg tablet 10 mg PO BEDTIME 90 Days Qty: 90 1RF gabapentin 300 mg capsule 300 mg PO TID Qty: 90 1RF melatonin 3 mg tablet 6 mg PO BEDTIME Qty: 60 6RF Spiriva with HandiHaler 18 mcg capsule, w/inhalation device 1 cap inhalation DAILY Qty: 30 5RF finasteride 5 mg tablet 5 mg PO DAILY Qty: 90 2RF levothyroxine 25 mcg tablet 25 mcg PO QAM Qty: 90 0RF primidone 50 mg tablet 100 mg PO BID 90 Days Qty: 360 1RF alprazolam 0.5 mg tablet 1 mg PO BID PRN (Reason: anxiety and agitation) 30 Days Qty: 120 0RF albuterol sulfate 90 mcg/actuation HFA aerosol inhaler 2 puff inhalation Q6H PRN (Reason: for wheezing) Qty: 8.5 3RF fluticasone propionate 50 mcg/actuation spray,suspension 2 spray intranasal DAILY PRN (Reason: allergy symptoms) 30 Days Qty: 16 1RF Rx Instructions: administer into each nostril tizanidine 4 mg tablet 4 mg PO TID PRN (Reason: muscle spasms/back pain) 30 Days Qty: 90 0RF sertraline 50 mg tablet 50 mg PO DAILY 30 Days Qty: 30 0RF montelukast 10 mg tablet 10 mg PO BEDTIME Qty: 90 0RF potassium chloride [Klor-Con 10] 10 mEq tablet extended release 10 meq PO DAILY 30 Days Qty: 30 0RF trazodone 50 mg tablet 50 mg PO BEDTIME PRN (Reason: for insomnia) Qty: 90 1RF (DME) ROLLATOR with wheels and seat See Rx Instructions .Route .MEDSUPPLY Qty: 1 0RF Rx Instructions: As directed losartan 50 mg tablet 50 mg PO DAILY 90 Days Qty: 90 1RF cholecalciferol (vitamin D3) 50 mcg (2,000 unit) capsule 50 mcg PO DAILY 90 Days Qty: 90 1RF famotidine 40 mg tablet 40 mg PO BEDTIME 90 Days Qty: 90 1RF Gemtesa 75 mg tablet 75 mg PO DAILY quetiapine 50 mg tablet 50 mg PO BID 30 Days Qty: 60 5RF Print Language: Swazi
--- NOTE | 2024-10-07 03:09 | PC.NURSE ---
Addendum entered by Eneida Damico 10/07/24 03:10: pt has not urinated, has [place] cath on, incontinent at baseline. bladder scan obtained >212mL. verbal if pt cant pee to do straight cath. Original Note: repeat orthos as documented, MD aware. pt is very shaky/weak when trying to stand up, +2-3 assist to bedside.
--- NOTE | 2024-10-07 03:55 | PC.NURSE ---
pt unable to urinate. per MD verbal order straight cath done, pt tolerated well. procedure explained to pt with staff nurse. ua sent to lab.
[2024-10-07] MEDS: 0.9 % Sodium Chloride 1,000 ML 999 ML IVCONT (03:56)
[2024-10-07 04:06] LABS: Appearance Urine Clear; Color Urine Yellow; Glucose Urine UA Negative (Negative); Leukocyte Esterase Urine Negative (Negative); Nitrite Urine Negative (Negative); PH 5.5 (5.0-9.0); Specific Gravity - Urine 1.025 (1.005-1.025); Urine Blood Negative (Negative); Urine Ketones Trace mg/dL (Negative); Urine Protein Negative (Neg-Trace)
[2024-10-07 04:11] LABS: Bacteria Urine None Seen (None Seen); RBC Urine 0-2 /HPF (0-2); Squamous Epithelial Cell Urine 0-2 /HPF (0-2); WBC Urine 0-5 /HPF (0-5)
[2024-10-07 04:20] LABS: Amphetamine Screen Urine Not Detected (Not Detect); Barbiturates, Urine POSITIVE (Not Detect); Benzodiazepines Screen Urine POSITIVE (Not Detect); Buprenorphine Scr Not Detected (Not Detect); Cannabinoid Screen Urine Not Detected (Not Detect); Cocaine Screen Urine Not Detected (Not Detect); Fentanyl, urine POSITIVE (Not Detect); Methadone Screen, Urine Not Detected (Not Detect); Opiate Screen Urine Not Detected (Not Detect); Oxycodone Screen Urine Not Detected (Not Detect); Phencyclidine Screen Urine Not Detected (Not Detect)
--- NOTE | 2024-10-07 07:22 | PC.NURSE ---
Pt alert, mostly syriac speaking. Denies pain or SOB. Repositioned in bed. Awaits breakfast and med rec. No complaints offered at this time. Asking for daughter Sasha
--- NOTE | 2024-10-07 09:47 | PHA.MEDREC ---
Addendum entered by Rodrick Huggins RPh 10/07/24 10:05: MED REC CHECKED BY [facility] Original Note: Pharmacy Consult ? Medication Reconciliation Pharmacy has completed the medication reconciliation. Spoke to patient daughter Sasha to confirm med list. Daughter was able to confirm all of patients medications. Patient last took his medications yesterday morning.
--- NOTE | 2024-10-07 12:54 | MHC.CM.ED ---
Addendum entered by Tia Esteevs 10/07/24 13:07: Received return telephone call from Tricia. Tricia would prefer patient not return to [facility]. Agreeable to referral being broadcasted and bed offers being discussed. Original Note: Received case management consult overnight. Patient came to the ER due to a fall. Work up essentially negative. Physical therapy eval completed. Short term rehab is recommended. Attempted to meet with patient. Patient is currently sleeping. 2 granddaughters at bedside. Granddaughters requested CM speak with daughter/HCP, Tricia. Attempted to contact Tricia via telephone at [phone]. Left message requesting return telephone call. STR referral will be broadcasted within 15 miles of patient's home to all facilities that are contacted with patient's insurance at this time. Continue to monitor for d/c needs.
--- NOTE | 2024-10-07 15:07 | PC.NURSE ---
Family at bedside and speaking with CARE team at this time regarding plan for STR
--- NOTE | 2024-10-07 15:32 | MHC.CM.ED ---
[facility] and [facility] are only facilities that are able to offer a bed. Patient's daughter, Sasha, at bedside. Sasha feels [facility] would be best fit. Sasha is upset that Tricia is patient's HCP. Requesting to be patient's HCP. T/W explained HCP would have to be appointed by the patient. Due to patient's memory issues it would be unethical for patient to complete a new HCP. Guardianship information provided. But also explained this is something Sasha would need to pursue. Sasha verbalized undestanding. Spoke with Tricia. Tricia agreeable to [facility]. [facility] aware and in the process of obtaining insurance auth. Continue to monitor for d/c needs.
[2024-10-07] MEDS: Cholecalciferol (Vitamin D3) 25 MCG TABLET 50 MCG PO (17:12)
[2024-10-07] MEDS: Finasteride 5 MG TABLET PO (17:12)
[2024-10-07] MEDS: Tamsulosin HCL 0.4 MG CAPSULE PO (17:12)
[2024-10-07] MEDS: Potassium Chloride ER 10 MEQ TABLET.ER PO (17:12)
[2024-10-07] MEDS: Gabapentin 300 MG CAPSULE PO ×2 (17:13→21:25)
[2024-10-07] MEDS: Omeprazole 40 MG CAPSULE.DR PO (17:13)
[2024-10-07] MEDS: hydroCHLOROthiazide 25 MG TABLET PO (17:13)
[2024-10-07] MEDS: TiZANidine HCL 4 MG TABLET PO ×2 (17:13→21:26)
[2024-10-07] MEDS: Losartan Potassium 50 MG TABLET PO (17:13)
--- NOTE | 2024-10-07 20:44 | MHC.EDTECH ---
This pct assumed care of Patient 1899 ,vitals taken ,Patient was drench in urine ,bedding and gown change ,Patient was assisted unto bedpan ,had exlarge bowel movement .bed bath given ,all safety measure in Place .
[2024-10-07] MEDS: Melatonin 3 MG TABLET 6 MG PO (21:25)
[2024-10-07] MEDS: Famotidine 20 MG TABLET 40 MG PO (21:25)
[2024-10-07] MEDS: Sertraline HCL 50 MG TABLET PO (21:25)
[2024-10-07] MEDS: Donepezil HCl 10 MG TABLET PO (21:25)
[2024-10-07] MEDS: Primidone 50 MG TABLET 100 MG PO (21:25)
[2024-10-07] MEDS: Montelukast Sodium 10 MG TABLET PO (21:25)
[2024-10-07] MEDS: QUEtiapine Fumarate 50 MG TABLET PO (21:25)
--- NOTE | 2024-10-07 23:03 | PC.NURSE ---
pt attempted to removed IV, IV now wrapped
[2024-10-08] MEDS: Omeprazole 40 MG CAPSULE.DR PO (05:59)
[2024-10-08 06:22] VITALS: BP 144/78; PULSE 52; RESP 16; TEMP 36.3; O2SAT 96
[2024-10-08 07:26] VITALS: BP 160/75; PULSE 45; RESP 12; TEMP 36.2; O2SAT 100
[2024-10-08] MEDS: Cholecalciferol (Vitamin D3) 25 MCG TABLET 50 MCG PO (07:28)
[2024-10-08] MEDS: Tamsulosin HCL 0.4 MG CAPSULE PO (07:28)
[2024-10-08] MEDS: Gabapentin 300 MG CAPSULE PO ×3 (07:28→20:59)
[2024-10-08] MEDS: Levothyroxine Sodium 25 MCG TABLET PO (07:28)
[2024-10-08] MEDS: Finasteride 5 MG TABLET PO (07:29)
[2024-10-08] MEDS: QUEtiapine Fumarate 50 MG TABLET PO ×2 (07:29→20:59)
[2024-10-08] MEDS: Losartan Potassium 50 MG TABLET PO (07:29)
[2024-10-08] MEDS: Fluticasone/Vilanterol 200/25 BLST.W.DEV 1 PUFF INHALE (08:30)
[2024-10-08] MEDS: Tiotropium Bromide 2.5 mcg 1 PUFF/2.5 MCG MIST.INHAL 2 PUFF INHALE (08:30)
[2024-10-08 08:35] VITALS: PULSE 52; RESP 18; O2SAT 98
[2024-10-08] MEDS: TiZANidine HCL 4 MG TABLET PO ×3 (08:53→20:59)
[2024-10-08] MEDS: Potassium Chloride ER 10 MEQ TABLET.ER PO (08:53)
[2024-10-08] MEDS: Primidone 50 MG TABLET 100 MG PO ×2 (08:53→21:00)
--- NOTE | 2024-10-08 09:03 | PC.NURSE ---
assumed care of patient at 0700, patient is awake and alert, sat up this morning and ate breakfast tray. patient VSS, medicated per SEP. patient resp even and unlabored.
--- NOTE | 2024-10-08 11:54 | MHC.CM.ED ---
Patient remains in ER overflow. Will transfer to [facility] via BLS when ins auth is obtained. Continue to monitor for d/c needs.
[2024-10-08 12:17] VITALS: BP 144/82; PULSE 77; RESP 16; TEMP 36; O2SAT 98
--- NOTE | 2024-10-08 13:42 | PC.NURSE ---
Family at bedside visiting. Conversing pleasantly. Patient remains calm/cooperative at this time. IV access removed from left forearm, okayed by Isela Monaco (provider).
[2024-10-08 14:00] VITALS: BP 148/72; PULSE 46; RESP 20; TEMP 36.3; O2SAT 100
--- NOTE | 2024-10-08 14:57 | PC.NURSE ---
Sent medication request to pharmacy department for Tizanidine HCL 4mg. Medication unavailable in overflow Pyxis. Will administer medication upon receipt from pharmacy department.
--- NOTE | 2024-10-08 16:31 | PC.NURSE ---
Contacted pharmacy again regarding medication request, via [email or web address]. Medication has not been brought from pharmacy or loaded into the [employer]. Awaiting response.
[2024-10-08 20:46] VITALS: BP 113/67; PULSE 45; RESP 16; TEMP 36.7; O2SAT 100
[2024-10-08] MEDS: Famotidine 20 MG TABLET 40 MG PO (20:59)
[2024-10-08] MEDS: Montelukast Sodium 10 MG TABLET PO (20:59)
[2024-10-08] MEDS: Sertraline HCL 50 MG TABLET PO (20:59)
[2024-10-08] MEDS: Donepezil HCl 10 MG TABLET PO (21:00)
[2024-10-08] MEDS: Melatonin 3 MG TABLET 6 MG PO (21:00)
--- NOTE | 2024-10-08 22:34 | PC.NURSE ---
Addendum entered by Latrice Chua RN 10/09/24 06:27: Male PW found to be off on morning rounds. Incontinence care and bath in a bag provided. Linens changed. New male PW applied. Pt repositioned. Needs met using japanese interpreter. Morning synthroid not stocked in this pyxis. Pharmacy notified and medication delivery requested. Bed alarm on. Original Note: Assumed care of this patient at 19:00. Patient seen in ED overflow pending disposition. CM following with tentative plans for STR pending insurance authorization. Patient is pleasantly confused, calm and cooperative. Hx dementia and Parkinson?s. Primarily Mongolian speaking; in-person japanese interpreter used at the bedside for assessments and medication administration. Pt is A&Ox1 to self only. Reoriented. Denies pain or other issues this evening. HR low in 40?s on evening vitals, otherwise vitals stable. This does not appear to be new and was noted earlier today on this clinical writer?s review of vitals trend earlier. Pt denies dizziness, nausea, chest pain, or other s/s. Covering provider Puja Mishra was notified. No new orders or interventions. Breathing is even and unlabored without distress. Patient resting in bed at this time in no apparent distress. Male PW in place for incontinence. Q2HR turning and repositioning for skin integrity. Med compliant, tolerated two-pills at a time with water without issue. Hourly purposeful rounding enacted. Plan of care continues.
[2024-10-09] MEDS: Omeprazole 40 MG CAPSULE.DR PO (06:13)
[2024-10-09 06:29] VITALS: BP 149/62; PULSE 50; RESP 16; O2SAT 96
[2024-10-09] MEDS: Fluticasone/Vilanterol 200/25 BLST.W.DEV 1 PUFF INHALE (08:43)
[2024-10-09 08:44] VITALS: PULSE 52; RESP 18; O2SAT 96
[2024-10-09] MEDS: Tiotropium Bromide 2.5 mcg 1 PUFF/2.5 MCG MIST.INHAL 2 PUFF INHALE (08:44)
[2024-10-09] MEDS: Finasteride 5 MG TABLET PO (09:02)
[2024-10-09] MEDS: Cholecalciferol (Vitamin D3) 25 MCG TABLET 50 MCG PO (09:02)
[2024-10-09 09:03] VITALS: BP 115/58
[2024-10-09] MEDS: TiZANidine HCL 4 MG TABLET PO ×3 (09:03→20:05)
[2024-10-09] MEDS: Losartan Potassium 50 MG TABLET PO (09:03)
[2024-10-09] MEDS: QUEtiapine Fumarate 50 MG TABLET PO ×2 (09:04→20:05)
[2024-10-09] MEDS: Gabapentin 300 MG CAPSULE PO ×3 (09:04→20:05)
[2024-10-09] MEDS: Tamsulosin HCL 0.4 MG CAPSULE PO (09:04)
[2024-10-09] MEDS: Potassium Chloride ER 10 MEQ TABLET.ER PO (09:05)
[2024-10-09] MEDS: Levothyroxine Sodium 25 MCG TABLET PO (09:17)
[2024-10-09] MEDS: Primidone 50 MG TABLET 100 MG PO ×2 (12:58→20:06)
[2024-10-09 14:25] VITALS: BP 101/53; PULSE 47; RESP 18; O2SAT 97
[2024-10-09 15:56] VITALS: BP 122/63
[2024-10-09] MEDS: hydroCHLOROthiazide 25 MG TABLET PO (15:56)
--- NOTE | 2024-10-09 19:19 | PC.NURSE ---
pt rested comfortably during the day with several family members visiting. He denied complaint and is cooperative with care.
[2024-10-09 19:56] VITALS: BP 125/61; PULSE 46; RESP 17; TEMP 36.4; O2SAT 98
[2024-10-09] MEDS: Montelukast Sodium 10 MG TABLET PO (20:05)
[2024-10-09] MEDS: Melatonin 3 MG TABLET 6 MG PO (20:05)
[2024-10-09] MEDS: Famotidine 20 MG TABLET 40 MG PO (20:05)
[2024-10-09] MEDS: Donepezil HCl 10 MG TABLET PO (20:06)
[2024-10-09] MEDS: Sertraline HCL 50 MG TABLET PO (20:06)
[2024-10-10 06:00] VITALS: BP 166/82; PULSE 53; RESP 18; TEMP 36.5; O2SAT 98
[2024-10-10] MEDS: Omeprazole 40 MG CAPSULE.DR PO (06:00)
[2024-10-10] MEDS: Levothyroxine Sodium 25 MCG TABLET PO (06:00)
--- NOTE | 2024-10-10 06:22 | PC.NURSE ---
Assumed care of this patient at 19:00. Patient seen in ED overflow. Jamaican speaking, aerial photograph interpreter used at bedside. Pt denies acute complaints including pain. Vitals stable per trend. Pt compliant with medications two-at a time with water, tolerated without issue. Incontinent of urine despite male PW, replaced and patent of odorless cyu in adequate amounts. Patient observed sleeping in bed on most rounding. Breathing observed even and unlabored without distress on room air. Bed alarm on and safety measures in place. Plan of care continues.?
[2024-10-10] MEDS: TiZANidine HCL 4 MG TABLET PO ×3 (08:06→21:48)
[2024-10-10 08:07] VITALS: BP 174/85
[2024-10-10] MEDS: QUEtiapine Fumarate 50 MG TABLET PO ×2 (08:07→21:49)
[2024-10-10] MEDS: Losartan Potassium 50 MG TABLET PO (08:07)
[2024-10-10] MEDS: Gabapentin 300 MG CAPSULE PO ×3 (08:08→21:49)
[2024-10-10] MEDS: Finasteride 5 MG TABLET PO (08:09)
[2024-10-10] MEDS: Tamsulosin HCL 0.4 MG CAPSULE PO (08:09)
[2024-10-10] MEDS: Cholecalciferol (Vitamin D3) 25 MCG TABLET 50 MCG PO (08:09)
[2024-10-10] MEDS: Tiotropium Bromide 2.5 mcg 1 PUFF/2.5 MCG MIST.INHAL 2 PUFF INHALE (08:10)
[2024-10-10] MEDS: Fluticasone/Vilanterol 200/25 BLST.W.DEV 1 PUFF INHALE (08:10)
[2024-10-10 08:14] VITALS: PULSE 61; RESP 20; O2SAT 98
--- NOTE | 2024-10-10 09:20 | MHC.EDTECH ---
AM care done ,bed change ,RN aware
[2024-10-10] MEDS: Primidone 50 MG TABLET 100 MG PO ×2 (11:05→21:49)
[2024-10-10] MEDS: Potassium Chloride ER 10 MEQ TABLET.ER PO (11:05)
--- NOTE | 2024-10-10 11:22 | MHC.CM.PN ---
PT STILL AWAITING INSURANCE AUTH FOR STR AT [facility], CM REACHED OUT TO SNF FOR UPDATE AND AWAITING RESPONSE, CM WILL FOLLOW.
[2024-10-10 14:36] VITALS: BP 147/79; PULSE 61; RESP 16; TEMP 36.2; O2SAT 96
[2024-10-10] MEDS: Melatonin 3 MG TABLET 6 MG PO (21:48)
[2024-10-10] MEDS: Donepezil HCl 10 MG TABLET PO (21:49)
[2024-10-10] MEDS: Famotidine 20 MG TABLET 40 MG PO (21:49)
[2024-10-10] MEDS: Montelukast Sodium 10 MG TABLET PO (21:49)
[2024-10-10] MEDS: Sertraline HCL 50 MG TABLET PO (21:49)
[2024-10-10 21:53] VITALS: BP 134/84; PULSE 59; RESP 16; TEMP 36.2; O2SAT 96
--- NOTE | 2024-10-11 04:11 | PC.NURSE ---
pt self removed condom cath, replaced at this time. pt otherwise resting comfortably with no apparent distress noted
[2024-10-11 05:37] VITALS: BP 139/73; PULSE 55; RESP 18; TEMP 36.7; O2SAT 95
[2024-10-11] MEDS: Levothyroxine Sodium 25 MCG TABLET PO (06:18)
[2024-10-11] MEDS: Omeprazole 40 MG CAPSULE.DR PO (06:18)
[2024-10-11] MEDS: Tiotropium Bromide 2.5 mcg 1 PUFF/2.5 MCG MIST.INHAL 2 PUFF INHALE (08:03)
[2024-10-11] MEDS: Fluticasone/Vilanterol 200/25 BLST.W.DEV 1 PUFF INHALE (08:03)
[2024-10-11 08:06] VITALS: PULSE 55; RESP 18; O2SAT 91
[2024-10-11 08:27] VITALS: BP 159/64
[2024-10-11] MEDS: Tamsulosin HCL 0.4 MG CAPSULE PO (08:27)
[2024-10-11] MEDS: Cholecalciferol (Vitamin D3) 25 MCG TABLET 50 MCG PO (08:27)
[2024-10-11] MEDS: Losartan Potassium 50 MG TABLET PO (08:27)
[2024-10-11] MEDS: Finasteride 5 MG TABLET PO (08:27)
[2024-10-11] MEDS: Gabapentin 300 MG CAPSULE PO (08:29)
[2024-10-11] MEDS: TiZANidine HCL 4 MG TABLET PO (08:29)
[2024-10-11] MEDS: Primidone 50 MG TABLET 100 MG PO (08:30)
[2024-10-11] MEDS: QUEtiapine Fumarate 50 MG TABLET PO (08:31)
[2024-10-11] MEDS: Potassium Chloride ER 10 MEQ TABLET.ER PO (10:16)
--- NOTE | 2024-10-11 10:36 | PC.NURSE ---
Pt alert and cooperative. patient ate breakfast, denies any pain.
--- NOTE | 2024-10-11 10:44 | MHC.CM.ED ---
Patient remains in ER overflow. Insurance auth has obtained from [facility]. Sade MCCANN [facility] for [facility]pm[facility] Patient, Eulalia DURAN and Shaye RUSS aware. Spoke with patient's daughter, Sasha, via telephone. Sasha verbalized understanding. Attempted to speak with HCP/Daughter, Tricia, via telephone at [phone]. Left voicemail with d/c info. Continue to monitor for d/c needs.
[2024-10-11 12:42] VITALS: BP 159/64; PULSE 55; RESP 18; TEMP 36.7; O2SAT 95
== END 2024-10-11 12:20 | disposition home or self-care (01) ==
PROVIDERS: Emergency Provider Emergency Medicine
DX: I95.1 Orthostatic hypotension (principal); R29.6 Repeated falls; Z91.81 History of falling; N17.9 Acute kidney failure, unspecified; G20.A1 Parkinson's disease without dyskinesia, without mention of fluctuations; F02.80 Dementia in other diseases classified elsewhere, unspecified severity, without behavioral disturbance, psychotic disturbance, mood disturbance, and anxiety; R05.9 Cough, unspecified; Z03.818 Encounter for observation for suspected exposure to other biological agents ruled out; E78.5 Hyperlipidemia, unspecified; J44.9 Chronic obstructive pulmonary disease, unspecified; Z79.899 Other long term (current) drug therapy
CPT/HCPCS: 0241U; 36415; 51701; 71045; 80053; 80307; 81001; 84484; 85025; 93005; 94640; 96360; 96361; 97162; 99285

== ENCOUNTER → 2024-10-06 23:07 | Outpatient (BNV) | payer OTHER, SELFPAY | PROVIDERS: Emergency Provider Emergency Medicine; Visit Provider Internal Medicine | DX: R00.1 Bradycardia, unspecified (principal); R94.31 Abnormal electrocardiogram [ECG] [EKG] | CPT/HCPCS: 93010 ==

== ENCOUNTER → 2024-10-06 23:59 | Outpatient (BNV) | payer OTHER, SELFPAY | PROVIDERS: Emergency Provider Emergency Medicine; Visit Provider Radiology Diagnostic Radiology | DX: R05.9 Cough, unspecified (principal) | CPT/HCPCS: 71045 ==